=== PATIENT | female | born 1965 | race Caucasian/White ===

== ENCOUNTER 2024-08-01 08:33 | Emergency (ER) | payer BC, SELFPAY ==
--- NOTE | ~2024-08-01 | CT_ITS ---
EXAMINATION: CT diagnostic chest wo con DATE: 08/01/2024 09:38 INDICATION: fall, R rib pain TECHNIQUE: Computed tomography (CT) of the chest was performed without intravenous contrast. Addition al 3D reconstructions utilizing coronal maximum intensity projection (MIP) were performed. Automated exposure control and iterative reconstruction technique were employed. The dose-length product was 24 0.15 mGy-cm. COMPARISON: None FINDINGS: Mild discoid and dependent atelectasis in the lower lobes, right greater than left. No pneumonia, pul monary edema, pleural effusion or pneumothorax. Calcified left lower lobe nodule and calcified left h ilar lymph nodes consistent with old granulomatous disease. Heart size is normal. Atherosclerotic cor onary artery calcific location. No pericardial effusion. Thoracic aorta is normal in caliber. No path ologically enlarged lymphadenopathy. Small sliding-type hiatal hernia. Visualized upper abdomen is un remarkable. There are nondisplaced fractures at the lateral tips of the right transverse process of i s T7 and T8 and of the immediately adjacent posterior right seventh and eighth ribs. Additional nondi splaced fracture of the posterior right fifth and sixth ribs. Mild thoracic spondylosis. IMPRESSION: 1. Nondisplaced fractures of the posterior right fifth-eighth ribs and of the lateral tips of the rig ht transverse processes at T7 and T8. 2. Mild atelectasis in bilateral lower lobes. No acute cardiopulmonary disease. 3. Small sliding-type hiatal hernia. Reviewed, dictated and finalized at location B. [employer] CAPTAIN IMPRESSION: 1. Nondisplaced fractures of the posterior right fifth-eighth ribs and of the l ateral tips of the right transverse processes at T7 and T8. 2. Mild atelectasis in bilateral lower lobes. No acute cardiopulmonary disease. 3. Small sliding-type hiatal hernia.
--- NOTE | ~2024-08-01 | XR_ITS ---
EXAMINATION: XR shoulder RT min 2V DATE: 08/01/2024 09:51 INDICATION: Right shoulder pain. Fall. TECHNIQUE: 6 views of right shoulder were obtained. COMPARISON: None. FINDINGS: Alignment is normal. No fracture. There is mild osteoarthritis of glenohumeral joint and ac romioclavicular joint. IMPRESSION: 1. Mild polyarticular osteoarthritis. Reviewed, dictated and finalized at location A. [employer]
[2024-08-01 08:48] VITALS: BP 139/91; PULSE 73; RESP 13; TEMP 36.6; O2SAT 100
--- NOTE | 2024-08-01 09:21 | ED_ITS ---
HPI - Fall General Chief Complaint: Fall Stated Complaint: fall Time Seen by Provider: 08/01/24 09:01 Source: patient Mode of arrival: ambulatory Limitations: no limitations History of Present Illness HPI Narrative: Patient is a 59 y/o female who presents to the ED with c/o R chest wall/rib pain. Patient reports she missed a step and fell down 3-4 steps around 730 this morning. Landed on her right side on marble floor. Complains of pain to her right chest wall/lateral ribs, right shoulder. Reports pain is worse with deep breathing, taking deep breath. She did take 3 ibuprofen prior to arrival. Denies any head injury or LOC. Denies dizziness or lightheadedness. Denies abdominal pain, nausea, vomiting, hip pain. Has been able to ambulate after the fall. Related Data Allergies Allergy/AdvReac Type Severity Reaction Status Date / Time No Known Allergies Allergy Verified 08/01/24 08:47 Review of Systems Review of Systems: All systems reviewed & are unremarkable except as noted in HPI. All systems reviewed & are unremarkable except as noted in HPI and below Exam Narrative: GENERAL: Mildly uncomfortable appearing, well-nourished, non-toxic, in no acute distress. HEAD: Normocephalic, atraumatic. RESPIRATORY: Airway patent, respirations nonlabored. Clear to auscultation bilaterally, no rales, rhonchi, wheezing. Lung sounds are equal bilaterally but pain reported with deep inspiration CARDIOVASCULAR: Regular rate and rhythm without murmurs, rubs, or gallops. ABDOMINAL: Soft, no tenderness throughout abdomen, nondistended. Normoactive BS. MUSCULOSKELETAL: Moves all extremities. No gross deformities. No significant tenderness throughout cervical, thoracic, lumbar midline spine. No palpable bony deformities. Tenderness to palpation along right anterior lateral inferior chest wall/rib cage. SKIN: Warm, dry, normal color. NEURO: A&O X3. Speech clear. Cranial nerves II-XII grossly intact. Steady gait. No ataxic movements. PSYCHIATRIC: Appropriate mood and affect. Normal interaction. Course Vital Signs Vital signs: Vital Signs Temperature 98 F 08/01/24 08:48 Pulse Rate 73 08/01/24 08:48 Respiratory Rate 13 08/01/24 08:48 Blood Pressure 139/91 H 08/01/24 08:48 Pulse Oximetry 100 08/01/24 08:48 Oxygen Delivery Room Air 12/30/24 08:48 Temperature 97.6 F 08/01/24 11:40 Pulse Rate 87 08/01/24 11:40 Respiratory Rate 20 08/01/24 11:40 Blood Pressure 125/81 08/01/24 11:40 Pulse Oximetry 100 08/01/24 11:40 Oxygen Delivery Room Air 08/01/24 08:48 MDM - Fall MDM Narrative Medical decision making narrative: Patient presented to ED status post mechanical fall downstairs, pain to right ribcage. Denies HI or LOC. Patient mildly uncomfortable appearing. She is neurovascularly intact. Lung sounds appear equal with auscultation. Vital signs are otherwise stable. CT scan of chest showing nondisplaced fractures of 5-8 right-sided ribs as well as fractures of transverse processes of T7/T8. Patient was updated on imaging results. She is feeling improved with pain management in the ED. She remains neurovascularly intact. Discussed case with Dr. Martinez, neurosurgery regarding spinal fxs, advised no follow-up or splinting required with transverse process fractures. Advised does not affect stability of spine. Given amount of fractures in setting of trauma, feel patient best observed overnight for pain control and serial imaging. Will attempt trauma transfer. Discussed case with Dr. Jaime, EDP @ [facility], accepted patient for transfer. Patient in agreement with plan and need for transfer. Will be going via POV. Advised to go straight to [facility], do not eat or drink, do not make any stops. Medical Records Attestation: I reviewed the patient's medical records. Imaging Data Attestation: I personally reviewed and interpreted this imaging study as follows: Radiologist's impression: ITS Impressions Chest CT 08/01/24 09:45 IMPRESSION: 1. Nondisplaced fractures of the posterior right fifth-eighth ribs and of the lateral tips of the right transverse processes at T7 and T8. 2. Mild atelectasis in bilateral lower lobes. No acute cardiopulmonary disease. 3. Small sliding-type hiatal hernia. Shoulder X-Ray 08/01/24 09:52 IMPRESSION: 1. Mild polyarticular osteoarthritis. Discharge Plan Discharge Clinical Impression: Multiple transverse process fractures Multiple fractures of ribs of right side Qualifiers: Encounter type: initial encounter Fracture type: closed Qualified Code(s): S22.41XA - Multiple fractures of ribs, right side, initial encounter for closed fracture Fall down stairs Qualifiers: Encounter type: initial encounter Qualified Code(s): W10.8XXA - Fall (on) (from) other stairs and steps, initial encounter Patient Disposition: Acute Care Hospital Condition: Stable Additional Instructions: GO STRAIGHT TO [facility]. THEY ARE AWARE YOU ARE COMING. DO NOT MAKE ANY STOPS. DO NOT EAT OR DRINK. Patient Language: Telugu Follow-up/Referrals: Fracisco,Sarah Park DO [Primary Care Provider] - Time of Disposition: 11:04
[2024-08-01] MEDS: HYDROcodone/acetaminophen (*CRX) 5-325 MG TABLET 1 TAB PO (09:26)
[2024-08-01] MEDS: LIDOCAINE 5% PATCH 1 PATCH TRANSDERM (09:28)
[2024-08-01 10:05] VITALS: BP 122/79; PULSE 77; RESP 12; O2SAT 99
[2024-08-01 10:34] VITALS: BP 120/79; PULSE 80; RESP 13; O2SAT 97
[2024-08-01 11:40] VITALS: BP 125/81; PULSE 87; RESP 20; TEMP 36.4; O2SAT 100
--- OUTSIDE RECORDS SUMMARY | 2024-08-08 14:12 | XMS_ITS | Clinical Summary ---
Author Organization [facility] Address [address] [place] [address]. [place] [address] [place] [address] Care Team Providers Care Yard Jockey Name Role Phone Sana Sethi OD Unavailable [phone] Elza Benitez MD Primary Care Provider [phone] Allergies No known active allergies Medications Insulin Pen Needle (PEN NEEDLES 31GX5/16 ) 31G X 8 MM [facility] 8 Active hydroCHLOROthiazide (HYDRODIURIL) 50 MG tabletIndications:E ssential hypertension Take 1 tablet (50 mg total) by mouth daily. 90 tablet 3 4 Active metFORMIN (GLUCOPHAGE) 1000 MG tabletIndications:C ontrolled type 2 diabetes mellitus with microalbuminuria, with long-term current use of insulin ([facility]) Take 1 tablet (1,000 mg total) by mouth 2 (two) times daily. 180 tablet 3 4 Active venlafaxine XR (EFFEXOR-XR) 150 MG 24 hr capsuleIndications: Depression, unspecified depression type Take 1 capsule (150 mg total) by mouth daily. 90 capsule 3 4 Active Continuous Glucose Banquet Prep Cook (DEXCOM G7 BRANCH ACCOUNT MANAGER) DeviceIndications:T ype 2 diabetes mellitus with hyperglycemia, with long-term current use of insulin ([facility] H[facility]/HCC) 1 each by Does not apply route daily. 1 each 4 Active lisinopril (PRINIVIL) 10 MG tabletIndications:E ssential hypertension take 1 tablet by mouth every day 90 tablet 2 4 Active buPROPion XL (WELLBUTRIN XL) 150 MG 24 hr tabletIndications:D epression, unspecified depression type take 1 tablet by mouth every day 90 tablet 3 4 Active cetirizine (ZYRTEC) 10 MG tabletIndications:A llergic rhinitis, unspecified seasonality, unspecified trigger take 1 tablet by mouth every day 90 tablet 3 4 Active Semaglutide (RYBELSUS) 14 MG TabIndications:Diab etes Mellitus Take 14 mg by mouth daily. Indications: Diabetes 30 tablet 3 4 Active atorvastatin (LIPITOR) 10 MG tabletIndications:O ther hyperlipidemia TAKE 1 TABLET BY MOUTH EVERY DAY IN THE EVENING 90 tablet 2 4 Active insulin glargine (LANTUS SOLOSTAR) 100 UNIT/ML injection (PEN)Indications:Co ntrolled type 2 diabetes mellitus with microalbuminuria, with long-term current use of insulin ([facility]) Inject 35 Units into the skin 2 (two) times daily. 60 mL 3 4 06/03/20 25 Active dapagliflozin (FARXIGA) 10 MG tabletIndications:C ontrolled type 2 diabetes mellitus with microalbuminuria, with long-term current use of insulin ([facility]) TAKE 1 TABLET BY MOUTH EVERY DAY 90 tablet 2 4 Active Continuous Glucose Sensor (DEXCOM G7 SENSOR) MiscIndications:Typ e 2 diabetes mellitus with hyperglycemia, with long-term current use of insulin ([facility]) 1 EACH BY DOES NOT APPLY ROUTE EVERY 10 (TEN) DAYS. 6 each 11 4 Active Active Problems Problem Noted Date Diagnosed Date Essential hypertension 10/03/2021 Allergic rhinitis, unspecifi ed seasonality, unspecified trigger 10/03/2021 Depression, unspecified depression type 10/04/19 22 Insomnia 01/18/2021 History of colon polyps 12/08/2019 Albuminuria 10/06/2018 Controlled type 2 diabetes m ellitus with microalbuminuria, with long-term current use of insulin ([facility]/HCC) 10/06/2018 Eczema 10/19/2014 Morbid obesity ([facility]CC) 02/01/2014 Hyperlipidemia 11/11/2012 Resolved Problems Problem Noted Date Diagnosed Date Resolved Date Acute left ankle pain 07/03/20232023 Left foot pain 07/03/2023 12/16/2023 Yeast vaginitis 07/03/2023 12/16/2023 Preventative health care 03/04/202203/2022 Screening for colon cancer 03/04/2022 0 03/10/2022 Preventative health care 10/03/202101/2022 Muscle spasm of left shoulder area 01/18/2021 12/16/2023 Plantar warts 01/18/2021 12/16/2023 Preventative health care 01/18/202111/2022 Need for shingles vaccine 04/17/2020 Need for prophylactic vaccin ation and inoculation against influenza 04/17/2020 04/23/2020 Breast cancer screening 10/01/201804/03 Osteoarthritis of left knee 07/10/2016 12/16/2023 Polyp of colon 04/13/2015 12/08/2019 Adenomatosis 11/12/2012 12/16/2023 Encounter for preventive health examination 11/11/2012 04/13/2020 Encounters Date Type Department Care Team Description 08/04/2024 MyChart Message Enc [facility] [place] [address], [address] [place] [phone] Elza Benitez MD Need to reschedule with Betty Hines for dex fix. 06/28/2024 MyChart Message Enc [place] [id number] [place] [address] [facility] Provider Instructions for Sharing Dexcom Data with Dr. Benitez 06/24/2024 3:40 PM MANAGER LIGHTING Office Visit [facility] [place] [address] [facility], [address] [place] [phone] Elza Benitez MD Follow Up 06/24/2024 Travel 06/23/2024 Scan [facility] Scanned, Doc [facility] Dilated Eye Exam (SCAN) from Last 3 Months Immunizations Name Administration Dates Next Due Flublok (Quadrivalent) 04/17/2020 Flucelvax 6 Months+ (Prefill ed Syringe) 05/13/2021 Hepatitis A (Generic) 08/03/2000,08/03/1999 Influenza (Generic) 05/03/2018,05/03/2017 Influenza Adult (Generic) 05/03/2023,,05/13/2021,2018 PFIZER COVID-19 (12+) MRNA, LNP-S, PF, JEFFRY-SUCROSE, 30 MCG/0.3 ML (COMIRNATY) 06/24/2024 Pneumococcal (Prevnar 13) 03/19/2017 Shingrix 08/17/2020,04/17/2020 Tdap (Adacel) 03/22/2024 Tdap (Generic) 01/07/2012 Zoster (Zostavax) [address] Unt/0.65Ml 03/19/2017 Family History Medical History Relation Comments skin cancer Father Breast Cancer Maternal Aunt ? age Breast Cancer Maternal Grandmother Diabetes Other Hypertension Other Relation Status Comments Father Maternal Aunt Maternal Grandmother Other Alive Social History Tobacco Use Types Packs/Day Years Used Date Smoking Tobacco: Never Passive Smoke Exposure: Past Smokeless Tobacco: Never Tobacco Cessation:Counseling Given: No Alcohol Use Standard Drinks/Week Comments Not Currently 0 (1 standard drink = 0.6 oz pur e alcohol) PHQ-2 Answer Date Recorded Patient Health Questionnaire-2 Score 0 12/15/2023 Comments No Sex and Gender Information Value Date Recorded Sex Assigned at Not on file Legal Sex Female 7:26 PM CDT Gender Identity Not on file Sexual Orientation Not on file 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 Not on file Not on file Last Filed Vital Signs Vital Sign Reading Time Taken Comments Blood Pressure 130/80 06/24/2024 3:29 PM MANAGER LIGHTING Pulse 100 06/24/2024 3:29 PM MANAGER LIGHTING Temperature 36.4 ??C (97.6 ??F) 06/24/2024 3:29 PM CS T Respiratory Rate 16 06/24/2024 3:29 PM MANAGER LIGHTING Oxygen Saturation 98% 06/24/2024 3:29 PM MANAGER LIGHTING Inhaled Oxygen Concentration - - Weight 93 kg (205 lb) 06/24/2024 3:29 PM MANAGER LIGHTING Height 167.6 cm (5' 6 ) 06/24/2024 3:29 PM MANAGER LIGHTING Body Mass Index 33.09 06/24/2024 3:29 PM MANAGER LIGHTING Plan of Treatment Upcoming Encounters Date Type Department Care Team (Late st Contact Info) Description 09/29/2024 8:00 AM MANAGER LIGHTING Office Visit [facility] Family Medicine - [address], [address] [place] [address] Elza Benitez MD [facility] [facility] [address] [place] [address] Health Maintenance Due Date Last Done Comments Kidney Health Evaluation 1966 Hepatitis C 1984 Hepatitis B Vaccines (1 of 3 - 19+ 3-dose series) 1985 Cervical Cancer Screening Pap with HPV Testing (Age 30 to 64) Every 5 Years 1996 Pneumococcal Vaccine: Pediatrics (0 to 5 Years) and At-Risk Patients (6 to 64 Years) (2 of 2 - PPSV23 or PCV20) 05/14/2017 03/19/2017 Cervical Cancer Screening Pap Smear (Age 30 to 64) Every 3 Years 01/19/2024 01/18/2021, 01/18/2021, 08/21/2017, Additional history exists Cervical Cancer Screening with HPV 01/19/2024 Influenza Adult (#1) 2024 05/03/2023, 05/16/2022, 05/13/2021, Additional history exists Annual Physical 07/03/2024 07/03/2023, 0809/2021, 01/18/2021, Additional history exists Lipid Panel 07/17/2024 07/17/2023, 07/03, 03/14/2022, Additional history exists Hemoglobin A1C 12/22/2024 06/24/2024, 03/04, 12/15/2023, Additional history exists Mammogram Screening 04/15/2026 04/15/2024, 03/31/2023, 02/21/2022, Additional history exists Diabetes: Retinopathy Eye Exam 06/23/2026 06/23/2024 Colorectal Cancer Screening Colonoscopy (10 Years) 07/07/2032 07/07/2022, 07/07/2022, 05/03/2015 DTaP, Tdap and Td Vaccines (3 - Td or Tdap) 03/22/2034 03/22/2024, 01/07/2012 Zoster Vaccines Completed 08/17/2020, 04/03, 03/19/2017 COVID-19 Vaccine Completed 06/24/2024, , 02/18/2022, Additional history exists Meningococcal Vaccine Aged Out No constance shad eligible based on patient's age to complete this topic RSV Immunizations Under 20 Months Aged Out No longer eligible based on patient's age to complete this topic Procedures Procedure Name Priority Date/Time Associated Diagnosis Comments HEMOGLOBIN, GLYCOSYLATED Routine 06/24/2024 4:05 PM MANAGER LIGHTING Type 2 diabetes mellitus with diabetic microalbuminuria, with long-term current use of insulin ([facility]) COLLECT.CAPILLARY (FNGR,HEEL,EAR) Routine 06/24/2024 3:29 PM MANAGER LIGHTING Type 2 diabetes mellitus with diabetic microalbuminuria, with long-term current use of insulin ([facility]) DIABETIC RETINOPATHY EXAM (NEGATIVE)(SCAN ORDER) Routine 06/23/2024 MG SCREENING W JANICE ABIDA DIGI Routine 04/15/2024 3:02 PM CDT Screening mammogram, encounter for LIPID PANEL Routine 07/17/2023 8:13 AM MANAGER LIGHTING Hyperlipidemia, unspecified hyperlipidemia type Morbid obesity ([facility]) Controlled type 2 diabetes mellitus with microalbuminuria, with long-term current use of insulin ([facility]) Essential hypertension COLONOSCOPY Routine 07/07/2022 9:27 AM MANAGER LIGHTING THINPREP IMAGING SYSTEM PAP Routine 01/18/2021 4:28 PM CDT Encounter for screening for malignant neoplasm of cervix from Last 3 Months or Most Recently Relevant to Health Maintenance Results * (ABNORMAL) HEMOGLOBIN, GLYCOSYLATED (06/24/2024 4:05 PM MANAGER LIGHTING) HGB A1C 8.2 % [facility] 06/24/2024 4:05 PM MANAGER LIGHTING Elza Benitez MD LABORATORY Final Result Performing Organization Address City/[facility]/ZIP Co de Phone Number MG-N [facility] [facility] [address] [place] [address], * DIABETIC RETINOPATHY EXAM (NEGATIVE) (06/23/2024) us Doc Med [facility] Scanned SCANNING Final Resu lt [facility] ONBASE * MG SCREENING W JANICE ABIDA DIGI (04/15/2024 3:02 PM CDT) Anatomical Region Laterality Modality Breast Bilateral Mammography 04/18/2024 7:22 AM CDT Impressions 04/18/2024 7:23 AM CDT ===== IMPRESSION: ===== 1. ??Stable mammographic appearance with no new findings to suggest malignancy in either breast. Assessment: ACR BI-RADS 2 - BENIGN FINDING(S) Recommendation: 1:Routine Screening Bilateral Comments: Ordered By: ELZA BENITEZ Interpreted By: Fabricio Torres MD, 04/18/2024 7:22 AM Narrative 04/18/2024 7:23 AM CDT [facility] [address] [place] [address] Examination: Digital bilateral screening mammogram with 3D Tomosynthesis Exam Date/Time: 04/15/2024 2:51 PM Reason For Exam: ??routine ? No prior breast procedures. No personal or first-degree relative history of breast cancer. No current complaints. Comparison: Mammograms from 03/31/2023 02/21/2022 01/18/2021 Technique: Digital screening mammography of both breasts was performed in addition to 3-D Tomosynthesis technique. This study was read with the assistance of a computer-aided detection system. Tissue density: There are scattered areas of fibroglandular density. Findings: Benign axillary lymph nodes. Tiny benign rounded calcifications. No suspicious interval change in parenchymal pattern from prior studies. There is no new focal asymmetry, dominant mass lesion, area of skin thickening, or cluster of suspicious appearing calcifications in either breast to suggest malignancy. us Elza Benitez MD MAMMO Final Result * LIPID PANEL (07/17/2023 8:13 AM MANAGER LIGHTING) Pathologist [facility] CHOLESTEROL 145 0 - 199 MG/DL [facility] TRIGLYCERIDES 115 0.00 - 150.00 MG/DL [facility] Comment: NCEP REFERENCE VALUES FOR TRIGLYCERIDES: NORMAL: ? <150 MG/DL BORDERLINE HIGH: ?150 - 199 MG/DL HIGH: ? 200 - 499 MG/DL VERY HIGH: ?>/= 500 MG/DL HDL 64 >40 MG/DL [facility] LDL (CALCULATED) 61 0 - 99 MG/DL [facility] Comment: CUTOFF VALUES RECOMMENDED BY THE NATIONAL CHOLESTEROL EDUCATION PROGRAM: DESIRABLE: ?CHOLESTEROL <200 MG/DL ? LDL <100 MG/DL BORDERLINE: ?? CHOLESTEROL 200-239 MG/DL ?LDL 101-159 MG/DL HIGHER RISK: ??CHOLESTEROL >240 MG/DL ? LDL >160 MG/DL, HDL <40 MG/DL NON HDL CHOLESTEROL 81 NO REFERENCE RANGE MG/DL [facility] Comment: A REASONABLE GOAL FOR NON-HDL CHOLESTEROL IS ONE THAT IS 30 MG/DL HIGHER THAN THE LDL CHOLESTEROL GOAL. CHOL/HDL RATIO 2.3 0.0 - 5.0 . [facility] Comment: IS PATIENT FASTING?->YES ON NOVEMBER 25, 2022, [facility] CHANGED THE EQUATION FOR CALCULATING ESTIMATED LOW-DENSITY LIPOPROTEIN-CHOLESTEROL (LDL-C) FROM THE FRIEDEWALD EQUATION TO THE THEODORE/BUSH EQUATION. THIS NEW EQUATION IS ONLY VALID FOR LIPID PANELS WITH TRIGLYCERIDES < 400 MG/DL. STUDIES HAVE DEMONSTRATED THAT THIS NEW EQUATION WILL IMPROVE THE ACCURACY OF LDL-C, ESPECIALLY IN SCENARIOS WHEN LDL-C CONCENTRATIONS ARE RELATIVELY LOW (< 100 MG/DL), TRIGLYCERIDES ARE ELEVATED, OR PATIENT IS NON-FASTING. REFERENCES: - BETH JAIMES, MELECIO RAMOS, GLORY SHETH, COLE CASTELLANO, COLE HOOPER, DEONDRE PRINCE, AND ARNOL ORTEGA. 2013. COMPARISON OF A NOVEL METHOD VS THE FRIEDEWALD EQUATION FOR ESTIMATING LOW-DENSITY LIPOPROTEIN CHOLESTEROL LEVELS FROM THE STANDARD LIPID PROFILE. LEWIS: THE JOURNAL OF THE [employer] 310 (19): 2061-68. - COLT V, SAKSHI J, LARISSA A, TERRY M, ILIA R, WALLY E, NIKI RS, SHANNON SR, THEODORE SS. FASTING VERSUS NONFASTING AND LOW-DENSITY LIPOPROTEIN CHOLESTEROL ACCURACY. CIRCULATION. 2018 AUG 04;137(1):10-19. 07/17/2023 8:13 AM MANAGER LIGHTING 07/18/2023 5:32 AM MANAGER LIGHTING Jaci Yap DO LABORATORY Final Result [facility] [address] [place] [address], * Colonoscopy (07/07/2022 9:27 AM MANAGER LIGHTING) Narrative Procedure Note Altagracia Bell MD - 07/07/2022 9:27 AM CST ALTAGRACIA BELL MD, FACG, FACP COLONOSCOPY 07/07/2022 This is a 57-year-old female with history of T2DM, HTN and kidney stoneswho now presents for colonoscopy for personal history of colon polyps. GI review of systems is negative. No endocarditis risk factors. No KnownAllergies Medications: see list. Family history: negative for colon cancer. VITALS: Stable. LUNGS: Clear. HEART: RRR. S1/S2 normal. ABDOMEN:NABS/NT. The procedure of colonoscopy, its indications, alternatives of bariumstudies and risks including perforation, bleeding, infection, reaction tomedication as well as the possible need for blood or surgery werediscussed with the patient prior to the procedure. The patient voicesunderstanding, agrees to proceed and provides informed consent. INDICATION: Personal history of colon polyps. POST-OP: Normal. SEDATION: Per Anesthesia PREP: Good. With the patient in the left lateral decubitus position, the [id number] colonoscope was introduced into the rectum and advanced easilyto the Terminal Ileum. Careful inspection of the mucosa was made uponinsertion and withdrawal of the endoscope. FINDINGS: Terminal ileum: distal 5 cm normal. Cecum, Ascending colon, Transversecolon, Descending colon, Sigmoid colon and Rectum including retroflexionnormal. No masses, polyps, AVMs, colitis or diverticulosis seen. No complications, blood loss or implants. ASSESSMENT AND PLAN: Personal history of colon polyps: - Colonoscopy 03/2010 with polyp; colonoscopy 03/2015 normal - Surveillance colonoscopy 07/07/2022 normal - Screening colonoscopy in 10 years Thank you for allowing me to care for your patient. She will follow-upwith Dr. Yap as needed. Altagracia Bell M.D. Cc: Dr. Regina Yap us Altagracia Bell MD GI PROCEDURE ORDERABLES Fin al Result * THINPREP IMAGING SYSTEM PAP (01/18/2021 4:28 PM CDT) THIN PREP PAP SEE RESULTS BELOW [facility] Comment: CASE REPORT: CYTOLOGY GYNECOLOGICAL REPORT ? CASE: [id number] ? AUTHORIZING PROVIDER: ??JACI YAP ?COLLECTED: ? 01/18/2021 1628 ?? ORDERING LOCATION: ? [facility] PATHOLOGY ? RECEIVED: ? 01/21/2021 1127 ?? FIRST SCREEN: ?MA, STRONG, CT ? SPECIMEN: ?SCREENING PAP - IMAGED, CERVIX ? STATEMENT OF ADEQUACY: SATISFACTORY FOR EVALUATION ? TRANSFORMATION ZONE COMPONENT CANNOT BE DEFINITIVELY IDENTIFIED DUE TO THE PRESENCE OF ATROPHY OR OTHER HORMONAL CHANGES FINAL DIAGNOSIS: NEGATIVE FOR INTRAEPITHELIAL LESION OR MALIGNANCY (NIL) ? ATROPHIC CELL PATTERN ? ELECTRONICALLY SIGNED BY LIGIA CLAY CT ON 01/22/2021 AT ??1:06 PM ? CHARTABLE COMMENT: NOTE: THIS SPECIMEN WAS REVIEWED BY A DEVULCANIZER OPERATOR AND/OR PATHOLOGIST ( INDICATED IN THIS REPORT) AFTER EVALUATION USING THE WheelzP IMAGING SYSTEM. CLINICAL INFORMATION: MENSTRUAL STATUS: ? LMP (IF APPLICABLE): ? CLINICAL HISTORY/PREVIOUS PAP: ? TYPE OF NEOPLASIA (IF APPLICABLE): ? OTHER HISTORY: ? HORMONES (IF APPLICABLE): ? PAP EDUCATIONAL NOTE: THE PAP TEST IS A SCREENING TEST WITH AN INHERENT FALSE NEGATIVE RATE. LIQUID-BASE SAMPLING MAY DECREASE, BUT WILL NOT ELIMINATE, FALSE NEGATIVE RESULTS. A NEGATIVE RESULT DOES NOT PRECLUDE THE PRESENCE AND/OR DEVELOPMENT OF DISEASE, SINCE THE PRESENCE OF ABNORMAL CELLS IN THE SAMPLE DEPENDS ON THE LOCATION OF THE LESION AND SAMPLING TECHNIQUE. CONTINUED REGULAR SCREENING IS THE BEST METHOD OF CANCER PREVENTION. IF REPORTED CYTOLOGIC FINDING DO NOT CORRELATE WITH PHYSICAL AND/OR HISTORICAL FINDINGS, FURTHER INVESTIGATION IS RECOMMENDED, CLINICALLY WARRANTED. 01/18/2021 4:28 PM CDT 01/21/2021 11:27 AM CDT us Jaci Yap DO PATHOLOGY/CYTOLOGY ORDERABLE S Final Result [facility] [address] [place] [address], from Last 3 Months or Most Recently Relevant to Health Maintenance Insurance [facility] Care Teams Yard Jockey Relationship Specialty Start Date End Date Elza Benitez MD [address] [place] [address] PCP - General FAMILY PRACTICE 12/15/23 Sana Sethi OD [address] [place] [address] Cripple Chaser 04/30/22
--- OUTSIDE RECORDS SUMMARY | 2024-08-08 14:12 | XMS_ITS | Clinical Summary ---
Author Organization [facility] Address [address] [place] [address] Care Team Providers Care Caustic Purification Operator Name Role Phone Unavailable Primary Care Provider Unavailabl e Source Comments [facility],non-owned Affiliates and Associated Physician Practices is amultiple site organization consisting of ambulatory clinics and hospital sitesin [place], [place], [place] and [place]. This disclosure is being madepursuant to the Care Everywhere program and may not contain all information available regarding this patient. Last updated 18.[facility] Encounters Date Type Department Care Team Description 08/01/2024 - 08/01/2024 2:33 PM HAND TOUCH UP PAINTER Emergency [facility] EMERGENCY DEPARTMENT [address] [place] [id number] from Last 3 Months Social History Tobacco Use Types Packs/Day Years Used Date Smoking Tobacco: Never Assessed Sex and Gender Information Value Date Recorded Sex Assigned at Not on file Gender Identity Not on file Sexual Orientation Not on file Plan of Treatment Health Maintenance Due Date Last Done Comments COLOGUARD (AGES 45-75) - COL ON CA SCREENING 1966 COLON MONITORING 1966 COLONOSCOPY - COLON CA SCREENING 1966 CT COLONOGRAPHY - COLON CA SCREENING 1966 Colorectal Cancer Screening 1966 FIT - COLON CA SCREENING 1966 FLEX SIG - COLON CA SCREENING 1966 LIPID TESTING 1966 MAMMOGRAM 1966 PAP SMEAR 1966 HIV SCREENING 1981 HEPATITIS C SCREENING 04/05/1984 DTAP/TDAP/TD VACCINES (1 - Tdap) 1985 HEPATITIS B VACCINE (1 of 3 - 19+ 3-dose series) 1985 ZOSTER VACCINE (1 of 2) 2016 COVID-19 VACCINE (2023-2 5 season) 2024 INFLUENZA VACCINE (#1) 2024 DEPRESSION SCREENING 08/03/2024 HIB VACCINE Aged Out No longer eligi ble based on patient's age to complete this topic HPV VACCINE Aged Out No longer eligi ble based on patient's age to complete this topic MENINGOCOCCAL VACCINE Aged Out No constance shad eligible based on patient's age to complete this topic PNEUMOCOCCAL VACCINE Aged Out No long er eligible based on patient's age to complete this topic
--- OUTSIDE RECORDS SUMMARY | 2024-08-08 14:12 | XMS_ITS | Encounter Summary ---
Author Organization [facility] Address [address] [place] [address]. 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 Not on file Not on file documented as of this encounter Plan of Treatment Upcoming Encounters Date Type Department Care Team (Late st Contact Info) Description 09/29/2024 8:00 AM HOMEMAKER COMPANION Office Visit [facility] Family Medicine - [address], [address] [place] [address] Elza Benitez MD [address] [facility] [address] [place] [address] documented as of this encounter Visit Diagnoses Not on filedocumented in this encounter Additional Health Concerns Assessment Noted Time PHQ-9 Depression Total Score: 0 12/15/19 4:05 PM CDT documented as of this encounter Care Teams Mud Logger Relationship Specialty Start Date End Date Elza Benitez MD [address] [address] PCP - General FAMILY PRACTICE 12/15/23 Sana Sethi OD [address] [place] [address] Legislative Advocate 04/30/22 documented as of this encounter
--- OUTSIDE RECORDS SUMMARY | 2024-08-08 14:12 | XMS_ITS | Encounter Summary ---
Author Organization [facility] Address [address] [place] [address]. 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 Family Medicine - [place], [address] [place] [address] Elza Benitez MD [address] [facility] [address] [place] [address] documented as of this encounter Visit Diagnoses Not on filedocumented in this encounter Additional Health Concerns Assessment Noted Time PHQ-9 Depression Total Score: 0 12/15/19 4:05 PM CDT documented as of this encounter Care Teams Coin Dealer Relationship Specialty Start Date End Date Elza Benitez MD [address] [address] PCP - General FAMILY PRACTICE 12/15/23 Sana Sethi OD [address] [place] [address] Financial Compliance Officer 04/30/22 documented as of this encounter
--- OUTSIDE RECORDS SUMMARY | 2024-08-08 14:12 | XMS_ITS | Encounter Summary ---
Author Organization [facility] Address [address] [place] [address]. [place], [place] [address] [place] [address] Care Team Providers Care Restoration Technician Name Role Phone Sana Sethi OD Unavailable [phone] Elza Benitez MD Primary Care Provider [phone] Reason for Referral * Imaging (Routine) - New Request Specialty Diagnoses / Procedures Referred By Unruly pham Referred To Contact RADIOLOGY Diagnoses Screening mammogram, encounter for Procedures MG SCREENING W Elza Becker MD [facility] [address] [place] [address] Phone: tel: fax: Referral ID Status Reason Start Date Expiration Date V isits Requested Visits Authorized [id number] New Request 03/10/2024 05/10/2025 1 1 Reason for Visit * Imaging (Routine) - New Request Specialty Diagnoses / Procedures Referred By Unruly pham Referred To Contact RADIOLOGY Diagnoses Screening mammogram, encounter for Procedures MG SCREENING W Elza Becker MD [facility] [address] [place] [address] Phone: tel: fax: Referral ID Status Reason Start Date Expiration Date V isits Requested Visits Authorized [id number] New Request 03/10/2024 05/10/2025 1 1 Encounter Details Date Type Department Care Team (Latest Contact Info) Description 04/15/2024 2:45 PM CDT - 04/15/2024 11:59 PM CDT Hospital Encounter 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 Not on file Not on file Not on file documented as of this encounter Medications at Time of Discharge buPROPion XL (WELLBUTRIN XL) 150 MG 24 hr tabletIndications:De pression, unspecified depression type take 1 tablet by mouth every day 90 tablet 3 03/18/2024 cetirizine (ZYRTEC) 10 MG tabletIndications:Al lergic rhinitis, unspecified seasonality, unspecified trigger take 1 tablet by mouth every day 90 tablet 3 03/18/2024 Continuous Glucose Reimbursement Manager (DEXCOM G7 HEEL BURNISHER) DeviceIndications:Ty pe 2 diabetes mellitus with hyperglycemia, with long-term current use of insulin (CMS/HCC HHS/HCC) 1 each by Does not apply route daily. 1 each 12/16/2023 hydroCHLOROthiazide (HYDRODIURIL) 50 MG tabletIndications:Es sential hypertension Take 1 tablet (50 mg total) by mouth daily. 90 tablet 3 12/15/2023 Insulin Pen Needle (PEN NEEDLES 31GX5/16 ) 31G X 8 MM [facility] 08/25/2017 lisinopril (PRINIVIL) 10 MG tabletIndications:Es sential hypertension take 1 tablet by mouth every day 90 tablet 2 03/14/2024 metFORMIN (GLUCOPHAGE) 1000 MG tabletIndications:Co ntrolled type 2 diabetes mellitus with microalbuminuria, with long-term current use of insulin (CMS/HCC HHS/HCC) Take 1 tablet (1,000 mg total) by mouth 2 (two) times daily. 180 tablet 3 12/15/2023 Semaglutide (RYBELSUS) 14 MG TabIndications:Diabe erin Mellitus Take 14 mg by mouth daily. Indications: Diabetes 30 tablet 3 03/27/2024 venlafaxine XR (EFFEXOR-XR) 150 MG 24 hr capsuleIndications:D epression, unspecified depression type Take 1 capsule (150 mg total) by mouth daily. 90 capsule 3 12/15/2023 atorvastatin (LIPITOR) 10 MG tabletIndications:Ot her hyperlipidemia Take 1 tablet (10 mg total) by mouth every evening. 90 tablet 1 12/15/2023 4 Continuous Glucose Sensor (DEXCOM G7 SENSOR) MiscIndications:Type 2 diabetes mellitus with hyperglycemia, with long-term current use of insulin (CMS/HCC HHS/HCC) 1 each by Does not apply route every 10 (ten) days. 3 each 4 12/16/2023 4 dapagliflozin (FARXIGA) 10 MG tabletIndications:Co ntrolled type 2 diabetes mellitus with microalbuminuria, with long-term current use of insulin (CMS/HCC HHS/HCC) Take 1 tablet (10 mg total) by mouth daily. 90 tablet 1 12/15/2023 4 insulin glargine (LANTUS SOLOSTAR) 100 UNIT/ML injection (PEN)Indications:Con trolled type 2 diabetes mellitus with microalbuminuria, with long-term current use of insulin (CMS/HCC HHS/HCC) Inject 35 Units into the skin 2 (two) times daily. 63 mL 1 12/15/2023 4 documented as of this encounter Plan of Treatment Upcoming Encounters Date Type Department Care Team (Late st Contact Info) Description 09/29/2024 8:00 AM EMERGENCY ROOM SPECIALIST Office Visit [facility] Family Medicine - [place] [address] [facility], [address] [place] [address] Elza Benitez MD [address] [address] documented as of this encounter Procedures Procedure Name Priority Date/Time Associated Diagnosis Comments MG SCREENING W JANICE ABIDA DIGI Routine 04/15/2024 3:02 PM CDT Screening mammogram, encounter for documented in this encounter Results * MG SCREENING W JANICE ABIDA DIGI (04/15/2024 3:02 PM CDT) Anatomical Region Laterality Modality Breast Bilateral Mammography 04/18/2024 7:22 AM CDT Impressions 04/18/2024 7:23 AM CDT ===== IMPRESSION: ===== 1. ??Stable mammographic appearance with no new findings to suggest malignancy in either breast. Assessment: ACR BI-RADS 2 - BENIGN FINDING(S) Recommendation: 1:Routine Screening Bilateral Comments: Ordered By: ELZA BENITEZ Interpreted By: aFbricio Torres MD, 04/18/2024 7:22 AM Narrative 04/18/2024 7:23 AM CDT [facility] [address] [place] [address] Examination: Digital bilateral screening mammogram with 3D [...] us Elza Benitez MD MAMMO Final Result documented in this encounter Visit Diagnoses Diagnosis Screening mammogram, encounter for documented in this encounter Additional Health Concerns Assessment Noted Time PHQ-9 Depression Total Score: 0 12/15/19 24 4:05 PM CDT documented as of this encounter Care Teams Restoration Technician Relationship Specialty Start Date End Date Elza Benitez MD [address] [place] [address] PCP - General FAMILY PRACTICE 12/15/23 Sana Sethi OD [address] [place] [address] Emergency Preparedness Manager 04/30/22 documented as of this encounter
--- OUTSIDE RECORDS SUMMARY | 2024-08-08 14:12 | XMS_ITS | Encounter Summary ---
Author Organization [facility] Address [address] [place] [address]. [place], [place] [address] [place] [address] Care Team Providers Care Direct Support Worker Name Role Phone Sarah Yap DO Primary Care Provider [phone] Sana Sethi OD Unavailable [phone] Encounter Details Date Type Department Care Team (Late Contact Info) Description 07/17/2023 7:50 AM PRESS PULLER Laboratory Only [facility] [address] [facility] [address] [place] [id number] Sarah Yap DO [address] [place] [address] Social History Tobacco Use Types Packs/Day Years Used Date Smoking Tobacco: Never Smokeless Tobacco: Never Alcohol Use Standard Drinks/Week Comments Not Currently 0 (1 standard drink = 0.6 oz pur e alcohol) PHQ-2 Answer Date Recorded Patient Health Questionnaire-2 Score 2 07/03/2023 Comments No Sex and Gender Information Value Date Recorded Sex Assigned at Not on file Legal Sex Female 7:26 PM CDT Gender Identity Not on file Sexual Orientation Not on file 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 file Not on file Not on file documented as of this encounter Plan of Treatment Upcoming Encounters Date Type Department Care Team (Late st Contact Info) Description 09/29/2024 8:00 AM PRESS PULLER [facility] Family [facility] - [place] [address] [facility], [address] [place] [address] Elza Benitez MD 1512 [place] [address] documented as of this encounter Procedures Procedure Name Priority Date/Time Associated Diagnosis Comments COMPREHENSIVE METABOLIC PANEL Routine 07/17/2023 8:13 AM PRESS PULLER Hyperlipidemia, unspecified hyperlipidemia type Morbid obesity ([facility] HHS/HCC) Controlled type 2 diabetes mellitus with microalbuminuria, with long-term current use of insulin ([facility] HHS/[facility]) Essential hypertension LIPID PANEL Routine 07/17/2023 8:13 AM PRESS PULLER Hyperlipidemia, unspecified hyperlipidemia type Morbid obesity ([facility] HHS/HCC) Controlled type 2 diabetes mellitus with microalbuminuria, with long-term current use of insulin ([facility] HHS/[facility]) Essential hypertension HEMOGLOBIN, GLYCOSYLATED Routine 07/17/2023 8:11 AM PRESS PULLER Albuminuria COLLECTION VENOUS BLOOD VENIPUNCTURE Routine 07/17/2023 8:11 AM PRESS PULLER Albuminuria ALBUMIN URINE RANDOM W/CREATININE Routine 07/17/2023 8:11 AM PRESS PULLER Albuminuria documented in this encounter Results * LIPID PANEL (07/17/2023 8:13 AM PRESS PULLER) [facility] CHOLESTEROL 145 0 - 199 MG/DL [facility] TRIGLYCERIDES 115 0.00 - 150.00 MG/DL [facility] Comment: NCEP REFERENCE VALUES FOR TRIGLYCERIDES: NORMAL: ? <150 MG/DL BORDERLINE HIGH: ?150 - 199 MG/DL HIGH: ? 200 - 499 MG/DL VERY HIGH: ?>/= 500 MG/DL HDL 64 >40 MG/DL [facility] LDL (CALCULATED) 61 0 - 99 MG/DL [facility] Comment: CUTOFF VALUES RECOMMENDED BY THE NATIONAL CHOLESTEROL EDUCATION PROGRAM: DESIRABLE: ?CHOLESTEROL <200 MG/DL ? LDL <100 MG/DL BORDERLINE: ?? CHOLESTEROL 200-239 MG/DL ?LDL 101-159 MG/DL HIGHER RISK: ??CHOLESTEROL >240 MG/DL ? LDL >160 MG/DL, HDL <40 MG/DL NON HDL CHOLESTEROL 81 NO REFERENCE RANGE MG/DL [facility] Comment: A REASONABLE GOAL FOR NON-HDL CHOLESTEROL IS ONE THAT IS 30 MG/DL HIGHER THAN THE LDL CHOLESTEROL GOAL. CHOL/HDL RATIO 2.3 0.0 - 5.0 . [facility] Comment: IS PATIENT FASTING?->YES ON NOVEMBER 25, 2022, [facility] CHANGED THE EQUATION FOR CALCULATING ESTIMATED LOW-DENSITY LIPOPROTEIN-CHOLESTEROL (LDL-C) FROM THE FRIEDEWALD EQUATION TO THE THEODORE/RACHELLE EQUATION. THIS NEW EQUATION IS ONLY VALID [...] LIPID PROFILE. LEWIS: THE JOURNAL [employer] 310 (19): 2061-68. - COLT V, SAKSHI J, LARISSA A, TERRY M, ILIA R, WALLY E, NIKI RS, SHANNON SR, THEODORE SS. FASTING VERSUS NONFASTING AND LOW-DENSITY LIPOPROTEIN CHOLESTEROL ACCURACY. CIRCULATION. 2018 AUG 04;137(1):10-19. 07/17/2023 8:13 AM PRESS PULLER 07/18/2023 5:32 AM PRESS PULLER us Sarah Yap DO LABORATORY Final Result [facility] [address] [place] [address], * (ABNORMAL) COMPREHENSIVE METABOLIC PANEL (07/17/2023 8:13 AM PRESS PULLER) [facility] Signature SODIUM S/P/B 140 133 - 146 MMOL/L [facility] POTASSIUM S/P/B 4.2 3.5 - 5.1 MMOL/L [facility] CHLORIDE S/P/B 99 98 - 107 MMOL/L [facility] CO2 31 21 - 31 MMOL/L [facility] ANION GAP 10 4 - 13 MMOL/L [facility] BUN 12 7 - 25 MG/DL [facility] CREATININE S/P/B 0.56(L) 0.60 - 1.30 MG/DL [facility] GFR ESTIMATE >90 >=60 ML/MIN/1.7 3 M2 [facility] CALCIUM S/P/B 10.7(H) 8.3 - 10.5 MG/DL [facility] GLUCOSE 110(H) 70 - 100 MG/DL [facility] TOTAL PROTEIN S/P/B 7.0 6.4 - 8.3 G/DL [facility] ALBUMIN S/P/B 4.5 3.5 - 5.0 G/DL [facility] ALT 22 9 - 43 UNITS/L [facility] ALKALINE PHOSPHATASE S/P/B 105(H) 34 - 104 UNITS/L [facility] AST 24 13 - 39 UNITS/L [facility] BILIRUBIN TOTAL S/P/B 0.4 0.2 - 1.2 MG/DL [facility] Comment:IS PATIENT FASTING?- >YES 07/17/2023 8:13 AM PRESS PULLER 07/18/2023 5:32 AM PRESS PULLER us Sarah Yap DO LABORATORY Final Result Performing Organization Address City/[facility]/ZIP Co de Phone Number [facility] [address] [place] [address], * ALBUMIN URINE RANDOM (07/17/2023 8:11 AM PRESS PULLER) MICROALBUMIN (U) 80 [facility] CREATININE RANDOM (U) 200 [facility] MICROALB/CREAT 30-300 [facility] URINE SPECIMEN / Unknown 07/17/2023 8:11 AM PRESS PULLER us Sarah Yap DO URINE ORDERABLES Final Resul t [facility] [address] [facility] [address] [place] [address], * (ABNORMAL) HEMOGLOBIN, GLYCOSYLATED (07/17/2023 8:11 AM PRESS PULLER) HGB A1C 9.3(A) 4.2 - 6.5 % [facility] 07/17/2023 8:11 AM PRESS PULLER us Sarah Yap DO LABORATORY Final Result [facility] [address] [facility] [address] [place] [address], documented in this encounter Visit Diagnoses Diagnosis Albuminuria Proteinuria Hyperlipidemia, unspecified hyperlipidemia type Morbid obesity ([facility] HHS/HCC) Morbid obesity Controlled type 2 diabetes mellitus with microalbuminuria, with long-term current use of insulin ([facility]) Essential hypertension Unspecified essential hypertension documented in this encounter Additional Health Concerns Assessment Noted Time PHQ-9 Depression Total Score: 0 10/04/19 22 3:48 PM PRESS PULLER documented as of this encounter Care Teams Direct Support Worker Relationship Specialty Start Date End Date Sarah Yap DO [address] [place] [address] PCP - General 08/18/16 12/14/23 Sana Sethi OD [address] [place] [address] Immersion Metalcleaner 04/30/22 documented as of this encounter
--- OUTSIDE RECORDS SUMMARY | 2024-08-08 14:12 | XMS_ITS | Referral Summary ---
Author Organization [facility] Address [address] [facility] [place] [address] Care Team Providers Care Access Assoc Name Role Phone Unavailable Primary Care Provider Unavailabl e Source Comments [facility],non-owned Affiliates and Associated Physician Practices is amultiple site organization consisting of ambulatory clinics and hospital sitesin [place], [place], [place] and [place]. This disclosure is being madepursuant to the Care Everywhere program and may not contain all information available regarding this patient. Last updated 18.[facility] Encounters Date Type Department Care Team Description 08/01/2024 - 08/01/2024 2:33 PM CHIEF GUARD Emergency [facility] EMERGENCY DEPARTMENT [address] [place] [phone] from Last 3 Months Social History Tobacco Use Types Packs/Day Years Used Date Smoking Tobacco: Never Assessed Sex and Gender Information Value Date Recorded Sex Assigned at Not on file Gender Identity Not on file Sexual Orientation Not on file Plan of Treatment Not on file Comfort Townsend Personal/Family Self 1965 [facility] [place] [address]
--- OUTSIDE RECORDS SUMMARY | 2024-08-08 14:12 | XMS_ITS | Encounter Summary ---
Author Organization [facility] Address [address] [place] [address]. 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 Not on file Not on file documented as of this encounter Plan of Treatment Upcoming Encounters Date Type Department Care Team (Late st Contact Info) Description 09/29/2024 8:00 AM SEQUINS SLINGER Office Visit [facility] Family Medicine - [place], [address] [place] [address] Elza Benitez MD [address] [facility] [address] [place] [address] documented as of this encounter Visit Diagnoses Not on filedocumented in this encounter Additional Health Concerns Assessment Noted Time PHQ-9 Depression Total Score: 0 12/15/19 4:05 PM CDT documented as of this encounter Care Teams Vice Chair Relationship Specialty Start Date End Date Elza Benitez MD [address] [address] PCP - General FAMILY PRACTICE 12/15/23 Sana Sethi OD [address] [place] [address] Entrepreneurial Finance Professor 04/30/22 documented as of this encounter
--- OUTSIDE RECORDS SUMMARY | 2024-08-08 14:12 | XMS_ITS | Encounter Summary ---
Author Organization [facility] Address [address] [place] [address]. 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 Not on file Not on file documented as of this encounter Plan of Treatment Upcoming Encounters Date Type Department Care Team (Late st Contact Info) Description 09/29/2024 8:00 AM ELECTRICAL EQUIPMENT ASSEMBLER Office Visit [facility] [place] [address] [facility], [address] [place] [address] Elza Benitez MD [address] [facility] [address] [place] [address] documented as of this encounter Visit Diagnoses Not on filedocumented in this encounter Additional Health Concerns Assessment Noted Time PHQ-9 Depression Total Score: 0 12/15/19 24 4:05 PM CDT documented as of this encounter Care Teams Clinical Admissions Manager Relationship Specialty Start Date End Date Elza Benitez MD [facility] [address] [address] PCP - General FAMILY PRACTICE 12/15/23 Sana Sethi OD [address] [place] [address] [place] 04/30/22 documented as of this encounter
--- OUTSIDE RECORDS SUMMARY | 2024-08-08 14:12 | XMS_ITS | Encounter Summary ---
Author Organization [facility] Address [address] [place] [address]. [place] [address] [place] [address] Care Team Providers Care Double Needle Operator Lockstitch Name Role Phone Sana Sethi OD Unavailable [phone] Elza Benitez MD Primary Care Provider [phone] Reason for Visit * Reason Comments Follow Up Patient came into [facility] office for follow up on diabetes Encounter Details Date Type Department Care Team (Late Contact Info) Description 03/22/2024 4:00 PM CDT Office Visit [facility] Family Medicine - [address], [address] [place] [phone] Elza Benitez MD [facility] [address] [place] [address] Follow Up (Patient came into the office for follow up on diabetes) Social History Tobacco Use Types Packs/Day Years [...] 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 Not on file Not on file documented as of this encounter Last Filed Vital Signs Vital Sign Reading Time Taken Comments Blood Pressure 136/76 03/22/2024 4:02 PM CDT Pulse 67 03/22/2024 4:02 PM CDT Temperature 36.9 ??C (98.4 ??F) 03/22/2024 4:02 PM CD T Respiratory Rate 16 03/22/2024 4:02 PM CDT Oxygen Saturation 98% 03/22/2024 4:02 PM CDT Inhaled Oxygen Concentration - - Weight 99.1 kg (218 lb 8 oz) 03/22/2024 4:02 PM CDT Height 167.6 cm (5' 6 ) 03/22/2024 4:02 PM CDT Body Mass Index 35.27 03/22/2024 4:02 PM CDT documented in this encounter Progress Notes * Elza Benitez MD - 03/22/2024 4:00 PM CDT Images from the original note were not included. OFFICE VISIT Encounter Date: 03/22/2024 Chief Complaint: 58-year-old female presents for Follow Up (Patient came into the office for follow up on diabetes) . HPI Mom broke her hip, needed surgery, may need second surgery Last four weeks has had worse control, using less insulin Polyuria/polydipsia are same Using between 0-50u of insulin daily, rebelsus is going well Feels depression medsa re where they need to be Office Visit on 12/15/2023 Component Date Value Ref Range Status HGB A1C 12/15/2023 8.3 % Final Patient Active Problem List Diagnosis Albuminuria Eczema Hyperlipidemia Morbid obesity ([facility]) Controlled type 2 diabetes mellitus with microalbuminuria, with long-term current use of insulin ([facility]) History of colon polyps Insomnia Essential hypertension Allergic rhinitis, unspecified seasonality, unspecified trigger Depression, unspecified depression type Current Outpatient Medications on File Prior to Visit Medication Sig Dispense Refill atorvastatin (LIPITOR) 10 MG tablet Take 1 tablet (10 mg total) by mouth every evening. 90 tablet 1 buPROPion XL (WELLBUTRIN XL) 150 MG 24 hr tablet take 1 tablet by mouth every day 90 tablet 3 cetirizine (ZYRTEC) 10 MG tablet take 1 tablet by mouth every day 90 tablet [address] [employer] (DEXCOM G7 DRUG ROOM OPERATOR) Device 1 each by Does not apply route daily. 1 each 0 Continuous Glucose Sensor (DEXCOM G7 SENSOR) Misc 1 each by Does not apply route every 10 (ten) days. 3 each 4 dapagliflozin (FARXIGA) 10 MG tablet Take 1 tablet (10 mg total) by mouth daily. 90 tablet 1 hydroCHLOROthiazide (HYDRODIURIL) 50 MG tablet Take 1 tablet (50 mg total) by mouth daily. 90 tablet 3 insulin glargine (LANTUS SOLOSTAR) 100 UNIT/ML injection (PEN) Inject 35 Units into the skin 2 (two) times daily. 63 mL 1 Insulin Pen Needle (PEN NEEDLES 31GX5/16 ) 31G X 8 MM Misc lisinopril (PRINIVIL) 10 MG tablet take 1 tablet by mouth every day 90 tablet 2 metFORMIN (GLUCOPHAGE) 1000 MG tablet Take 1 tablet (1,000 mg total) by mouth 2 (two) times daily. 180 tablet 3 Semaglutide 7 MG Tab Take 7 mg by mouth daily. Indications: Diabetes 30 tablet 3 venlafaxine XR (EFFEXOR-XR) 150 MG 24 hr capsule Take 1 capsule (150 mg total) by mouth daily. 90 capsule 3 No current facility-administered medications on file prior to visit. Objective: Filed Vitals: 03/22/24 1602 BP: 136/76 Pulse: 67 Resp: 16 Temp: 98.4 ??F (36.9 ??C) SpO2: 98% Weight: 99.1 kg (218 lb 8 oz) Height: 1.676 m (5' 6 ) Body mass index is 35.27 kg/m??. Physical Exam Constitutional: General: She is not in acute distress. Appearance: Normal appearance. HENT: Head: Normocephalic and atraumatic. Cardiovascular: Rate and Rhythm: Normal rate and regular rhythm. Pulses: Normal pulses. Heart sounds: No murmur heard. Pulmonary: Effort: Pulmonary effort is normal. Breath sounds: Normal breath sounds. Abdominal: General: Bowel sounds are normal. Palpations: Abdomen is soft. Tenderness: There is no abdominal tenderness. Neurological: Mental Status: She is alert. Psychiatric: Behavior: Behavior normal. Assessment: Patient Active Problem List Diagnosis Albuminuria Eczema Hyperlipidemia Morbid obesity ([facility]) Controlled type 2 diabetes mellitus with microalbuminuria, with long-term current use of insulin ([facility]) History of colon polyps Insomnia Essential hypertension Allergic rhinitis, unspecified seasonality, unspecified trigger Depression, unspecified depression type Plan: Comfort was seen today for follow up. Diagnoses and all orders for this visit: Type 2 diabetes mellitus with hyperglycemia, with long-term current use of insulin ([facility]) - A1C (BACK OFFICE) - COLLECT.CAPILLARY (FNGR,HEEL,EAR) - Semaglutide (RYBELSUS) 14 MG Tab; Take 14 mg by mouth daily. Indications: Diabetes Need for unftueesvh-ghzmgdo-jmttdtnyd (Tdap) vaccine - [67133] Adacel (Tdap) Orders Placed This Encounter Medications Semaglutide (RYBELSUS) 14 MG Tab Discussion/Summary: Patient with uncontrolled DM with A1C 8.4 with hyperglycemia. Continued to discuss diet and exercise as a form of control. Continued to discuss ophthalmology appointments and foot checks for peripheral neuropathy. Patient is doing these things. Will change treatment by increasing rebelsus. Due to tetanus shot, admin today. RTC 3mo ELZA BENITEZ MD documented in this encounter Plan of Treatment Upcoming Encounters Date Type Department Care Team (Late st Contact Info) Description 09/29/2024 8:00 AM EDUCATION ADMINISTRATIVE ASSISTANT Office Visit [facility] Family Medicine - [address], [address] [place] [phone] Elza Benitez MD [address] [place] [address] [place] [phone] documented as of this encounter Procedures Procedure Name Priority Date/Time Associated Diagnosis Comments COLLECT.CAPILLARY (FNGR,HEEL,EAR) Routine 03/22/2024 4:13 PM CDT Type 2 diabetes mellitus with hyperglycemia, with long-term current use of insulin ([facility]) HEMOGLOBIN, GLYCOSYLATED Routine 03/22/2024 Type 2 diabetes mellitus with hyperglycemia, with long-term current use of insulin ([facility]) documented in this encounter Results * A1C (BACK OFFICE) (03/22/2024) HGB A1C 8.4 % MG-N [facility] 03/22/2024 Elza Benitez MD LABORATORY Final Result MG-N [facility] [address] [facility] [address] [place] [address], documented in this encounter Visit Diagnoses Diagnosis Type 2 diabetes mellitus with hyperglycemia, with long-term current use of insulin ([facility])- Primary Need for jgbuflnmrd-yfcdjgp-lpvyxkoxx (Tdap) vaccine Need for prophylactic vaccination with combined hlyehpjkmp-xoglopw-tmxdwbwmh (DTP) vaccine documented in this encounter Additional Health Concerns Assessment Noted Time PHQ-9 Depression Total Score: 0 12/15/19 4:05 PM CDT documented as of this encounter Care Teams Double Needle Operator Lockstitch Relationship Specialty Start Date End Date Elza Benitez MD [address] [place] [address] PCP - General FAMILY PRACTICE 12/15/23 Sana Sethi OD [address] [place] [address] Ornamental Plaster Sticker 04/30/22 documented as of this encounter
--- OUTSIDE RECORDS SUMMARY | 2024-08-08 14:12 | XMS_ITS | Encounter Summary ---
Author Organization [facility] Address [address] [place] [address]. 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 Not on file Not on file documented as of this encounter Plan of Treatment Upcoming Encounters Date Type Department Care Team (Late st Contact Info) Description 09/29/2024 8:00 AM COMMISSION SPECIALIST Office Visit [facility] Family Medicine - [address], [address] [place] [address] Elza Benitez MD [address] [facility] [address] [place] [address] documented as of this encounter Visit Diagnoses Not on filedocumented in this encounter Additional Health Concerns Assessment Noted Time PHQ-9 Depression Total Score: 0 12/15/19 4:05 PM CDT documented as of this encounter Care Teams Correctional Classification Counselor Relationship Specialty Start Date End Date Elza Benitez MD [address] [address] PCP - General FAMILY PRACTICE 12/15/23 Sana Sethi OD [address] [place] [address] Sheet Metal Superintendent 04/30/22 documented as of this encounter
--- OUTSIDE RECORDS SUMMARY | 2024-08-08 14:12 | XMS_ITS | Patient Health Summary ---
Author Organization [facility] Address [address] [facility] [place] [address] Care Team Providers Care Explosive Technician Name Role Phone Unavailable Primary Care Provider Unavailabl e Note from [facility],non-owned Affiliates and Associated Physician Practices is amultiple site organization consisting of ambulatory clinics and hospital sitesin [place], [place], [place] and [place]. This disclosure is being madepursuant to the Care Everywhere program and may not contain all information available regarding this patient. Last updated 18.[facility] Social History Tobacco Use Types Packs/Day Years Used Date Smoking Tobacco: Never Assessed Sex and Gender Information Value Date Recorded Sex Assigned at Not on file Gender Identity Not on file Sexual Orientation Not on file Procedures * DERMATOPATHOLOGY(Performed 06/06/2019) Results * DERMATOPATHOLOGY (06/06/2019 12:00 AM FILM SOUND COORDINATOR) Case Report Dermatopathology Report ? Case: [id number] ? Authorizing Provider: ??Cora Rosario DO ?? Collected: ? 06/06/2019 12:00 AM ? Ordering Location: ? [facility] ?Received: ?06/07/2019 12:25 PM ? Pathologist: ? Mary Mccord MD ? Specimen: ?Skin, right FA ? 10:22 AM [facility] DERMATOPATHOLOGY LABORATORY Final Diagnosis Specimen A. 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 CTD vs ACD vs LP variant. 10:22 AM [facility] DERMATOPATHOLOGY LABORATORY Gross Description Specimen A: Received is one formalin filled container labeled with the patient's name and designated right FA. The specimen consists of a punch measuring 5v7x6ot, bisected. Jar 0. 10:22 AM [facility] DERMATOPATHOLOGY LABORATORY Microscopic Description Specimen A. SKIN, right FA: The epidermis is focally necrotic and covered with a scale-crust. There is fibrin at the base. The adjacent epidermis shows focal parakeratosis and spongiosis. In the dermis there is a mainly superficial perivascular lymphohistiocytic inflammatory infiltrate with rare eosinophils. Grocott's methenamine silver (GMS) stain fails to highlight fungal elements in the available sections. Additional deeper sections were obtained and reviewed. COMMENT: The histological differential diagnosis includes a contact dermatitis and an eczematous drug eruption. 10:22 AM [facility] DERMATOPATHOLOGY LABORATORY Disclaimer An external and internal positive and negative controls are appropriate for the histochemical, immunohistochemical and immunofluorescence stain(s) in this case (if any), except where stated explicitly. The performance characteristics of the stain(s) cited in this report were developed and its performance characteristic determined by the Dermatopathology Laboratory at [facility], directed by Dr. Regina Paez. These tests need not be, and therefore are not, approved by the [place] Food and Drug Administration. The tests are used for clinical purposes. Billing Codes Specimen Charges Stain Charges 43426 1 11817 1 9 10:22 AM FILM SOUND COORDINATOR DERMATOPATHOLOGY LABORATORY Embedded Images 9 10:22 AM FILM SOUND COORDINATOR DERMATOPATHOLOGY LABORATORY Pathology/Cytolog y TISSUE SPECIMEN FROM SKIN / Unknown 06/06/2019 06/07/2019 12:25 PM FILM SOUND COORDINATOR Cora Rosario DO LAB - PATHOLOGY/C YTOLOGY ORDERABLES DERMATOPATHOLOGY LABORATORY [facility] - Department of Dermatology [address] [place] [address], 5th Floor Lab [address] [phone]
--- OUTSIDE RECORDS SUMMARY | 2024-08-08 14:12 | XMS_ITS | Encounter Summary ---
Author Organization [facility] Address [address] [place] [address]. 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 Not on file Not on file documented as of this encounter Plan of Treatment Upcoming Encounters Date Type Department Care Team (Late st Contact Info) Description 09/29/2024 8:00 AM ENTREPRENEURSHIP PROGRAM DIRECTOR Office Visit [facility] Family Medicine - [place], [address] [place] [phone] Elza Benitez MD [address] [facility] [address] [place] [address] Scheduled Orders Name Type Priority Associated Diagnoses Orde r Schedule DIABETIC RETINOPATHY EXAM (NEGATIVE) Procedures Routine Controlled type 2 diabetes mellitus with microalbuminuria, with long-term current use of insulin ([facility]) Ordered: 08/13/2023 documented as of this encounter Visit Diagnoses Diagnosis Controlled type 2 diabetes mellitus with microalbuminuria, with long-term current use of insulin ([facility])- Primary documented in this encounter Additional Health Concerns Assessment Noted Time PHQ-9 Depression Total Score: 0 10/04/19 22 3:48 PM ENTREPRENEURSHIP PROGRAM DIRECTOR documented as of this encounter Care Teams Aerophysicist Relationship Specialty Start Date End Date Sarah Yap DO [address] [place] [address] PCP - General 08/18/16 12/14/23 Sana Sethi OD [address] [place] [address] Spot Checker 04/30/22 documented as of this encounter
--- OUTSIDE RECORDS SUMMARY | 2024-08-08 14:12 | XMS_ITS | Encounter Summary ---
Author Organization [facility] Address [address] [place] [address]. [place], [place] [address] [place] [address] Care Team Providers Care Advertiser Name Role Phone Sana Sethi OD Unavailable [phone] Elza Benitez MD Primary Care Provider [phone] Encounter Details Date Type Department Care Team (Late Contact Info) Description 06/28/2024 surespot Message Enc [facility] Family Medicine [address] [phone] [employer], [facility] Provider Instructions for Sharing Dexcom Data with Dr. 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 Not on file Not on file documented as of this encounter Plan of Treatment Upcoming Encounters Date Type Department Care Team (Late Contact Info) Description 09/29/2024 8:00 AM MAIL SORTER Office Visit [facility] Family Medicine [address], [address] [place] [address] Elza Benitez MD [facility] [address] [place] [address] documented as of this encounter Visit Diagnoses Not on filedocumented in this encounter Additional Health Concerns Assessment Noted Time PHQ-9 Depression Total Score: 0 12/15/19 24 4:05 PM CDT documented as of this encounter Care Teams Advertiser Relationship Specialty Start Date End Date Elza Benitez MD [address] [place] [address] [address] [place] [address] PCP - General FAMILY PRACTICE 12/15/23 Sana Sethi OD [address] [place] [address] Journey Lineman 04/30/22 documented as of this encounter
--- OUTSIDE RECORDS SUMMARY | 2024-08-08 14:12 | XMS_ITS | Encounter Summary ---
Author Organization [facility] Address [address] [place] [address]. [place] [address] [place] [address] Care Team Providers Care Lmft Name Role Phone Sana Sethi OD Unavailable [phone] Elza Benitez MD Primary Care Provider [phone] Reason for Visit * Reason Comments Diabetes Follow Up - Diabetes Patient is here in the office for 1 month follow up , patient has been using dexcom has been doing well. Encounter Details Date Type Department Care Team (Late st Contact Info) Description 01/21/2024 1:20 PM CDT Office Visit [facility] Family Medicine - [address], [address] [place] [phone] Elza Benitez MD [facility] [address] [place] [address] Diabetes; Follow Up - Diabetes (Patient is here in the office for 1 month follow up , patient has been using dexcom has been doing well. 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 Not on file Not on file documented as of this encounter Last Filed Vital Signs Vital Sign Reading Time Taken Comments Blood Pressure 103/62 01/21/2024 1:23 PM CDT Pulse 100 01/21/2024 1:23 PM CDT Temperature 36.6 ??C (97.9 ??F) 01/21/2024 1:23 PM CD T Respiratory Rate 18 01/21/2024 1:23 PM CDT Oxygen Saturation 97% 01/21/2024 1:23 PM CDT Inhaled Oxygen Concentration - - Weight 105.1 kg (231 lb 9.6 oz) 01/21/2024 1:23 PM CDT Height 167.6 cm (5' 6 ) 01/21/2024 1:23 PM CDT Body Mass Index 37.38 01/21/2024 1:23 PM CDT documented in this encounter Progress Notes * Elza Benitez MD - 01/21/2024 1:20 PM CDT Images from the original note were not included. OFFICE VISIT Encounter Date: 01/21/2024 Chief Complaint: 58-year-old female presents for Diabetes and Follow Up - Diabetes (Patient is here in the office for 1 month follow up , patient has been using dexcom has been doing well. ) . HPI Doing dexcom, feels like she's learning a lot, Does about 70u insulin daily, Having a bit of overnight lows, alarm is helpful for knowing when a low is coming, not every day Doing rebelsys, first week very loose stools and early satiety, now tolerating better Office Visit on 12/15/2023 Component Date Value Ref Range Status HGB A1C 12/15/2023 8.3 % Final Patient Active Problem List Diagnosis Albuminuria Eczema Hyperlipidemia Morbid obesity ([facility]) Controlled type 2 diabetes mellitus with microalbuminuria, with long-term current use of insulin ([facility]) History of colon polyps Insomnia Essential hypertension Allergic rhinitis, unspecified seasonality, unspecified trigger Depression, unspecified depression type Current Outpatient Medications on File Prior to Visit Medication Sig Dispense Refill atorvastatin (LIPITOR) 10 MG tablet Take 1 tablet (10 mg total) by mouth every evening. 90 tablet 1 buPROPion XL (WELLBUTRIN XL) 150 MG 24 hr tablet Take 1 tablet (150 mg total) by mouth daily. 30 tablet 5 cetirizine (ZYRTEC) 10 MG tablet Take 1 tablet (10 mg total) by mouth daily. 90 tablet 1 Continuous Glucose Assistant Maintenance Manager (DEXCOM G7 SLITTER OPERATOR) Device 1 each by Does not [...] MM Misc lisinopril (PRINIVIL) 10 MG tablet Take 1 tablet (10 mg total) by mouth daily. 90 tablet 0 metFORMIN (GLUCOPHAGE) 1000 MG tablet Take 1 tablet (1,000 mg total) by mouth 2 (two) times daily. 180 tablet 3 Semaglutide 3 MG Tab Take 3 mg by mouth daily. 30 tablet 1 venlafaxine XR (EFFEXOR-XR) 150 MG 24 hr capsule Take 1 capsule (150 mg total) by mouth daily. 90 capsule 3 No current facility-administered medications on file prior to visit. Objective: Filed Vitals: 01/21/24 1323 BP: 103/62 Pulse: 100 Resp: 18 Temp: 97.9 ??F (36.6 ??C) SpO2: 97% Weight: 105.1 kg (231 lb 9.6 oz) Height: 1.676 m (5' 6 ) Body mass index is 37.38 kg/m??. Physical Exam Vitals reviewed. Constitutional: General: She is not in acute [...] List Diagnosis Albuminuria Eczema Hyperlipidemia Morbid obesity ([facility]) Controlled type 2 diabetes mellitus with microalbuminuria, with long-term current use of insulin ([facility]) History of colon polyps Insomnia Essential hypertension Allergic rhinitis, unspecified seasonality, unspecified trigger Depression, unspecified depression type Plan: Comfort was seen today for diabetes and follow up - diabetes. Diagnoses and all orders for this visit: Controlled type 2 diabetes mellitus with microalbuminuria, with long-term current use of insulin ([facility]) - Semaglutide 7 MG Tab; Take 7 mg by mouth daily. Indications: Diabetes Orders Placed This Encounter Medications Semaglutide 7 MG Tab Discussion/Summary: Tolerating meds, will increase rebelsys. Continue Dexcom, unable to review data today. Will schedule with Dr Hines at next visit for CGM teaching Will see hand surgeon tomorrow for trigger fingers of several fingers, Dr Sharpe at [facility] Follow-up and Dispositions Return in about 2 months (around 03/22/2024). ELZA BENITEZ MD documented in this encounter Plan of Treatment Upcoming Encounters Date Type Department Care Team (Late st Contact Info) Description 09/29/2024 8:00 AM SPIRITUAL CARE COORDINATOR Office Visit [facility] Family Medicine - [address], [address] [place] [phone] Elza Benitez MD [facility] [address] [place] [address] documented as of this encounter Visit Diagnoses Diagnosis Controlled type 2 diabetes mellitus with microalbuminuria, with long-term current use of insulin ([facility])- Primary documented in this encounter Additional Health Concerns Assessment Noted Time PHQ-9 Depression Total Score: 0 12/15/19 24 4:05 PM CDT documented as of this encounter Care Teams Lmft Relationship Specialty Start Date End Date Elza Benitez MD [address] [place] [address] [address] PCP - General FAMILY PRACTICE 12/15/23 Sana Sethi OD [address] [place] [address] Building Code Administrator 04/30/22 documented as of this encounter
--- OUTSIDE RECORDS SUMMARY | 2024-08-08 14:12 | XMS_ITS | Encounter Summary ---
Author Organization [facility] Address [address] [place] [address]. 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 Not on file Not on file documented as of this encounter Plan of Treatment Upcoming Encounters Date Type Department Care Team (Late Contact Info) Description 09/29/2024 8:00 AM PREMIX OPERATOR CONCENTRATE Office Visit [facility] Family Medicine - [address], [address] [place] [phone] Elza Benitez MD [address] [facility] [address] [place] [address] documented as of this encounter Visit Diagnoses Not on filedocumented in this encounter Additional Health Concerns Assessment Noted Time PHQ-9 Depression Total Score: 0 10/04/19 22 3:48 PM PREMIX OPERATOR CONCENTRATE documented as of this encounter Care Teams Regional Planner Relationship Specialty Start Date End Date Sarah Yap DO [address] [place] [address] PCP - General 08/18/16 12/14/23 Sana Sethi OD [address] [place] [address] Physics Faculty Member 04/30/22 documented as of this encounter
--- OUTSIDE RECORDS SUMMARY | 2024-08-08 14:12 | XMS_ITS | Encounter Summary ---
Author Organization [facility] Address [address] [place] [address]. 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 Benitez 12/15/2023 - W[facility] MOLDER appt. Last office visit at this office: Last visit with JACI HERRERA in FAMILY PRACTICE was on: 07/03/2023 in [facility] Future appointment scheduled: Future Appointments Date Time Provider Department Center 12/15/2023 3:00 PM Elza Benitez MD [id number] documented in this encounter Plan of Treatment Upcoming Encounters Date Type Department Care Team (Late st Contact Info) Description 09/29/2024 8:00 AM PROTOTYPE FABRICATOR Office Visit [facility] Family Medicine - [address], [address] [place] [phone] Elza Benitez MD [facility] [address] [place] [address] documented as of this encounter Visit Diagnoses Diagnosis Other hyperlipidemia documented in this encounter Additional Health Concerns Assessment Noted Time PHQ-9 Depression Total Score: 0 10/04/19 3:48 PM PROTOTYPE FABRICATOR documented as of this encounter Care Teams Punch Press Operator Relationship Specialty Start Date End Date Jaci Herrera DO [address] [place] [address] PCP - General 08/18/16 12/14/23 Sana Sethi OD [address] [place] [address] Adjunct Physics Instructor 04/30/22 documented as of this encounter
--- OUTSIDE RECORDS SUMMARY | 2024-08-08 14:12 | XMS_ITS | Encounter Summary ---
Author Organization [facility] Address [address] [place] [address]. 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 Not on file Not on file documented as of this encounter Plan of Treatment Upcoming Encounters Date Type Department Care Team (Late st Contact Info) Description 09/29/2024 8:00 AM PRESS SUPERVISOR Office Visit [facility] Family Medicine - [place], [address] [place] [address] Elza Benitez MD [address] [facility] [address] [place] [address] documented as of this encounter Visit Diagnoses Not on filedocumented in this encounter Additional Health Concerns Assessment Noted Time PHQ-9 Depression Total Score: 0 12/15/19 4:05 PM CDT documented as of this encounter Care Teams Environmental Project Manager Relationship Specialty Start Date End Date Elza Benitez MD [address] [address] PCP - General FAMILY PRACTICE 12/15/23 Sana Sethi OD [address] [place] [address] Learning Center Instructor 04/30/22 documented as of this encounter
--- OUTSIDE RECORDS SUMMARY | 2024-08-08 14:12 | XMS_ITS | Encounter Summary ---
Author Organization [facility] Address [address] [place] [address]. [place] [address] [place] [address] Care Team Providers Care Gold Frame Assembler Name Role Phone Sana Sethi OD Unavailable [phone] Elza Benitez MD Primary Care Provider [phone] Reason for Visit * Reason Comments Meet and Greet Provider Transfer of care . Diabetes Discuss diabetes Encounter Details Date Type Department Care Team (Late st Contact Info) Description 12/15/2023 3:00 PM CDT Office Visit [facility] Family Medicine - [address], [address] [place] [phone] Elza Benitez MD [address] [place] [address] [place] [id number] Meet and Greet Provider (Transfer of care . 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 Not on file Not on file Not on file documented as of this encounter Last Filed Vital Signs Vital Sign Reading Time Taken Comments Blood Pressure 110/74 12/15/2023 3:09 PM CDT Pulse 114 12/15/2023 3:09 PM CDT Temperature 36.6 ??C (97.9 ??F) 12/15/2023 3:09 PM CD T Respiratory Rate 18 12/15/2023 3:09 PM CDT Oxygen Saturation 100% 12/15/2023 3:09 PM CDT Inhaled Oxygen Concentration - - Weight 107 kg (235 lb 14.4 oz) 12/15/2023 3:09 P M CDT Height 168.9 cm (5' 6.5 ) 12/15/2023 3:09 PM CDT Body Mass Index 37.5 12/15/2023 3:09 PM CDT documented in this encounter Progress Notes * Elza Benitez MD - 12/15/2023 3:00 PM CDT Images from the original note were not included. OFFICE VISIT Encounter Date: 12/15/2023 Chief Complaint: 58-year-old female presents for Meet and Greet Provider (Transfer of care . ) and Diabetes (Discussdiabetes ) . HPI , no children, Mother has dementia and just moved to assisted living DMII, on 70u insulin daily, doing 35u am and pm, A1c has been higher mostly, dx'd 2003, rarely if ever checking sugars, has some symptomatic hypoglycemia On metformin, lantus, farxiga, was previously on actos, never done a once weekly, started insulin maybe 2008 Interested in CGM On venlafaxine and wellbutrin, helpful Sleep is good recently, appetite is ok Max weight was 270, was at 220 now back up a little Broke metatarsal at Thanksgiving, still recovering a bit Difficulty with carpal tunnel and trigger finger, can't do release currently because she can't taketime off Review of Systems Constitutional: Negative for chills, fever and malaise/fatigue. HENT: Negative for hearing loss and sore throat. Gastrointestinal: Negative for constipation and diarrhea. Genitourinary: Negative for dysuria. Patient Active Problem List Diagnosis Albuminuria Eczema Hyperlipidemia Morbid obesity ([facility]) Controlled type 2 diabetes mellitus with microalbuminuria, with long-term current use of insulin ([facility]) History of colon polyps Insomnia Essential hypertension Allergic rhinitis, unspecified seasonality, unspecified trigger Depression, unspecified depression type Past Medical History: Diagnosis Date Acne Cholelithiasis Depression Diabetes mellitus ([facility]) Hypertension Personal history of colonic polyps Postmenopausal Late 40's ([facility]) Premenstrual syndrome Trigger finger Trigger thumb Viral warts Past Surgical History: Procedure Laterality Date COLONOSCOPY N/A 07/07/2022 COLONOSCOPY performed by Dayron Bell MD at [facility] GI COLONOSCOPY STOMA DX INCLUDING COLLJ SPEC SPX 11/11/2012: next colonoscopy due 03/2015; 03/2010 polyp 05/2015 normal repeat 5 yrs KIDNEY STONE REMOVAL 1997 LITHOTRIPSY OTHER PROCEDURE Ear surgeyr- Lasik TONSILLECTOMY Lithotripsy 1997, no stones since Family History Problem Relation Name Age of Onset Breast Cancer Maternal Grandmother 75 Breast Cancer Maternal Aunt ? age Other (skin cancer) Father Diabetes Other Family hx. Hypertension Other Family hx. 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 Tobacco Use Smoking status: Never Passive exposure: Past Smokeless tobacco: Never Vaping Use Vaping status: Never Used Substance and Sexual Activity Alcohol use: Not Currently Drug use: Never Sexual activity: Not on file Other Topics Concern Not on file Social History Narrative Not on file Social Determinants of Health Financial Resource Strain: Not on file Food Insecurity: Not on file Transportation Needs: Not on file Physical Activity: Not on file Stress: Not on file Social Connections: Not on file Intimate Partner Violence: Not on file Housing Stability: Not on file Immunization History Administered Date(s) Administered Flublok (Quadrivalent) 04/17/2020 Flucelvax 6 Months+ (Prefilled Syringe) 05/13/2021 Hepatitis A (Generic) 08/03/1999, 08/03/2000 Influenza 05/03/2017, 05/03/2018 Influenza Adult (Generic) 05/03/2019, 05/13/2021, 05/16/2022, 05/03/2023 PFIZER COVID-19 (MEDINA CAP), MRNA, LNP-S, PF, 30 MCG/0.3 ML JEFFRY-SUCROSE, IM 02/18/2022 PFIZER COVID-19 (ORIGINAL FORMULATION, PURPLE CAP) mRNA, LNP-S, PF, 30 MCG/0.3 ML DOSE 10/02/2020, 10/25/2020, 05/26/2021 PFIZER COVID-19 BIVALENT (12+) mRNA, LNP-S, PF, 30 MCG/0.3 ML DOSE 05/15/2022 Pneumococcal (Prevnar 13) 03/19/2017 Shingrix 04/17/2020, 08/17/2020 Tdap (Generic) 01/07/2012 Zoster (Zostavax) 88595 Unt/0.65Ml 03/19/2017 Current Outpatient Medications Medication Sig Dispense Refill atorvastatin (LIPITOR) 10 MG tablet Take 1 tablet (10 mg total) by mouth every evening. 90 tablet 1 buPROPion XL (WELLBUTRIN XL) 150 MG 24 hr tablet Take 1 tablet (150 mg total) by mouth daily. 30 tablet 5 cetirizine (ZYRTEC) 10 MG tablet Take 1 tablet (10 mg total) by mouth daily. 90 tablet 1 Continuous Glucose Supervisor Area (DEXCOM G7 PRODUCTION STAGE MANAGER) Device 1 each by Does not apply [...] 90 capsule 3 No current facility-administered medications for this visit. Review of patient's allergies indicates: No Known Allergies Objective: Filed Vitals: 12/15/23 1509 BP: 110/74 Pulse: (!) 114 Resp: 18 Temp: 97.9 ??F (36.6 ??C) SpO2: 100% Weight: 107 kg (235 lb 14.4 oz) Height: 1.689 m (5' 6.5 ) Body mass index is 37.5 kg/m??. Physical Exam Vitals reviewed. Constitutional: General: She is not in acute distress. Appearance: Normal appearance. HENT: Head: Normocephalic and atraumatic. Right Ear: Tympanic membrane normal. Left Ear: Tympanic membrane normal. Nose: No congestion or rhinorrhea. Mouth/Throat: Mouth: Mucous membranes are moist. Pharynx: Oropharynx is clear. Eyes: Conjunctiva/sclera: Conjunctivae normal. Cardiovascular: Rate and Rhythm: Normal rate and regular rhythm. Pulses: Normal pulses. Heart sounds: Normal heart sounds. No murmur heard. Pulmonary: Effort: Pulmonary effort is normal. Breath sounds: Normal breath sounds. Abdominal: General: Bowel sounds are normal. Palpations: Abdomen is soft. There is no mass. Tenderness: There is no abdominal tenderness. Musculoskeletal: General: No deformity. Right lower leg: No edema. Left lower leg: No edema. Lymphadenopathy: Cervical: No cervical adenopathy. Skin: General: Skin is warm and dry. Findings: No rash. Neurological: Mental Status: She is alert. Psychiatric: Behavior: Behavior normal. Assessment: Patient Active Problem List Diagnosis Albuminuria Eczema Hyperlipidemia Morbid obesity ([facility]) Controlled type 2 diabetes mellitus with microalbuminuria, with long-term current use of insulin ([facility]) History of colon polyps Insomnia Essential hypertension Allergic rhinitis, unspecified seasonality, unspecified trigger Depression, unspecified depression type Plan: Comfort was seen today for meet and greet provider and diabetes. Diagnoses and all orders for this visit: Type 2 diabetes mellitus with hyperglycemia, with long-term current use of insulin ([facility]) - HEMOGLOBIN, GLYCOSYLATED - COLLECT.CAPILLARY (FNGR,HEEL,EAR) - Discontinue: Semaglutide 3 MG Tab; Take 3 mg by mouth daily. - Discontinue: Semaglutide 3 MG Tab; Take 3 mg by mouth daily. - Semaglutide 3 MG Tab; Take 3 mg by mouth daily. - Continuous Glucose Supervisor Area (DEXCOM G7 PRODUCTION STAGE MANAGER) Device; 1 each by Does not apply route daily. - Continuous Glucose Sensor (DEXCOM G7 SENSOR) Misc; 1 each by Does not apply route every 10 (ten) days. Depression, unspecified depression type - venlafaxine XR (EFFEXOR-XR) 150 MG 24 hr capsule; Take 1 capsule (150 mg total) by mouth daily. - buPROPion XL (WELLBUTRIN XL) 150 MG 24 hr tablet; Take 1 tablet (150 mg total) by mouth daily. Essential hypertension - lisinopril (PRINIVIL) 10 MG tablet; Take 1 tablet (10 mg total) by mouth daily. - hydroCHLOROthiazide (HYDRODIURIL) 50 MG tablet; Take 1 tablet (50 mg total) by mouth daily. Other hyperlipidemia - atorvastatin (LIPITOR) 10 MG tablet; Take 1 tablet (10 mg total) by mouth every evening. Allergic rhinitis, unspecified seasonality, unspecified trigger - cetirizine (ZYRTEC) 10 MG tablet; Take 1 tablet (10 mg total) by mouth daily. Controlled type 2 diabetes mellitus with microalbuminuria, with long-term current use of insulin ([facility]) - metFORMIN (GLUCOPHAGE) 1000 MG tablet; Take 1 tablet (1,000 mg total) by mouth 2 (two) times daily. - insulin glargine (LANTUS SOLOSTAR) 100 UNIT/ML injection (PEN); Inject 35 Units into the skin 2 (two) times daily. - dapagliflozin (FARXIGA) 10 MG tablet; Take 1 tablet (10 mg total) by mouth daily. Discussion/Summary: 1. Type 2 diabetes mellitus with hyperglycemia, with long-term current use of insulin ([facility]) Patient with uncontrolled DM with A1C 8.3 with hyperglycemia. Continued to discuss diet and exercise as a form of control. Continued to discuss ophthalmology appointments and foot checks for peripheral neuropathy. Patient is doing these things. Will change medications by starting oral semaglutide, s tarting on CGM. Orders placed. 2. Depression, unspecified depression type Reports adequate response to current therapy. Continue as above 3. Essential hypertension Patient currently controlled on current treatment for hypertension. Will continue. Continued to discuss weight loss, adequate cardiovascular fitness. DASH diet was discussed as well as decrease in sodium intake. BP goal of < 140/90 expressed. 4. Other hyperlipidemia Continue statin. Follow-up and Dispositions Return in about 4 weeks (around 01/12/2024). ELZA BENITEZ MD documented in this encounter Plan of Treatment Upcoming Encounters Date Type Department Care Team (Late st Contact Info) Description 09/29/2024 8:00 AM DISK SANDER Office Visit [facility] [place] [id number], [address] [place] [address] Elza Benitez MD [address] [place] [address] documented as of this encounter Procedures Procedure Name Priority Date/Time Associated Diagnosis Comments COLLECT.CAPILLARY (FNGR,HEEL,EAR) Routine 12/15/2023 3:04 PM CDT Type 2 diabetes mellitus with hyperglycemia, with long-term current use of insulin ([facility]) HEMOGLOBIN, GLYCOSYLATED Routine 12/15/2023 Type 2 diabetes mellitus with hyperglycemia, with long-term current use of insulin ([facility]) documented in this encounter Results * HEMOGLOBIN, GLYCOSYLATED (12/15/2023) HGB A1C 8.3 % [facility] 12/15/2023 us Elza Benitez MD LABORATORY Final Result [facility] [place] [id number] [place] [id number], documented in this encounter Visit Diagnoses Diagnosis Type 2 diabetes mellitus with hyperglycemia, with long-term current use of insulin ([facility])- Primary Depression, unspecified depression type Essential hypertension Unspecified essential hypertension Other hyperlipidemia Allergic rhinitis, unspecified seasonality, unspecified trigger Controlled type 2 diabetes mellitus with microalbuminuria, with long-term current use of insulin ([facility]) documented in this encounter Additional Health Concerns Assessment Noted Time PHQ-9 Depression Total Score: 0 12/15/19 24 4:05 PM CDT documented as of this encounter Care Teams Gold Frame Assembler Relationship Specialty Start Date End Date Elza Benitez MD [facility] [address] [address] PCP - General FAMILY PRACTICE 12/15/23 Sana Sethi OD [address] [place], [place] [phone] Inclusion Intern 04/30/22 documented as of this encounter
--- OUTSIDE RECORDS SUMMARY | 2024-08-08 14:12 | XMS_ITS | Encounter Summary ---
Author Organization [facility] Address [address] [place] [address] Care Team Providers Care Electric Blanket Packer Name Role Phone Unavailable Primary Care Provider Unavailabl e Encounter Details Date Type Department Care Team (Late st Contact Info) Description 06/07/2019 Lab Requisition [facility] [address] [facility] [address] [facility] [place] [address] Cora Rosario DO [address] [facility] [address] [place] [address] Social History Tobacco Use Types Packs/Day Years Used Date Smoking Tobacco: Never Assessed Sex and Gender Information Value Date Recorded Sex Assigned at Not on file Gender Identity Not on file Sexual Orientation Not on file documented as of this encounter Plan of Treatment Not on file documented as of this encounter Procedures Procedure Name Priority Date/Time Associated Diagnosis Comments DERMATOPATHOLOGY Routine 06/06/2019 12:0 0 AM DOCUMENT CONTROLLER documented in this encounter Results * DERMATOPATHOLOGY (06/06/2019 12:00 AM DOCUMENT CONTROLLER) Case Report Dermatopathology Report ? Case: [id number] ? Authorizing Provider: ??Cora Rosario, DO ?? Collected: ? 06/06/2019 12:00 AM ? Ordering Location: ? [facility] ?Received: ?06/07/2019 12:25 PM ? Pathologist: ? Mary Mccord MD ? Specimen: ?Skin, right FA ? 10:22 AM [facility] Final Diagnosis Specimen A. SKIN, right FA: EPIDERMAL NECROSIS SUGGESTIVE OF EXCORIATION (L98.499) SPONGIOTIC DERMATITIS WITH RARE EOSINOPHILS (L30.8) (see microscopic description and comment) 10:22 AM [facility] Clinical History [place] to violaceous coalesced into plaques, ABIDA FA, chest. CTD vs ACD vs LP variant. 10:22 AM [facility] Gross Description Specimen A: Received is one formalin filled container labeled with the patient's name and designated right FA. The specimen consists of a punch measuring [id number], bisected. Jar 0. 10:22 AM [facility] Microscopic Description Specimen A. SKIN, [...] and an eczematous drug eruption. 10:22 AM [facility] Disclaimer An external and internal positive and negative controls are appropriate for the histochemical, immunohistochemical and immunofluorescence stain(s) in this case (if any), except where stated explicitly. The performance characteristics of the stain(s) cited in this report were developed and its performance characteristic determined by the Dermatopathology Laboratory at [facility], directed by Dr. Regina Paez. These tests need not be, and therefore are not, approved by the [place] Food and Drug Administration. The tests are used for clinical purposes. Billing Codes Specimen Charges Stain Charges 68342 1 71529 1 9 10:22 AM DOCUMENT CONTROLLER DERMATOPATHOLOGY LABORATORY Embedded Images 9 10:22 AM DOCUMENT CONTROLLER DERMATOPATHOLOGY LABORATORY Pathology/Cytolog y TISSUE SPECIMEN FROM SKIN / Unknown 06/06/2019 06/07/2019 12:25 PM DOCUMENT CONTROLLER Cora Rosario DO LAB - PATHOLOGY/C YTOLOGY ORDERABLES DERMATOPATHOLOGY LABORATORY [facility] - Department of Dermatology [address] [place] [address], 5[address] Floor Lab [address] [phone] documented in this encounter Visit Diagnoses Not on filedocumented in this encounter
--- OUTSIDE RECORDS SUMMARY | 2024-08-08 14:12 | XMS_ITS | Encounter Summary ---
Author Organization [facility] Address [address] [place] [address]. [place], [place] [address] [place] [address] Care Team Providers Care Auto Research Engineer Name Role Phone Sana Sethi OD Unavailable [phone] Elza Benitez MD Primary Care Provider [phone] Reason for Referral * Consultation (Routine) - Closed Specialty Diagnoses / Procedures Referred By Contmatt t Referred To Contact Pharmacist Diagnoses Type 2 diabetes mellitus with diabetic microalbuminuria, with long-term current use of insulin ([facility]) Elza Benitez MD [address] [facility] [address] [place] [address] Phone: tel: fax: [facility], [address] [place] [address] Phone: tel: fax: Referral ID Status Reason Start Date Expiration Date V isits Requested Visits Authorized [id number] Closed Specialty Services 06/26/2024 07/26/2025 1 1 ICULUM DESIGNER Reason for Visit * Reason Comments Follow Up Encounter Details Date Type Department Care Team (Late st Contact Info) Description 06/24/2024 3:40 PM CURRICULUM DESIGNER Office Visit [facility] 1512 [facility], [address] [place] [phone] Elza Benitez MD [address] [address] Follow Up Social History Tobacco Use Types Packs/Day Years [...] 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 Not on file Not on file documented as of this encounter Last Filed Vital Signs Vital Sign Reading Time Taken Comments Blood Pressure 130/80 06/24/2024 3:29 PM CURRICULUM DESIGNER Pulse 100 06/24/2024 3:29 PM CURRICULUM DESIGNER Temperature 36.4 ??C (97.6 ??F) 06/24/2024 3:29 PM CS T Respiratory Rate 16 06/24/2024 3:29 PM CURRICULUM DESIGNER Oxygen Saturation 98% 06/24/2024 3:29 PM CURRICULUM DESIGNER Inhaled Oxygen Concentration - - Weight 93 kg (205 lb) 06/24/2024 3:29 PM CURRICULUM DESIGNER Height 167.6 cm (5' 6 ) 06/24/2024 3:29 PM CURRICULUM DESIGNER Body Mass Index 33.09 06/24/2024 3:29 PM CURRICULUM DESIGNER documented in this encounter Progress Notes * Elza Benitez MD - 06/24/2024 3:40 PM CST Images from the original note were not included. OFFICE VISIT Encounter Date: 06/24/2024 Chief Complaint: 59-year-old female presents for Follow Up . HPI Has lost quite a bit of weight, rebelsys has been helpful Feeling somewhat sleepy but attributes to all meds Insulin now has been doing more like 50u, some days less, some days not at all Dexcom, spends about 54% of time in range Office Visit on 03/22/2024 Component Date Value Ref Range Status HGB A1C 03/22/2024 8.4 % Final Patient Active Problem List Diagnosis Albuminuria Eczema Hyperlipidemia Morbid obesity ([facility]) Controlled type 2 diabetes mellitus with microalbuminuria, with long-term current use of insulin ([facility]) History of colon polyps Insomnia Essential hypertension Allergic rhinitis, unspecified seasonality, unspecified trigger Depression, unspecified depression type Current Outpatient Medications on File Prior to Visit Medication Sig Dispense Refill atorvastatin (LIPITOR) 10 MG tablet TAKE 1 TABLET BY MOUTH EVERY DAY IN THE EVENING 90 tablet 2 buPROPion XL (WELLBUTRIN XL) 150 MG 24 hr tablet take 1 tablet by mouth every day 90 tablet 3 cetirizine (ZYRTEC) 10 MG tablet take 1 tablet by mouth every day 90 tablet 3 Continuous Glucose Melter Supervisor Electric Arc Furnace (DEXCOM G7 SPECIAL EDUCATION SCIENCE TEACHER) Device 1 each by Does not apply route daily. 1 each 0 Continuous Glucose Sensor (DEXCOM G7 SENSOR) Misc 1 EACH BY DOES NOT APPLY ROUTE EVERY 10 (TEN) DAYS. 6 each 11 dapagliflozin (FARXIGA) 10 MG tablet TAKE 1 TABLET BY MOUTH EVERY DAY 90 tablet 2 hydroCHLOROthiazide (HYDRODIURIL) 50 MG tablet Take 1 tablet (50 mg total) by mouth daily. 90 tablet 3 insulin glargine (LANTUS SOLOSTAR) 100 UNIT/ML injection (PEN) Inject 35 Units into the skin 2 (two) times daily. 60 mL 3 Insulin Pen Needle (PEN NEEDLES 31GX5/16 ) 31G X 8 MM Misc lisinopril (PRINIVIL) 10 MG tablet take 1 tablet by mouth every day 90 tablet 2 metFORMIN (GLUCOPHAGE) 1000 MG tablet Take 1 tablet (1,000 mg total) by mouth 2 (two) times daily. 180 tablet 3 Semaglutide (RYBELSUS) 14 MG Tab Take 14 mg by mouth daily. Indications: Diabetes 30 tablet 3 venlafaxine XR (EFFEXOR-XR) 150 MG 24 hr capsule Take 1 capsule (150 mg total) by mouth daily. 90 capsule 3 No current facility-administered medications on file prior to visit. Objective: Filed Vitals: 06/24/24 1529 BP: 130/80 Pulse: 100 Resp: 16 Temp: 97.6 ??F (36.4 ??C) TempSrc: Temporal SpO2: 98% Weight: 93 kg (205 lb) Height: 1.676 m (5' 6 ) Body mass index is 33.09 kg/m??. Physical Exam Constitutional: General: She is [...] List Diagnosis Albuminuria Eczema Hyperlipidemia Morbid obesity ([facility]) Controlled type 2 diabetes mellitus with microalbuminuria, with long-term current use of insulin ([facility]) History of colon polyps Insomnia Essential hypertension Allergic rhinitis, unspecified seasonality, unspecified trigger Depression, unspecified depression type Plan: Comfort was seen today for follow up. Diagnoses and all orders for this visit: Controlled type 2 diabetes mellitus with microalbuminuria, with long-term current use of insulin ([facility]) - HEMOGLOBIN, GLYCOSYLATED - COLLECT.CAPILLARY (FNGR,HEEL,EAR) Need for COVID-19 vaccine - [employer] COVID-19 (12+) MRNA, LNP-S, PF, JEFFRY-SUCROSE 30 MCG/0.3 ML No orders of the defined types were placed in this encounter. Discussion/Summary: Patient with uncontrolled DM with A1C 8.2 with hyperglycemia. Continued to discuss diet and exercise as a form of control. Continued to discuss ophthalmology appointments and foot checks for peripheral neuropathy. Patient is not doing these things. Will change treatment by obtaining Dexcom clarity a ccess, more closely titrating insulin. will send code for clarity ethan ELZA BENITEZ MD ICULUM DESIGNER documented in this encounter Plan of Treatment Upcoming Encounters Date Type Department Care Team (Late st Contact Info) Description 09/29/2024 8:00 AM CURRICULUM DESIGNER Office Visit [facility] Family Medicine - [address], [address] [place] [address] Elza Benitez MD [address] [address] Scheduled Referrals Name Type Priority Associated Diagnoses Orde r Schedule Ambulatory Referral to Pharmacist Referral Routine Type 2 diabetes mellitus with diabetic microalbuminuria, with long-term current use of insulin ([facility]) Ordered: 06/26/2024 documented as of this encounter Procedures Procedure Name Priority Date/Time Associated Diagnosis Comments HEMOGLOBIN, GLYCOSYLATED Routine 06/24/2024 4:05 PM CURRICULUM DESIGNER Type 2 diabetes mellitus with diabetic microalbuminuria, with long-term current use of insulin ([facility]) COLLECT.CAPILLARY (FNGR,HEEL,EAR) Routine 06/24/2024 3:29 PM CURRICULUM DESIGNER Type 2 diabetes mellitus with diabetic microalbuminuria, with long-term current use of insulin ([facility]) documented in this encounter Results * (ABNORMAL) HEMOGLOBIN, GLYCOSYLATED (06/24/2024 4:05 PM CURRICULUM DESIGNER) HGB A1C 8.2 % [facility] 06/24/2024 4:05 PM CURRICULUM DESIGNER us Elza Benitez MD LABORATORY Final Result [facility] [address] [address], documented in this encounter Visit Diagnoses Diagnosis Type 2 diabetes mellitus with diabetic microalbuminuria, with long-term current use of insulin ([facility])- Primary Need for COVID-19 vaccine documented in this encounter Additional Health Concerns Assessment Noted Time PHQ-9 Depression Total Score: 0 12/15/19 24 4:05 PM CDT documented as of this encounter Care Teams Auto Research Engineer Relationship Specialty Start Date End Date Elza Benitez MD [address] [place] [id number] PCP - General FAMILY PRACTICE 12/15/23 Sana Sethi OD [address] [place], [place] [address] System Support Administrator 04/30/22 documented as of this encounter
--- OUTSIDE RECORDS SUMMARY | 2024-08-08 14:12 | XMS_ITS | Encounter Summary ---
Author Organization [facility] Address [address] [place] [address]. 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 Not on file Not on file documented as of this encounter Plan of Treatment Upcoming Encounters Date Type Department Care Team (Late Contact Info) Description 09/29/2024 8:00 AM CONTRACT WRITER Office Visit [facility] Family Medicine - [address], [address] [place] [address] Elza Benitez MD 15[address] [facility] [address] [place] [address] documented as of this encounter Procedures Procedure Name Priority Date/Time Associated Diagnosis Comments DIABETIC RETINOPATHY EXAM (NEGATIVE)(SCAN ORDER) Routine 06/23/2024 documented in this encounter Results * DIABETIC RETINOPATHY EXAM (NEGATIVE) (06/23/2024) us Doc Med Group Scanned SCANNING Final Resu lt [facility] ONBASE documented in this encounter Visit Diagnoses Not on filedocumented in this encounter Additional Health Concerns Assessment Noted Time PHQ-9 Depression Total Score: 0 12/15/19 4:05 PM CDT documented as of this encounter Care Teams Painting Trades Worker Relationship Specialty Start Date End Date Elza Benitez MD [address] [place] [address] PCP - General FAMILY PRACTICE 12/15/23 Sana Sethi OD [address] [place] [address] Slab Grinder 04/30/22 documented as of this encounter
--- OUTSIDE RECORDS SUMMARY | 2024-08-08 14:12 | XMS_ITS | Encounter Summary ---
Author Organization [facility] Address [address] [place] [address]. [place] [address] [place] [address] Care Team Providers Care Bar Finish Operator Name Role Phone Sarah Yap DO Primary Care Provider [phone] Sana Sethi OD Unavailable [phone] Encounter Details Date Type Department Care Team (Latest Contact Info) Description 07/03/2023 Travel Social History Tobacco Use Types Packs/Day [...] st Contact Info) Description 09/29/2024 8:00 AM COMBINED RAIL OPERATOR Office Visit [facility] Family Medicine - [address], [address] [place] [phone] Elza Benitez MD 15[address] [facility] [address] [place] [address] documented as of this encounter Visit Diagnoses Not on filedocumented in this encounter Additional Health Concerns Assessment Noted Time PHQ-9 Depression Total Score: 0 03/03/20 22 3:48 PM COMBINED RAIL OPERATOR documented as of this encounter Care Teams Bar Finish Operator Relationship Specialty Start Date End Date Sarah Yap DO [address] [place] [address] PCP - General 08/18/16 12/14/23 Sana Sethi OD [address] [place] [address] Training Technician 04/30/22 documented as of this encounter
--- OUTSIDE RECORDS SUMMARY | 2024-08-08 14:12 | XMS_ITS | Encounter Summary ---
Author Organization [facility] Address [address] [place] [address]. [place], [place] [phone] [place] [address] Care Team Providers Care Technical Support Director Name Role Phone Sarah Yap DO Primary Care Provider [phone] Sana Sethi OD Unavailable [phone] Encounter Details Date Type Department Care Team (Latest Contact Info) Description 07/03/2023 2:45 PM LOCK TENDER - 07/03/2023 11:59 PM [facility] Hospital Encounter [facility] Bldg Diagnostic Imaging [address] [place] [id number] Sarah Yap DO [address] [place] [address] Discharge Disposition: Home or Self Care (Routine [...] 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 Not on file Not on file documented as of this encounter Medications at Time of Discharge Insulin Pen Needle (PEN NEEDLES 31GX5/16 ) 31G X 8 MM Misc 08/25/2017 atorvastatin (LIPITOR) 10 MG tabletIndications:Ot her hyperlipidemia TAKE 1 TABLET BY MOUTH EVERY DAY IN THE EVENING 90 tablet 05/25/2023 4 BASAGLAR KWIKPEN 100 UNIT/ML injection (PEN)Indications:Con trolled type 2 diabetes mellitus with microalbuminuria, with long-term current use of insulin ([facility]) INJECT 55 UNITS EVERY DAY DIRECTED 20 mL 1 01/06/2023 3 buPROPion XL (WELLBUTRIN XL) 150 MG 24 hr tabletIndications:De pression, unspecified depression type Take 1 tablet (150 mg total) by mouth daily. 30 tablet 5 07/03/2023 4 cetirizine (ZYRTEC) 10 MG tabletIndications:Al lergic rhinitis, unspecified seasonality, unspecified trigger TAKE 1 TABLET BY MOUTH EVERY DAY 90 tablet 3 04/01/2022 3 FARXIGA 10 MG tabletIndications:Co ntrolled type 2 diabetes mellitus with microalbuminuria, with long-term current use of insulin ([facility]) TAKE 1 TABLET BY MOUTH EVERY DAY 30 tablet 1 06/02/2023 4 fluconazole (DIFLUCAN) 150 MG tabletIndications:Ye ast vaginitis Take po at once and repeat in 1 week if needed 2 tablet 1 07/03/2023 4 hydroCHLOROthiazide (HYDRODIURIL) 50 MG tabletIndications:Es sential hypertension TAKE 1 TABLET BY MOUTH EVERY DAY 90 tablet 3 04/01/2022 4 lisinopril (PRINIVIL) 10 MG tabletIndications:Es sential hypertension TAKE 1 TABLET BY MOUTH EVERY DAY 90 tablet 05/27/2023 4 metFORMIN (GLUCOPHAGE) 1000 MG tabletIndications:Co ntrolled type 2 diabetes mellitus with microalbuminuria, with long-term current use of insulin ([facility]) TAKE 1 TABLET BY MOUTH TWICE A DAY 180 tablet 3 04/01/2022 4 venlafaxine XR (EFFEXOR-XR) 150 MG 24 hr capsuleIndications:D epression, unspecified depression type TAKE 1 CAPSULE BY MOUTH EVERY DAY 90 capsule 3 04/01/2022 4 documented as of this encounter Plan of Treatment Upcoming Encounters Date Type Department Care Team (Late st Contact Info) Description 09/29/2024 8:00 AM LOCK TENDER Office Visit [facility] Family Medicine - [address], [address] [place] [address] Elza Benitez MD [address] [facility] [address] [place], [place] [id number] documented as of this encounter Procedures Procedure Name Priority Date/Time Associated Diagnosis Comments XR FOOT LT 3V STAT 07/03/2023 3:13 PM LOCK TENDER Left foot pain XR ANKLE LT M3V STAT 07/03/2023 3:13 PM LOCK TENDER Acute left ankle pain documented in this encounter Results * XR ANKLE LT M3V (07/03/2023 3:13 PM LOCK TENDER) Anatomical Region Laterality Modality Ankle Radiographic [place]ola ging 07/03/2023 3:27 PM LOCK TENDER Impressions 07/03/2023 3:28 PM LOCK TENDER IMPRESSION: No acute ankle fracture. Referred By: ?? Interpreted By: Rickie Pelayo MD, 07/03/2023 3:27 PM Narrative 07/03/2023 3:28 PM LOCK TENDER EXAMINATION: XR ANKLE LT M3V HISTORY: Pain after injury DATE: 07/03/2023 3:01 PM COMPARISON: None TECHNIQUE: AP, oblique and lateral views of the left ankle. ??3 images. ?? FINDINGS: No acute ankle fracture or dislocation. ??Joint spaces are unremarkable. ??Please see separate dictated foot x-ray forefoot abnormalities. Procedure Note Rickie Pelayo MD - 07/03/2023 EXAMINATION: XR ANKLE LT M3V HISTORY: Pain after injury DATE: 07/03/2023 3:01 PM COMPARISON: None TECHNIQUE: AP, oblique and lateral views of the left ankle. 3 images. FINDINGS: No acute ankle fracture or dislocation. Joint spaces areunremarkable. Please see separate dictated foot x-ray forefootabnormalities. IMPRESSION: No acute ankle fracture. Referred By: Interpreted By: Rickie Pelayo MD, 07/03/2023 3:27 PM us Sarah Barraza Walker DO GENERAL IMAGING Final Result * XR FOOT LT 3V (07/03/2023 3:13 PM LOCK TENDER) Anatomical Region Laterality Modality Foot Radiographic Leola ging 07/03/2023 3:28 PM LOCK TENDER Impressions 07/03/2023 3:31 PM LOCK TENDER IMPRESSION: 1. ??Acute nondisplaced fracture of the fifth metatarsal base. 2. ??Significant midfoot degenerative change. Referred By: ?? Interpreted By: Rickie Pelayo MD, 07/03/2023 3:28 PM Narrative 07/03/2023 3:31 PM LOCK TENDER EXAMINATION: XR FOOT LT 3V HISTORY: Pain DATE: 07/03/2023 3:01 PM COMPARISON: None TECHNIQUE: AP, oblique and lateral views of the left foot. ??3 images. FINDINGS: There is an acute nondisplaced transverse fracture of the fifth metatarsal, proximal metaphysis and epiphysis. ??There is mild comminution. ??No angulation. ??No other acute fracture identified. ??No dislocation. ??There is moderate to advanced midfoot degenerative change at the tarsometatarsal articulations. ??Mild first MTP joint degenerative change. ??Hallux valgus. ??Achilles tendon enthesophyte. Procedure Note Rickie Pelayo MD - 07/03/2023 EXAMINATION: XR FOOT LT 3V HISTORY: Pain DATE: 07/03/2023 3:01 PM COMPARISON: None TECHNIQUE: AP, oblique and lateral views of the left foot. 3 images. FINDINGS: There is an acute nondisplaced transverse fracture of the fifthmetatarsal, proximal metaphysis and epiphysis. There is mild comminution.No angulation. No other acute fracture identified. No dislocation.There is moderate to advanced midfoot degenerative change at thetarsometatarsal articulations. Mild first MTP joint degenerative change.Hallux valgus. Achilles tendon enthesophyte. IMPRESSION: 1. Acute nondisplaced fracture of the fifth metatarsal base. 2. Significant midfoot degenerative change. Referred By: Interpreted By: Rickie Pelayo MD, 07/03/2023 3:28 PM Sarah Yap DO GENERAL IMAGING Final Result documented in this encounter Visit Diagnoses Diagnosis Left foot pain Pain in limb Acute left ankle pain documented in this encounter Additional Health Concerns Assessment Noted Time PHQ-9 Depression Total Score: 0 10/04/19 3:48 PM LOCK TENDER documented as of this encounter Care Teams Technical Support Director Relationship Specialty Start Date End Date Sarah Yap DO [address] [place] [address] PCP - General 08/18/16 12/14/23 Sana Sethi OD [address] [place] [address] Variety Lathe Operator 04/30/22 documented as of this encounter
--- OUTSIDE RECORDS SUMMARY | 2024-08-08 14:13 | XMS_ITS | Encounter Summary ---
Author Organization [facility] Address [address] [place] [address]. [place], [place] [address] [place] [address] Care Team Providers Care Post Framer Name Role Phone Jaci Herrera DO Primary Care Provider [phone] Reason for Referral * Consultation (Routine) - Closed Specialty Diagnoses / Procedures Referred By Unruly pham Referred To Contact DERMATOLOGY Diagnoses Dermatitis Jaci Herrera DO [address] [place] [address] Phone: tel: fax: Referral ID Status Reason Start Date Expiration Date V isits Requested Visits Authorized [id number] Closed Specialty Services 04/05/2019 05/05/2020 1 1 Reason for Visit * Reason Comments Follow Up 6 month Encounter Details Date Type Department Care Team (Late st Contact Info) Description 04/05/2019 8:00 AM CDT Office Visit [facility] [address] [place] [address] Jaci Herrera DO [address] [place] [address] Follow Up (6 month) Social History Tobacco Use Types Packs/Day Years Used Date Smoking Tobacco: Never Smokeless Tobacco: Never Alcohol Use Standard Drinks/Week Comments Yes 0 (1 standard drink = 0.6 oz pur e alcohol) Comments Unknown Sex and Gender Information Value Date Recorded Sex Assigned at Not on file Legal Sex Female 7:26 PM CDT Gender Identity Not on file Sexual Orientation Not on file 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 file Not on file Not on file documented as of this encounter Last Filed Vital Signs Vital Sign Reading Time Taken Comments Blood Pressure 118/84 04/05/2019 7:56 AM CDT Pulse - - Temperature - - Respiratory Rate - - Oxygen Saturation - - Inhaled Oxygen Concentration - - Weight 119.7 kg (264 lb) 04/05/2019 7:56 AM CDT Height - - Body Mass Index 40.74 01/04/2019 3:47 PM CDT documented in this encounter Progress Notes * Jaci Herrera, DO - 04/05/2019 8:00 AM CDT Reason for Visit: Follow Up (6 month) History of Present Illness: Here for 6mth f/u Still has the rash on arms, legs and chest, always better with steroids but nevergoes away Trying to be more active and watch diet better No other complaints ROS: Review of Systems Constitutional: Negative. Respiratory: Negative. Cardiovascular: Negative. Gastrointestinal: Negative. Genitourinary: Negative. Musculoskeletal: Negative. Skin: Positive for rash. Psychiatric/Behavioral: Negative. Medications: Current Outpatient Medications: ??? atorvastatin 10 MG tablet, Take 1 tablet by mouth daily., Disp: , Rfl: ??? hydrochlorothiazide 50 MG tablet, Take 1 tablet by mouth daily., Disp: , Rfl: ??? insulin glargine (BASAGLAR KWIKPEN) 100 UNIT/ML injection (PEN), INJECT 55 UNITS SUBCUTANEOUS DAILY DIRECTED, Disp: , Rfl: ??? Insulin Pen Needle (PEN NEEDLES 31GX5/16 ) 31G X 8 MM [facility] [place] Disp: , Rfl: ??? lisinopril 10 MG tablet, Take 1 tablet by mouth daily., Disp: , Rfl: ??? metFORMIN 1000 MG tablet, Take 1 tablet by mouth 2 (two) times daily., Disp: , Rfl: ??? pioglitazone 45 MG tablet, Take 1 tablet by mouth daily., Disp: , Rfl: ??? venlafaxine XR 150 MG 24 hr capsule, Take 1 capsule by mouth daily., Disp: , Rfl: Current Facility-Administered Medications: ??? triamcinolone acetonide (KENALOG-40) injection 40 mg, 40 mg, Intramuscular, Once, Jaci Herrera DO No Known Allergies Past Medical History: Diagnosis Date ??? Acne ??? Cholelithiasis ??? Hypertension ??? Postmenopausal Late 40's ? Premenstrual syndrome ??? Trigger thumb ??? Viral warts Past Surgical History: Procedure Laterality Date ??? COLONOSCOPY 11/11/2012: next colonoscopy due 03/2015; 03/2010 polyp 05/2015 normal repeat 5 yrs ??? LITHOTRIPSY ??? OTHER PROCEDURE Ear surgeyr- Lasik ??? TONSILLECTOMY Social History Tobacco Use ??? Smoking status: Never Smoker ??? Smokeless tobacco: Never Used Substance Use Topics ??? Alcohol use: Yes Social History Socioeconomic History ??? Marital status: Spouse name: Not on file ??? Number of children: Not on file ??? Years of education: Not on file ??? Highest education level: Not on file 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 Pulmonary/Chest: Effort normal and breath sounds normal. Musculoskeletal: She exhibits no edema. Skin: Rash noted. Arms. Legs chest-- papular lesions, some excoriated Skin is very dry Nursing note and vitals reviewed. Filed Vitals: 04/05/19 0756 BP: 118/84 Weight: 119.7 kg (264 lb) Diagnoses/Impression: 1. Controlled type 2 diabetes mellitus with chronic kidney disease, with long- term current use of insulin, unspecified CKD stage ([facility]) HEMOGLOBIN, GLYCOSYLATED 2. Dermatitis AMB REFERRAL TO DERMATOLOGY 3. Albuminuria 4. Morbid obesity (CMS/HCC) 5. Essential hypertension Recommendations and Plan: Remain active, exercise, healthy diet, eye exam when due, flu shot each Fall Will send to derm, a1c Cont to exercise and watch diet Orders Placed This Encounter ??? HEMOGLOBIN, GLYCOSYLATED ??? Ambulatory referral to Dermatology JACI HERRERA DO Referring Provider: No ref. provider found PCP: JACI HERRERA DO documented in this encounter Plan of Treatment Upcoming Encounters Date Type Department Care Team (Late st Contact Info) Description 09/29/2024 8:00 AM HIGH SCHOOL FOREIGN LANGUAGE TEACHER Office Visit [facility] Family Medicine - [address], [address] [place] [address] Elza Benitez MD [address] [facility] [address] [place] [address] Scheduled Referrals Name Type Priority Associated Diagnoses Orde r Schedule Ambulatory referral to Dermatology Referral Routine Dermatitis Ordered: 04/05/2019 documented as of this encounter Results * HEMOGLOBIN, GLYCOSYLATED (04/05/2019 8:16 AM CDT) HGB A1C 8.1 04/05/2019 8:16 AM CDT Jaci Herrera DO LABORATORY Final Result documented in this encounter Visit Diagnoses Diagnosis Controlled type 2 diabetes mellitus with chronic kidney disease, with long-term current use of insulin, unspecified CKD stage ([facility])- Primary Dermatitis Contact dermatitis and other eczema, due to unspecified cause Albuminuria Proteinuria Morbid obesity ([facility]) Morbid obesity Essential hypertension Unspecified essential hypertension documented in this encounter Care Teams Post Framer Relationship Specialty Start Date End Date Jaci Herrera DO [address] [place] [address] PCP - General 08/18/16 12/14/23 documented as of this encounter
--- OUTSIDE RECORDS SUMMARY | 2024-08-08 14:13 | XMS_ITS | Encounter Summary ---
Author Organization [facility] Address [address] [place] [address]. [place], [place] [address] [place] [address] Care Team Providers Care Clerical Associate Name Role Phone Sarah Yap DO Primary Care Provider [phone] Encounter Details Date Type Department Care Team (Late Contact Info) Description 01/21/2019 Orders Only 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 Not on file Not on file documented as of this encounter Plan of Treatment Upcoming Encounters Date Type Department Care Team (Late Contact Info) Description 09/29/2024 8:00 AM PATTERN LEASE INSPECTOR Office Visit [facility] Family Medicine - [address], [address] [place] [phone] Elza Benitez MD [address] [facility] [address] [place] [address] documented as of this encounter Visit Diagnoses Diagnosis Urinary tract infection- Primary Urinary tract infection, site not specified documented in this encounter Care Teams Clerical Associate Relationship Specialty Start Date End Date Sarah Yap DO [address] [place] [address] PCP - General 08/18/16 12/14/23 documented as of this encounter
--- OUTSIDE RECORDS SUMMARY | 2024-08-08 14:13 | XMS_ITS | Encounter Summary ---
Author Organization [facility] Address [address] [place] [address]. [place], [place] [address] [place] [address] Care Team Providers Care Director Of Mechanical Engineering Name Role Phone Sarah Yap DO Primary Care Provider [phone] Encounter Details Date Type Department Care Team (Late Contact Info) Description 12/13/2019 8:00 AM CDT Laboratory Only [facility] [address] [facility] [address] [place] [address] Social History Tobacco Use Types Packs/Day Years Used Date Smoking Tobacco: Never Smokeless Tobacco: Never Alcohol Use Standard Drinks/Week Comments Yes 0 (1 standard drink = 0.6 oz pur e alcohol) PHQ-2 Answer Date Recorded PHQ-2 Score 2 12/08/2019 Comments Unknown Sex and Gender Information Value Date Recorded Sex Assigned at Not on file Legal Sex Female 7:26 PM CDT Gender Identity Not on file Sexual Orientation Not on file 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 No / Unsure 12/13/2019 8:01 AM CDT documented as of this encounter Plan of Treatment Upcoming Encounters Date Type Department Care Team (Late Contact Info) Description 09/29/2024 8:00 AM EXTRACTIONS TECHNICIAN Office Visit [facility] Family Medicine - [address], [address] [place] [phone] Elza Benitez MD [address] [address] documented as of this encounter Procedures Procedure Name Priority Date/Time Associated Diagnosis Comments COMPREHENSIVE METABOLIC PANEL Routine 12/13/2019 8:08 AM CDT Controlled type 2 diabetes mellitus with microalbuminuria, with long-term current use of insulin ([facility]) Albuminuria Essential hypertension Morbid obesity ([facility]) Hyperlipidemia, unspecified hyperlipidemia type LIPID PANEL Routine 12/13/2019 8:08 AM CDT Controlled type 2 diabetes mellitus with microalbuminuria, with long-term current use of insulin ([facility]) Albuminuria Essential hypertension Morbid obesity ([facility]) Hyperlipidemia, unspecified hyperlipidemia type HEMOGLOBIN, GLYCOSYLATED Routine 12/13/2019 8:07 AM CDT Controlled type 2 diabetes mellitus with microalbuminuria, with long-term current use of insulin ([facility]) Albuminuria COLLECTION VENOUS BLOOD VENIPUNCTURE Routine 12/13/2019 8:06 AM CDT Controlled type 2 diabetes mellitus with microalbuminuria, with long-term current use of insulin ([facility]) Albuminuria Essential hypertension Morbid obesity ([facility]) Hyperlipidemia, unspecified hyperlipidemia type ALBUMIN URINE RANDOM W/CREATININE Routine 12/13/2019 8:06 AM CDT Controlled type 2 diabetes mellitus with microalbuminuria, with long-term current use of insulin ([facility]) Albuminuria documented in this encounter Results * LIPID PANEL (12/13/2019 8:08 AM CDT) Pathologist [facility] CHOLESTEROL 142 0 - 199 MG/DL [facility] TRIGLYCERIDES 98 0 - 149 MG/DL [facility] HDL 61 50 - 240 MG/DL [facility] LDL (CALCULATED) 61 0 - 99 MG/DL [facility] CHOL/HDL RATIO 2.3 [facility] NON HDL CHOLESTEROL 81 0 - 129 MG/DL [facility] Comment: FOR AGES >=20 YEARS (MG/DL) .................IDEAL....ELEVATED....BORDERLINE......HIGH.....VERY HIGH CHOL*........<200.......................................200-239....>=240 TRIG...........<150.....................150-199......200-499....>=500 LDL-C.......<100...100-129.....130-159......160-189....>=190 NONHDL-C.<130...130-159.....160-189......190-219....>=220 JESUS TA, ET AL. NATIONAL LIPID ASSOCIATION RECOMMENDATIONS FOR PATIENT-CENTERED MANAGEMENT OF DYSLIPIDEMIA: PART 1-FULL REPORT. ??J CLIN LIPIDOL 2015;129-169. *THIRD REPORT OF THE NATIONAL CHOLESTEROL EDUCATION PROGRAM (NCEP) EXPERT PANEL ON DETECTION, EDUCATION, AND TREATMENT OF HIGH BLOOD CHOLESTEROL IN ADULTS (ADULT TREATMENT PANEL III): FINAL REPORT. CIRCULATION 2002; 106:[id number]. 12/13/2019 8:08 AM CDT 12/14/2019 3:37 AM CDT Narrative [facility] - 12/14/2019 4:31 AM CDT REPORT: [id number] IS PATIENT FASTING?->YES Sarah Yap DO LABORATORY Final Result [facility] [address] [place] [address], * (ABNORMAL) COMPREHENSIVE METABOLIC PANEL (12/13/2019 8:08 AM CDT) GLUCOSE 186(H) 70 - 99 MG/DL [facility] BUN 7 6 - 20 MG/DL [facility] CREATININE S/P/B 0.7 0.5 - 1.2 MG/DL [facility] EGFR AFR. AMER. 113 60 - 300 ML/MIN/1.7 3 M2 [facility] EGFR NON-AFR. AMER. 93 60 - 300 ML/MIN/1.7 3 M2 [facility] SODIUM S/P/B 141 136 - 145 MEQ/L [facility] POTASSIUM S/P/B 3.9 3.5 - 5.3 MEQ/L [facility] CHLORIDE S/P/B 101 98 - 107 MEQ/L [facility] CO2 26 23 - 31 MEQ/L [facility] ANION GAP 14 8 - 16 MMOLES/L [facility] CALCIUM S/P/B 9.1 8.4 - 10.5 MG/DL [facility] TOTAL PROTEIN S/P/B 6.3 6.0 - 8.3 GM/DL [facility] ALBUMIN S/P/B 3.9 3.5 - 5.0 GM/DL [facility] AST 18 11 - 32 IU/L [facility] ALT 17 9 - 43 IU/L [facility] ALKALINE PHOSPHATASE S/P/B 95 35 - 129 IU/L [facility] BILIRUBIN TOTAL S/P/B 0.3 0.0 - 1.0 MG/DL [facility] 12/13/2019 8:08 AM CDT 12/14/2019 3:37 AM CDT Narrative [facility] - 12/14/2019 4:31 AM CDT REPORT: [id number] IS PATIENT FASTING?->YES Sarah Yap DO LABORATORY Final Result Performing Organization Address City/[facility]/ZIP Co de Phone Number [facility] [address] [place] [address], * HEMOGLOBIN, GLYCOSYLATED (12/13/2019 8:07 AM CDT) HGB A1C 9.0 [facility] 12/13/2019 8:07 AM CDT us Sarah Yap DO LABORATORY Final Result [facility] [address] [address], * ALBUMIN URINE RANDOM (12/13/2019 8:06 AM CDT) MICROALBUMIN (U) 80 mg/L [facility] CREATININE RANDOM (U) 200 mg/dL [facility] MICROALB/CREAT <30 mg/g [facility] URINE SPECIMEN / Unknown 12/13/2019 8:06 AM CDT us Sarah Yap DO URINE ORDERABLES Final Resul t Performing Organization Address City/State/[facility] Co de Phone Number [facility] [address] [facility] [address] [place] [address] documented in this encounter Visit Diagnoses Diagnosis Controlled type 2 diabetes mellitus with microalbuminuria, with long-term current use of insulin ([facility]) Albuminuria Proteinuria Essential hypertension Unspecified essential hypertension Morbid obesity ([facility]) Morbid obesity Hyperlipidemia, unspecified hyperlipidemia type documented in this encounter Care Teams Director Of Mechanical Engineering Relationship Specialty Start Date End Date Sarah Yap DO [address] [place] [address] PCP - General 08/18/16 12/14/23 documented as of this encounter
--- OUTSIDE RECORDS SUMMARY | 2024-08-08 14:13 | XMS_ITS | Encounter Summary ---
Author Organization [facility] Address [address] [place] [address]. [place] [address] [place] [address] Care Team Providers Care Recruiting Scheduler Name Role Phone FraciscoSarah Primary Care Provider [phone] Sana Sethi OD Unavailable [phone] Encounter Details Date Type Department Care Team (Late Contact Info) Description 06/06/2023 Scan [facility] [address] 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 Not on file Not on file documented as of this encounter Plan of Treatment Upcoming Encounters Date Type Department Care Team (Late Contact Info) Description 09/29/2024 8:00 AM CREW BOAT OPERATOR Office Visit [facility] Family Medicine - [address], [address] [place] [phone] Elza Benitez MD [address] [facility] [address] [place] [address] documented as of this encounter Visit Diagnoses Not on filedocumented in this encounter Additional Health Concerns Assessment Noted Time PHQ-9 Depression Total Score: 0 10/04/19 22 3:48 PM CREW BOAT OPERATOR documented as of this encounter Care Teams Recruiting Scheduler Relationship Specialty Start Date End Date Sarah Yap DO [address] [place] [address] PCP - General 08/18/16 12/14/23 Sana Sethi OD [address] [place] [address] Product Safety Test Engineer 04/30/22 documented as of this encounter
--- OUTSIDE RECORDS SUMMARY | 2024-08-08 14:13 | XMS_ITS | Encounter Summary ---
Author Organization [facility] Address [address] [place] [address]. 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 Order sent to pharmacy DRY CLERK * Sarah Yap DO - 08/11/2019 10:13 AM CST Ok diflucan 150mg #2 1 po now and may repeat in 1 week if needed DRY CLERK * Mis Lee RN - 08/11/2019 9:52 AM CST Patient came in on 08/01/19 and treated for UTI. No c/o yeast infection. Will you rx diflucan? ADVISE CHRISTIE [place] DRY CLERK documented in this encounter Plan of Treatment Upcoming Encounters Date Type Department Care Team (Late st Contact Info) Description 09/29/2024 8:00 AM LAUNDRY CLERK Office Visit [facility] Family Medicine - [address], [address] [place] [phone] Elza Benitez MD [address] [facility] [address] [place] [address] documented as of this encounter Visit Diagnoses Not on filedocumented in this encounter Care Teams Roller Staker Relationship Specialty Start Date End Date Sarah Yap DO [address] [place] [address] PCP - General 08/18/16 12/14/23 documented as of this encounter
--- OUTSIDE RECORDS SUMMARY | 2024-08-08 14:13 | XMS_ITS | Encounter Summary ---
Author Organization [facility] Address [address] [place] [address]. [place] [address] [place] [address] Care Team Providers Care Regional Construction Manager Name Role Phone Sarah Yap DO Primary Care Provider [phone] Encounter Details Date Type Department Care Team (Late Contact Info) Description 06/15/2021 9:00 AM WIRELESS INTERNET INSTALLER Laboratory Only [facility] [address] [facility] [address] [place] [address] Social History Tobacco Use Types Packs/Day Years Used Date Smoking Tobacco: Never Smokeless Tobacco: Never Alcohol Use Standard Drinks/Week Comments Yes 0 (1 standard drink = 0.6 oz pur e alcohol) PHQ-2 Answer Date Recorded PHQ-2 Score - If the patient scores above 3, please move on to questions 3-9 0 01/18/2021 Comments Unknown Sex and Gender Information Value Date Recorded Sex Assigned at Not on file Legal Sex Female 7:26 PM CDT Gender Identity Not on file Sexual Orientation Not on file 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 Not on file Not on file Not on file documented as of this encounter Plan of Treatment Upcoming Encounters Date Type Department Care Team (Late st Contact Info) Description 09/29/2024 8:00 AM WIRELESS INTERNET INSTALLER Office Visit [facility] Medical Group Family Medicine - [address], [address] [place] [phone] Elza Benitez MD [address] [facility] [address] [place] [address] documented as of this encounter Procedures Procedure Name Priority Date/Time Associated Diagnosis Comments HEMOGLOBIN, GLYCOSYLATED Routine 06/15/2021 9:04 AM WIRELESS INTERNET INSTALLER Type 2 diabetes mellitus with diabetic chronic kidney disease ([facility]) COLLECTION VENOUS BLOOD VENIPUNCTURE Routine 06/15/2021 9:04 AM WIRELESS INTERNET INSTALLER Type 2 diabetes mellitus with diabetic chronic kidney disease ([facility]) documented in this encounter Results * (ABNORMAL) HEMOGLOBIN A1C (GLYCOSYLATED) (06/15/2021 9:04 AM WIRELESS INTERNET INSTALLER) HGB A1C 7.9(A) 4.2 - 6.5 % [facility] 06/15/2021 9:04 AM WIRELESS INTERNET INSTALLER us Sarah Yap DO LABORATORY Final Result Performing Organization Address City/State/[facility] Co de Phone Number [facility] [address] [facility] [address] [place] [address] documented in this encounter Visit Diagnoses Diagnosis Type 2 diabetes mellitus with diabetic chronic kidney disease ([facility]) Type II or unspecified type diabetes mellitus with renal manifestations, not stated as uncontrolled documented in this encounter Additional Health Concerns Assessment Noted Time PHQ-9 Depression Total Score: 0 01/19/20 21 4:36 PM CDT documented as of this encounter Care Teams Regional Construction Manager Relationship Specialty Start Date End Date Sarah Yap DO [address] [place] [address] PCP - General 08/18/16 12/14/23 documented as of this encounter
--- OUTSIDE RECORDS SUMMARY | 2024-08-08 14:13 | XMS_ITS | Encounter Summary ---
Author Organization [facility] Address [address] [place] [address]. [place] [address] [place] [address] Care Team Providers Care Insurance Biller Name Role Phone FraciscoSarah Christi RODRIGUEZ Primary Care Provider + [phone] Sana Sethi OD Unavailable [phone] Reason for Visit * Auth/Cert (Routine) Specialty Diagnoses / Procedures Referred By Contmatt t Referred To Contact Diagnoses Hx of polyps Procedures COLONOSCOPY Dayron Bell MD 3 [facility] [address] [place] [address] Phone: tel: fax: Referral ID Status Reason Start Date Expiration Date Visits Re quested Visits Authorized [id number] 1 1 Encounter Details Date Type Department Care Team (Late st Contact Info) Description 07/07/2022 8:57 AM SHAVING MACHINE OPERATOR Anesthesia Event [facility] [place] [address] Kalpesh Bartholomew MD [facility] [id number] [place] [address] [phone] (Work) Anesthesia Record Procedure Summary Procedure Name Responsible Anesthesiologist Anesthesia Start Time Anesthesia Stop Time COLONOSCOPY Kalpesh Bartholomew MD 07/07/22 0857 12/22 0922 Events Date Time Event Comment 07/07/2022 0820 0823 AN FAIRING WORKER Prepped 0857 An Start Patient ID and consent checked and patient reassessed. 0857 An Start Data 0859 Nasal Cannula Applied 0902 An Induction The patient was reevaluated immediately before moderate or deep sedation use and before anesthesia induction. 0903 Anesthesia Ready 0921 An Emergence 0921 an stop data 0922 Post Anesthetic Care Handoff I completed my handoff to the receiving nurse during which we: 1. Identified the patient 2. Identified the responsible provider 3. Reviewed the pertinent medical history 4. Discussed the surgical course 5. Reviewed intra-op anesthesia management and issues during anesthesia 6. Set expectations for post-procedure period 7. Allowed opportunity for questions and acknowledgement of understanding. 09 An Stop Meds Name Total lidocaine (PF) (XYLOCAINE) 2% injection 50 mg propofol (DIPRIVAN) 200 mg/20 mL injecti on 300 mg lactated ringers infusion 800 mL * Agents Name O2 Air Ancillary O2 * Blood No blood administrations on file. Lines, Drains, and Airways Type Details Placement Removal Peripheral IV Placement Date: 12/22; Placement Time: 08; Placed Outside of This Facility?: No; Size: 20 G; Orientation: Right; Site Prep: Chlorhexidine; Local Anesthetic: None; Inserted By: Maggi Couch; Insertion attempts: 1; Ultrasound-guided Placement?: No; Patient Tolerance: Tolerated well; Removal Date: 07/07/22; Removal Time: 942; Removal Reason: Patient Discharged 07/07/22 08 by Maggi Rowe LPN 07/07/22942 by Sylvie Serna RN documented in this encounter Social History Tobacco Use Types Packs/Day Years Used Date Smoking Tobacco: Never Smokeless Tobacco: Never Alcohol Use Standard Drinks/Week Comments Not Currently 0 (1 standard drink = 0.6 oz pur e alcohol) PHQ-2 Answer Date Recorded PHQ-2 Score - If the patient scores above 3, please move on to questions 3-9 0 03/04/2022 Comments No Sex and Gender Information Value Date Recorded Sex Assigned at Not on file Legal Sex Female 7:26 PM CDT Gender Identity Not on file Sexual Orientation Not on file 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 No / Unsure 07/07/2022 7:13 AM SHAVING MACHINE OPERATOR documented as of this encounter OR Notes * Anesthesia Postprocedure Evaluation - Kalpesh Bartholomew MD - 07/07/2022 9:43 AM CST Anesthesia Post-op Note Comfort Melony Miskell Procedure(s): COLONOSCOPY Anesthesia type: general Vitals: 07/07/22 0940 BP: (!) 114/95 Vitals: 07/07/22 0940 Pulse: 81 Vitals: 07/07/22 0940 Resp: 12 Vitals: 07/07/22 0754 Temp: 36.6 ??C Vitals: 07/07/22 0940 SpO2: 100% Patient Location: Phase II/Outpatient Level of Consciousness: awake and oriented Pain Management: adequate analgesia Airway Patency: patent Respiratory Status: acceptable, spontaneous ventilation, nonlabored ventilation and room air Cardiovascular Status: acceptable Post-Op Nausea: none Postoperative Hydration: euvolemic Comments: No anesthetic related complaints are voiced There were no known notable events for this encounter. ING MACHINE OPERATOR * Anesthesia Postprocedure Evaluation - Kalpesh Bartholomew MD - 07/07/2022 9:24 AM CST Anesthesia Post-op Note Comfort Melony Miskell Procedure(s): COLONOSCOPY Anesthesia type: general Vitals: 07/07/22 0940 BP: (!) 114/95 Vitals: 07/07/22 0940 Pulse: 81 Vitals: 07/07/22 0940 Resp: 12 Vitals: 07/07/22 0754 Temp: 36.6 ??C Vitals: 07/07/22 0940 SpO2: 100% Patient Location: Endoscopy Level of Consciousness: awake Pain Management: adequate analgesia Airway Patency: patent Respiratory Status: spontaneous ventilation, nonlabored ventilation and room air Cardiovascular Status: hemodynamically stable Post-Op Nausea: none Postoperative Hydration: euvolemic There were no known notable events for this encounter. ING MACHINE OPERATOR * Anesthesia Preprocedure Evaluation - Kalpesh Bartholomew MD - 07/07/2022 8:03 AM CST Anesthesia ROS/MED History Reviewed: Patient summary , ECG, Family history anesthesia, Anesthesia history , Medications , Labs , Images/Studies , Unchecked boxes are not applicable Pre-Anesthetic State: alert, awake and responds appropriately no history of anesthetic complications (Negative MH, FH) Pulmonary (-) pneumonia, recent URI, sleep apnea, asthma, smoker Cardiovascular (+) hypertension, hyperlipidemia(-) Valvular problems/Murmurs, past MT, CAD, arrhythmia Neuro/Psych (+) depression(-) no seizures, no TIA, no CVA, no substance use GI/Hepatic/Renal (+) renal disease (Albuminuria) Comments: Pre-op diagnosis: Hx of polyps Endo/Other (+) diabetes mellitus, (type 2), (Using Oral hypoglycemic), obese, (Morbid), arthritis, (OA) (-) hypothyroidism, hyperthyroidism GENERAL COMMENTS Past Surgical History: No date: COLONOSCOPY Comment: 11/11/2012: next colonoscopy due 03/2015; 03/2010 polyp 05/2015 normal repeat 5 yrs 1997: KIDNEY STONE REMOVAL No date: LITHOTRIPSY No date: OTHER PROCEDURE Comment: Ear surgeyr- Lasik No date: TONSILLECTOMY Past Medical History: No date: Acne No date: Cholelithiasis No date: Depression No date: Diabetes mellitus (CMS/HCC) No date: Hypertension No date: Personal history of colonic polyps No date: Postmenopausal Comment: Late 40's No date: No date: Premenstrual syndrome No date: Trigger finger No date: Trigger thumb No date: Viral warts Physical Evaluation Airway Mallampati: II TM Distance: >3 FB Neck ROM: normal Dental (crowns) Comment: Lower cracked molar, multiple fillings Teeth fair repair Pulmonary Breath sounds clear to auscultation Cardiovascular Rhythm: regular Rate: normal Other findings: Blood pressure 133/88, pulse 85, temperature 36.6 ??C, temperature source Temporal,resp. rate 17, height 5' 8 (1.727 m), weight 122.5 kg (270 lb), SpO2 99 %. No results for input(s): WBC, RBC, HGB, HCT, PLT, NA, K, CL, CO2, AGAP, BUN, CR, BUNCREATININ, GFRNON, GFR, GLU, CA in the last 72 hours. Anesthesia Plan ASA 3 Intravenous Induction Anesthesia type: general TIVA/ General Anesthesia Plan for Airway: Nasal cannula / Simple face mask Plan for Post Operative Pain: IV analgesics, Oral pain medications per surgeon Nature, alternatives, and risks of plan discussed with patient / guardian including but not limitedto potential corneal abrasion, visual impairment or visual loss, dental injury and damage, esophageal injury, sore throat, awareness, nerve injury secondary to positioning, aspiration, respirtory depr ession, apnea, and respiratory support, hypoxemia, cardiac injury,brain injury, adverse drug reaction, drug allergic reaction, and . Patient expresses understanding that Dr Bartholomew not liable or responsible for dental damage. All questions answered. Informed Consent Anesthetic plan and risks discussed with patient of whom consent was obtained. . ING MACHINE OPERATOR documented in this encounter Plan of Treatment Upcoming Encounters Date Type Department Care Team (Late st Contact Info) Description 09/29/2024 8:00 AM SHAVING MACHINE OPERATOR Office Visit [facility] Family Medicine - [address], [address] [place] [phone] Elza Benitez MD [facility] [address] [place] [address] documented as of this encounter Visit Diagnoses Not on filedocumented in this encounter Administered Medications Inactive Administered Medications - up to 3 most recent administrations Medication Order MAR Action Action Date Dose Rate Site lactated ringers infusion at 10 mL/hr, Intravenous, Continuous, Starting on Thu07/07/22 at 0830, Until Thu07/07/22 at 1155, Infuse at TKO rate, Pre-Op New Bag 07/07/2022 8:43 AM SHAVING MACHINE OPERATOR lidocaine (PF) (XYLOCAINE) 2 % injection Intravenous, PRN, Starting on Thu07/07/22 at 0902, Until Thu07/07/22 at 0922, Anesthesia Intra-Op Given 07/07/2022 9:02 AM SHAVING MACHINE OPERATOR 50 mg propofol (DIPRIVAN) IV bolus Intravenous, PRN, Starting on Thu07/07/22 at 0902, Until Thu07/07/22 at 0922, Anesthesia Intra-Op Given 07/07/2022 9:18 AM SHAVING MACHINE OPERATOR 30 mg Given 07/07/2022 9:14 AM SHAVING MACHINE OPERATOR 30 mg Given 07/07/2022 9:12 AM SHAVING MACHINE OPERATOR 40 mg documented in this encounter Additional Health Concerns Assessment Noted Time PHQ-9 Depression Total Score: 0 10/04/19 3:48 PM SHAVING MACHINE OPERATOR documented as of this encounter Care Teams Insurance Biller Relationship Specialty Start Date End Date Sarah Yap DO [address] [place] [address] PCP - General 08/18/16 12/14/23 Sana Sethi OD [address] [place] [address] Overnight Houseperson 04/30/22 documented as of this encounter
--- OUTSIDE RECORDS SUMMARY | 2024-08-08 14:13 | XMS_ITS | Encounter Summary ---
Author Organization [facility] Address [address] [place] [address]. [place] [address] [place] [address] Care Team Providers Care Director Business Development Name Role Phone Sarah Yap DO Primary Care Provider + [phone] Sana Sethi OD Unavailable [phone] Encounter Details Date Type Department Care Team (Late Contact Info) Description 05/19/2022 [facility] [address] [facility] [address] [place] [address] Sarah Yap DO [address] [place], [place] [address] Social History Tobacco Use Types Packs/Day Years Used Date Smoking Tobacco: Never Smokeless Tobacco: Never Alcohol Use Standard Drinks/Week Comments Yes 0 (1 standard drink = 0.6 oz pur e alcohol) PHQ-2 Answer Date Recorded PHQ-2 Score - If the patient scores above 3, please move on to questions 3-9 0 03/04/2022 Comments Unknown Sex and Gender Information Value Date Recorded Sex Assigned at Not on file Legal Sex Female 7:26 PM CDT Gender Identity Not on file Sexual Orientation Not on file 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 Not on file Not on file documented as of this encounter Plan of Treatment Upcoming Encounters Date Type Department Care Team (Late st Contact Info) Description 09/29/2024 8:00 AM ENVIRONMENTAL ENGINEER Office Visit [facility] Family Medicine - [place] [address] [facility], [address] [place] [address] Elza Benitez MD [address] [id number] Scheduled Orders Name Type Priority Associated Diagnoses Orde r Schedule DIABETIC RETINOPATHY EXAM (NEGATIVE)(SCAN) Procedures Routine Ordered: 1 documented as of this encounter Visit Diagnoses Not on filedocumented in this encounter Additional Health Concerns Assessment Noted Time PHQ-9 Depression Total Score: 0 10/04/19 3:48 PM ENVIRONMENTAL ENGINEER documented as of this encounter Care Teams Director Business Development Relationship Specialty Start Date End Date Sarah Yap DO [address] [place] [address] PCP - General 08/18/16 12/14/23 Sana Sethi OD [address] [place] [address] Direct Chill Caster 04/30/22 documented as of this encounter
--- OUTSIDE RECORDS SUMMARY | 2024-08-08 14:13 | XMS_ITS | Encounter Summary ---
Author Organization [facility] Address [address] [place] [address]. [place], [place] [address] [place] [address] Care Team Providers Care Hardening Machine Operator Helper Name Role Phone Sarah Yap DO Primary Care Provider + [phone] Sana Sethi OD Unavailable [phone] Encounter Details Date Type Department Care Team (Late Contact Info) Description 12/12/2022 9:25 AM CDT Laboratory Only [facility] [address] 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 Not on file Not on file documented as of this encounter Plan of Treatment Upcoming Encounters Date Type Department Care Team (Late st Contact Info) Description 09/29/2024 8:00 AM GAS STATION SUPERVISOR Office Visit [facility] Family Medicine - [place] [address] [facility], [address] [place] [address] Elza Benitez MD [address] [place] [address] Scheduled Orders Name Type Priority Associated Diagnoses Orde r Schedule SPECIMEN HANDLING,DR OFF->LAB Procedures Routine UTI (urinary tract infection) Yeast infection Ordered: 12/12/2022 documented as of this encounter Procedures Procedure Name Priority Date/Time Associated Diagnosis Comments URINE BACTERIA CULTURE Routine 12/12/2022 9:31 AM CDT UTI (urinary tract infection) Yeast infection documented in this encounter Results * CULTURE URINE (12/12/2022 9:31 AM CDT) COMMENT (U) SEE RESULTS BELOW [facility] Comment: ?? TEST: ? CULTURE: URINE ? SPECIMEN SOURCE: ?URINE - CLEAN CATCH ? SPECIMEN TYPE: ?URINE ? SPECIMEN DATE: ?12/12/2022 ??9:31 AM ? RESULT DATE: ?12/14/2022 ??7:40 AM ? RESULT STATUS: ?FINAL RESULT ? ABNORMAL: ? NO ? RESULTING LAB: ?[facility] ? [address] ? [facility] [address] ? TEL: [phone] ? CULTURE ? CULTURE RESULT (>=3 ORGANISMS PRESENT) INDICATES POSSIBLE ?CONTAMINATION. ??REPEAT ? CULTURE IF SYMPTOMS INDICATE. ?? URINE SPECIMEN OBTAINED BY CLEAN CATCH PROCEDURE / Unknown 12/12/2022 9:31 AM CDT 12/13/2022 5:08 AM CDT us Sarah Yap DO MICROBIOLOGY - GENERAL ORDER MEREDITH Final Result Performing Organization Address City/State/[facility] Co de Phone Number [employer] [address] [place] [address], documented in this encounter Visit Diagnoses Diagnosis UTI (urinary tract infection)- Primary Urinary tract infection, site not specified Yeast infection Other and unspecified mycoses documented in this encounter Additional Health Concerns Assessment Noted Time PHQ-9 Depression Total Score: 0 10/04/19 22 3:48 PM GAS STATION SUPERVISOR documented as of this encounter Care Teams Hardening Machine Operator Helper Relationship Specialty Start Date End Date Sarah Yap DO [address] [place] [address] PCP - General 08/18/16 12/14/23 Sana Sethi OD [address] [place] [address] Neon Sign Installer 04/30/22 documented as of this encounter
--- OUTSIDE RECORDS SUMMARY | 2024-08-08 14:13 | XMS_ITS | Encounter Summary ---
Author Organization [facility] Address [address] [place] [address]. 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 Not on file Not on file documented as of this encounter Progress Notes * Krissy Mark RN - 08/11/2019 10:33 AM CST dif R AND GENERATOR BRUSH CUTTER documented in this encounter Plan of Treatment Upcoming Encounters Date Type Department Care Team (Late st Contact Info) Description 09/29/2024 8:00 AM MOTOR AND GENERATOR BRUSH CUTTER Office Visit [facility] Family Medicine [address], [address] [place] [address] Elza Benitez MD [address] [facility] [address] [place], [place] [phone] documented as of this encounter Visit Diagnoses Diagnosis Yeast infection- Primary Other and unspecified mycoses documented in this encounter Care Teams Psychiatric Aides Teacher Relationship Specialty Start Date End Date Sarah Yap DO [address] [place] [address] PCP - General 08/18/16 12/14/23 documented as of this encounter
--- OUTSIDE RECORDS SUMMARY | 2024-08-08 14:13 | XMS_ITS | Encounter Summary ---
Author Organization [facility] Address [address] [place] [address]. 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
--- OUTSIDE RECORDS SUMMARY | 2024-08-08 14:13 | XMS_ITS | Encounter Summary ---
Author Organization [facility] Address [address] [place] [address]. [place], [place] [address] [place] [address] Care Team Providers Care Property Utilization Manager Name Role Phone FraciscoSarah Primary Care Provider [phone] Reason for Visit * Reason Comments Imm/Inj Shingrix Encounter Details Date Type Department Care Team (Latest Contact Info) Description 08/17/2020 10:15 AM POWER PLANT INSTALLER Allied Health/Nurse Visit [facility] [address] [facility] [address] [place] [phone] Imm/Inj (Shingrix) Social History Tobacco Use Types Packs/Day Years Used Date Smoking Tobacco: Never Smokeless Tobacco: Never Alcohol Use Standard Drinks/Week Comments Yes 0 (1 standard drink = 0.6 oz pur e alcohol) PHQ-2 Answer Date Recorded PHQ-2 Score - If the patient scores above 3, please move on to questions 3-9 0 04/17/2020 Comments Unknown Sex and Gender Information Value Date Recorded Sex Assigned at Not on file Legal Sex Female 7:26 PM CDT Gender Identity Not on file Sexual Orientation Not on file 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 No / Unsure 08/17/2020 10:11 AM POWER PLANT INSTALLER documented as of this encounter Progress Notes * Gabriela Vinson, TELEPHONE MAINTENANCE MECHANIC - 08/17/2020 10:15 AM CST Patient here for 2nd Shingrix vaccine. Shingrix given IM. Patient tolerated well. Cosigned by Sarah Yap DO at 08/17/2020 10:28 AM POWER PLANT INSTALLER R PLANT INSTALLER R PLANT INSTALLER documented in this encounter Plan of Treatment Upcoming Encounters Date Type Department Care Team (Late st Contact Info) Description 09/29/2024 8:00 AM POWER PLANT INSTALLER Office Visit [facility] Family Medicine - [address], [address] [place] [phone] Elza Benitez MD [address] [facility] [address] [place] [address] documented as of this encounter Visit Diagnoses Diagnosis Need for shingles vaccine- Primary Need for prophylactic vaccination and inoculation against other viral diseases documented in this encounter Care Teams Property Utilization Manager Relationship Specialty Start Date End Date Sarah Yap DO [address] [facility] [address] [place] [address] PCP - General 08/18/16 12/14/23 documented as of this encounter
--- OUTSIDE RECORDS SUMMARY | 2024-08-08 14:13 | XMS_ITS | Encounter Summary ---
Author Organization [facility] Address [address] [place] [address]. 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 No / Unsure 08/17/2020 10:11 AM SECURITY SYSTEMS MANAGER documented as of this encounter Plan of Treatment Upcoming Encounters Date Type Department Care Team (Late st Contact Info) Description 09/29/2024 8:00 AM SECURITY SYSTEMS MANAGER Office Visit [facility] Family Medicine - [address], [address] [place] [phone] Elza Benitez MD [address] [facility] [address] [place], [place] [phone] documented as of this encounter Visit Diagnoses Not on filedocumented in this encounter Care Teams Fruit Picker Relationship Specialty Start Date End Date Sarah Yap DO [address] [place] [address] PCP - General 08/18/16 12/14/23 documented as of this encounter
--- OUTSIDE RECORDS SUMMARY | 2024-08-08 14:13 | XMS_ITS | Encounter Summary ---
Author Organization [facility] Address [address] [place] [address]. 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 No / Unsure 12/08/2019 9:20 AM CDT documented as of this encounter Plan of Treatment Upcoming Encounters Date Type Department Care Team (Late st Contact Info) Description 09/29/2024 8:00 AM MANAGER PRICING Office Visit [facility] Family Medicine - [address], [address] [place] [address] Elza Benitez MD [address] [facility] [address] [place] [address] documented as of this encounter Visit Diagnoses Not on filedocumented in this encounter Care Teams Newspaper Delivery Counselor Relationship Specialty Start Date End Date Sarah Yap DO [address] [place] [address] PCP - General 08/18/16 12/14/23 documented as of this encounter
--- OUTSIDE RECORDS SUMMARY | 2024-08-08 14:13 | XMS_ITS | Encounter Summary ---
Author Organization [facility] Address [address] [place] [address]. 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 PATIENT SYMPTOMS ARE BURNING, FREQUENCY, URGENCY. SEE UA. PATIENT REQUESTS YEAST INFECTION MEDS IF ANTIBIOTICS GIVEN. Cosigned by Liam Vogt MD at 08/01/2019 1:09 PM SPRAY GUN SIZER Y GUN SIZER Y GUN SIZER * Liam Vogt MD - 08/01/2019 1:00 PM CST Send for Culture - Bactrim DS 1 PO BID #10. Repeat Clean Catch UA in 2-3 weeks. Y GUN SIZER documented in this encounter Plan of Treatment Upcoming Encounters Date Type Department Care Team (Late st Contact Info) Description 09/29/2024 8:00 AM SPRAY GUN SIZER Office Visit [facility] Family Medicine - [address], [address] [place] [phone] Elza Benitez MD [facility] [address] [place] [address] documented as of this encounter Procedures Procedure Name Priority Date/Time Associated Diagnosis Comments URINE BACTERIA CULTURE Routine 08/01/2019 1:24 PM SPRAY GUN SIZER Urinary tract infection without hematuria, site unspecified URINALYSIS AUTO DIP Routine 08/01/2019 Urinary tract infection without hematuria, site unspecified documented in this encounter Results * CULTURE URINE (08/01/2019 1:24 PM SPRAY GUN SIZER) COMMENT (U) [facility] BELOW [facility] Comment: SPECIMEN: URINE COLLECTED: 08/01/2019 13:24 STATUS: FINAL ?LAST UPDATED: 08/04/2019 17:35 ?CULTURE RESULT (FINAL) ?CULTURE COMPLETE ??ISOLATE #1 (FINAL) ?>=100,000 COLONIES/ML ?ESCHERICHIA COLI ?ISOLATE #1 ?ESCHERICHIA COLI ?AMIKACIN (AK) ? <=16 ?S ?AMPICILLIN (AM) ? <=8 ? S ?AMPICILLIN/SULBACTAM ??2/1 ? S ?(A/S) ?AZTREONAM (AZT) ? <=4 ? S ?CEFAZOLIN (CFZ) ? <=2 ? S ?CEFEPIME (CPM) ?<=2 ? S ?CEFOXITIN (CFX) ? <=8 ? S ?CEFTAZIDIME (CAZ) ? <=1 ? S ?CEFTRIAXONE (CAX) ? <=1 ? S ?CIPROFLOXACIN (CP) ?<=1 ? S ?GENTAMICIN (GM) ? <=1 ? S ?MEROPENEM (MRP) ? <=1 ? S ?NITROFURANTOIN (FD) ?? <=32 ?S ?PIP/TAZO (PI/T) ? <=4 ? S ?TOBRAMYCIN (TO) ? <=1 ? S ?TRIMETH-SULFA (T/S) ?? <=/ ?S URINE SPECIMEN OBTAINED BY CLEAN CATCH PROCEDURE / Unknown 08/01/2019 1:24 PM SPRAY GUN SIZER 08/02/2019 11:39 AM SPRAY GUN SIZER Narrative [facility] - 08/04/2019 5:35 PM SPRAY GUN SIZER REPORT: [id number] Liam Vogt MD MICROBIOLOGY - GENERAL [facility] Final Result Performing Organization Address City/[facility]/ZIP Co de Phone Number [employer] [address] [place] [address], * URINALYSIS AUTO DIP (08/01/2019) COLOR (U) YELLOW [facility] TRANSPARENCY CLEAR [facility] GLUCOSE (U) 1000 mg/dl NEGATIVE MG/DL [facility] BILIRUBIN (U) NEGATIVE NEGATIVE [facility] KETONES MG/DL (U) NEGATIVE NEGATIVE MG/DL [facility] SPECIFIC GRAVITY (U) 1.020 1.001 - 1.035 [facility] BLOOD (U) LARGE (3+ Hemolyzed, About 250 rbc/uL) NEGATIVE [facility] U PH 6.0 5.0 - 9.0 [facility] PROTEIN (U) NEGATIVE NEGATIVE mg/dL [facility] UROBILINOGEN 0.2 0.2 - 1.0 EU/dL = mg/dL [facility] NITRITES NEGATIVE NEGATIVE MG/DL [facility] LEUKOCYTES (U) TRACE NEGATIVE [facility] MICRO rbc 20-25 wbc 0-4 [facility] URINE SPECIMEN OBTAINED BY CLEAN CATCH PROCEDURE / Unknown 08/01/2019 Liam Vogt MD URINE ORDERABLES Final Resu lt Performing Organization Address City/[facility]/ZIP Co de Phone Number [facility] [address] [facility] [address] [place] [address], documented in this encounter Visit Diagnoses Diagnosis Urinary tract infection without hematuria, site unspecified- Primary documented in this encounter Care Teams Card Tender Relationship Specialty Start Date End Date Sarah Yap DO [address] [place] [address] PCP - General 08/18/16 12/14/23 documented as of this encounter
--- OUTSIDE RECORDS SUMMARY | 2024-08-08 14:13 | XMS_ITS | Encounter Summary ---
Author Organization [facility] Address [address] [place] [address]. [place], [place] [address] [place] [address] Care Team Providers Care Seam Steamer Name Role Phone Sarah Yap DO Primary Care Provider [phone] Reason for Visit * Reason Onset Date Comments Vaginal Problem 07/18/2019 Encounter Details Date Type Department Care Team (Late st Contact Info) Description 07/18/2019 Telephone [facility] [address] 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 Take 1 now and 1 in a week if needed. ET TECHNICIAN * Mignon Lugo RN - 07/18/2019 9:02 AM CST Seen on 07/12, believes now has a yeast infection. Vaginal irritation x 3 days. Asking if you will rx States in the past just 1 elaine has worked for her [facility] [phone] [facility] NKDA ET TECHNICIAN documented in this encounter Plan of Treatment Upcoming Encounters Date Type Department Care Team (Late st Contact Info) Description 09/29/2024 8:00 AM BUDGET TECHNICIAN Office Visit [facility] Family Medicine - [address], [address] [place] [phone] Elza Benitez MD [facility] [facility] [address] [place] [address] documented as of this encounter Visit Diagnoses Diagnosis Yeast infection- Primary Other and unspecified mycoses documented in this encounter Care Teams Seam Steamer Relationship Specialty Start Date End Date Sarah Yap DO [address] [place] [address] PCP - General 08/18/16 12/14/23 documented as of this encounter
--- OUTSIDE RECORDS SUMMARY | 2024-08-08 14:13 | XMS_ITS | Encounter Summary ---
Author Organization [facility] Address [address] [place] [address]. 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 No / Unsure 07/07/2022 7:13 AM CHURCH WORKER documented as of this encounter Plan of Treatment Upcoming Encounters Date Type Department Care Team (Late st Contact Info) Description 09/29/2024 8:00 AM CHURCH WORKER Office Visit [facility] Family Medicine - [address], [address] [place] [address] Elza Benitez MD [address] [facility] [address] [place] [address] documented as of this encounter Visit Diagnoses Not on filedocumented in this encounter Additional Health Concerns Assessment Noted Time PHQ-9 Depression Total Score: 0 10/04/19 3:48 PM CHURCH WORKER documented as of this encounter Care Teams Software Development Engineer Relationship Specialty Start Date End Date Sarah Yap DO [address] [place], [place] [address] PCP - General 08/18/16 12/14/23 Sana Sethi OD [address] [place] [address] Computer Animator 04/30/22 documented as of this encounter
--- OUTSIDE RECORDS SUMMARY | 2024-08-08 14:13 | XMS_ITS | Encounter Summary ---
Author Organization [facility] Address [address] [place] [address]. [place] [address] [place] [address] Care Team Providers Care Counter Hand Name Role Phone FraciscoJaci Primary Care Provider [phone] Sana Sethi OD Unavailable [phone] Reason for Visit * Auth/Cert (Routine) Specialty Diagnoses / Procedures Referred By Unruly t Referred To Contact Diagnoses Hx of polyps Procedures COLONOSCOPY Altagracia Porter MD [address] [address] Phone: tel: fax: Referral ID Status Reason Start Date Expiration Date Visits Re quested Visits Authorized [id number] 1 1 Encounter Details Date Type Department Care Team (Late st Contact Info) Description 07/07/2022 8:30 AM NARCOTICS AGENT - 07/07/2022 9:00 AM NARCOTICS AGENT Surgery [facility] [place], [place] [address] Altagracia Porter MD 3 [facility] [address] [place], [place] [id number] COLONOSCOPY Surgery Details Date/Time Status Location OR Service Patient Class Case Class Case Type Trauma Case? 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 No / Unsure 07/07/2022 7:13 AM NARCOTICS AGENT documented as of this encounter Last Filed Vital Signs Vital Sign Reading Time Taken Comments Blood Pressure 133/88 07/07/2022 7:54 AM NARCOTICS AGENT Pulse 85 07/07/2022 7:54 AM NARCOTICS AGENT Temperature 36.6 ??C (97.8 ??F) 07/07/2022 7:54 AM CS T Respiratory Rate 17 07/07/2022 7:54 AM NARCOTICS AGENT Oxygen Saturation 99% 07/07/2022 7:54 AM NARCOTICS AGENT Inhaled Oxygen Concentration - - Weight 122.5 kg (270 lb) 06/25/2022 8:31 AM NARCOTICS AGENT Height 172.7 cm (5' 8 ) 06/25/2022 8:31 AM NARCOTICS AGENT Body Mass Index 41.05 06/25/2022 8:31 AM NARCOTICS AGENT documented in this encounter Discharge Instructions * Discharge Instructions* Altagracia Porter MD - 07/07/2022 9:27 AM NARCOTICS AGENT Normal colonoscopy; NO polyps! OTICS AGENT * Attachments The following attachments cannot be sent through Care Everywhere. * Colonoscopy Discharge Instructions (Azerbaijani) * General Anesthesia Discharge Instructions (Azerbaijani) documented in this encounter Medications at Time of Discharge Insulin Pen Needle (PEN NEEDLES 31GX5/16 ) 31G X 8 MM [facility] 08/25/2017 atorvastatin (LIPITOR) 10 MG tabletIndications:Ot her hyperlipidemia TAKE 1 TABLET BY MOUTH EVERY DAY IN THE EVENING 90 tablet 07/01/2022 3 BASAGLAR KWIKPEN 100 UNIT/ML injection (PEN)Indications:Con trolled type 2 diabetes mellitus with microalbuminuria, with long-term current use of insulin ([facility]) INJECT 55 UNITS EVERY DAY DIRECTED 20 mL 1 04/01/2022 3 cetirizine (ZYRTEC) 10 MG tabletIndications:Al lergic rhinitis, unspecified seasonality, unspecified trigger TAKE 1 TABLET BY MOUTH EVERY DAY 90 tablet 3 04/01/2022 3 hydroCHLOROthiazide (HYDRODIURIL) 50 MG tabletIndications:Es sential hypertension TAKE 1 TABLET BY MOUTH EVERY DAY 90 tablet 3 04/01/2022 4 lisinopril (PRINIVIL) 10 MG tabletIndications:Es sential hypertension TAKE 1 TABLET BY MOUTH EVERY DAY 90 tablet 07/01/2022 3 metFORMIN (GLUCOPHAGE) 1000 MG tabletIndications:Co ntrolled type 2 diabetes mellitus with microalbuminuria, with long-term current use of insulin ([facility]) TAKE 1 TABLET BY MOUTH TWICE A DAY 180 tablet 3 04/01/2022 4 pioglitazone (ACTOS) 45 MG tabletIndications:Co ntrolled type 2 diabetes mellitus with microalbuminuria, with long-term current use of insulin ([facility]) TAKE 1 TABLET BY MOUTH EVERY DAY 100 tablet 1 05/13/2022 3 venlafaxine XR (EFFEXOR-XR) 150 MG 24 hr capsuleIndications:D epression, unspecified depression type TAKE 1 CAPSULE BY MOUTH EVERY DAY 90 capsule 3 04/01/2022 4 documented as of this encounter H&P Notes * Altagracia Porter MD - 07/07/2022 8:58 AM CST Altagracia Porter MD, FACG, FACP Attending Provider: Altagracia Porter MD PCP: JACI HERRERA DO PATIENT: Comfort Townsend : 1965 Date of Visit: 07/07/2022 HPI: Comfort Townsend is an 57-year-old female with personal history of colon polyps. CV-19: vaxed. Patient Active Problem List Diagnosis ??? Adenomatosis ??? Adjustment reaction ??? Albuminuria ??? Eczema ??? Hyperlipidemia ??? Morbid obesity (CMS/HCC) ??? Osteoarthritis of left knee ??? Type 2 diabetes, controlled, with renal manifestation (CMS/HCC) ??? History of colon polyps ??? Muscle spasm of left shoulder area ??? Plantar warts ??? Insomnia, unspecified type ??? Essential hypertension ??? Allergic rhinitis, unspecified seasonality, unspecified trigger ??? Depression, unspecified depression type Past Medical History: Diagnosis Date ??? Acne ??? Cholelithiasis ??? Depression ??? Diabetes mellitus (CMS/HCC) ??? Hypertension ??? Personal history of colonic polyps ??? Postmenopausal Late 40's ? Premenstrual syndrome ??? Trigger finger ??? Trigger thumb ??? Viral warts Past Surgical History: Procedure Laterality Date ??? COLONOSCOPY 11/11/2012: next colonoscopy due 03/2015; 03/2010 polyp 05/2015 normal repeat 5 yrs ??? KIDNEY STONE REMOVAL 1997 ??? LITHOTRIPSY ??? OTHER PROCEDURE Ear surgeyr- Lasik ??? TONSILLECTOMY Family History Problem Relation Name Age of Onset ??? Breast Cancer Maternal Grandmother 75 ??? Breast Cancer Maternal Aunt ? age ??? Other (skin cancer) Father ??? Diabetes Other Family hx. ??? Hypertension Other Family hx. Social History Socioeconomic History ??? Marital status: Spouse name: Not on file ??? Number of children: Not on file ??? Years of education: Not on file ??? Highest education level: Not on file 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 Smoking status: Never ??? Smokeless tobacco: Never Substance and Sexual Activity ??? Alcohol use: Not Currently ??? Drug use: Never ??? Sexual activity: Not on file Other Topics Concern ??? Not on file Social History Narrative ??? Not on file Social Determinants of Health Financial Resource Strain: Not on file Food Insecurity: Not on file Transportation Needs: Not on file Physical Activity: Not on file Stress: Not on file Social Connections: Not on file Intimate Partner Violence: Not on file Housing Stability: Not on file No Known Allergies Blood pressure 133/88, pulse 85, temperature 97.8 ??F (36.6 ??C), temperature source Temporal, resp. rate 17, height 5' 8 (1.727 m), weight 122.5 kg (270 lb), SpO2 99 %. Physical Exam Constitutional: she appears well-developed and well-nourished. Cardiovascular: Normal rate. Pulmonary/Chest: Breath sounds normal. Abdominal: Soft, non-tender. she exhibits no edema. Assessment & Plan: Colonoscopy Altagracia Porter 07/07/2022 OTICS AGENT documented in this encounter Procedure Notes * Altagracia Porter MD - 07/07/2022 9:27 AM CSTAssociated Order(s): COLONOSCOPY Procedure(s): COLONOSCOPY ALTAGRACIA PORTER MD, FACG, FACP COLONOSCOPY 07/07/2022 This is a 57-year-old female with history of T2DM, HTN and kidney stones who now presents for colonoscopy for personal history of colon polyps. GI review of systems is negative. No endocarditis risk factors. No Known Allergies Medications: see list. Family history: negative for colon cancer. VITALS: Stable. LUNGS: Clear. HEART: RRR. S1/S2 normal. ABDOMEN: NABS/NT. The procedure of colonoscopy, its indications, alternatives of barium studies and risks including perforation, bleeding, infection, reaction to medication as well as the possible need for blood or surgery were discussed with the patient prior to the procedure. The patient voices understanding, agrees to proceed and provides informed consent. INDICATION: Personal history of colon polyps. POST-OP: Normal. SEDATION: Per Anesthesia PREP: Good. With the patient in the left lateral decubitus position, the Olympus [id number] colonoscope was introduced into the rectum and advanced easily to the Terminal Ileum. Careful inspection of the mucosa was made upon insertion and withdrawal of the endoscope. FINDINGS: Terminal ileum: distal 5 cm normal. Cecum, Ascending colon, Transverse colon, Descending colon, Sigmoid colon and Rectum including retroflexion normal. No masses, polyps, AVMs, colitis or diverticulosis seen. No complications, blood loss or implants. ASSESSMENT AND PLAN: Personal history of colon polyps: - Colonoscopy 03/2010 with polyp; colonoscopy 03/2015 normal - Surveillance colonoscopy 07/07/2022 normal - Screening colonoscopy in 10 years Thank you for allowing me to care for your patient. She will follow-up with Dr. Herrera as needed. Altagracia Porter M.D. Cc: Dr. Regina Herrera OTICS AGENT documented in this encounter Plan of Treatment Upcoming Encounters Date Type Department Care Team (Late st Contact Info) Description 09/29/2024 8:00 AM NARCOTICS AGENT Office Visit [facility] Family Medicine - [address], [address] [place] [phone] Elza Benitez MD [address] [place] [address] [place] [address] documented as of this encounter Procedures Procedure Name Priority Date/Time Associated Diagnosis Comments COLONOSCOPY Routine 07/07/2022 9:27 AM NARCOTICS AGENT PROCEDURE GENERIC 07/07/2022 9:1 4 AM NARCOTICS AGENT COLONOSCOPY 07/07/2022 8:56 AM NARCOTICS AGENT Hx of polyps POCT GLUCOSE - LEVINE DOCKED DEVICE Routine 07/07/2022 8:09 AM NARCOTICS AGENT documented in this encounter Results * Colonoscopy (07/07/2022 9:27 AM NARCOTICS AGENT) Narrative Procedure Note Altagracia Porter MD - 07/07/2022 9:27 AM CST ALTAGRACIA PORTER MD, FACG, FACP COLONOSCOPY 07/07/2022 This is [...] in the left lateral decubitus position, the [id number] colonoscope was introduced into the rectum and [...] for your patient. She will follow-upwith Dr. Herrera as needed. Altagracia Porter M.D. Cc: Dr. Regina Herrera us Altagracia Porter MD GI PROCEDURE ORDERABLES Fin al Result * PROCEDURE GENERIC (07/07/2022 9:14 AM NARCOTICS AGENT) Narrative 07/07/2022 9:14 AM NARCOTICS AGENT Ordered by an unspecified provider. us Documents Scanned [facility] Final Result * (ABNORMAL) POCT glucose (07/07/2022 8:09 AM NARCOTICS AGENT) GLUCOSE POC 255(H) 70 - 99 mg/dL 07/07/2022 8:54 AM NARCOTICS AGENT [facility] 07/07/2022 8:09 AM NARCOTICS AGENT us Altagracia Porter MD POCT ORDERABLES - DEVICE Fi nal Result [facility] [address] [place] [address], documented in this encounter Visit Diagnoses Not on filedocumented in this encounter Administered Medications Inactive Administered Medications - up to 3 most recent administrations Medication Order MAR Action Action Date Dose Rate Site lactated ringers infusion at 10 mL/hr, Intravenous, Continuous, Starting on Thu07/07/22 at 0830, Until Thu07/07/22 at 1155, Infuse at TKO rate, Pre-Op New Bag 07/07/2022 8:43 AM NARCOTICS AGENT documented in this encounter Active and Recently Administered Medications Times are shown in NARCOTICS AGENT. Continuous Medication Order 07/05/2022 07/06/2022 07/07/2022 lactated ringers infusion at 10 mL/hr, Intravenous, Continuous, Starting on Thu07/07/22 at 0830, Until Thu07/07/22 at 1155, Infuse at TKO rate, Pre-Op [id number] (New Bag - Prov ider: Anette Delarosa CRNA)0921 (Anesthesia Volume Adjustment - Provider: Anette Delarosa CRNA) documented in this encounter Additional Health Concerns Assessment Noted Time PHQ-9 Depression Total Score: 0 10/04/19 22 3:48 PM NARCOTICS AGENT documented as of this encounter Care Teams Counter Hand Relationship Specialty Start Date End Date Jaci Herrera DO [address] [place] [address] PCP - General 08/18/16 12/14/23 Sana Sethi OD [address] [place] [address] [employer] Sales Consultant 04/30/22 documented as of this encounter
--- OUTSIDE RECORDS SUMMARY | 2024-08-08 14:13 | XMS_ITS | Encounter Summary ---
Author Organization [facility] Address [address] [place] [address]. [place], [place] [address] [place] [address] Care Team Providers Care Surety Bond Agent Name Role Phone Jaci Herrera DO Primary Care Provider Reason for Visit * Reason Comments Physical ANNUAL WWE, 90-DAY R F TO LOCAL Encounter Details Date Type Department Care Team (Late st Contact Info) Description 12/08/2019 1:30 PM CDT Office Visit [facility] [address] [place] [phone] Jaci Herrera DO [address] [place] [address] Physical (ANNUAL WWE, 90-DAY RF TO LOCAL) Social History Tobacco Use Types Packs/Day Years [...] 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 No / Unsure 12/08/2019 9:20 AM CDT documented as of this encounter Last Filed Vital Signs Vital Sign Reading Time Taken Comments Blood Pressure 110/78 12/08/2019 1:28 PM CDT Pulse 100 12/08/2019 1:28 PM CDT Temperature - - Respiratory Rate - - Oxygen Saturation - - Inhaled Oxygen Concentration - - Weight 121.1 kg (267 lb) 12/08/2019 1:28 PM CDT Height 170.2 cm (5' 7 ) 12/08/2019 1:28 PM CDT Body Mass Index 41.82 12/08/2019 1:28 PM CDT documented in this encounter Progress Notes * Jaci Herrera, DO - 12/08/2019 1:30 PM CDT Reason for Visit: Physical (ANNUAL WWE, 90-DAY RF TO LOCAL) History of Present Illness: Here for annual Doing well Stable on meds Said yeast infection resolved occas exercise Not always watching diet Mood stable on meds ROS: Review of Systems Constitutional: Negative. Respiratory: Negative. Cardiovascular: Negative. Gastrointestinal: Negative. Genitourinary: Negative. Musculoskeletal: Negative. Psychiatric/Behavioral: Stable on meds Medications: Current Outpatient Medications: ??? atorvastatin 10 MG tablet, Take 1 tablet (10 mg total) by mouth every evening., Disp: 90 tablet, Rfl: 1 ??? clobetasol 0.05 % ointment, Apply topically 2 (two) times daily as needed. apply to affected area, Disp: , Rfl: 2 ??? hydroCHLOROthiazide 50 MG tablet, Take 1 tablet (50 mg total) by mouth daily., Disp: 90 tablet,Rfl: 1 ??? insulin glargine 100 UNIT/ML injection (PEN), INJECT 55 UNITS SUBCUTANEOUSLY EVERY DAY DIRECTED, Disp: 15 pen, Rfl: 1 ??? Insulin Pen Needle (PEN NEEDLES 31GX5/16 ) 31G X 8 MM [facility], , Disp: , Rfl: ??? lisinopril 10 MG tablet, Take 1 tablet (10 mg total) by mouth daily., Disp: 90 tablet, Rfl: 1 ??? metFORMIN 1000 MG tablet, Take 1 tablet (1,000 mg total) by mouth 2 (two) times daily., Disp: 180 tablet, Rfl: 1 ??? pioglitazone 45 MG tablet, Take 1 tablet (45 mg total) by mouth daily., Disp: 90 tablet, Rfl: 1 ??? venlafaxine XR 150 MG 24 hr capsule, Take 1 capsule (150 mg total) by mouth daily., Disp: 90 capsule, Rfl: 1 Current Facility-Administered Medications: ??? triamcinolone acetonide (KENALOG-40) injection 40 mg, 40 mg, Intramuscular, Once, Jaci Herrera, DO No Known Allergies Past Medical History: [...] Not on file 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 She appears well- developed and well-nourished. Morbidly obese HENT: Right Ear: External ear normal. Left Ear: External ear normal. Nose: Nose normal. Mouth/Throat: Oropharynx is clear and moist. Eyes: Conjunctivae are normal. Pupils are equal, round, and reactive to light. Neck: Neck supple. No thyromegaly present. Cardiovascular: Normal rate and regular rhythm. Pulmonary/Chest: Effort normal and breath sounds normal. Right breast exhibits no mass, no nipple discharge and no tenderness. Left breast exhibits no mass, no nipple discharge and no tenderness. Abdominal: Soft. Bowel sounds are normal. She exhibits no mass. There is no tenderness. No hernia. Genitourinary: Vagina normal. Rectal exam shows guaiac negative stool. No vaginal discharge found. Genitourinary Comments: No pap Musculoskeletal: Normal range of motion. She exhibits no edema. Lymphadenopathy: She has no cervical adenopathy. Neurological: She is alert and oriented to person, place, and time. Skin: Skin is warm and dry. Psychiatric: She has a normal mood and affect. Nursing note and vitals reviewed. Filed Vitals: 12/08/19 1328 BP: 110/78 Pulse: 100 Weight: 121.1 kg (267 lb) Height: 5' 7 (1.702 m) Diagnoses/Impression: 1. Controlled type 2 diabetes mellitus with microalbuminuria, with long-term current use of insulin([facility]) ALBUMIN URINE RANDOM LIPID PANEL HEMOGLOBIN, GLYCOSYLATED COMPREHENSIVE METABOLIC PANEL 2. Albuminuria ALBUMIN URINE RANDOM LIPID PANEL HEMOGLOBIN, GLYCOSYLATED COMPREHENSIVE METABOLIC PANEL 3. Essential hypertension LIPID PANEL COMPREHENSIVE METABOLIC PANEL hydroCHLOROthiazide 50 MG tablet lisinopril 10 MG tablet 4. Morbid obesity ([facility]) LIPID PANEL COMPREHENSIVE METABOLIC PANEL 5. Hyperlipidemia, unspecified hyperlipidemia type LIPID PANEL COMPREHENSIVE METABOLIC PANEL 6. Other hyperlipidemia atorvastatin 10 MG tablet 7. Controlled type 2 diabetes mellitus with chronic kidney disease, with long- term current use of insulin, unspecified CKD stage ([facility]) insulin glargine 100 UNIT/ML injection (PEN) metFORMIN 1000 MG tablet pioglitazone 45 MG tablet 8. Depression, unspecified depression type venlafaxine XR 150 MG 24 hr capsule 9. Eczema, unspecified type 10. Osteoarthritis of left knee, unspecified osteoarthritis type 11. History of colon polyps 12. Encounter for preventive health examination 13. Adjustment disorder, unspecified type Above stable Recommendations and Plan: Remain active, exercise, healthy diet, eye exam when due, flu shot each Fall Needs to work on wt loss, f/u 6mths Orders Placed This Encounter ??? ALBUMIN URINE RANDOM ??? LIPID PANEL ??? HEMOGLOBIN, GLYCOSYLATED ??? COMPREHENSIVE METABOLIC PANEL ??? atorvastatin 10 MG tablet ??? hydroCHLOROthiazide 50 MG tablet ??? insulin glargine 100 UNIT/ML injection (PEN) ??? lisinopril 10 MG tablet ??? metFORMIN 1000 MG tablet ??? pioglitazone 45 MG tablet ??? venlafaxine XR 150 MG 24 hr capsule JACI HERRERA DO Referring Provider: No ref. provider found PCP: JACI HERRERA DO documented in this encounter Plan of Treatment Upcoming Encounters Date Type Department Care Team (Late st Contact Info) Description 09/29/2024 8:00 AM WOMEN NURSE Office Visit [facility] Family Medicine - [place] [address], [address] [place] [phone] Elza Benitez MD [address] [place] [address] documented as of this encounter Results * (ABNORMAL) COMPREHENSIVE METABOLIC PANEL (12/13/2019 8:08 AM CDT) GLUCOSE 186(H) 70 - 99 MG/DL [facility] BUN 7 6 - 20 MG/DL [facility] CREATININE S/P/B 0.7 0.5 - 1.2 MG/DL [facility] EGFR AFR. AMER. 113 60 - 300 ML/MIN/1.7 3 M2 [facility] EGFR NON-AFR. AMER. 93 60 - 300 ML/MIN/1.7 3 M2 [facility] SODIUM S/P/B 141 136 - 145 MEQ/L [facility] POTASSIUM S/P/B 3.9 3.5 - 5.3 MEQ/L [facility] CHLORIDE S/P/B 101 98 - 107 MEQ/L [facility] CO2 26 23 - 31 MEQ/L [facility] ANION GAP 14 8 - 16 MMOLES/L [facility] CALCIUM S/P/B 9.1 8.4 - 10.5 MG/DL [facility] TOTAL PROTEIN S/P/B 6.3 6.0 - 8.3 GM/DL [facility] ALBUMIN S/P/B 3.9 3.5 - 5.0 GM/DL [facility] AST 18 11 - 32 IU/L [facility] ALT 17 9 - 43 IU/L [facility] ALKALINE PHOSPHATASE S/P/B 95 35 - 129 IU/L [facility] BILIRUBIN TOTAL S/P/B 0.3 0.0 - 1.0 MG/DL [facility] 12/13/2019 8:08 AM CDT 12/14/2019 3:37 AM CDT Narrative [facility] - 12/14/2019 4:31 AM CDT REPORT: [id number] IS PATIENT FASTING?->YES us Jaci Herrera DO LABORATORY Final Result [facility] [address] [place] [address], * LIPID PANEL (12/13/2019 8:08 AM CDT) [facility] CHOLESTEROL 142 0 - 199 MG/DL [facility] TRIGLYCERIDES 98 0 - 149 MG/DL [facility] HDL 61 50 - 240 MG/DL [facility] LDL (CALCULATED) 61 0 - 99 MG/DL [facility] CHOL/HDL RATIO 2.3 [facility] NON HDL CHOLESTEROL 81 0 - 129 MG/DL [facility] Comment: FOR AGES >=20 YEARS (MG/DL) .................IDEAL....ELEVATED....BORDERLINE......HIGH.....VERY HIGH CHOL*........<200.......................................200-239....>=240 TRIG...........<150.....................150-199......200-499....>=500 LDL-C.......<100...100-129.....130-159......160-189....>=190 NONHDL-C.<130...130-159.....160-189......190-219....>=220 LEE TA, ET [place]. NATIONAL LIPID ASSOCIATION RECOMMENDATIONS FOR PATIENT-CENTERED MANAGEMENT OF DYSLIPIDEMIA: PART 1-FULL REPORT. ??J CLIN LIPIDOL 2015;129-169. *THIRD REPORT OF THE NATIONAL CHOLESTEROL EDUCATION PROGRAM (NCEP) EXPERT PANEL ON DETECTION, EDUCATION, AND TREATMENT OF HIGH BLOOD CHOLESTEROL IN ADULTS (ADULT TREATMENT PANEL III): FINAL REPORT. CIRCULATION 2002; 106:3143. 12/13/2019 8:08 AM CDT 12/14/2019 3:37 AM CDT Narrative [facility] - 12/14/2019 4:31 AM CDT REPORT: [id number] IS PATIENT FASTING?->YES Jaci Herrera DO LABORATORY Final Result Performing Organization Address City/[facility] Co de Phone Number [facility] [address] [place] [address], * HEMOGLOBIN, GLYCOSYLATED (12/13/2019 8:07 AM CDT) HGB A1C 9.0 [facility] 12/13/2019 8:07 AM CDT Jaci Herrera DO LABORATORY Final Result Performing Organization Address City/[facility] Co de Phone Number [facility] [address] [phone] * ALBUMIN URINE RANDOM (12/13/2019 8:06 AM CDT) MICROALBUMIN (U) 80 mg/L [facility] CREATININE RANDOM (U) 200 mg/dL [facility] MICROALB/CREAT <30 mg/g [facility] URINE SPECIMEN / Unknown 12/13/2019 8:06 AM CDT Jaci Herrera DO URINE ORDERABLES Final Resul t Performing Organization Address [facility] de Phone Number [facility] [address] [place] [address] [place] [address] documented in this encounter Visit Diagnoses Diagnosis Controlled type 2 diabetes mellitus with chronic kidney disease, with long-term current use of insulin, unspecified CKD stage ([facility] HHS/HCC) Albuminuria Proteinuria Essential hypertension Unspecified essential hypertension Morbid obesity ([facility] HHS/HCC) Morbid obesity Hyperlipidemia, unspecified hyperlipidemia type Depression, unspecified depression type Eczema, unspecified type Osteoarthritis of left knee, unspecified osteoarthritis type History of colon polyps Personal history of colonic polyps Encounter for preventive health examination Routine general medical examination at a health care facility Adjustment disorder, unspecified type Controlled type 2 diabetes mellitus with microalbuminuria, with long-term current use of insulin ([facility] HHS/HCC) Albuminuria Proteinuria Essential hypertension Unspecified essential hypertension Morbid obesity ([facility]) Morbid obesity Hyperlipidemia, unspecified hyperlipidemia type documented in this encounter Care Teams Surety Bond Agent Relationship Specialty Start Date End Date Jaci Herrera DO [address] [place] [address] PCP - General 08/18/16 12/14/23 documented as of this encounter
--- OUTSIDE RECORDS SUMMARY | 2024-08-08 14:13 | XMS_ITS | Encounter Summary ---
Author Organization [facility] Address [address] [place] [address]. [place] [address] [place] [address] Care Team Providers Care Digital Analytics Manager Name Role Phone Jaci Herrera DO Primary Care Provider [phone] Sana Sethi OD Unavailable [phone] Reason for Visit * Reason Comments Follow Up 6 mo f/u Encounter Details Date Type Department Care Team (Late st Contact Info) Description 10/24/2022 4:00 PM CDT Office Visit [facility] [address] [place] [phone] Jaci Herrera DO [address] [place], [place] [phone] Follow Up (6 mo f/u) Social History Tobacco Use Types Packs/Day Years [...] 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 on file Not on file Not on file documented as of this encounter Last Filed Vital Signs Vital Sign Reading Time Taken Comments Blood Pressure 118/68 10/24/2022 3:38 PM CDT Pulse - - Temperature - - Respiratory Rate - - Oxygen Saturation - - Inhaled Oxygen Concentration - - Weight 125.6 kg (277 lb) 10/24/2022 3:38 PM CDT Height - - Body Mass Index 42.12 06/25/2022 8:31 AM CUFF MATCHER documented in this encounter Progress Notes * Jaci Herrera, DO - 10/24/2022 4:00 PM CDT Reason for Visit: Follow Up (6 mo f/u) History of Present Illness: Here for 6mth f/u Has been eating more than should and not enough activity Says knows her a1c will be high Did get her cscope and was normal Had eye exam No complaints ROS: Review of Systems Constitutional: Negative. Respiratory: Negative. Cardiovascular: Negative. Gastrointestinal: Negative. Genitourinary: Negative. Musculoskeletal: Knee OA Psychiatric/Behavioral: Negative. Medications: Current Outpatient Medications: ??? atorvastatin (LIPITOR) 10 MG tablet, TAKE 1 TABLET BY MOUTH EVERY DAY IN THE EVENING, Disp: 30 tablet, Rfl: 0 ??? cetirizine (ZYRTEC) 10 MG tablet, TAKE 1 TABLET BY MOUTH EVERY DAY, Disp: 90 tablet, Rfl: 3 ??? hydroCHLOROthiazide (HYDRODIURIL) 50 MG tablet, TAKE 1 TABLET BY MOUTH EVERY DAY, Disp: 90 tablet, Rfl: 3 ??? insulin glargine (BASAGLAR KWIKPEN) 100 UNIT/ML injection (PEN), INJECT 55 UNITS EVERY DAY DIRECTED, Disp: 20 mL, Rfl: 1 ??? Insulin Pen Needle (PEN NEEDLES 31GX5/16 ) 31G X 8 MM [facility], , Disp: , Rfl: ??? lisinopril (PRINIVIL) 10 MG tablet, TAKE 1 TABLET BY MOUTH EVERY DAY, Disp: 30 tablet, Rfl: 0 ??? metFORMIN (GLUCOPHAGE) 1000 MG tablet, TAKE 1 TABLET BY MOUTH TWICE A DAY, Disp: 180 tablet, Rfl: 3 ??? pioglitazone (ACTOS) 45 MG tablet, TAKE 1 TABLET BY MOUTH EVERY DAY, Disp: 100 tablet, Rfl: 1 ??? venlafaxine XR (EFFEXOR-XR) 150 MG 24 hr capsule, TAKE 1 CAPSULE BY MOUTH EVERY DAY, Disp: 90 capsule, Rfl: 3 No Known Allergies Past Medical History: Diagnosis Date ??? Acne ??? Cholelithiasis ??? Depression ??? Diabetes mellitus ([facility]) ??? Hypertension ??? Personal history of colonic polyps ??? Postmenopausal Late 40's ? Premenstrual syndrome ??? Trigger finger ??? Trigger thumb ??? Viral warts Past Surgical History: Procedure Laterality Date ??? COLONOSCOPY 11/11/2012: next colonoscopy due 03/2015; 03/2010 polyp 05/2015 normal repeat 5 yrs ??? COLONOSCOPY N/A 07/07/2022 COLONOSCOPY performed by Day[facility] Bell MD at [facility] ??? KIDNEY STONE REMOVAL 1997 ??? LITHOTRIPSY ??? OTHER PROCEDURE Ear surgeyr- Lasik ??? TONSILLECTOMY Social History Tobacco Use ??? Smoking status: Never ??? Smokeless tobacco: Never Substance Use Topics ??? Alcohol use: Not Currently Social History Socioeconomic History ??? Marital status: 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 Left Ear: Tympanic membrane normal. Mouth/Throat: No posterior oropharyngeal erythema. Cardiovascular: Normal rate and regular rhythm. Pulmonary/Chest: Effort normal and breath sounds normal. Abdominal: Soft. There is no tenderness. Musculoskeletal: Right lower leg: She exhibits no edema. Left lower leg: She exhibits no edema. Lymphadenopathy: She has no cervical adenopathy. Psychiatric: Mood normal. Nursing note and vitals reviewed. Filed Vitals: 10/24/22 1538 BP: 118/68 Weight: 125.6 kg (277 lb) Diagnoses/Impression: 1. Controlled type 2 diabetes mellitus with microalbuminuria, with long-term current use of insulin(CMS/HCC) ALBUMIN URINE RANDOM HEMOGLOBIN, GLYCOSYLATED BASIC METABOLIC PANEL insulin glargine (BASAGLAR KWIKPEN) 100 UNIT/ML injection (PEN) 2. Albuminuria ALBUMIN URINE RANDOM HEMOGLOBIN, GLYCOSYLATED BASIC METABOLIC PANEL 3. Other hyperlipidemia 4. Essential hypertension 5. Morbid obesity (CMS/HCC) 6. Allergic rhinitis, unspecified seasonality, unspecified trigger 7. Adjustment disorder, unspecified type 8. Osteoarthritis of left knee, unspecified osteoarthritis type Recommendations and Plan: Remain active, exercise, healthy diet Needs to work on wt loss Labs F/u for annual in 6mths Reviewed and updated this visit by provider: Tobacco Allergies Meds Problems Med Hx Surg Hx Fam Hx Orders Placed This Encounter ??? ALBUMIN URINE RANDOM ??? HEMOGLOBIN, GLYCOSYLATED ??? BASIC METABOLIC PANEL ??? insulin glargine (BASAGLAR KWIKPEN) 100 UNIT/ML injection (PEN) JACI HERRERA DO Referring Provider: No ref. provider found PCP: JACI HERRERA DO documented in this encounter Plan of Treatment Upcoming Encounters Date Type Department Care Team (Late st Contact Info) Description 09/29/2024 8:00 AM CUFF MATCHER Office Visit [facility] Family Medicine - [address], [address] [place] [address] Elza Benitez MD [address] [place] [address] documented as of this encounter Results * ALBUMIN URINE RANDOM (11/03/2022 8:06 AM CDT) MICROALBUMIN (U) 80 [facility] CREATININE RANDOM (U) 200 [facility] MICROALB/CREAT 30-300 [facility] URINE SPECIMEN / Unknown 11/03/2022 8:06 AM CDT us Jaci Herrera DO URINE ORDERABLES Final Resul t [facility] [address] [facility] [address] [place] [phone], * (ABNORMAL) BASIC METABOLIC PANEL (11/03/2022 8:02 AM CDT) SODIUM S/P/B 138 133 - 146 MMOL/L [facility] POTASSIUM S/P/B 4.0 3.5 - 5.1 MMOL/L [facility] CHLORIDE S/P/B 99 98 - 107 MMOL/L [facility] CO2 29 21 - 31 MMOL/L [facility] ANION GAP 10 4 - 13 MMOL/L [facility] BUN 16 7 - 25 MG/DL [facility] CREATININE S/P/B 0.77 0.60 - 1.30 MG/DL [facility] EGFR NON-AFR. AMER. 90 >=60 ML/MIN/1.7 3 M2 [facility] CALCIUM S/P/B 9.5 8.3 - 10.5 MG/DL [facility] GLUCOSE 143(H) 70 - 100 MG/DL [facility] Comment:IS PATIENT FASTING?- >YES 11/03/2022 8:02 AM CDT 11/04/2022 6:17 AM CDT Jaci Herrera DO LABORATORY Final Result [facility] [address] [place], [place] [id number] [place] [address] * (ABNORMAL) HEMOGLOBIN, GLYCOSYLATED (11/03/2022 8:02 AM CDT) HGB A1C 9.8(A) 4.2 - 6.5 % [facility] 11/03/2022 8:02 AM CDT Jaci Herrera DO LABORATORY Final Result Performing Organization Address City/[facility] Co de Phone Number [facility] [address] [place] [address] documented in this encounter Visit Diagnoses Diagnosis Controlled type 2 diabetes mellitus with microalbuminuria, with long-term current use of insulin ([facility])- Primary Albuminuria Proteinuria Other hyperlipidemia Essential hypertension Unspecified essential hypertension Morbid obesity ([facility]) Morbid obesity Allergic rhinitis, unspecified seasonality, unspecified trigger Adjustment disorder, unspecified type Osteoarthritis of left knee, unspecified osteoarthritis type documented in this encounter Additional Health Concerns Assessment Noted Time PHQ-9 Depression Total Score: 0 10/04/19 22 3:48 PM CUFF MATCHER documented as of this encounter Care Teams Digital Analytics Manager Relationship Specialty Start Date End Date Jaci Herrera DO [address] [place] [address] PCP - General 08/18/16 12/14/23 Sana Sethi OD [address] [place], [place] [address] Relocation Specialist 04/30/22 documented as of this encounter
--- OUTSIDE RECORDS SUMMARY | 2024-08-08 14:13 | XMS_ITS | Encounter Summary ---
Author Organization [facility] Address [address] [place] [address]. 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 Not on file Not on file documented as of this encounter Plan of Treatment Upcoming Encounters Date Type Department Care Team (Late Contact Info) Description 09/29/2024 8:00 AM HOSPITALITY INTERNSHIP Office Visit [facility] Family Medicine - [address], [address] [place] [phone] Elza Benitez MD [address] [facility] [address] [place] [address] documented as of this encounter Visit Diagnoses Not on filedocumented in this encounter Additional Health Concerns Assessment Noted Time PHQ-9 Depression Total Score: 0 10/04/19 3:48 PM HOSPITALITY INTERNSHIP documented as of this encounter Care Teams Remote Encoding Center Manager Relationship Specialty Start Date End Date Sarah Yap DO [address] [place] [address] PCP - General 08/18/16 12/14/23 Sana Sethi OD [address] [place] [address] Iv Technician 04/30/22 documented as of this encounter
--- OUTSIDE RECORDS SUMMARY | 2024-08-08 14:13 | XMS_ITS | Encounter Summary ---
Author Organization [facility] Address [address] [place] [address]. [place], [place] [address] [place] [address] Care Team Providers Care Automotive Service Professional Name Role Phone Jaci Herrera DO Primary Care Provider [phone] Reason for Visit * Imaging (Routine) - Closed Specialty Diagnoses / Procedures Referred By Unruly pham Referred To Contact RADIOLOGY Diagnoses Encounter for screening mammogram for malignant neoplasm of breast Procedures MG SCREENING W JANICE ABIDA DIGI Jaci Herrera DO [address] [place] [address] Phone: tel: fax: Referral ID Status Reason Start Date Expiration Date Visits Re quested Visits Authorized [id number] Closed 01/31/2022 03/03/2023 1 1 Encounter Details Date Type Department Care Team (Latest Contact Info) Description 02/21/2022 10:55 AM CDT - 02/21/2022 11:59 PM CDT Hospital Encounter [facility] [address] [place] [address] Jaci Herrera DO [address] [place] [address] Discharge Disposition: Home or Self Care (Routine Discharge) Social History Tobacco Use Types Packs/Day Years Used Date Smoking Tobacco: Never Smokeless Tobacco: Never Alcohol Use Standard Drinks/Week Comments Yes 0 (1 standard drink = 0.6 oz pur e alcohol) PHQ-2 Answer Date Recorded PHQ-2 Score - If the patient scores above 3, please move on to questions 3-9 0 10/03/2021 Comments Unknown Sex and Gender Information Value Date Recorded Sex Assigned at Not on file Legal Sex Female 7:26 PM CDT Gender Identity Not on file Sexual Orientation Not on file 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 No / Unsure 02/21/2022 10:54 AM CDT documented as of this encounter Medications at Time of Discharge Insulin Pen Needle (PEN NEEDLES 31GX5/16 ) 31G X 8 MM Misc 08/25/2017 atorvastatin 10 MG tabletIndications:Ot her hyperlipidemia Take 1 tablet (10 mg total) by mouth every evening. 90 tablet 1 10/03/2021 2 cetirizine 10 MG tabletIndications:Al lergic rhinitis, unspecified seasonality, unspecified trigger Take 1 tablet (10 mg total) by mouth daily. 90 tablet 1 10/03/2021 2 hydroCHLOROthiazide 50 MG tabletIndications:Es sential hypertension Take 1 tablet (50 mg total) by mouth daily. 90 tablet 1 10/03/2021 2 insulin glargine (BASAGLAR KWIKPEN) 100 UNIT/ML injection (PEN)Indications:Con trolled type 2 diabetes mellitus with microalbuminuria, with long-term current use of insulin ([facility]) INJECT 55 UNITS EVERY DAY DIRECTED 20 mL 1 12/31/2021 2 lisinopril 10 MG tabletIndications:Es sential hypertension Take 1 tablet (10 mg total) by mouth daily. 90 tablet 1 10/03/2021 2 metFORMIN 1000 MG tabletIndications:Co ntrolled type 2 diabetes mellitus with microalbuminuria, with long-term current use of insulin ([facility]) Take 1 tablet (1,000 mg total) by mouth 2 (two) times daily. 180 tablet 1 10/03/2021 2 pioglitazone 45 MG tabletIndications:Co ntrolled type 2 diabetes mellitus with microalbuminuria, with long-term current use of insulin ([facility]/HCC HHS/HCC) Take 1 tablet (45 mg total) by mouth daily. 90 tablet 1 10/03/2021 2 venlafaxine XR 150 MG 24 hr capsuleIndications:D epression, unspecified depression type Take 1 capsule (150 mg total) by mouth daily. 90 capsule 1 10/03/2021 2 documented as of this encounter Plan of Treatment Upcoming Encounters Date Type Department Care Team (Late st Contact Info) Description 09/29/2024 8:00 AM MANAGER CREATIVE Office Visit [facility] Family [facility] - [place] [address] [facility], [address] [place] [address] Elza Benitez MD [facility] [address] [place] [address] documented as of this encounter Procedures Procedure Name Priority Date/Time Associated Diagnosis Comments MG SCREENING W JANICE ABIDA DIGI Routine 02/21/2022 11:19 AM CDT Encounter for screening mammogram for malignant neoplasm of breast documented in this encounter Results * MG SCREENING W JANICE ABIDA DIGI (02/21/2022 11:19 AM CDT) Anatomical Region Laterality Modality Breast Bilateral Mammography 02/21/2022 5:56 PM CDT Impressions 02/21/2022 5:58 PM CDT IMPRESSION: No suspicious mammographic findings. Recommendation: 1. Routine Screening, Bilateral Assessment: ACR BI-RADS 2 - BENIGN FINDING(S) Ordered By: JACI HERRERA Interpreted By: Ed Werner MD, 02/21/2022 5:56 PM Narrative 02/21/2022 5:58 PM CDT Examination: Screening bilateral mammogram Exam Date: 02/21/2022 11:07 AM Clinical history: Routine screening. Family history of breast cancer in her grandmother and aunt. Comparison: 01/18/2021, 12/08/2019 Technique: Digital screening mammography of both breasts was performed. ??Breast tomosynthesis acquisitions were obtained and reviewed. ??This study was read with the assistance of a computer-aided detection system. Tissue density: There are scattered areas of fibroglandular density. Findings: The breast parenchymal findings are stable. No suspicious masses, malignant appearing calcifications, skin thickening or other abnormalities are present. ??No significant change from the prior exam. Jaci Herrera DO MAMMO Final Result documented in this encounter Visit Diagnoses Not on filedocumented in this encounter Additional Health Concerns Assessment Noted Time PHQ-9 Depression Total Score: 0 10/04/19 22 3:48 PM MANAGER CREATIVE documented as of this encounter Care Teams Automotive Service Professional Relationship Specialty Start Date End Date Jaci Herrera DO [address] [place] [address] PCP - General 08/18/16 12/14/23 documented as of this encounter
--- OUTSIDE RECORDS SUMMARY | 2024-08-08 14:13 | XMS_ITS | Encounter Summary ---
Author Organization [facility] Address [address] [place] [address]. [place], [place] [address] [place] [address] Care Team Providers Care Casting Machine Adjuster Name Role Phone Sarah Yap DO Primary Care Provider [phone] Reason for Visit * Imaging (Routine) - Closed Specialty Diagnoses / Procedures Referred By Unruly pham Referred To Contact RADIOLOGY Diagnoses Encounter for screening mammogram for malignant neoplasm of breast Procedures MG SCREENING W JANICE ABIDA DIGI Sarah Yap DO [address] [place] [address] Phone: tel: fax: Referral ID Status Reason Start Date Expiration Date Visits Re quested Visits Authorized [id number] Closed 09/22/2019 10/20/2020 1 1 Encounter Details Date Type Department Care Team (Latest Contact Info) Description 12/08/2019 9:30 AM CDT - 12/08/2019 11:59 PM CDT Hospital Encounter [facility] [address] [address] Sarah Yap DO [address] [place] [address] Discharge Disposition: Home or Self [...] 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 90 tablet 1 0 07/19/20 20 clobetasol 0.05 % ointment Apply topically 2 (two) times daily as needed. apply to affected area 2 9 04/17/20 20 hydroCHLOROthiazide 50 MG tabletIndications:E ssential hypertension Take 1 tablet (50 mg total) by mouth daily. 90 tablet 1 0 07/19/20 20 insulin glargine 100 UNIT/ML injection (PEN)Indications:Co ntrolled type 2 diabetes mellitus with chronic kidney disease, with long-term current use of insulin, unspecified CKD stage ([facility]/HCC HHS/HCC) INJECT 55 UNITS SUBCUTANEOUSLY EVERY DAY DIRECTED 15 pen 1 0 12/09/19 20 lisinopril 10 MG tabletIndications:E ssential hypertension Take 1 tablet (10 mg total) by mouth daily. 90 tablet 1 0 07/19/20 20 metFORMIN 1000 MG tabletIndications:C ontrolled type 2 diabetes mellitus with chronic kidney disease, with long-term current use of insulin, unspecified CKD stage (CMS/HCC HHS/HCC) Take 1 tablet (1,000 mg total) by mouth 2 (two) times daily. 180 tablet 1 0 10/10/19 21 pioglitazone 45 MG tabletIndications:C ontrolled type 2 diabetes mellitus with chronic kidney disease, with long-term current use of insulin, unspecified CKD stage (CMS/HCC HHS/HCC) Take 1 tablet (45 mg total) by mouth daily. 90 tablet 1 0 09/04/19 21 venlafaxine XR 150 MG 24 hr capsuleIndications: Depression, unspecified depression type Take 1 capsule (150 mg total) by mouth daily. 90 capsule 1 0 07/19/20 20 documented as of this encounter Plan of Treatment Upcoming Encounters Date Type Department Care Team (Late st Contact Info) Description 09/29/2024 8:00 AM AUTO TRANSMISSION SPECIALIST Office Visit [facility] Family Medicine - [address], [address] [place] [phone] Elza Benitez MD [facility] [address] [place] [address] documented as of this encounter Procedures Procedure Name Priority Date/Time Associated Diagnosis Comments MG SCREENING W JANICE ABIDA DIGI Routine 12/08/2019 9:54 AM CDT Encounter for screening mammogram for malignant neoplasm of breast documented in this encounter Results * MG SCREENING W JANICE ABIDA DIGI (12/08/2019 9:54 AM CDT) Anatomical Region Laterality Modality Breast Bilateral Mammography 12/08/2019 9:56 AM CDT Impressions 12/08/2019 9:59 AM CDT =====IMPRESSION:===== No mammographic findings suggestive of malignancy. ASSESSMENT: ACR BI-RADS CATEGORY 1 - NEGATIVE. RECOMMENDATION: 1: Routine screening mammogram ??bilateral ??in 1 year Narrative 12/08/2019 9:59 AM CDT EXAMINATION: Digital bilateral screening mammogram with 3-D tomosynthesis EXAM DATE/TIME: 12/08/2019 9:37 AM REASON FOR EXAM: ??Encounter for screening mammogram for malignant neoplasm of breast ? COMPARISON: 10/11/2018, 09/26/2017 TECHNIQUE: Digital screening mammography of both breasts was performed in addition to 3-D Tomosynthesis technique. This study was read with the assistance of a computer-aided detection system. TISSUE DENSITY: The breast tissue contains scattered fibroglandular densities. FINDINGS: No suspicious masses, malignant appearing calcifications, skin thickening or other abnormalities are present. ??No significant change from the prior exam. Sarah Yap DO MAMMO Final Result documented in this encounter Visit Diagnoses Not on filedocumented in this encounter Care Teams Casting Machine Adjuster Relationship Specialty Start Date End Date Sarah Yap DO [address] [place] [address] PCP - General 08/18/16 12/14/23 documented as of this encounter
--- OUTSIDE RECORDS SUMMARY | 2024-08-08 14:13 | XMS_ITS | Encounter Summary ---
Author Organization [facility] Address [address] [place] [address]. [place], [place] [address] [place] [address] Care Team Providers Care Kaiako Kohanga Reo Name Role Phone Jaci Herrera DO Primary Care Provider [phone] Reason for Referral * Consultation (Routine) - Closed Specialty Diagnoses / Procedures Referred By Unruly pham Referred To Contact GASTROENTEROLOGY Diagnoses Screening for colon cancer Jaci Herrera DO [address] [place] [address] Phone: tel: fax: Dayron Bell MD [address] [facility] [address] [place] [address] Phone: tel: fax: Referral ID Status Reason Start Date Expiration Date Visits Re quested Visits Authorized [id number] Closed 03/04/2022 03/04/2023 1 1 Reason for Visit * Reason Comments Physical Annual Encounter Details Date Type Department Care Team (Late st Contact Info) Description 03/04/2022 9:00 AM CDT Office Visit [facility] [address] [facility] [address] [place] [phone] Jaci Herrera DO [address] [place] [address] Physical (Annual) Social History Tobacco Use Types Packs/Day Years [...] 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 No / Unsure 02/21/2022 10:54 AM CDT documented as of this encounter Last Filed Vital Signs Vital Sign Reading Time Taken Comments Blood Pressure 100/70 03/04/2022 8:52 AM CDT Pulse - - Temperature - - Respiratory Rate - - Oxygen Saturation - - Inhaled Oxygen Concentration - - Weight 124.3 kg (274 lb) 03/04/2022 8:52 AM CDT Height 170.2 cm (5' 7 ) 03/04/2022 8:52 AM CDT Body Mass Index 42.91 03/04/2022 8:52 AM CDT documented in this encounter Progress Notes * Jaci Herrera, DO - 03/04/2022 9:00 AM CDT Reason for Visit: Physical (Annual) History of Present Illness: Here for annual No complaints Doesn't always remember to take her insulin Gets eye exam this mth Not much exercise ROS: Review of Systems Constitutional: Negative. Respiratory: Negative. Cardiovascular: Negative. Gastrointestinal: Negative. Genitourinary: Negative. Musculoskeletal: Negative. Psychiatric/Behavioral: Stable on meds Medications: Current Outpatient Medications: ??? atorvastatin 10 MG tablet, Take 1 tablet (10 mg total) by mouth every evening., Disp: 90 tablet, Rfl: 1 ??? cetirizine 10 MG tablet, Take 1 tablet (10 mg total) by mouth daily., Disp: 90 tablet, Rfl: 1 ??? hydroCHLOROthiazide 50 MG tablet, Take 1 tablet (50 mg total) by mouth daily., Disp: 90 tablet,Rfl: 1 ??? insulin glargine (BASAGLAR KWIKPEN) 100 UNIT/ML injection (PEN), INJECT 55 UNITS EVERY DAY DIRECTED, Disp: 20 mL, Rfl: 1 ??? Insulin Pen Needle (PEN NEEDLES 31GX5/16 ) 31G X 8 MM Misc, , Disp: , Rfl: ??? lisinopril 10 [...] mouth daily., Disp: 90 capsule, Rfl: 1 No Known Allergies Past Medical History: Diagnosis [...] ??? Marital status: 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 She appears well- developed. No distress. HENT: Right Ear: Tympanic membrane and external ear normal. Left Ear: Tympanic membrane and external ear normal. Nose: Nose normal. Mouth/Throat: Oropharynx is clear and moist. Mucous membranes are moist. Oropharynx is clear. Eyes: Conjunctivae are normal. Neck: Neck supple. No thyromegaly present. Cardiovascular: Normal rate and regular rhythm. Pulmonary/Chest: Effort normal and breath sounds normal. Abdominal: Soft. Bowel sounds are normal. She exhibits no mass. There is no tenderness. No hernia. Genitourinary: Genitourinary Comments: Normal pap 2020 Musculoskeletal: Normal range of motion. She exhibits no tenderness. Right lower leg: She exhibits no edema. Left lower leg: She exhibits no edema. Lymphadenopathy: She has no cervical adenopathy. Neurological: She is alert and oriented to person, place, and time. Skin: Skin is warm and dry. Psychiatric: Mood normal. Nursing note and vitals reviewed. Filed Vitals: 03/04/22 0852 BP: 100/70 Weight: 124.3 kg (274 lb) Height: 5' 7 (1.702 m) Diagnoses/Impression: 1. Preventative health care 2. Screening for colon cancer Ambulatory referral to Gastroenterology 3. Other hyperlipidemia LIPID PANEL COMPREHENSIVE METABOLIC PANEL 4. Essential hypertension LIPID PANEL COMPREHENSIVE METABOLIC PANEL 5. Morbid obesity ([facility]) LIPID PANEL COMPREHENSIVE METABOLIC PANEL 6. Controlled type 2 diabetes mellitus with microalbuminuria, with long-term current use of insulin([facility]) ALBUMIN URINE RANDOM LIPID PANEL HEMOGLOBIN, GLYCOSYLATED COMPREHENSIVE METABOLIC PANEL 7. Adjustment disorder, unspecified type 8. Albuminuria 9. History of colon polyps 10. Allergic rhinitis, unspecified seasonality, unspecified trigger Recommendations and Plan: Remain active, exercise, healthy diet, eye exam when due, flu shot each Fall Labs Had mamm cscope Reviewed and updated this visit by provider: Tobacco Allergies Meds Problems Med Hx Surg Hx Fam Hx Orders Placed This Encounter ??? ALBUMIN URINE RANDOM ??? LIPID PANEL ??? HEMOGLOBIN, GLYCOSYLATED ??? COMPREHENSIVE METABOLIC PANEL ??? Ambulatory referral to Gastroenterology JACI HERRERA DO Referring Provider: No ref. provider found PCP: JACI HERRERA DO documented in this encounter Plan of Treatment Upcoming Encounters Date Type Department Care Team (Late st Contact Info) Description 09/29/2024 8:00 AM SCALE BALANCER Office Visit [facility] Family Medicine - [address], [address] [place] [phone] Elza Benitez MD [facility] [address] [place] [address] Scheduled Referrals Name Type Priority Associated Diagnoses Orde r Schedule Ambulatory referral to Gastroenterology Referral Routine Screening for colon cancer Ordered: 03/04/2022 documented as of this encounter Results * COMPREHENSIVE METABOLIC PANEL (03/14/2022 8:19 AM CDT) SODIUM S/P/B 141 133 - 146 MMOL/L [facility] POTASSIUM S/P/B 4.3 3.5 - 5.1 MMOL/L [facility] CHLORIDE S/P/B 102 98 - 107 MMOL/L [facility] CO2 28 21 - 31 MMOL/L [facility] ANION GAP 11 4 - 13 MMOL/L [facility] BUN 12 7 - 25 MG/DL [facility] CREATININE S/P/B 0.61 0.60 - 1.30 MG/DL [facility] EGFR NON-AFR. AMER. >90 >=60 ML/MIN/1.7 3 M2 [facility] CALCIUM S/P/B 9.2 8.3 - 10.5 MG/DL [facility] GLUCOSE 90 70 - 100 MG/DL [facility] TOTAL PROTEIN S/P/B 6.6 6.4 - 8.3 G/DL [facility] ALBUMIN S/P/B 4.0 3.5 - 5.0 G/DL [facility] ALT 18 9 - 43 UNITS/L [facility] ALKALINE PHOSPHATASE S/P/B 83 34 - 104 UNITS/L [facility] AST 24 13 - 39 UNITS/L [facility] BILIRUBIN TOTAL S/P/B 0.3 0.2 - 1.2 MG/DL [facility] Comment:IS PATIENT FASTING?- >YES 03/14/2022 8:19 AM CDT 03/15/2022 5:07 AM CDT us Jaci Herrera DO LABORATORY Final Result [facility] [address] [place] [address], * LIPID PANEL (03/14/2022 8:19 AM CDT) CHOLESTEROL 149 0 - 199 MG/DL [facility] TRIGLYCERIDES 84 0.00 - 150.00 MG/DL [facility] Comment: NCEP REFERENCE VALUES FOR TRIGLYCERIDES: NORMAL: ? <150 MG/DL BORDERLINE HIGH: ?150 - 199 MG/DL HIGH: ? 200 - 499 MG/DL VERY HIGH: ?>/= 500 MG/DL HDL 71 >40 MG/DL [facility] LDL (CALCULATED) 61 0 - 99 MG/DL [facility] Comment: CUTOFF VALUES RECOMMENDED BY THE NATIONAL CHOLESTEROL EDUCATION PROGRAM: DESIRABLE: ?CHOLESTEROL <200 MG/DL ? LDL <100 MG/DL BORDERLINE: ?? CHOLESTEROL 200-239 MG/DL ?LDL 101-159 MG/DL HIGHER RISK: ??CHOLESTEROL >240 MG/DL ? LDL >160 MG/DL, HDL <40 MG/DL NON HDL CHOLESTEROL 78 NO REFERENCE RANGE MG/DL [facility] Comment: A REASONABLE GOAL FOR NON-HDL CHOLESTEROL IS ONE THAT IS 30 MG/DL HIGHER THAN THE LDL CHOLESTEROL GOAL. CHOL/HDL RATIO 2.1 0.0 - 5.[address] [facility] Comment:IS PATIENT FASTING?- >YES 03/14/2022 8:19 AM CDT 03/15/2022 5:07 AM CDT Jaci Herrera DO LABORATORY Final Result [facility] [address] [place] [address], * ALBUMIN URINE RANDOM (03/14/2022 8:16 AM CDT) MICROALBUMIN (U) 30 [facility] CREATININE RANDOM (U) 100 [facility] MICROALB/CREAT <30 [facility] URINE SPECIMEN / Unknown 03/14/2022 8:16 AM CDT us Jaci Herrera DO URINE ORDERABLES Final Resul t Performing Organization Address City/[facility]/ZIP Co de Phone Number [facility] [address] [facility] [address] [place] [address], [place] * (ABNORMAL) HEMOGLOBIN, GLYCOSYLATED (03/14/2022 7:52 AM CDT) [facility]GB A1C 8.2(A) 4.2 - 6.5 % [facility] 03/14/2022 7:52 AM CDT us Jaci Herrera DO LABORATORY Final Result [facility] [address] [facility] [address] [place] [address], documented in this encounter Visit Diagnoses Diagnosis Preventative health care- Primary Routine general medical examination at a health care facility Screening for colon cancer Special screening for malignant neoplasms, colon Other hyperlipidemia Essential hypertension Unspecified essential hypertension Morbid obesity ([facility] HHS/HCC) Morbid obesity Controlled type 2 diabetes mellitus with microalbuminuria, with long-term current use of insulin ([facility]) Adjustment disorder, unspecified type Albuminuria Proteinuria History of colon polyps Personal history of colonic polyps Allergic rhinitis, unspecified seasonality, unspecified trigger documented in this encounter Additional Health Concerns Assessment Noted Time PHQ-9 Depression Total Score: 0 10/04/19 22 3:48 PM SCALE BALANCER documented as of this encounter Care Teams Kaiako Kohanga Reo Relationship Specialty Start Date End Date Jaci Herrera DO [address] [place] [address] PCP - General 08/18/16 12/14/23 documented as of this encounter
--- OUTSIDE RECORDS SUMMARY | 2024-08-08 14:13 | XMS_ITS | Encounter Summary ---
Author Organization [facility] Address [address] [place] [address]. [place] [address] [place] [address] Care Team Providers Care Transit Clerk Name Role Phone Jaci Herrera DO Primary Care Provider [phone] Sana Sethi OD Unavailable [phone] Reason for Visit * Reason Comments Physical annual Encounter Details Date Type Department Care Team (Late st Contact Info) Description 07/03/2023 2:15 PM PAYROLL BENEFITS CLERK Office Visit [facility] [address] [facility] [address] [place] [phone] Jaci Herrera DO [address] [place], [place] [address] Physical (annual) Social History Tobacco Use Types Packs/Day Years [...] 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 file Not on file Not on file documented as of this encounter Last Filed Vital Signs Vital Sign Reading Time Taken Comments Blood Pressure 122/64 07/03/2023 2:08 PM PAYROLL BENEFITS CLERK Pulse - - Temperature - - Respiratory Rate - - Oxygen Saturation - - Inhaled Oxygen Concentration - - Weight 109.3 kg (241 lb) 07/03/2023 2:08 PM PAYROLL BENEFITS CLERK Height 168.9 cm (5' 6.5 ) 07/03/2023 2:08 PM PAYROLL BENEFITS CLERK Body Mass Index 38.32 07/03/2023 2:08 PM PAYROLL BENEFITS CLERK documented in this encounter Progress Notes * Jaci Herrera, DO - 07/03/2023 2:15 PM CST Reason for Visit: Physical (annual) History of Present Illness: Here for annual Has worked on diet and lost 36lbs since October Did mis step when out for walk last week and fell and twisted left ankle Has pain in ankle and lateral foot Never iced it Has walked on it all week, can only get a pair of tennis shoes on Had eye exam Has had vaginal itching and says sugars have been up recently Also says since time change and with holidays and taking care of her mom, she has been a little more depressed Has been on effexor for yrs Not suicidal, just doesn't want to do anything ROS: Review of Systems Constitutional: Negative. Respiratory: Negative. Cardiovascular: Negative. Gastrointestinal: Negative. Genitourinary: Negative. Musculoskeletal: As per HPI Psychiatric/Behavioral: Positive for depression. Medications: Current Outpatient Medications: atorvastatin (LIPITOR) 10 MG tablet, TAKE 1 TABLET BY MOUTH EVERY DAY IN THE EVENING, Disp: 90 tablet, Rfl: 0 BASAGLAR KWIKPEN 100 UNIT/ML injection (PEN), INJECT 55 UNITS EVERY DAY DIRECTED, Disp: 20 mL, Rfl: 1 buPROPion XL (WELLBUTRIN XL) 150 MG 24 hr tablet, Take 1 tablet (150 mg total) by mouth daily., Disp: 30 tablet, Rfl: 5 cetirizine (ZYRTEC) 10 MG tablet, TAKE 1 TABLET BY MOUTH EVERY DAY, Disp: 90 tablet, Rfl: 3 FARXIGA 10 MG tablet, TAKE 1 TABLET BY MOUTH EVERY DAY, Disp: 30 tablet, Rfl: 1 fluconazole (DIFLUCAN) 150 MG tablet, Take po at once and repeat in 1 week if needed, Disp: 2 tablet, Rfl: 1 hydroCHLOROthiazide (HYDRODIURIL) 50 MG tablet, TAKE 1 TABLET BY MOUTH EVERY DAY, Disp: 90 tablet, Rfl: 3 Insulin Pen Needle (PEN NEEDLES 31GX5/16 ) 31G X 8 MM [facility], , Disp: , Rfl: lisinopril (PRINIVIL) 10 MG tablet, TAKE 1 TABLET BY MOUTH EVERY DAY, Disp: 90 tablet, Rfl: 0 metFORMIN (GLUCOPHAGE) 1000 MG tablet, TAKE 1 TABLET BY MOUTH TWICE A DAY, Disp: 180 tablet, Rfl: 3 venlafaxine XR (EFFEXOR-XR) 150 MG 24 hr capsule, TAKE 1 CAPSULE BY MOUTH EVERY DAY, Disp: 90 capsule, Rfl: 3 No Known Allergies Past Medical History: Diagnosis Date Acne Cholelithiasis Depression Diabetes mellitus ([facility]/HCC) ([facility]) Hypertension Personal history of colonic polyps Postmenopausal Late 40's (HHS/HCC) Premenstrual syndrome Trigger finger Trigger thumb Viral warts Past Surgical History: Procedure Laterality Date COLONOSCOPY 11/11/2012: next colonoscopy due 03/2015; 03/2010 polyp 05/2015 normal repeat 5 yrs COLONOSCOPY N/A 07/07/2022 COLONOSCOPY performed by Dayron Bell MD at [facility] KIDNEY STONE REMOVAL 1997 LITHOTRIPSY OTHER PROCEDURE Ear surgeyr- Lasik TONSILLECTOMY Social History Tobacco Use Smoking status: Never Smokeless tobacco: Never Substance Use Topics Alcohol use: Not Currently Social History Socioeconomic History Marital status: Occupational History 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 She appears well- developed. No distress. Morbidly obese HENT: Right Ear: Tympanic membrane and external [...] No hernia. Genitourinary: Genitourinary Comments: Normal pap 2yrs ago Musculoskeletal: She exhibits tenderness (left lateral ankle and foot). Right lower leg: She exhibits no edema. Left lower leg: She exhibits no edema. Bruising lateral foot and base toes Lymphadenopathy: She has no cervical adenopathy. Neurological: She is alert and oriented to person, place, and time. Skin: Skin is warm and dry. Psychiatric: Mood normal. Nursing note and vitals reviewed. Filed Vitals: 07/03/23 1408 BP: 122/64 Weight: 109.3 kg (241 lb) Height: 1.689 m (5' 6.5 ) Comfort was seen today for physical. Diagnoses and associated orders for this visit: 1. Preventative health care (Primary) 2. Albuminuria - ALBUMIN URINE RANDOM; Future - HEMOGLOBIN, GLYCOSYLATED; Future 3. Hyperlipidemia, unspecified hyperlipidemia type - LIPID PANEL; Future - COMPREHENSIVE METABOLIC PANEL; Future 4. Morbid obesity ([facility]) - LIPID PANEL; Future - COMPREHENSIVE METABOLIC PANEL; Future 5. Controlled type 2 diabetes mellitus with microalbuminuria, with long-term current use of insulin([facility]) ([facility]) - LIPID PANEL; Future - COMPREHENSIVE METABOLIC PANEL; Future 6. Essential hypertension - LIPID PANEL; Future - COMPREHENSIVE METABOLIC PANEL; Future 7. Acute left ankle pain - XR ANKLE LT M3V; Future 8. Left foot pain - XR FOOT LT 3V; Future 9. Yeast vaginitis - fluconazole (DIFLUCAN) 150 MG tablet; Take po at once and repeat in 1 week if needed 10. Allergic rhinitis, unspecified seasonality, unspecified trigger 11. History of colon polyps 12. Depression, unspecified depression type - buPROPion XL (WELLBUTRIN XL) 150 MG 24 hr tablet; Take 1 tablet (150 mg total) by mouth daily. 13. Osteoarthritis of left knee, unspecified osteoarthritis type Diagnoses/Impression: 1. Preventative health care 2. Albuminuria ALBUMIN URINE RANDOM HEMOGLOBIN, GLYCOSYLATED 3. Hyperlipidemia, unspecified hyperlipidemia type LIPID PANEL COMPREHENSIVE METABOLIC PANEL 4. Morbid obesity ([facility]) LIPID PANEL COMPREHENSIVE METABOLIC PANEL 5. Controlled type 2 diabetes mellitus with microalbuminuria, with long-term current use of insulin([facility]) ([facility]) LIPID PANEL COMPREHENSIVE METABOLIC PANEL 6. Essential hypertension LIPID PANEL COMPREHENSIVE METABOLIC PANEL 7. Acute left ankle pain XR ANKLE LT M3V 8. Left foot pain XR FOOT LT 3V 9. Yeast vaginitis fluconazole (DIFLUCAN) 150 MG tablet 10. Allergic rhinitis, unspecified seasonality, unspecified trigger 11. History of colon polyps 12. Depression, unspecified depression type buPROPion XL (WELLBUTRIN XL) 150 MG 24 hr tablet 13. Osteoarthritis of left knee, unspecified osteoarthritis type Recommendations and Plan: Remain active, exercise, healthy diet, eye exam when due, had flu shot at work Will add wellbutrin, she will let me know if not improved in next few weeks Xray left foot and ankle Labs Had mamm Cont to work on diet and wt loss F/u 6mths Reviewed and updated this visit by provider: Tobacco Allergies Meds Problems Med Hx Surg Hx Fam Hx Orders Placed This Encounter XR FOOT LT 3V XR ANKLE LT M3V ALBUMIN URINE RANDOM LIPID PANEL HEMOGLOBIN, GLYCOSYLATED COMPREHENSIVE METABOLIC PANEL buPROPion XL (WELLBUTRIN XL) 150 MG 24 hr tablet fluconazole (DIFLUCAN) 150 MG tablet JACI HERRERA DO Referring Provider: No ref. provider found PCP: JACI HERRERA DO OLL BENEFITS CLERK documented in this encounter Plan of Treatment Upcoming Encounters Date Type Department Care Team (Late st Contact Info) Description 09/29/2024 8:00 AM PAYROLL BENEFITS CLERK Office Visit [facility] Family Medicine - [address], [address] [place] [phone] Elza Benitez MD [address] [place] [address] [place] [id number] documented as of this encounter Results * (ABNORMAL) COMPREHENSIVE METABOLIC PANEL (07/17/2023 8:13 AM PAYROLL BENEFITS CLERK) SODIUM S/P/B 140 133 - 146 MMOL/L [facility] POTASSIUM S/P/B 4.2 3.5 - 5.1 MMOL/L [facility] CHLORIDE S/P/B 99 98 - 107 MMOL/L [facility] CO2 31 21 - 31 MMOL/L [facility] ANION GAP 10 4 - 13 MMOL/L [facility] BUN 12 7 - 25 MG/DL [facility] CREATININE S/P/B 0.56(L) 0.60 - 1.30 MG/DL [facility] GFR ESTIMATE >90 >=60 ML/MIN/1.7 3 M2 [facility] CALCIUM S/P/B 10.7(H) 8.3 - 10.5 MG/DL [facility] GLUCOSE 110(H) 70 - 100 MG/DL [facility] TOTAL PROTEIN S/P/B 7.0 6.4 - 8.3 G/DL [facility] ALBUMIN S/P/B 4.5 3.5 - 5.0 G/DL [facility] ALT 22 9 - 43 UNITS/L [facility] ALKALINE PHOSPHATASE S/P/B 105(H) 34 - 104 UNITS/L [facility] AST 24 13 - 39 UNITS/L [facility] BILIRUBIN TOTAL S/P/B 0.4 0.2 - 1.2 MG/DL [facility] Comment:IS PATIENT FASTING?- >YES 07/17/2023 8:13 AM PAYROLL BENEFITS CLERK 07/18/2023 5:32 AM PAYROLL BENEFITS CLERK us Jaci Herrera DO LABORATORY Final Result [facility] [address] [place] [address], * LIPID PANEL (07/17/2023 8:13 AM PAYROLL BENEFITS CLERK) Pathologist [facility] CHOLESTEROL 145 0 - 199 MG/DL [facility] TRIGLYCERIDES 115 0.00 - 150.00 MG/DL [facility] Comment: NCEP REFERENCE VALUES FOR TRIGLYCERIDES: NORMAL: ? <150 MG/DL BORDERLINE HIGH: ?150 - 199 MG/DL HIGH: ? 200 - 499 MG/DL VERY HIGH: ?>/= 500 MG/DL HDL 64 >40 MG/DL [facility] LDL (CALCULATED) 61 0 - 99 MG/DL [facility] Comment: CUTOFF VALUES RECOMMENDED BY THE NATIONAL CHOLESTEROL EDUCATION PROGRAM: DESIRABLE: ?CHOLESTEROL <200 MG/DL ? LDL <100 MG/DL BORDERLINE: ?? CHOLESTEROL 200-239 MG/DL ?LDL 101-159 MG/DL HIGHER RISK: ??CHOLESTEROL >240 MG/DL ? LDL >160 MG/DL, HDL <40 MG/DL NON HDL CHOLESTEROL 81 NO REFERENCE RANGE MG/DL [facility] Comment: A REASONABLE GOAL FOR NON-HDL CHOLESTEROL IS ONE THAT IS 30 MG/DL HIGHER THAN THE LDL CHOLESTEROL GOAL. CHOL/HDL RATIO 2.3 0.0 - 5.[address] [facility] Comment: IS PATIENT FASTING?->YES ON NOVEMBER 25, 2022, [facility] CHANGED THE EQUATION FOR CALCULATING ESTIMATED [...] LIPID PROFILE. LEWIS: THE JOURNAL OF THE [employer] 310 (19): [id number]. - COLT V, SAKSHI J, LARISSA A, TERRY M, ILIA R, WALLY E, NIKI RS, SHANNON SR, THEODORE SS. FASTING VERSUS NONFASTING AND LOW-DENSITY LIPOPROTEIN CHOLESTEROL ACCURACY. CIRCULATION. 2018 AUG 04;137(1):10-19. 07/17/2023 8:13 AM PAYROLL BENEFITS CLERK 07/18/2023 5:32 AM PAYROLL BENEFITS CLERK Jaci Herrera DO LABORATORY Final Result [facility] [address] [place] [address], * (ABNORMAL) HEMOGLOBIN, GLYCOSYLATED (07/17/2023 8:11 AM PAYROLL BENEFITS CLERK) HGB A1C 9.3(A) 4.2 - 6.5 % [facility] 07/17/2023 8:11 AM PAYROLL BENEFITS CLERK Jaci Herrera DO LABORATORY Final Result Performing Organization Address City/[facility]/ZIP Co de Phone Number [facility] [address] [phone], * ALBUMIN URINE RANDOM (07/17/2023 8:11 AM PAYROLL BENEFITS CLERK) MICROALBUMIN (U) 80 [facility] CREATININE RANDOM (U) 200 [facility] MICROALB/CREAT 30-300 [facility] URINE SPECIMEN / Unknown 07/17/2023 8:11 AM PAYROLL BENEFITS CLERK us Jaci Herrera DO URINE ORDERABLES Final Resul t [facility] [address] [facility] [address] [place] [address], [place] * XR ANKLE LT M3V (07/03/2023 3:13 PM PAYROLL BENEFITS CLERK) Anatomical Region Laterality Modality Ankle Radiographic Leola ging 07/03/2023 3:27 PM PAYROLL BENEFITS CLERK Impressions 07/03/2023 3:28 PM PAYROLL BENEFITS CLERK IMPRESSION: No acute ankle fracture. Referred By: ?? Interpreted By: Rickie Pelayo MD, 07/03/2023 3:27 PM Narrative 07/03/2023 3:28 PM PAYROLL BENEFITS CLERK EXAMINATION: XR ANKLE LT M3V HISTORY: Pain [...] Rickie Pelayo MD, 07/03/2023 3:27 PM us Jaci Herrera DO GENERAL IMAGING Final Result * XR FOOT LT 3V (07/03/2023 3:13 PM PAYROLL BENEFITS CLERK) Anatomical Region Laterality Modality Foot Radiographic Leola ging 07/03/2023 3:28 PM PAYROLL BENEFITS CLERK Impressions 07/03/2023 3:31 PM PAYROLL BENEFITS CLERK IMPRESSION: 1. ??Acute nondisplaced fracture of the fifth metatarsal base. 2. ??Significant midfoot degenerative change. Referred By: ?? Interpreted By: Rickie Pelayo MD, 07/03/2023 3:28 PM Narrative 07/03/2023 3:31 PM PAYROLL BENEFITS CLERK EXAMINATION: XR FOOT LT 3V HISTORY: Pain [...] By: Rickie Pelayo MD, 07/03/2023 3:28 PM Jaci Herrera DO GENERAL IMAGING Final Result documented in this encounter Visit Diagnoses Diagnosis Preventative health care- Primary Routine general medical examination at a health care facility Albuminuria Proteinuria Hyperlipidemia, unspecified hyperlipidemia type Morbid obesity ([facility]) Morbid obesity Controlled type 2 diabetes mellitus with microalbuminuria, with long-term current use of insulin ([facility]) Essential hypertension Unspecified essential hypertension Acute left ankle pain Left foot pain Pain in limb Yeast vaginitis Candidiasis of vulva and vagina Allergic rhinitis, unspecified seasonality, unspecified trigger History of colon polyps Personal history of colonic polyps Depression, unspecified depression type Osteoarthritis of left knee, unspecified osteoarthritis type Left foot pain Pain in limb Acute left ankle pain documented in this encounter Additional Health Concerns Assessment Noted Time PHQ-9 Depression Total Score: 0 10/04/19 22 3:48 PM PAYROLL BENEFITS CLERK documented as of this encounter Care Teams Transit Clerk Relationship Specialty Start Date End Date Jaci Herrera DO [address] [place] [address] PCP - General 08/18/16 12/14/23 Sana Sethi OD [address] [place] [address] Patient Observer 04/30/22 documented as of this encounter
--- OUTSIDE RECORDS SUMMARY | 2024-08-08 14:13 | XMS_ITS | Encounter Summary ---
Author Organization [facility] Address [address] [place] [address]. 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 Not on file Not on file documented as of this encounter Plan of Treatment Upcoming Encounters Date Type Department Care Team (Late Contact Info) Description 09/29/2024 8:00 AM PRINTING SUPPLIES SALES REPRESENTATIVE Office Visit [facility] Family Medicine - [address], [address] [place] [phone] Elza Benitez MD [address] [facility] [address] [place], [place] [phone] documented as of this encounter Procedures Procedure Name Priority Date/Time Associated Diagnosis Comments IMAGE GENERIC Routine 11/16/2020 documented in this encounter Results * IMAGE STUDY (11/16/2020) Anatomical Region Laterality Modality Other us Documents Scanned SCANNING Final Result documented in this encounter Visit Diagnoses Not on filedocumented in this encounter Care Teams Slack Line Yarder Relationship Specialty Start Date End Date Sarah Yap DO [address] [place] [address] PCP - General 08/18/16 12/14/23 documented as of this encounter
--- OUTSIDE RECORDS SUMMARY | 2024-08-08 14:13 | XMS_ITS | Encounter Summary ---
Author Organization [facility] Address [address] [place] [address]. 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 Not on file [...] st Contact Info) Description 09/29/2024 8:00 AM SHIPPING AND RECEIVING SPECIALIST Office Visit [facility] Family Medicine - [address], [address] [place] [phone] Elza Benitez MD [address] [place] [address] documented as of this encounter Visit Diagnoses Not on filedocumented in this encounter Additional Health Concerns Assessment Noted Time PHQ-9 Depression Total Score: 0 10/04/19 22 3:48 PM SHIPPING AND RECEIVING SPECIALIST documented as of this encounter Care Teams Automobiles Salesperson Relationship Specialty Start Date End Date Sarah Yap DO [address] [place] [address] PCP - General 08/18/16 12/14/23 documented as of this encounter
--- OUTSIDE RECORDS SUMMARY | 2024-08-08 14:13 | XMS_ITS | Encounter Summary ---
Author Organization [facility] Address [address] [place] [address]. 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 No / Unsure 04/17/2020 7:56 AM CDT documented as of this encounter Plan of Treatment Upcoming Encounters Date Type Department Care Team (Late Contact Info) Description 09/29/2024 8:00 AM HUMAN SERVICE WORKER Office Visit [facility] Family Medicine - [place] [address] [facility] [place] [address] Elza Benitez MD [facility] [place] [address] documented as of this encounter Procedures Procedure Name Priority Date/Time Associated Diagnosis Comments BASIC METABOLIC PANEL Routine 04/17/2020 8:30 AM CDT Controlled type 2 diabetes mellitus with microalbuminuria, with long-term current use of insulin ([facility]) Albuminuria HEMOGLOBIN, GLYCOSYLATED Routine 04/17/2020 8:29 AM CDT Controlled type 2 diabetes mellitus with microalbuminuria, with long-term current use of insulin ([facility]) Albuminuria COLLECTION VENOUS BLOOD VENIPUNCTURE Routine 04/17/2020 8:29 AM CDT Controlled type 2 diabetes mellitus with microalbuminuria, with long-term current use of insulin ([facility]) Albuminuria documented in this encounter Results * (ABNORMAL) BASIC METABOLIC PANEL (04/17/2020 8:30 AM CDT) [facility] GLUCOSE 124(H) 70 - 99 MG/DL [facility] BUN 15 6 - 20 MG/DL [facility] CREATININE S/P/B 0.7 0.5 - 1.2 MG/DL [facility] EGFR AFR. AMER. 112 60 - 300 ML/MIN/1.7 3 M2 [facility] EGFR NON-AFR. AMER. 93 60 - 300 ML/MIN/1.7 3 M2 [facility] SODIUM S/P/B 139 136 - 145 MEQ/L [facility] POTASSIUM S/P/B 4.2 3.5 - 5.3 MEQ/L [facility] CHLORIDE S/P/B 99 98 - 107 MEQ/L [facility] CO2 26 23 - 31 MEQ/L [facility] ANION GAP 14 8 - 16 MMOLES/L [facility] CALCIUM S/P/B 9.7 8.4 - 10.5 MG/DL [facility] 04/17/2020 8:30 AM CDT 04/18/2020 11:04 AM CDT Narrative [facility] - 04/18/2020 12:22 PM CDT REPORT: [id number] IS PATIENT FASTING?->NO Sarah Yap DO LABORATORY Final Result [facility] [address] [place] [address], * HEMOGLOBIN, GLYCOSYLATED (04/17/2020 8:29 AM CDT) HGB A1C 7.5 % [facility] 04/17/2020 8:29 AM CDT Sarah Yap DO LABORATORY Final Result Performing Organization Address City/[facility] Co de Phone Number [facility] [address] [facility] [facility] [address] [place] [address], documented in this encounter Visit Diagnoses Diagnosis Controlled type 2 diabetes mellitus with microalbuminuria, with long-term current use of insulin ([facility]) Albuminuria Proteinuria documented in this encounter Care Teams Scrap Carrier Relationship Specialty Start Date End Date Sarah Yap DO [address] [place] [address] PCP - General 08/18/16 12/14/23 documented as of this encounter
--- OUTSIDE RECORDS SUMMARY | 2024-08-08 14:13 | XMS_ITS | Encounter Summary ---
Author Organization [facility] Address [address] [place] [address]. 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 Not on file Not on file documented as of this encounter Plan of Treatment Upcoming Encounters Date Type Department Care Team (Late st Contact Info) Description 09/29/2024 8:00 AM MANAGER RAIL Office Visit [facility] Family Medicine - [address], [address] [place] [phone] Elza Benitez MD [address] [facility] [address] [place] [address] documented as of this encounter Visit Diagnoses Not on filedocumented in this encounter Additional Health Concerns Assessment Noted Time PHQ-9 Depression Total Score: 0 01/19/20 21 4:36 PM CDT documented as of this encounter Care Teams Animal Control Specialist Relationship Specialty Start Date End Date Sarah Yap DO [address] [place] [address] PCP - General 08/18/16 12/14/23 documented as of this encounter
--- OUTSIDE RECORDS SUMMARY | 2024-08-08 14:13 | XMS_ITS | Encounter Summary ---
Author Organization [facility] Address [address] [place] [address]. 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 Not on file Not on file documented as of this encounter Last Filed Vital Signs Vital Sign Reading Time Taken Comments Blood Pressure 112/84 10/03/2021 1:34 PM RESIDENT CARE COORDINATOR Pulse 88 10/03/2021 1:34 PM RESIDENT CARE COORDINATOR Temperature - - Respiratory Rate - - Oxygen Saturation - - Inhaled Oxygen Concentration - - Weight 122.5 kg (270 lb) 10/03/2021 1:34 PM RESIDENT CARE COORDINATOR Height 168.9 cm (5' 6.5 ) 10/03/2021 1:34 PM RESIDENT CARE COORDINATOR Body Mass Index 42.93 10/03/2021 1:34 PM RESIDENT CARE COORDINATOR documented in this encounter Progress Notes * Jaci Herrera, DO - 10/03/2021 1:15 PM CST Reason for Visit: Follow Up (6 MO CHECK) History of Present Illness: Here for 6mth f/u Has not been watching diet, not much activity Knows should do better Does not take insulin in prescribed amt--says does not tolerate 65u and only uses 55u Went to [facility] last week for UTI, just finished antibiotics this am, no symptoms Allergies bad last few days but weather warm and allergens are being reported ROS: Review of Systems Constitutional: Negative. Respiratory: Negative. Cardiovascular: Negative. Gastrointestinal: Negative. Genitourinary: As per HPI Musculoskeletal: Negative. Psychiatric/Behavioral: Depression stable on meds Medications: Current Outpatient Medications: ??? [...] glargine (BASAGLAR KWIKPEN) 100 UNIT/ML injection (PEN), [id number] UNITS EVERY DAY DIRECTED, Disp: 15 mL, Rfl: 1 ??? Insulin Pen Needle (PEN NEEDLES 31GX5/16 ) 31G X 8 MM [facility], , Disp: , Rfl: ??? lisinopril 10 [...] Not on file 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 Left Ear: Tympanic membrane normal. Nose: Rhinorrhea and congestion present. Cardiovascular: Normal rate and regular rhythm. Pulmonary/Chest: Effort normal and breath sounds normal. Musculoskeletal: Right lower leg: She exhibits no edema. Left lower leg: She exhibits no edema. Psychiatric: Mood normal. Nursing note and vitals reviewed. Filed Vitals: 10/03/21 1334 BP: 112/84 Pulse: 88 Weight: 122.5 kg (270 lb) Height: 5' 6.5 (1.689 m) Diagnoses/Impression: 1. Preventative health care 2. Controlled type 2 diabetes mellitus with microalbuminuria, with long-term current use of insulin([facility]) BASIC METABOLIC PANEL HEMOGLOBIN, GLYCOSYLATED insulin glargine (BASAGLAR KWIKPEN) 100 UNIT/ML injection (PEN) metFORMIN 1000 MG tablet pioglitazone 45 MG tablet 3. Other hyperlipidemia atorvastatin 10 MG tablet 4. Essential hypertension hydroCHLOROthiazide 50 MG tablet lisinopril 10 MG tablet 5. Depression, unspecified depression type venlafaxine XR 150 MG 24 hr capsule 6. Allergic rhinitis, unspecified seasonality, unspecified trigger cetirizine 10 MG tablet 7. Primary hypertension 8. History of colon polyps 9. Osteoarthritis of left knee, unspecified osteoarthritis type 10. Morbid obesity (CMS/HCC) 11. Adjustment disorder, unspecified type 12. Albuminuria Recommendations and Plan: Remain active, exercise, healthy diet, eye exam when due,must lose wt Labs today Annual in January Reviewed and updated this visit by provider: Tobacco Allergies Meds Problems Med Hx Surg Hx Fam Hx Orders Placed This Encounter ??? BASIC METABOLIC PANEL ??? HEMOGLOBIN, GLYCOSYLATED ??? atorvastatin 10 MG tablet ??? hydroCHLOROthiazide 50 MG tablet ??? insulin glargine (BASAGLAR KWIKPEN) 100 UNIT/ML injection (PEN) ??? lisinopril 10 MG tablet ??? metFORMIN 1000 MG tablet ??? pioglitazone 45 MG tablet ??? venlafaxine XR 150 MG 24 hr capsule ??? cetirizine 10 MG tablet JACI HERRERA DO Referring Provider: No ref. provider found PCP: JACI HERRERA DO DENT CARE COORDINATOR documented in this encounter Plan of Treatment Upcoming Encounters Date Type Department Care Team (Late st Contact Info) Description 09/29/2024 8:00 AM RESIDENT CARE COORDINATOR Office Visit [facility] Family Medicine - [address], [address] [place] [phone] Elza Benitez MD [facility] [address] [place] [address] documented as of this encounter Results * (ABNORMAL) BASIC METABOLIC PANEL (10/03/2021 2:20 PM RESIDENT CARE COORDINATOR) [facility] SODIUM S/P/B 136 133 - 146 MMOL/L [facility] POTASSIUM S/P/B 4.0 3.5 - 5.1 MM[facility] CHLORIDE S/P/B 98 98 - 107 [facility] CO2 27 21 - 31 [facility] ANION GAP 11 4 - 13 [facility] BUN 14 7 - 25 MG/DL [facility] CREATININE S/P/B 0.76 0.60 - 1.30 MG/DL [facility] EGFR NON-AFR. AMER. >90 >=60 ML/MIN/1.7 3 M2 [facility] CALCIUM S/P/B 9.6 8.3 - 10.5 MG/DL [facility] GLUCOSE 226(H) 70 - 100 MG/DL [facility] Comment:IS PATIENT FASTING?- >NO 10/03/2021 2:20 PM RESIDENT CARE COORDINATOR 10/04/2021 5:28 AM RESIDENT CARE COORDINATOR Jaci Herrera DO LABORATORY Final Result Performing Organization Address City/[facility]/ZIP Co de Phone Number [facility] [address] [place] [address], * (ABNORMAL) HEMOGLOBIN, GLYCOSYLATED (10/03/2021 2:19 PM RESIDENT CARE COORDINATOR) HGB A1C 9.1(A) 4.2 - 6.5 % [facility] 10/03/2021 2:19 PM RESIDENT CARE COORDINATOR Jaci Herrera DO LABORATORY Final Result Performing Organization Address [facility] Co de Phone Number [facility] [address] [place] [address], documented in this encounter Visit Diagnoses Diagnosis Preventative health care- Primary Routine general medical examination at a health care facility Controlled type 2 diabetes mellitus with microalbuminuria, with long-term current use of insulin ([facility]) Other hyperlipidemia Essential hypertension Unspecified essential hypertension Depression, unspecified depression type Allergic rhinitis, unspecified seasonality, unspecified trigger Primary hypertension Unspecified essential hypertension History of colon polyps Personal history of colonic polyps Osteoarthritis of left knee, unspecified osteoarthritis type Morbid obesity ([facility] HHS/HCC) Morbid obesity Adjustment disorder, unspecified type Albuminuria Proteinuria documented in this encounter Additional Health Concerns Assessment Noted Time PHQ-9 Depression Total Score: 0 10/04/19 22 3:48 PM RESIDENT CARE COORDINATOR documented as of this encounter Care Teams Cleaning Specialist Relationship Specialty Start Date End Date Jaci Herrera DO [address] [place] [address] PCP - General 08/18/16 12/14/23 documented as of this encounter
--- OUTSIDE RECORDS SUMMARY | 2024-08-08 14:13 | XMS_ITS | Encounter Summary ---
Author Organization [facility] Address [address] [place] [address]. 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 No / Unsure 12/08/2019 9:20 AM CDT documented as of this encounter Progress Notes * Mignon Lugo RN - 12/09/2019 10:08 AM CDT Patient not on lantus, on basaglar I spoke to [facility] they are changing RX from 5/7 to Basaglar #15 pens +1 documented in this encounter Plan of Treatment Upcoming Encounters Date Type Department Care Team (Late st Contact Info) Description 09/29/2024 8:00 AM COMPUTER PATTERNMAKER Office Visit [facility] Family Medicine - [address], [address] [place] [phone] Elza Benitez MD [address] [facility] [address] [place] [address] documented as of this encounter Visit Diagnoses Not on filedocumented in this encounter Care Teams Computer Science Teacher Relationship Specialty Start Date End Date Sarah Yap DO [address] [place] [address] PCP - General 08/18/16 12/14/23 documented as of this encounter
--- OUTSIDE RECORDS SUMMARY | 2024-08-08 14:13 | XMS_ITS | Encounter Summary ---
Author Organization [facility] Address [address] [place] [address]. 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
--- OUTSIDE RECORDS SUMMARY | 2024-08-08 14:13 | XMS_ITS | Encounter Summary ---
Author Organization [facility] Address [address] [place] [address]. 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 Cosigned by Jhon Cummings MD at 04/20/2021 9:47 AM CDT documented in this encounter Plan of Treatment Upcoming Encounters Date Type Department Care Team (Late st Contact Info) Description 09/29/2024 8:00 AM AUTO TOP MECHANIC Office Visit [facility] Medical [facility] Family Medicine [address], [address] [place] [phone] Elza Benitez MD [facility] [address] [place] [address] documented as of this encounter Procedures Procedure Name Priority Date/Time Associated Diagnosis Comments URINALYSIS AUTO DIP Routine 04/20/2021 UTI (urinary tract infection) documented in this encounter Results * URINALYSIS AUTO DIP (04/20/2021) COLOR (U) YELLOW YELLOW [facility] TRANSPARENCY CLEAR CLEAR [facility] GLUCOSE (U) NEGATIVE NEGATIVE MG/DL [facility] BILIRUBIN (U) NEGATIVE NEGATIVE [facility] KETONES MG/DL (U) NEGATIVE NEGATIVE MG/DL [facility] SPECIFIC GRAVITY (U) 1.020 1.001 - 1.035 [facility] BLOOD (U) TRACE (Non Hemolyzed, Intact) NEGATIVE [facility] U PH 7.5 5.0 - 9.0 [facility] PROTEIN (U) NEGATIVE NEGATIVE mg/dL [facility] UROBILINOGEN 0.2 0.2 - 1.0 EU/dL = mg/dL [facility] NITRITES NEGATIVE NEGATIVE MG/DL [facility] LEUKOCYTES (U) 1+ (SMALL) NEGATIVE [facility] MICROSCOPIC DESCRIPTION WBC 7-10 RBC 0.-2 [facility] URINE SPECIMEN OBTAINED BY CLEAN CATCH PROCEDURE / Unknown 04/20/2021 us Jhon Cummings MD URINE ORDERABLES Final Result [facility] [address] [facility] [address] [place] [address], documented in this encounter Visit Diagnoses Diagnosis UTI (urinary tract infection)- Primary Urinary tract infection, site not specified documented in this encounter Additional Health Concerns Assessment Noted Time PHQ-9 Depression Total Score: 0 01/19/20 21 4:36 PM CDT documented as of this encounter Care Teams Clinical Radiologist Relationship Specialty Start Date End Date Sarah Yap DO [address] [place] [address] PCP - General 08/18/16 12/14/23 documented as of this encounter
--- OUTSIDE RECORDS SUMMARY | 2024-08-08 14:13 | XMS_ITS | Encounter Summary ---
Author Organization [facility] Address [address] [place] [address]. 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 No / Unsure 04/17/2020 7:56 AM CDT documented as of this encounter Last Filed Vital Signs Vital Sign Reading Time Taken Comments Blood Pressure 112/64 04/17/2020 7:59 AM CDT Pulse - - Temperature - - Respiratory Rate - - Oxygen Saturation - - Inhaled Oxygen Concentration - - Weight 123.8 kg (273 lb) 04/17/2020 7:59 AM CDT Height - - Body Mass Index 42.76 12/08/2019 1:28 PM CDT documented in this encounter Progress Notes * Jaci Herrera, DO - 04/17/2020 8:00 AM CDT Reason for Visit: Follow Up (4 mo fu DM) History of Present Illness: Here for 4mth f/u Did not tolerate the 70 units of lantus, has too many hypoglycemic episodes even if she eats a snack before going to bed, is just using the 55u she was previously on Not really exercising Has gained wt ROS: Review of Systems Constitutional: Negative. Respiratory: Negative. Cardiovascular: Negative. Gastrointestinal: Negative. Genitourinary: Negative. Psychiatric/Behavioral: Stable on meds Medications: Current Outpatient Medications: ??? atorvastatin 10 MG tablet, Take 1 tablet (10 mg total) by mouth every evening., Disp: 90 tablet, Rfl: 1 ??? hydroCHLOROthiazide 50 MG tablet, Take 1 tablet (50 mg total) by mouth daily., Disp: 90 tablet,Rfl: 1 ??? Insulin Pen Needle (PEN NEEDLES 31GX5/16 ) 31G X [address] [facility], , Disp: , Rfl: ??? lisinopril 10 [...] mouth daily., Disp: 90 capsule, Rfl: 1 ??? insulin glargine 100 UNIT/ML injection (PEN), Inject 55 Units into the skin nightly at bedtime., Disp: 21 mL, Rfl: 3 No Known Allergies Past Medical [...] Not on file 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 Morbidly obese Neck: No thyromegaly present. Cardiovascular: Normal rate and regular rhythm. Pulmonary/Chest: Effort normal and breath sounds normal. Musculoskeletal: She exhibits no edema. Psychiatric: She has a normal mood and affect. Nursing note and vitals reviewed. Filed Vitals: 04/17/20 0759 BP: 112/64 Weight: 123.8 kg (273 lb) Diagnoses/Impression: 1. Controlled type 2 diabetes mellitus with microalbuminuria, with long-term current use of insulin([facility]) HEMOGLOBIN, GLYCOSYLATED BASIC METABOLIC PANEL 2. Need for prophylactic vaccination and inoculation against influenza RIV4 VACC RECOMBINANT DNA IM 3. Need for shingles vaccine HZV VACC RECOMBINANT IM NJX 4. Albuminuria HEMOGLOBIN, GLYCOSYLATED BASIC METABOLIC PANEL 5. Essential hypertension 6. Morbid obesity (CMS/HCC) 7. Other hyperlipidemia Above stable Recommendations and Plan: Remain active, exercise, healthy diet, eye exam when due, flu shot and shingrix Must work on wt loss Reviewed and updated this visit by provider: Tobacco Allergies Meds Problems Med Hx Surg Hx Fam Hx Orders Placed This Encounter ??? HEMOGLOBIN, GLYCOSYLATED ??? BASIC METABOLIC PANEL ??? [[id number]] Flu Vaccine, Quadrivalent, 3 Yrs+ (0.5mL Single-dose syringe - Flublok) ??? [[id number]] Shingrix, Zoster Vaccine, IM Use JACI HERRERA, DO Referring Provider: No ref. provider found PCP: JACI HERRERA DO documented in this encounter Plan of Treatment Upcoming Encounters Date Type Department Care Team (Late st Contact Info) Description 09/29/2024 8:00 AM CLOTH BLEACHING RANGE BACK TENDER Office Visit [facility] Family Medicine - [place] [address] [facility], [address] [place] [address] Elza Benitez MD [facility] [address] [place] [address] documented as of this encounter Results * (ABNORMAL) BASIC METABOLIC PANEL (04/17/2020 8:30 AM CDT) [facility] GLUCOSE 124(H) 70 - 99 MG/DL [facility] BUN 15 6 - 20 MG/DL [facility] CREATININE S/P/B 0.7 0.5 - 1.2 MG/DL [facility] EGFR AFR. AMER. 112 60 - 300 ML/MIN/1.7 3 M2 [facility] EGFR NON-AFR. AMER. 93 60 - 300 ML/MIN/1.7 3 M2 [facility] SODIUM S/P/B 139 136 - 145 MEQ/L [facility] POTASSIUM S/P/B 4.2 3.5 - 5.3 MEQ/L [facility] CHLORIDE S/P/B 99 98 - 107 MEQ/L [facility] CO2 26 23 - 31 MEQ/L [facility] ANION GAP 14 8 - 16 MMOLES/L [facility] CALCIUM S/P/B 9.7 8.4 - 10.5 MG/DL [facility] 04/17/2020 8:30 AM CDT 04/18/2020 11:04 AM CDT Narrative [facility] - 04/18/2020 12:22 PM CDT REPORT: [id number] IS PATIENT FASTING?->NO Jaci Herrera DO LABORATORY Final Result [facility] [address] [place] [address], * HEMOGLOBIN, GLYCOSYLATED (04/17/2020 8:29 AM CDT) HGB A1C 7.5 % [facility] 04/17/2020 8:29 AM CDT Jaci Herrera DO LABORATORY Final Result [facility] [address] [facility] [address] [place] [address], documented in this encounter Visit Diagnoses Diagnosis Controlled type 2 diabetes mellitus with microalbuminuria, with long-term current use of insulin ([facility])- Primary Need for prophylactic vaccination and inoculation against influenza Need for shingles vaccine Need for prophylactic vaccination and inoculation against other viral diseases Albuminuria Proteinuria Essential hypertension Unspecified essential hypertension Morbid obesity ([facility] HHS/HCC) Morbid obesity Other hyperlipidemia Controlled type 2 diabetes mellitus with microalbuminuria, with long-term current use of insulin ([facility]) Albuminuria Proteinuria documented in this encounter Care Teams Driver Education Road Instructor Relationship Specialty Start Date End Date Jaci Herrera DO [address] [place] [address] PCP - General 08/18/16 12/14/23 documented as of this encounter
--- OUTSIDE RECORDS SUMMARY | 2024-08-08 14:13 | XMS_ITS | Encounter Summary ---
Author Organization [facility] Address [address] [place] [address]. 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 Not on file Not on file documented as of this encounter Plan of Treatment Upcoming Encounters Date Type Department Care Team (Late Contact Info) Description 09/29/2024 8:00 AM GAMBRELER HELPER Office Visit [facility] Family Medicine - [address], [address] [place] [phone] Elza Benitez MD [address] [facility] [address] [place] [address] documented as of this encounter Procedures Procedure Name Priority Date/Time Associated Diagnosis Comments HEMOGLOBIN, GLYCOSYLATED Routine 04/05/2019 8:16 AM CDT Controlled type 2 diabetes mellitus with chronic kidney disease, with long-term current use of insulin, unspecified CKD stage ([facility] HHS/HCC) COLLECTION VENOUS BLOOD VENIPUNCTURE Routine 04/05/2019 8:16 AM CDT Controlled type 2 diabetes mellitus with chronic kidney disease, with long-term current use of insulin, unspecified CKD stage (CMS/HCC HHS/HCC) documented in this encounter Results * HEMOGLOBIN, GLYCOSYLATED (04/05/2019 8:16 AM CDT) HGB A1C 8.1 04/05/2019 8:16 AM CDT us Sarah Yap DO LABORATORY Final Result documented in this encounter Visit Diagnoses Diagnosis Controlled type 2 diabetes mellitus with chronic kidney disease, with long-term current use of insulin, unspecified CKD stage ([facility] HHS/HCC) documented in this encounter Care Teams In Class Special Education Teacher Relationship Specialty Start Date End Date Sarah Yap DO [address] [place] [address] PCP - General 08/18/16 12/14/23 documented as of this encounter
--- OUTSIDE RECORDS SUMMARY | 2024-08-08 14:13 | XMS_ITS | Encounter Summary ---
Author Organization [facility] Address [address] [place] [address]. 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 No / Unsure 01/18/2021 9:58 AM CDT documented as of this encounter Plan of Treatment Upcoming Encounters Date Type Department Care Team ([facility] Contact Info) Description 09/29/2024 8:00 AM CONCRETE CONVEYOR OPERATOR Office Visit [facility] Family Medicine - [place] [address], [address] [place] [address] Elza Benitez MD [address] [place] [address] Scheduled Orders Name Type Priority Associated Diagnoses Orde r Schedule SPECIMEN HANDLING,DR OFF->LAB Procedures Routine Encounter for screening for malignant neoplasm of cervix Ordered: 01/18/2021 documented as of this encounter Procedures Procedure Name Priority Date/Time Associated Diagnosis Comments THINPREP IMAGING SYSTEM PAP Routine 01/18/2021 4:28 PM CDT Encounter for screening for malignant neoplasm of cervix documented in this encounter Results * THINPREP IMAGING SYSTEM PAP (01/18/2021 4:28 PM CDT) THIN PREP PAP SEE RESULTS BELOW [facility] Comment: CASE REPORT: CYTOLOGY GYNECOLOGICAL REPORT ? CASE: [id number] ? AUTHORIZING PROVIDER: ??JACI HERRERA ?COLLECTED: ? 01/18/2021 1628 ?? ORDERING LOCATION: [...] NOTE: THIS SPECIMEN WAS REVIEWED BY A CNC OPERATOR PROGRAMMER AND/OR PATHOLOGIST ( INDICATED IN THIS REPORT) AFTER EVALUATION USING THE THINPREP IMAGING SYSTEM. CLINICAL INFORMATION: MENSTRUAL STATUS: ? [...] CDT 01/21/2021 11:27 AM CDT us Jaci Herrera DO PATHOLOGY/CYTOLOGY ORDERABLE S Final Result [facility] [address] [place] [address], documented in this encounter Visit Diagnoses Diagnosis Encounter for screening for malignant neoplasm of cervix- Primary Screening for malignant neoplasm of the cervix documented in this encounter Additional Health Concerns Assessment Noted Time PHQ-9 Depression Total Score: 0 01/19/20 21 4:36 PM CDT documented as of this encounter Care Teams Operations General Agent Relationship Specialty Start Date End Date Jaci Herrera DO [address] [place] [address] PCP - General 08/18/16 12/14/23 documented as of this encounter
--- OUTSIDE RECORDS SUMMARY | 2024-08-08 14:13 | XMS_ITS | Encounter Summary ---
Author Organization [facility] Address [address] [place] [address]. 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 file Not on file documented as of this encounter Progress Notes * Michele Soriano - 03/12/2021 8:10 AM CDTAddended by: MICHELE SORIANO on: 03/14/2021 10:52 AM Modules accepted: Orders * Michele Soriano - 03/12/2021 8:10 AM CDTAddended by: MICHELE SORIANO on: 03/14/2021 10:54 AM Modules accepted: Orders documented in this encounter Plan of Treatment Upcoming Encounters Date Type Department Care Team (Late st Contact Info) Description 09/29/2024 8:00 AM XEROX MACHINE ASSEMBLER Office Visit [facility] Family Medicine - [address], [address] [place] [phone] Elza Benitez MD [facility] [address] [place] [address] documented as of this encounter Procedures Procedure Name Priority Date/Time Associated Diagnosis Comments ALBUMIN URINE RANDOM W/CREATININE Routine 03/12/2021 8:17 AM CDT Controlled type 2 diabetes mellitus with microalbuminuria, with long-term current use of insulin ([facility] HHS/HCC) Albuminuria COMPREHENSIVE METABOLIC PANEL Routine 03/12/2021 8:13 AM CDT Controlled type 2 diabetes mellitus with microalbuminuria, with long-term current use of insulin ([facility] HHS/HCC) Albuminuria Essential hypertension Morbid obesity ([facility] HHS/HCC) Other hyperlipidemia LIPID PANEL Routine 03/12/2021 8:13 AM CDT Controlled type 2 diabetes mellitus with microalbuminuria, with long-term current use of insulin ([facility] HHS/HCC) Albuminuria Essential hypertension Morbid obesity ([facility] HHS/HCC) Other hyperlipidemia HEMOGLOBIN, GLYCOSYLATED Routine 03/12/2021 8:12 AM CDT Controlled type 2 diabetes mellitus with microalbuminuria, with long-term current use of insulin ([facility] HHS/HCC) Albuminuria COLLECTION VENOUS BLOOD VENIPUNCTURE Routine 03/12/2021 8:12 AM CDT Controlled type 2 diabetes mellitus with microalbuminuria, with long-term current use of insulin ([facility] HHS/HCC) Albuminuria documented in this encounter Results * (ABNORMAL) HEMOGLOBIN A1C (GLYCOSYLATED) (06/15/2021 9:04 AM XEROX MACHINE ASSEMBLER) HGB A1C 7.9(A) 4.2 - 6.5 % [facility] 06/15/2021 9:04 AM XEROX MACHINE ASSEMBLER Sarah Yap DO LABORATORY Final Result Performing Organization Address City/[facility] Co de Phone Number [facility] [address] * ALBUMIN URINE RANDOM (03/12/2021 8:17 AM CDT) MICROALBUMIN (U) 150 [facility] CREATININE RANDOM (U) 200 [facility] MICROALB/CREAT 30-300 [facility] URINE SPECIMEN / Unknown 03/12/2021 8:17 AM CDT Sarah Yap DO URINE ORDERABLES Final Resul t Performing Organization Address City/[facility] de Phone Number [facility] [address] * LIPID PANEL (03/12/2021 8:13 AM CDT) CHOLESTEROL 140 0 - 199 MG/DL [facility] TRIGLYCERIDES 84 0.00 - 150.00 MG/DL [facility] Comment: NCEP REFERENCE VALUES FOR TRIGLYCERIDES: NORMAL: ? <150 MG/DL BORDERLINE HIGH: ?150 - 199 MG/DL HIGH: ? 200 - 499 MG/DL VERY HIGH: ?>/= 500 MG/DL HDL 67 23 - 92 MG/DL [facility] LDL (CALCULATED) 56 0 - 99 MG/DL [facility] Comment: CUTOFF VALUES RECOMMENDED BY THE NATIONAL CHOLESTEROL EDUCATION PROGRAM: DESIRABLE: ?CHOLESTEROL <200 MG/DL ? LDL <100 MG/DL BORDERLINE: ?? CHOLESTEROL 200-239 MG/DL ?LDL 101-159 MG/DL HIGHER RISK: ??CHOLESTEROL >240 MG/DL ? LDL >160 MG/DL, HDL <40 MG/DL NON HDL CHOLESTEROL 73 NO REFERENCE RANGE MG/DL [facility] Comment: A REASONABLE GOAL FOR NON-HDL CHOLESTEROL IS ONE THAT IS 30 MG/DL HIGHER THAN THE LDL CHOLESTEROL GOAL. CHOL/HDL RATIO 2.1 0.0 - 5.0 . [facility] Comment: IS PATIENT FASTING?->YES RELEASE TO PATIENT->SYSTEM RELEASE 03/12/2021 8:13 AM CDT 03/13/2021 3:28 AM CDT us Sarah Yap DO LABORATORY Final Result [facility] [address] [place] [address], * (ABNORMAL) COMPREHENSIVE METABOLIC PANEL (03/12/2021 8:13 AM CDT) SODIUM S/P/B 140 136 - 145 MMOL/L [facility] POTASSIUM S/P/B 4.2 3.5 - 5.1 MMOL/L [facility] CHLORIDE S/P/B 103 98 - 107 MMOL/L [facility] CO2 30 21 - 31 MMOL/L [facility] ANION GAP 7 4 - 13 MMOL/L [facility] BUN 12 7 - 25 MG/DL [facility] CREATININE S/P/B 0.57(L) 0.60 - 1.30 MG/DL [facility] EGFR AFR. AMER. 134 60 - 300 ML/MIN/1.7 3 M2 [facility] EGFR NON-AFR. AMER. 111 60 - 300 ML/MIN/1.7 3 M2 [facility] CALCIUM S/P/B 9.6 8.6 - 10.2 MG/DL [facility] GLUCOSE 114(H) 70 - 100 MG/DL [facility] TOTAL PROTEIN S/P/B 6.2(L) 6.4 - 8.3 G/DL [facility] ALBUMIN S/P/B 4.0 3.5 - 5.0 G/DL [facility] ALT 19 9 - 43 UNITS/L [facility] ALKALINE PHOSPHATASE S/P/B 80 34 - 104 UNITS/L [facility] AST 19 13 - 39 UNITS/L [facility] BILIRUBIN TOTAL S/P/B 0.4 0.2 - 1.2 MG/DL [facility] Comment: IS PATIENT FASTING?->YES RELEASE TO PATIENT->SYSTEM RELEASE GFR() IS REPORTED 21% GREATER THAN GFR(OTHER). THE USE OF RACE IN KIDNEY FUNCTION ESTIMATING EQUATIONS IS NO LONGER RECOMMENDED AND MAY RESULT IN OVERESTIMATION. IN THE NEAR FUTURE AN APPROACH THAT DISREGARDS RACE WILL BE IMPLEMENTED. 03/12/2021 8:13 AM CDT 03/13/2021 3:28 AM CDT Sarah Yap DO LABORATORY Final Result [facility] [address] [place] [address], * (ABNORMAL) HEMOGLOBIN, GLYCOSYLATED (03/12/2021 8:12 AM CDT) HGB A1C 8.2(A) 4.2 - 6.5 % [facility] 03/12/2021 8:12 AM CDT Sarah Yap DO LABORATORY Final Result Performing Organization Address City/[facility] Co de Phone Number [facility] [address] [place] [address], documented in this encounter Visit Diagnoses Diagnosis Controlled type 2 diabetes mellitus with microalbuminuria, with long-term current use of insulin ([facility]) Albuminuria Proteinuria Essential hypertension Unspecified essential hypertension Morbid obesity ([facility]) Morbid obesity Other hyperlipidemia Type 2 diabetes mellitus with diabetic chronic kidney disease ([facility]) Type II or unspecified type diabetes mellitus with renal manifestations, not stated as uncontrolled documented in this encounter Additional Health Concerns Assessment Noted Time PHQ-9 Depression Total Score: 0 01/19/20 21 4:36 PM CDT documented as of this encounter Care Teams Rope Making Machine Operator Relationship Specialty Start Date End Date Sarah Yap DO [address] [place] [phone] PCP - General 08/18/16 12/14/23 documented as of this encounter
--- OUTSIDE RECORDS SUMMARY | 2024-08-08 14:13 | XMS_ITS | Encounter Summary ---
Author Organization [facility] Address [address] [place] [address]. [place], [place] [address] [place] [address] Care Team Providers Care Data Visualization Developer Name Role Phone Sarah Yap DO Primary Care Provider [phone] Sana Sethi OD Unavailable [phone] Reason for Visit * Reason Onset Date Comments Medication Problem 11/28/2022 Encounter Details Date Type Department Care Team (Late st Contact Info) Description 11/28/2022 Telephone [facility] [address] [facility] [address] [place] [address] Sarah Yap DO [address] [place] [address] Medication Problem Social History Tobacco Use Types Packs/Day [...] 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 Rx sent * Sarah Yap DO - 11/28/2022 9:43 AM CDT DC bactrim Rx cipro 250mg bid #10 Repeat ccua 2wks * Mary Weller - 11/28/2022 8:33 AM CDT Patient called stating that she went to her wellness center at work for UTI symptoms. They did a UAthat showed moderate leukocytes and trace blood. Tried to get records, but they stated that they could just send over a paper prescription pad with the results. Patient was prescribed bactrim. Patient states it is causing her bad abdominal pain. Patient is taking medication with food. Patient is not experiencing any nausea or diarrhea. They did not send it out for a culture. Asking if the med could be changed? [facility] documented in this encounter Plan of Treatment Upcoming Encounters Date Type Department Care Team (Late st Contact Info) Description 09/29/2024 8:00 AM MULTI SHARE PROGRAM COORDINATOR Office Visit [facility] Family Medicine - [address], [address] [place] [phone] Elza Benitez MD [address] [place] [address] [place] [address] documented as of this encounter Visit Diagnoses Diagnosis Cystitis- Primary Cystitis, unspecified documented in this encounter Additional Health Concerns Assessment Noted Time PHQ-9 Depression Total Score: 0 10/04/19 22 3:48 PM MULTI SHARE PROGRAM COORDINATOR documented as of this encounter Care Teams Data Visualization Developer Relationship Specialty Start Date End Date Sarah Yap DO [address] [place] [address] PCP - General 08/18/16 12/14/23 Sana Sethi OD [address] [place] [address] Relief Master 04/30/22 documented as of this encounter
--- OUTSIDE RECORDS SUMMARY | 2024-08-08 14:13 | XMS_ITS | Encounter Summary ---
Author Organization [facility] Address [address] [place] [address]. 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 No / Unsure 12/08/2019 9:20 AM CDT documented as of this encounter Progress Notes * Mignon Lugo RN - 12/09/2019 10:17 AM CDT Spoke w/ pharmacy Med list updated to basaglar They will change rx * Mignon Lugo RN - 12/09/2019 8:24 AM CDT Fax from [facility] requesting PA for Lantus pen Per patient she uses basaglar and has for years [facility] to open at 9am [phone] Fax between nurses documented in this encounter Plan of Treatment Upcoming Encounters Date Type Department Care Team (Late st Contact Info) Description 09/29/2024 8:00 AM HYBRID CORN BREEDER Office Visit [facility] Family Medicine - [address], [address] [place] [phone] Elza Benitez MD [address] [place] [address] [place] [phone] documented as of this encounter Visit Diagnoses Not on filedocumented in this encounter Care Teams Matrix Drier Tender Relationship Specialty Start Date End Date Sarah Yap DO [address] [place] [address] PCP - General 08/18/16 12/14/23 documented as of this encounter
--- OUTSIDE RECORDS SUMMARY | 2024-08-08 14:13 | XMS_ITS | Encounter Summary ---
Author Organization [facility] Address [address] [place] [address]. [place], [place] [address] [place] [address] Care Team Providers Care Grinder Set Up Operator Surface Name Role Phone Jaci Herrera DO Primary Care Provider [phone] Sana Sethi OD Unavailable [phone] Reason for Referral * Imaging (Routine) - Closed Specialty Diagnoses / Procedures Referred By Unruly pham Referred To Contact RADIOLOGY Diagnoses Screening mammogram, encounter for Procedures MG SCREENING W Jaci Harvey DO [address] [place] [address] Phone: tel: fax: Referral ID Status Reason Start Date Expiration Date Visits Re quested Visits Authorized [id number] Closed 02/11/2023 04/14/2024 1 1 Reason for Visit * Imaging (Routine) - Closed Specialty Diagnoses / Procedures Referred By Unruly pham Referred To Contact RADIOLOGY Diagnoses Screening mammogram, encounter for Procedures MG SCREENING W Jaci Harvey DO [address] [place] [address] Phone: tel: fax: Referral ID Status Reason Start Date Expiration Date Visits Re quested Visits Authorized [id number] Closed 02/11/2023 04/14/2024 1 1 Encounter Details Date Type Department Care Team (Latest Contact Info) Description 03/31/2023 1:00 PM CDT - 03/31/2023 11:59 PM CDT Hospital Encounter [facility] [address] [place] [address] Jaci Herrera DO [address] [place] [address] Discharge Disposition: Home or Self Care (Routine [...] 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 Not on file Not on file documented as of this encounter Medications at Time of Discharge Insulin Pen Needle (PEN NEEDLES 31GX5/16 ) 31G X 8 MM Misc 08/25/2017 atorvastatin (LIPITOR) 10 MG tabletIndications:Ot her hyperlipidemia TAKE 1 TABLET BY MOUTH EVERY DAY IN THE EVENING 90 tablet 1 10/30/2022 3 BASAGLAR KWIKPEN 100 UNIT/ML injection (PEN)Indications:Con trolled type 2 diabetes mellitus with microalbuminuria, with long-term current use of insulin ([facility] HHS/[facility]) INJECT 55 UNITS EVERY DAY DIRECTED 20 mL 1 01/06/2023 3 cetirizine (ZYRTEC) 10 MG tabletIndications:Al lergic rhinitis, unspecified seasonality, unspecified trigger TAKE 1 TABLET BY MOUTH EVERY DAY 90 tablet 3 04/01/2022 3 ciprofloxacin (CIPRO) 250 MG tabletIndications:Cy stitis Take 1 tablet (250 mg total) by mouth 2 (two) times daily. 10 tablet 11/28/2022 3 FARXIGA 10 MG tabletIndications:Co ntrolled type 2 diabetes mellitus with microalbuminuria, with long-term current use of insulin ([facility]CC HHS/HCC) TAKE 1 TABLET BY MOUTH EVERY DAY 30 tablet 2 02/02/2023 3 hydroCHLOROthiazide (HYDRODIURIL) 50 MG tabletIndications:Es sential hypertension TAKE 1 TABLET BY MOUTH EVERY DAY 90 tablet 3 04/01/2022 4 lisinopril (PRINIVIL) 10 MG tabletIndications:Es sential hypertension TAKE 1 TABLET BY MOUTH EVERY DAY 90 tablet 1 10/30/2022 3 metFORMIN (GLUCOPHAGE) 1000 MG tabletIndications:Co ntrolled type 2 diabetes mellitus with microalbuminuria, with long-term current use of insulin ([facility] HHS/[facility]) TAKE 1 TABLET BY MOUTH TWICE A DAY 180 tablet 3 04/01/2022 4 venlafaxine XR (EFFEXOR-XR) 150 MG 24 hr capsuleIndications:D epression, unspecified depression type TAKE 1 CAPSULE BY MOUTH EVERY DAY 90 capsule 3 04/01/2022 4 documented as of this encounter Progress Notes * Missy Calix MD - 03/31/2023 1:00 PM CDT Additional documentation from 03/29/23-04/14/23 may be found under the media tab. TECHNOLOGIST * Missy Calix MD - 03/31/2023 1:00 PM CDT Additional documentation from 03/29/23-04/14/23 may be found under the media tab. TECHNOLOGIST documented in this encounter Plan of Treatment Upcoming Encounters Date Type Department Care Team (Late st Contact Info) Description 09/29/2024 8:00 AM WOOD TECHNOLOGIST Office Visit [facility] Family Medicine - [address], [address] [place] [phone] Elza Benitez MD [address] [facility] [address] [place] [address] documented as of this encounter Procedures Procedure Name Priority Date/Time Associated Diagnosis Comments MG SCREENING W JANICE ABIDA DIGI Routine 03/31/2023 9:08 AM CDT Screening mammogram, encounter for documented in this encounter Results * MG SCREENING W JANICE ABIDA DIGI (03/31/2023 9:08 AM CDT) Anatomical Region Laterality Modality Breast Bilateral Mammography 04/15/2023 10:3 6 AM CDT Narrative 04/15/2023 10:40 AM CDT EXAMINATION: MG SCREENING W JANICE ABIDA DIGI ? INDICATIONS: Screening TECHNIQUE: Digital full field CC and MLO screening mammography bilaterally to include 3-D Tomosynthesis technique. This study was read with the assistance of a computer-aided detection system. HISTORY: Family history of breast cancer. No documented personal or first degree family history of breast cancer. No documented prior breast procedure or current breast complaint. COMPARISON: Multiple prior examinations available for comparison dating back to 06/18/2007, the most recent of 02/21/2022, 01/18/2021, and 12/08/2019 TISSUE DENSITY: There are scattered areas of fibroglandular density. FINDINGS: Few typically benign round and rim calcifications. Stable circumscribed ovoid probable intramammary lymph nodes bilaterally. No suspicious microcalcification or mass. No developing asymmetry or architectural distortion. No axillary adenopathy. IMPRESSION: ??No significant interval change. No mammographic evidence of malignancy. ? RECOMMENDATION: ??Routine ScreeningBilateral OVERALL IMAGING ASSESSMENT: ACR BI-RADS 2 - BENIGN FINDING(S). ?? Ordered By: JACI HERRERA Interpreted By: Justo Honeycutt, 04/15/2023 10:36 AM Jaci Herrera DO MAMMO Final Result documented in this encounter Visit Diagnoses Diagnosis Screening mammogram, encounter for documented in this encounter Additional Health Concerns Assessment Noted Time PHQ-9 Depression Total Score: 0 10/04/19 3:48 PM WOOD TECHNOLOGIST documented as of this encounter Care Teams Grinder Set Up Operator Surface Relationship Specialty Start Date End Date Jaci Herrera DO [address] [place] [address] PCP - General 08/18/16 12/14/23 Sana Sethi OD [address] [place] [address] Scrubber System Attendant 04/30/22 documented as of this encounter
--- OUTSIDE RECORDS SUMMARY | 2024-08-08 14:13 | XMS_ITS | Encounter Summary ---
Author Organization [facility] Address [address] [place] [address]. [place] [address] [place] [address] Care Team Providers Care System Engineer Name Role Phone FraciscoJaci Christi RODRIGUEZ Primary Care Provider [phone] Sana Sethi OD Unavailable [phone] Reason for Visit * Auth/Cert (Routine) Specialty Diagnoses / Procedures Referred By Contac t Referred To Contact Diagnoses Hx of polyps Procedures COLONOSCOPY Altagracia Porter MD [address] [address] Phone: tel: fax: Referral ID Status Reason Start Date Expiration Date Visits Re quested Visits Authorized [id number] 1 1 Encounter Details Date Type Department Care Team (Latest Contact Info) Description 07/07/2022 7:14 AM DIESEL ENGINE TESTER - 07/07/2022 9:55 AM [facility] Hospital Encounter [facility] [place], [place] [address] Altagracia Porter MD [address] [id number] Discharge Disposition: Home or Self Care (Routine [...] 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 No / Unsure 07/07/2022 7:13 AM DIESEL ENGINE TESTER documented as of this encounter Last Filed Vital Signs Vital Sign Reading Time Taken Comments Blood Pressure 114/95 07/07/2022 9:40 AM DIESEL ENGINE TESTER Pulse 81 07/07/2022 9:40 AM DIESEL ENGINE TESTER Temperature 36.6 ??C (97.8 ??F) 07/07/2022 7:54 AM CS T Respiratory Rate 12 07/07/2022 9:40 AM DIESEL ENGINE TESTER Oxygen Saturation 100% 07/07/2022 9:40 AM DIESEL ENGINE TESTER Inhaled Oxygen Concentration - - Weight 122.5 kg (270 lb) 06/25/2022 8:31 AM DIESEL ENGINE TESTER Height 172.7 cm (5' 8 ) 06/25/2022 8:31 AM DIESEL ENGINE TESTER Body Mass Index 41.05 06/25/2022 8:31 AM DIESEL ENGINE TESTER documented in this encounter Discharge Instructions * Discharge Instructions* Altagracia Porter MD - 07/07/2022 9:27 AM DIESEL ENGINE TESTER Normal colonoscopy; NO polyps! EL ENGINE TESTER * Attachments The following attachments cannot be sent through Care Everywhere. * Colonoscopy Discharge Instructions (Maldivian) * General Anesthesia Discharge Instructions (Maldivian) documented in this encounter Medications at Time of Discharge Insulin Pen Needle (PEN NEEDLES 31GX5/16 ) 31G X 8 MM Misc 08/25/2017 atorvastatin (LIPITOR) 10 MG tabletIndications:Ot her hyperlipidemia TAKE 1 TABLET BY MOUTH EVERY DAY IN THE EVENING 90 tablet 07/01/2022 3 BASAGLAR KWIKPEN 100 UNIT/ML injection (PEN)Indications:Con trolled type 2 diabetes mellitus with microalbuminuria, with long-term current use of insulin ([facility] HHS/HCC) INJECT 55 UNITS EVERY DAY DIRECTED 20 [...] microalbuminuria, with long-term current use of insulin ([facility] HHS/HCC) TAKE 1 TABLET BY MOUTH TWICE A DAY 180 tablet 3 04/01/2022 4 pioglitazone (ACTOS) 45 MG tabletIndications:Co ntrolled type 2 diabetes mellitus with microalbuminuria, with long-term current use of insulin ([facility] H[facility]) TAKE 1 TABLET BY MOUTH EVERY [...] Not on file 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 Smoking status: Never ??? [...] Assessment & Plan: Colonoscopy Altagracia Porter 07/07/2022 EL ENGINE TESTER documented in this encounter Procedure Notes * [...] the left lateral decubitus position, the Olympus [id number] colonoscope was introduced into the rectum and [...] will follow-up with Dr. Herrera as needed. Atlagracia Porter M.D. Cc: Dr. Regina Herrera EL ENGINE TESTER documented in this encounter Plan of Treatment Upcoming Encounters Date Type Department Care Team (Late st Contact Info) Description 09/29/2024 8:00 AM DIESEL ENGINE TESTER Office Visit [facility] Family Medicine - [address], [address] [place] [address] Elza Benitez MD [address] [facility] [address] [place] [address] documented as of this encounter Procedures Procedure Name Priority Date/Time Associated Diagnosis Comments COLONOSCOPY Routine 07/07/2022 9:27 AM DIESEL ENGINE TESTER PROCEDURE GENERIC 07/07/2022 9:1 4 AM DIESEL ENGINE TESTER COLONOSCOPY 07/07/2022 8:56 AM DIESEL ENGINE TESTER Hx of polyps POCT GLUCOSE - LEVINE DOCKED DEVICE Routine 07/07/2022 8:09 AM DIESEL ENGINE TESTER documented in this encounter Results * Colonoscopy (07/07/2022 9:27 AM DIESEL ENGINE TESTER) Narrative Procedure Note Altagracia Porter MD - [...] in the left lateral decubitus position, the [id number] colonoscope was introduced into the rectum and [...] Result * PROCEDURE GENERIC (07/07/2022 9:14 AM DIESEL ENGINE TESTER) Narrative 07/07/2022 9:14 AM DIESEL ENGINE TESTER Ordered by an unspecified provider. us Documents Scanned [facility] Final Result * (ABNORMAL) POCT glucose (07/07/2022 8:09 AM DIESEL ENGINE TESTER) GLUCOSE POC 255(H) 70 - 99 mg/dL 07/07/2022 8:54 AM DIESEL ENGINE TESTER [facility] 07/07/2022 8:09 AM DIESEL ENGINE TESTER us Altagracia Porter MD POCT ORDERABLES - DEVICE Fi nal Result [facility] [address] [place] [address], [place] [phone] documented in this encounter Visit Diagnoses Not on filedocumented in this encounter Administered Medications Inactive Administered Medications - up to 3 most recent administrations Medication Order MAR Action Action Date Dose Rate Site lactated ringers infusion at 10 mL/hr, Intravenous, Continuous, Starting on Thu07/07/22 at 0830, Until Thu07/07/22 at 1155, Infuse at TKO rate, Pre-Op New Bag 07/07/2022 8:43 AM DIESEL ENGINE TESTER documented in this encounter Active and Recently Administered Medications Times are shown in DIESEL ENGINE TESTER. Continuous Medication Order 07/05/2022 07/06/2022 07/07/2022 lactated ringers infusion at 10 mL/hr, Intravenous, Continuous, Starting on Thu07/07/22 at 0830, Until Thu07/07/22 at 1155, Infuse at TKO rate, Pre-Op 0843 (New Bag - Prov ider: Anette Delarosa COIL MAKER)0921 (Anesthesia Volume Adjustment - Provider: Anette Delarosa CRNA) documented in this encounter Additional Health Concerns Assessment Noted Time PHQ-9 Depression Total Score: 0 10/04/19 3:48 PM DIESEL ENGINE TESTER documented as of this encounter Care Teams System Engineer Relationship Specialty Start Date End Date Jaci Herrera DO [address] [place] [address] PCP - General 08/18/16 12/14/23 Sana Sethi OD [address] [place] [address] Work From Home 04/30/22 documented as of this encounter
--- OUTSIDE RECORDS SUMMARY | 2024-08-08 14:13 | XMS_ITS | Encounter Summary ---
Author Organization [facility] Address [address] [place] [address]. 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
--- OUTSIDE RECORDS SUMMARY | 2024-08-08 14:13 | XMS_ITS | Encounter Summary ---
Author Organization [facility] Address [address] [place] [address]. [place], [place] [address] [place] [address] Care Team Providers Care Java Software Architect Name Role Phone Jaci Herrera DO Primary Care Provider [phone] Reason for Visit * Reason Comments Physical annual Encounter Details Date Type Department Care Team ([facility] st Contact Info) Description 01/18/2021 4:15 PM CDT Office Visit 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 No / Unsure 01/18/2021 9:58 AM CDT documented as of this encounter Last Filed Vital Signs Vital Sign Reading Time Taken Comments Blood Pressure 120/78 01/18/2021 3:29 PM CDT Pulse 86 01/18/2021 3:29 PM CDT Temperature - - Respiratory Rate - - Oxygen Saturation - - Inhaled Oxygen Concentration - - Weight 124.3 kg (274 lb) 01/18/2021 3:29 PM CDT Height 168.9 cm (5' 6.5 ) 01/18/2021 3:29 PM CDT Body Mass Index 43.56 01/18/2021 3:29 PM CDT documented in this encounter Progress Notes * Jaci Herrera, DO - 01/18/2021 4:15 PM CDT Reason for Visit: Physical (annual) History of Present Illness: Here for annual Has a few complaint Has had muscle spasm in left shoulder blade for a week, started after had been on computer for a long time and was slouching, just can't get it to go away Says work has been busier and more stressed from that and trouble sleeping at night Doesn't exercise Doesn't watch diet Due for eye exam Has painful lesions on both heels Did have covid vac ROS: Review of Systems Constitutional: As per HPI Medications: Current Outpatient Medications: ??? ATORVASTATIN 10 MG tablet, TAKE 1 TABLET BY MOUTH EVERY DAY IN THE EVENING, Disp: 90 tablet, Rfl: 1 ??? cetirizine 10 MG tablet, Take 10 mg by mouth daily., Disp: , Rfl: ??? cyclobenzaprine 10 MG tablet, Take 1 tablet (10 mg total) by mouth 3 (three) times daily as needed for Muscle Spasms., Disp: 30 tablet, Rfl: 1 ??? HYDROCHLOROTHIAZIDE 50 MG tablet, TAKE 1 TABLET BY MOUTH EVERY DAY, Disp: 90 tablet, Rfl: 0 ??? insulin glargine (BASAGLAR KWIKPEN) 100 UNIT/ML injection (PEN), INJECT 55 UNITS EVERY DAY DIRECTED, Disp: 15 mL, Rfl: 0 ??? Insulin Pen Needle (PEN NEEDLES 31GX5/16 ) 31G X 8 MM [facility], , Disp: , Rfl: ??? LISINOPRIL 10 MG tablet, TAKE 1 TABLET BY MOUTH EVERY DAY, Disp: 90 tablet, Rfl: 1 ??? METFORMIN 1000 MG tablet, TAKE 1 TABLET BY MOUTH TWICE A DAY, Disp: 60 tablet, Rfl: 0 ??? PIOGLITAZONE 45 MG tablet, TAKE 1 TABLET BY MOUTH EVERY DAY, Disp: 90 tablet, Rfl: 1 ??? VENLAFAXINE XR 150 MG 24 hr capsule, TAKE 1 CAPSULE BY MOUTH EVERY DAY, Disp: 90 capsule, Rfl: 0 No Known Allergies Past Medical History: Diagnosis [...] Not on file 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 She appears well- developed. No distress. Morbidly obese HENT: Right Ear: Tympanic membrane and external ear normal. Left Ear: Tympanic membrane and external ear normal. Nose: Nose normal. Mouth/Throat: Mucous membranes are moist. Oropharynx is clear. [...] There is no tenderness. No hernia. Genitourinary: Rectum normal. Rectal exam shows guaiac negative stool. No vaginal discharge found. Genitourinary Comments: Pap obtained Bimanual useless due to obesity Musculoskeletal: Normal range of motion. She exhibits no tenderness. Right lower leg: She exhibits no edema. Left lower leg: She exhibits no edema. Knot left scapular area consistent with muscle spasm, tender to touch, when pushed on pt said it felt better Lymphadenopathy: She has no cervical adenopathy. Neurological: She is alert and oriented to person, place, and time. Skin: Skin is warm and dry. Plantar warts on both heels, cryac applied to both times 2 Psychiatric: Mood normal. Nursing note and vitals reviewed. Filed Vitals: 01/18/21 1529 BP: 120/78 Pulse: 86 Weight: 124.3 kg (274 lb) Height: 5' 6.5 (1.689 m) Diagnoses/Impression: 1. Preventative health care 2. Essential hypertension LIPID PANEL COMPREHENSIVE METABOLIC PANEL 3. Morbid obesity ([facility]) LIPID PANEL COMPREHENSIVE METABOLIC PANEL 4. Controlled type 2 diabetes mellitus with microalbuminuria, with long-term current use of insulin([facility]) ALBUMIN URINE RANDOM LIPID PANEL HEMOGLOBIN, GLYCOSYLATED COMPREHENSIVE METABOLIC PANEL 5. Other hyperlipidemia LIPID PANEL COMPREHENSIVE METABOLIC PANEL 6. Albuminuria ALBUMIN URINE RANDOM LIPID PANEL HEMOGLOBIN, GLYCOSYLATED COMPREHENSIVE METABOLIC PANEL 7. Muscle spasm of left shoulder area cyclobenzaprine 10 MG tablet 8. History of colon polyps 9. Osteoarthritis of left knee, unspecified osteoarthritis type 10. Adjustment disorder, unspecified type 11. Plantar warts 12. Insomnia, unspecified type Recommendations and Plan: Remain active, exercise, healthy diet, eye exam when due, flu shot each Fall labs when fasting Had mamm this am Flexeril prn Try melatonin at hs Must work on wt loss F/u 6mths Reviewed and updated this visit by provider: Tobacco Allergies Meds Problems Med Hx Surg Hx Fam Hx Orders Placed This Encounter ??? ALBUMIN URINE RANDOM ??? LIPID PANEL ??? HEMOGLOBIN, GLYCOSYLATED ??? COMPREHENSIVE METABOLIC PANEL ??? cetirizine 10 MG tablet ??? cyclobenzaprine 10 MG tablet JACI HERRERA DO Referring Provider: No ref. provider found PCP: JACI HERRERA DO documented in this encounter Plan of Treatment Upcoming Encounters Date Type Department Care Team (Late st Contact Info) Description 09/29/2024 8:00 AM STEAMFITTER Office Visit [facility] Family Medicine - [address], [address] [place] [address] Elza Benitez MD [address] [facility] [address] [place], [place] [id number] documented as of this encounter Results * ALBUMIN URINE RANDOM (03/12/2021 8:17 AM CDT) MICROALBUMIN (U) 150 [address] [facility] CREATININE RANDOM (U) 200 [facility] MICROALB/CREAT 30-300 [facility] URINE SPECIMEN / Unknown 03/12/2021 8:17 AM CDT us Jaci Herrera DO URINE ORDERABLES Final Resul t [facility] [address] [facility] [address] [place] [address], * (ABNORMAL) COMPREHENSIVE METABOLIC PANEL (03/12/2021 8:13 AM CDT) SODIUM S/P/B 140 136 - 145 MMOL/[facility] POTASSIUM S/P/B 4.2 3.5 - 5.1 MMOL/L [facility] CHLORIDE S/P/B 103 98 - 107 MMOL/[facility] CO2 30 21 - 31 MMOL/[facility] ANION GAP 7 4 - 13 MM[facility] BUN 12 [...] [facility] AST 19 13 - 39 UNITS/L [facility] BILIRUBIN TOTAL S/P/B 0.4 0.2 - 1.2 MG/DL [facility] Comment: IS PATIENT FASTING?->YES RELEASE TO PATIENT->SYSTEM RELEASE GFR() IS REPORTED 21% GREATER THAN GFR(OTHER). THE USE OF RACE IN KIDNEY FUNCTION ESTIMATING EQUATIONS IS NO LONGER RECOMMENDED AND MAY RESULT IN OVERESTIMATION. IN THE NEAR FUTURE AN APPROACH THAT DISREGARDS RACE WILL BE IMPLEMENTED. 03/12/2021 8:13 AM CDT 03/13/2021 3:28 AM CDT us Jaci Herrera DO LABORATORY Final Result [facility] [address] [place] [address], * LIPID PANEL (03/12/2021 8:13 AM CDT) CHOLESTEROL 140 0 - 199 MG/DL [facility] TRIGLYCERIDES 84 0.00 - 150.00 MG/DL [facility] Comment: NCEP REFERENCE VALUES FOR TRIGLYCERIDES: NORMAL: ? <150 MG/DL BORDERLINE HIGH: ?150 - 199 MG/DL HIGH: ? 200 - 499 MG/DL VERY HIGH: ?>/= 500 MG/DL HDL 67 23 - 92 MG/DL [facility] LDL (CALCULATED) 56 0 - 99 MG/DL [facility] Comment: CUTOFF VALUES RECOMMENDED BY THE NATIONAL CHOLESTEROL EDUCATION PROGRAM: DESIRABLE: ?CHOLESTEROL <200 MG/DL ? LDL <100 MG/DL BORDERLINE: ?? CHOLESTEROL 200-239 MG/DL ?LDL 101-159 MG/DL HIGHER RISK: ??CHOLESTEROL >240 MG/DL ? LDL >160 MG/DL, HDL <40 MG/DL NON HDL CHOLESTEROL 73 NO REFERENCE RANGE MG/DL [facility] Comment: A REASONABLE GOAL FOR NON-HDL CHOLESTEROL IS ONE THAT IS 30 MG/DL HIGHER THAN THE LDL CHOLESTEROL GOAL. CHOL/HDL RATIO 2.1 0.0 - 5.0 . [facility] Comment: IS PATIENT FASTING?->YES RELEASE TO PATIENT->SYSTEM RELEASE 03/12/2021 8:13 AM CDT 03/13/2021 3:28 AM CDT Jaci Herrera DO LABORATORY Final Result Performing Organization Address City/[facility]/ZIP Co de Phone Number [facility] [address] [place] [address], * (ABNORMAL) HEMOGLOBIN, GLYCOSYLATED (03/12/2021 8:12 AM CDT) HGB A1C 8.2(A) 4.2 - 6.5 % [facility] 03/12/2021 8:12 AM CDT Jaci Herrera DO LABORATORY Final Result Performing Organization Address City/[facility] Co de Phone Number [facility] [address] [facility] [address] [place] [address], documented in this encounter Visit Diagnoses Diagnosis Preventative health care- Primary Routine general medical examination at a health care facility Essential hypertension Unspecified essential hypertension Morbid obesity ([facility]) Morbid obesity Controlled type 2 diabetes mellitus with microalbuminuria, with long-term current use of insulin ([facility] HHS/[facility]) Other hyperlipidemia Albuminuria Proteinuria Muscle spasm of left shoulder area History of colon polyps Personal history of colonic polyps Osteoarthritis of left knee, unspecified osteoarthritis type Adjustment disorder, unspecified type Plantar warts Plantar wart Insomnia, unspecified type documented in this encounter Additional Health Concerns Assessment Noted Time PHQ-9 Depression Total Score: 0 01/19/20 21 4:36 PM CDT documented as of this encounter Care Teams Java Software Architect Relationship Specialty Start Date End Date Jaci Herrera DO [address] [facility] [address] [place] [address] PCP - General 08/18/16 12/14/23 documented as of this encounter
--- OUTSIDE RECORDS SUMMARY | 2024-08-08 14:13 | XMS_ITS | Encounter Summary ---
Author Organization [facility] Address [address] [place] [address]. 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 Rx sent to pharmacy. * Sarah Yap DO - 11/23/2019 11:12 AM CDT Diflucan 150mg po at once * Sarai Green RN - 11/23/2019 10:54 AM CDT Pt called has a vaginal yeast infection Requesting [phone] documented in this encounter Plan of Treatment Upcoming Encounters Date Type Department Care Team (Late st Contact Info) Description 09/29/2024 8:00 AM STRAIGHTENER AND ALIGNER Office Visit [facility] Family Medicine - [address], [address] [place] [address] Elza Benitez MD [address] [facility] [address] [place] [address] documented as of this encounter Visit Diagnoses Diagnosis Yeast infection- Primary Other and unspecified mycoses documented in this encounter Care Teams Software Sales Representative Relationship Specialty Start Date End Date Sarah Yap DO [address] [place] [address] PCP - General 08/18/16 12/14/23 documented as of this encounter
--- OUTSIDE RECORDS SUMMARY | 2024-08-08 14:13 | XMS_ITS | Encounter Summary ---
Author Organization [facility] Address [address] [place] [address]. [place], [place] [address] [place] [address] Care Team Providers Care Emergency Medicine Nurse Practitioner Name Role Phone Jaic Herrera DO Primary Care Provider [phone] Reason for Visit * Imaging (Routine) - Closed Specialty Diagnoses / Procedures Referred By Unruly pham Referred To Contact RADIOLOGY Diagnoses Encounter for screening mammogram for malignant neoplasm of breast Procedures MG SCREENING W JANICE ABIDA DIGI Jaci Herrera DO [address] [place] [address] Phone: tel: fax: Referral ID Status Reason Start Date Expiration Date Visits Re quested Visits Authorized [id number] Closed 01/08/2021 02/07/2022 1 1 Encounter Details Date Type Department Care Team (Latest Contact Info) Description 01/18/2021 10:00 AM CDT - 01/18/2021 11:59 PM CDT Hospital Encounter [facility]ammography [address] [place] [address] Jaci Herrera DO [address] [place] [address] Discharge Disposition: Home or Self [...] 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 2 cyclobenzaprine 10 MG tabletIndications:Mu scle spasm of left shoulder area Take 1 tablet (10 mg total) by mouth 3 (three) times daily as needed for Muscle Spasms. 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 ([facility]) INJECT 55 UNITS EVERY DAY DIRECTED 15 mL 07/17/2020 1 LISINOPRIL 10 MG tabletIndications:Es sential hypertension TAKE 1 TABLET BY MOUTH EVERY DAY 90 tablet 1 07/19/2020 1 METFORMIN 1000 MG tabletIndications:Co ntrolled type 2 diabetes mellitus with chronic kidney disease, with long-term current use of insulin, unspecified CKD stage ([facility]) TAKE 1 TABLET BY MOUTH TWICE A DAY 60 tablet 01/08/2021 1 PIOGLITAZONE 45 MG tabletIndications:Co ntrolled type 2 diabetes mellitus with chronic kidney disease, with long-term current use of insulin, unspecified CKD stage (CMS/HCC HHS/HCC) TAKE 1 TABLET BY MOUTH EVERY DAY 90 tablet 1 09/04/2020 1 VENLAFAXINE XR 150 MG 24 hr capsuleIndications:D epression, unspecified depression type TAKE 1 CAPSULE BY MOUTH EVERY DAY 90 capsule 01/15/2021 1 documented as of this encounter Plan of Treatment Upcoming Encounters Date Type Department Care Team (Late st Contact Info) Description 09/29/2024 8:00 AM EDUCATION ADMINISTRATIVE ASSISTANT Office Visit [facility] Family Medicine - [address], [address] [place] [phone] Elza Benitez MD [facility] [address] [place] [address] documented as of this encounter Procedures Procedure Name Priority Date/Time Associated Diagnosis Comments MG SCREENING W JANICE ABIDA DIGI Routine 01/18/2021 10:19 AM CDT Encounter for screening mammogram for malignant neoplasm of breast documented in this encounter Results * MG SCREENING W JANICE ABIDA DIGI (01/18/2021 10:19 AM CDT) Anatomical Region Laterality Modality Breast Bilateral Mammography 01/18/2021 1:04 PM CDT Impressions 01/18/2021 1:06 PM CDT IMPRESSION: No suspicious mammographic findings. Recommendation: 1. Follow-up Mamm in 1 year, Bilateral Assessment: ACR BI-RADS 2 - BENIGN FINDING(S) Comments: A negative or benign mammography report should not delay follow-up or biopsy of a clinically significant finding or palpable abnormality. Regions of dense breast tissue may obscure findings on mammogram. Referred By: JACI HERRERA Interpreted By: Minh Jacome MD, 01/18/2021 1:04 PM Narrative 01/18/2021 1:06 PM CDT Examination: Screening bilateral mammogram with 3-D tomosynthesis Clinical history: Positive family history of breast cancer. ??No present breast related complaints. Comparison: 12/08/2019, 10/11/2018, 09/26/2017, 08/18/2016 Technique: Digital screening mammography of both breasts was performed. 3-D tomosynthesis technique was also performed. This study was read with the assistance of computer-aided detection system. Tissue density: There are scattered areas of fibroglandular density. Findings: No suspicious masses, malignant appearing calcifications, skin thickening or other abnormalities are present. ??No significant change from the prior exam. Jaci Herrera DO MAMMO Final Result documented in this encounter Visit Diagnoses Not on filedocumented in this encounter Additional Health Concerns Assessment Noted Time PHQ-9 Depression Total Score: 0 01/19/20 21 4:36 PM CDT documented as of this encounter Care Teams Emergency Medicine Nurse Practitioner Relationship Specialty Start Date End Date Jaci Herrera DO [address] [place] [address] PCP - General 08/18/16 12/14/23 documented as of this encounter
--- OUTSIDE RECORDS SUMMARY | 2024-08-08 14:13 | XMS_ITS | Encounter Summary ---
Author Organization [facility] Address [address] [place] [address]. 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 Not on [...] (Late Contact Info) Description 09/29/2024 8:00 AM SENIOR MASTER SCHEDULER Office Visit [facility] Family Medicine - [place] [address] [facility], [address] [place] [address] Elza Benitez MD [facility] [address] [phone] documented as of this encounter Procedures Procedure Name Priority Date/Time Associated Diagnosis Comments COMPREHENSIVE METABOLIC PANEL Routine 03/14/2022 8:19 AM CDT Controlled type 2 diabetes mellitus with microalbuminuria, with long-term current use of insulin ([facility]) Other hyperlipidemia Essential hypertension Morbid obesity ([facility]/HCC) LIPID PANEL Routine 03/14/2022 8:19 AM CDT Controlled type 2 diabetes mellitus with microalbuminuria, with long-term current use of insulin ([facility]/HCC) Other hyperlipidemia Essential hypertension Morbid obesity ([facility]/HCC) ALBUMIN URINE RANDOM W/CREATININE Routine 03/14/2022 8:16 AM CDT Controlled type 2 diabetes mellitus with microalbuminuria, with long-term current use of insulin ([facility]) HEMOGLOBIN, GLYCOSYLATED Routine 03/14/2022 7:52 AM CDT Controlled type 2 diabetes mellitus with microalbuminuria, with long-term current use of insulin ([facility]) COLLECTION VENOUS BLOOD VENIPUNCTURE Routine 03/14/2022 7:46 AM CDT Controlled type 2 diabetes mellitus with microalbuminuria, with long-term current use of insulin ([facility]) documented in this encounter Results * LIPID PANEL (03/14/2022 8:19 AM CDT) [facility] CHOLESTEROL 149 0 - 199 MG/DL [facility] TRIGLYCERIDES 84 0.00 - 150.00 MG/DL [facility] Comment: NCEP REFERENCE VALUES FOR TRIGLYCERIDES: NORMAL: ? <150 MG/DL BORDERLINE HIGH: ?150 - 199 MG/DL HIGH: ? 200 - 499 MG/DL VERY HIGH: ?>/= 500 MG/DL HDL 71 >40 MG/DL [facility] LDL (CALCULATED) 61 0 - [...] RATIO 2.1 0.0 - 5.0 . [facility] Comment:IS PATIENT FASTING?- >YES 03/14/2022 8:19 AM CDT 03/15/2022 5:07 AM CDT Sarah Yap DO LABORATORY Final Result [address] [address], * COMPREHENSIVE METABOLIC PANEL (03/14/2022 8:19 AM CDT) [facility] SODIUM S/P/B 141 133 - 146 MMOL/L [facility] POTASSIUM S/P/B 4.3 3.5 - 5.1 MMOL/L [facility] CHLORIDE S/P/B 102 98 - 107 MMOL/L [facility] CO2 28 21 - 31 MMOL/L [facility] ANION GAP 11 4 - 13 MMOL/L [facility] BUN 12 7 - 25 MG/DL [facility] CREATININE S/P/B 0.61 0.60 - 1.30 MG/DL [facility] EGFR NON-AFR. AMER. >90 >=60 ML/MIN/1.7 3 M2 [facility] CALCIUM S/P/B 9.2 8.3 - 10.5 MG/DL [facility] GLUCOSE 90 70 - 100 MG/DL [facility] TOTAL PROTEIN S/P/B 6.6 6.4 - 8.3 G/DL [facility] ALBUMIN S/P/B 4.0 3.5 - 5.0 G/DL [facility] ALT 18 9 - 43 UNITS/L [facility] ALKALINE PHOSPHATASE S/P/B 83 34 - 104 UNITS/L [facility] AST 24 13 - 39 UNITS/L [facility] BILIRUBIN TOTAL S/P/B 0.3 0.2 - 1.2 MG/DL [facility] Comment:IS PATIENT FASTING?- >YES 03/14/2022 8:19 AM CDT 03/15/2022 5:07 AM CDT Sarah Yap DO LABORATORY Final Result Performing Organization Address City/[facility]/ZIP Co de Phone Number [facility] [address] [place] [address], * ALBUMIN URINE RANDOM (03/14/2022 8:16 AM CDT) MICROALBUMIN (U) 30 [facility] CREATININE RANDOM (U) 100 [facility] MICROALB/CREAT <30 [facility] URINE SPECIMEN / Unknown 03/14/2022 8:16 AM CDT Sarah Yap DO URINE ORDERABLES Final Resul t Performing Organization Address [facility] Co de Phone Number [facility] [address] * (ABNORMAL) HEMOGLOBIN, GLYCOSYLATED (03/14/2022 7:52 AM CDT) HGB A1C 8.2(A) 4.2 - 6.5 % [facility] 03/14/2022 7:52 AM CDT us Sarah Yap DO LABORATORY Final Result Performing Organization Address [facility] Co de Phone Number [facility] [address] documented in this encounter Visit Diagnoses Diagnosis Controlled type 2 diabetes mellitus with microalbuminuria, with long-term current use of insulin ([facility]) Other hyperlipidemia Essential hypertension Unspecified essential hypertension Morbid obesity ([facility]/HCC [facility]/HCC) Morbid obesity documented in this encounter Additional Health Concerns Assessment Noted Time PHQ-9 Depression Total Score: 0 10/04/19 22 3:48 PM SENIOR MASTER SCHEDULER documented as of this encounter Care Teams Fuel System Maintenance Supervisor Relationship Specialty Start Date End Date Sarah Yap DO [address] [place] [address] PCP - General 08/18/16 12/14/23 documented as of this encounter
--- OUTSIDE RECORDS SUMMARY | 2024-08-08 14:13 | XMS_ITS | Encounter Summary ---
Author Organization [facility] Address [address] [place] [address]. 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 [address] [place] [address] documented as of this encounter Procedures Procedure Name Priority Date/Time Associated Diagnosis Comments ALBUMIN URINE RANDOM W/CREATININE Routine 11/03/2022 8:06 AM CDT Controlled type 2 diabetes mellitus with microalbuminuria, with long-term current use of insulin ([facility]) Albuminuria HEMOGLOBIN, GLYCOSYLATED Routine 11/03/2022 8:02 AM CDT Controlled type 2 diabetes mellitus with microalbuminuria, with long-term current use of insulin ([facility] H[facility]) Albuminuria BASIC METABOLIC PANEL Routine 11/03/2022 8:02 AM CDT Controlled type 2 diabetes mellitus with microalbuminuria, with long-term current use of insulin ([facility]) Albuminuria documented in this encounter Results * ALBUMIN URINE RANDOM (11/03/2022 8:06 AM CDT) MICROALBUMIN (U) 80 [facility] CREATININE RANDOM (U) 200 [facility] MICROALB/CREAT 30-300 [facility] URINE SPECIMEN / Unknown 11/03/2022 8:06 AM CDT us Sarah Yap DO URINE ORDERABLES Final Resul t [facility] [address] [facility] [address] [place] [address], * (ABNORMAL) HEMOGLOBIN, GLYCOSYLATED (11/03/2022 8:02 AM CDT) HGB A1C 9.8(A) 4.2 - 6.5 % [facility] 11/03/2022 8:02 AM CDT Sarah Yap DO LABORATORY Final Result Performing Organization Address City/[facility]/ZIP Co de Phone Number [facility] [address] [place] [address], * (ABNORMAL) BASIC METABOLIC PANEL (11/03/2022 8:02 [...] 8:02 AM CDT 11/04/2022 6:17 AM CDT Sarah Yap DO LABORATORY Final Result [facility] [address] [place] [address], documented in this encounter Visit Diagnoses Diagnosis Controlled type 2 diabetes mellitus with microalbuminuria, with long-term current use of insulin ([facility]) Albuminuria Proteinuria documented in this encounter Additional Health Concerns Assessment Noted Time PHQ-9 Depression Total Score: 0 10/04/19 22 3:48 PM CORE WINDING OPERATOR documented as of this encounter Care Teams Vaccines Solutions Specialist Relationship Specialty Start Date End Date Sarah Yap DO [address] [place] [address] PCP - General 08/18/16 12/14/23 Sana Sethi OD [address] [place] [address] Stained Glass Artist 04/30/22 documented as of this encounter
--- OUTSIDE RECORDS SUMMARY | 2024-08-08 14:13 | XMS_ITS | Encounter Summary ---
Author Organization [facility] Address [address] [place] [address]. 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 Not on [...] (Late Contact Info) Description 09/29/2024 8:00 AM LENO SEWER Office Visit [facility] Family Medicine - [address], [address] [place] [phone] Elza Benitez MD [address] [facility] [address] [place] [address] documented as of this encounter Visit Diagnoses Diagnosis Type 2 diabetes mellitus with diabetic chronic kidney disease ([facility]) Type II or unspecified type diabetes mellitus with renal manifestations, not stated as uncontrolled documented in this encounter Care Teams Base Draw Operator Relationship Specialty Start Date End Date Sarah Yap DO [address] [place] [address] PCP - General 08/18/16 12/14/23 documented as of this encounter
--- OUTSIDE RECORDS SUMMARY | 2024-08-08 14:13 | XMS_ITS | Encounter Summary ---
Author Organization [facility] Address [address] [place] [address]. [place], [place] [address] [place] [address] Care Team Providers Care Switchboard Operator Receptionist Name Role Phone Sarah Yap DO Primary Care Provider [phone] Sana Sethi OD Unavailable [phone] Reason for Visit * Reason Onset Date Comments Medication Request 03/18/2023 Encounter Details Date Type Department Care Team (Late st Contact Info) Description 03/18/2023 Telephone [facility] [address] 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 Rx sent * Sarah Yap DO - 03/18/2023 1:59 PM CDT Rx diflucan 150mg #1 take at once * Sylvia Ricketts RN - 03/18/2023 1:55 PM CDT Pt calling c/o itching and discomfort in her vaginal area. Thinks its a yeast infection and has hadthem before. Asking for diflucan? ncb pt [facility] documented in this encounter Plan of Treatment Upcoming Encounters Date Type Department Care Team (Late st Contact Info) Description 09/29/2024 8:00 AM OCCUPATIONAL HEALTH NURSE SUPERVISOR Office Visit [facility] Family Medicine - [address], [address] [place] [phone] Elza Benitez MD [address] [facility] [address] [place] [address] documented as of this encounter Visit Diagnoses Diagnosis Yeast infection- Primary Other and unspecified mycoses documented in this encounter Additional Health Concerns Assessment Noted Time PHQ-9 Depression Total Score: 0 10/04/19 22 3:48 PM OCCUPATIONAL HEALTH NURSE SUPERVISOR documented as of this encounter Care Teams Switchboard Operator Receptionist Relationship Specialty Start Date End Date Sarah Yap DO [address] [place] [address] PCP - General 08/18/16 12/14/23 Sana Sethi OD [address] [place] [address] Director Of Corporate Sponsorships 04/30/22 documented as of this encounter
--- OUTSIDE RECORDS SUMMARY | 2024-08-08 14:13 | XMS_ITS | Encounter Summary ---
Author Organization [facility] Address [address] [place] [address]. 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 on file [...] st Contact Info) Description 09/29/2024 8:00 AM MACHINERY ENGINEER Office Visit [facility] Family Medicine - [address], [address] [place] [phone] Elza Benitez MD [address] [facility] [address] [place] [address] documented as of this encounter Visit Diagnoses Not on filedocumented in this encounter Additional Health Concerns Assessment Noted Time PHQ-9 Depression Total Score: 0 01/19/20 21 4:36 PM CDT documented as of this encounter Care Teams Train Clerk Relationship Specialty Start Date End Date Sarah Yap DO [address] [place] [address] PCP - General 08/18/16 12/14/23 documented as of this encounter
--- OUTSIDE RECORDS SUMMARY | 2024-08-08 14:13 | XMS_ITS | Encounter Summary ---
Author Organization [facility] Address [address] [place] [address]. [place], [place] [address] [place] [address] Care Team Providers Care Supervisor Mold Shop Name Role Phone FraciscoSarah Primary Care Provider [phone] Reason for Visit * Reason Comments Acute Note cold symptoms Encounter Details Date Type Department Care Team (Late st Contact Info) Description 07/12/2019 10:15 AM PROFESSOR OF PRACTICE Office [facility] [address] [facility] [address] [place] [address] Elsa Hayes PA-C [address] [facility] 200 [place] [address] Acute Note (cold symptoms) Social History Tobacco Use Types Packs/Day Years [...] 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 Not on file Not on file documented as of this encounter Last Filed Vital Signs Vital Sign Reading Time Taken Comments Blood Pressure 124/86 07/12/2019 10:07 AM PROFESSOR OF PRACTICE Pulse - - Temperature 37.2 ??C (98.9 ??F) 07/12/2019 10:[address] Respiratory Rate - - Oxygen Saturation - - Inhaled Oxygen Concentration - - Weight 116.1 kg (256 lb) 07/12/2019 10:07 AM PROFESSOR OF PRACTICE Height - - Body Mass Index 39.5 01/04/2019 3:47 PM CDT documented in this encounter Progress Notes * Elsa Hayes PA-C - 07/12/2019 10:15 AM CST Reason for Visit: Comfort Townsend is a 54-year-old female presents today for Acute Note (cold symptoms) History of Present Illness: Patient has been dealing with thick discolored mucus from her nose. She denies shortness of breath,chest pain nausea, vomiting, diarrhea, fever, and chills She is very congested and she is very hoarse. ROS: Review of Systems Constitutional: Negative for fever. HENT: Positive for congestion and sinus pain. Negative for ear pain. Laryngitis. Eyes: Negative for pain. Respiratory: Negative for shortness of breath. Cardiovascular: Negative for chest pain. Gastrointestinal: Negative for abdominal pain. Genitourinary: Negative for dysuria. Musculoskeletal: Negative for myalgias. Neurological: Negative for dizziness. Psychiatric/Behavioral: Negative for depression. Medications: Current Outpatient Medications: ??? amoxicillin-clavulanate 875-125 MG tablet, Take 1 tablet (875 mg total) by mouth 2 (two) times daily for 10 days., Disp: 20 tablet, Rfl: 0 ??? atorvastatin 10 MG tablet, Take 1 tablet by mouth daily., Disp: , Rfl: ??? clobetasol 0.05 % ointment, Apply topically 2 (two) times daily as needed. apply to affected area, Disp: , Rfl: 2 ??? fluticasone propionate 50 MCG/ACT nasal spray, 2 sprays by Each Nostril route daily for 30 days., Disp: 16 g, Rfl: 3 ??? hydrochlorothiazide 50 MG tablet, Take 1 tablet by mouth daily., Disp: , Rfl: ??? insulin glargine (BASAGLAR KWIKPEN) 100 UNIT/ML injection (PEN), INJECT 55 UNITS SUBCUTANEOUS DAILY DIRECTED, Disp: , Rfl: ??? Insulin Pen Needle (PEN NEEDLES 31GX5/16 ) 31G X 8 MM [facility], , Disp: , Rfl: ??? lisinopril 10 MG tablet, Take 1 tablet by mouth daily., Disp: , Rfl: ??? metFORMIN 1000 MG tablet, Take 1 tablet by mouth 2 (two) times daily., Disp: , Rfl: ??? pioglitazone 45 MG tablet, Take 1 tablet by mouth daily., Disp: , Rfl: ??? predniSONE 20 MG tablet, Take 2 tablets (40 mg total) by mouth daily for 7 days., Disp: 14 tablet, Rfl: 0 ??? venlafaxine XR 150 MG 24 hr capsule, Take 1 capsule by mouth daily., Disp: , Rfl: Current Facility-Administered Medications: ??? triamcinolone acetonide (KENALOG-40) injection 40 mg, 40 mg, Intramuscular, Once, Sarah Barraza Fracisco, DO No Known Allergies Past Medical History: Diagnosis Date ??? Acne ??? Cholelithiasis ??? Hypertension ??? Postmenopausal Late 40's ? Premenstrual syndrome ??? Trigger thumb ??? Viral warts Past Surgical History: Procedure Laterality Date ??? COLONOSCOPY 11/11/2012: next colonoscopy due 03/2015; 03/2010 polyp 05/2015 normal repeat 5 yrs ??? LITHOTRIPSY ??? OTHER PROCEDURE Ear surgeyr- Lasik ??? TONSILLECTOMY Social History Socioeconomic History ??? Marital status: Spouse name: Not on file ??? Number of children: Not on file ??? Years of education: Not on file ??? Highest education level: Not on file 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 Financial resource strain: Not on file ??? Food insecurity: Worry: Not on file Inability: Not on file ??? Transportation needs: Medical: Not on file Non-medical: Not on file Tobacco Use ??? Smoking status: Never Smoker ??? Smokeless tobacco: Never Used Substance and Sexual Activity ??? Alcohol use: Yes ??? Drug use: Not on file ??? Sexual activity: Not on file Lifestyle ??? Physical activity: Days per week: Not on file Minutes per session: Not on file ??? Stress: Not on file Relationships ??? Social connections: Talks on phone: Not on file Gets together: Not on file Attends mandaen service: Not on file Active member of club or organization: Not on file Attends meetings of clubs or organizations: Not on file Relationship status: Not on file ??? Intimate partner violence: Fear of current or ex partner: Not on file Emotionally abused: Not on file Physically abused: Not on file Forced sexual activity: Not on file Other Topics Concern ??? Not on file Social History Narrative ??? Not on file Family History Problem Relation Name Age of Onset ??? Breast Cancer Maternal Grandmother 75 ??? Breast Cancer Maternal Aunt ? age ??? Other (skin cancer) Father ??? Diabetes Other Family hx. ??? Hypertension Other Family hx. Family Status Relation Name Status ??? MGM (Not Specified) ??? MAunt (Not Specified) ??? Father (Not Specified) ??? Other Family hx. Alive Physical Exam: Filed Vitals: 07/12/19 1007 BP: 124/86 Temp: 98.9 ??F (37.2 ??C) Weight: 116.1 kg (256 lb) Body mass index is 39.5 kg/m??. Physical Exam Constitutional: No distress. HENT: Nose: Mucosal edema and rhinorrhea present. Right sinus exhibits maxillary sinus tenderness. Left sinus exhibits maxillary sinus tenderness. Mouth/Throat: No oropharyngeal exudate. Cardiovascular: Normal rate and regular rhythm. No murmur heard. Pulmonary/Chest: Effort normal and breath sounds normal. No respiratory distress. Musculoskeletal: She exhibits no edema or tenderness. Neurological: No cranial nerve deficit. Skin: No erythema. Psychiatric: She has a normal mood and affect. Assessment: 1. Upper respiratory tract infection, unspecified type amoxicillin-clavulanate 875-125 MG tablet fluticasone propionate 50 MCG/ACT nasal spray predniSONE 20 MG tablet Recommendations/Plan: Return if symptoms worsen or fail to improve. ELSA HAYES PA-C Cosigned by Liam Vogt MD at 07/12/2019 10:23 AM PROFESSOR OF PRACTICE ESSOR OF PRACTICE ESSOR OF PRACTICE documented in this encounter Plan of Treatment Upcoming Encounters Date Type Department Care Team (Late st Contact Info) Description 09/29/2024 8:00 AM PROFESSOR OF PRACTICE Office Visit [facility] Family Medicine - [address], [address] [place] [address] Elza Benitez MD [address] [facility] [address] [place] [address] documented as of this encounter Visit Diagnoses Diagnosis Upper respiratory tract infection, unspecified type- Primary documented in this encounter Care Teams Supervisor Mold Shop Relationship Specialty Start Date End Date Sarah Yap DO [address] [place] [address] PCP - General 08/18/16 12/14/23 documented as of this encounter
--- OUTSIDE RECORDS SUMMARY | 2024-08-08 14:13 | XMS_ITS | Encounter Summary ---
Author Organization [facility] Address [address] [place] [address]. [place], [place] [address] [place] [address] Care Team Providers Care Veterans' Coordinator Name Role Phone Sarah Yap DO Primary Care Provider [phone] Sana Sethi OD Unavailable [phone] Reason for Visit * Reason Comments Allied Health Visit Repeat UA Encounter Details Date Type Department Care Team (Latest Contact Info) Description 12/12/2022 8:00 AM CDT Allied Health/Nurse Visit [facility] [address] [facility] [address] [place] [phone] Sarah Yap DO [address] [place], [place] [address] Allied Health Visit (Repeat UA) Social History Tobacco Use Types Packs/Day Years [...] 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 No reported urinary symptoms but does think she has a yeast infection from the antibiotics and is wondering is she can get a medication. Call pt with results Cosigned by Sarah Yap DO at 12/12/2022 9:00 AM CDT documented in this encounter Plan of Treatment Upcoming Encounters Date Type Department Care Team (Late st Contact Info) Description 09/29/2024 8:00 AM TREASURER Office Visit [facility] Medical [address], [address] [place] [address] Elza Benitez MD [address] [place] [address] [place] [phone] documented as of this encounter Procedures Procedure Name Priority Date/Time Associated Diagnosis Comments URINALYSIS AUTO DIP Routine 12/12/2022 8 :22 AM CDT UTI (urinary tract infection) documented in this encounter Results * (ABNORMAL) URINALYSIS AUTO DIP (12/12/2022 8:22 AM CDT) COLOR (U) PALE YELLOW YELLOW [facility] TRANSPARENCY CLOUDY(A) CLEAR [facility] GLUCOSE (U) >=1000 mg/dl(A) NEGATIVE MG/DL [facility] BILIRUBIN (U) NEGATIVE NEGATIVE [facility] KETONES MG/DL (U) NEGATIVE NEGATIVE MG/DL [facility] SPECIFIC GRAVITY (U) >=1.030 1.001 - 1.035 [facility] BLOOD (U) SMALL (1+, Hemolyzed)( A) NEGATIVE [facility] U PH 6.5 5.0 - 9.0 [facility] PROTEIN (U) 1+ (30)(A) NEGATIVE mg/dL [facility] UROBILINOGEN 0.2 0.2 - 1.0 EU/dL = mg/dL [facility] NITRITES NEGATIVE NEGATIVE MG/DL [facility] LEUKOCYTES (U) TRACE(A) NEGATIVE [facility] URINE SPECIMEN OBTAINED BY CLEAN CATCH PROCEDURE / Unknown 12/12/2022 8:22 AM CDT us Sarah Yap DO URINE ORDERABLES Final Resul t [facility] [address] [facility] [address] [place] [address], documented in this encounter Visit Diagnoses Diagnosis UTI (urinary tract infection)- Primary Urinary tract infection, site not specified Yeast infection Other and unspecified mycoses documented in this encounter Additional Health Concerns Assessment Noted Time PHQ-9 Depression Total Score: 0 10/04/19 22 3:48 PM TREASURER documented as of this encounter Care Teams Veterans' Coordinator Relationship Specialty Start Date End Date Sarah Yap DO [address] [place] [address] PCP - General 08/18/16 12/14/23 Sana Sethi OD [address] [place] [address] Levee Superintendent 04/30/22 documented as of this encounter
--- OUTSIDE RECORDS SUMMARY | 2024-08-08 14:13 | XMS_ITS | Encounter Summary ---
Author Organization [facility] Address [address] [place] [address]. [place], [place] [address] [place] [address] Care Team Providers Care Nurses' Association Counselor Name Role Phone Jaci Herrera DO Primary Care Provider [phone] Reason for Visit * Reason Comments Acute Note worsening rash Encounter Details Date Type Department Care Team (Late st Contact Info) Description 02/23/2019 3:45 PM CDT Office Visit [facility] [address] [place] [phone] Jaci Herrera DO [address] [place] [address] Acute Note (worsening rash) Social History Tobacco Use Types Packs/Day Years [...] 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 on file Not on file documented as of this encounter Last Filed Vital Signs Vital Sign Reading Time Taken Comments Blood Pressure 118/70 02/23/2019 3:33 PM CDT Pulse - - Temperature 36.7 ??C (98.1 ??F) 02/23/2019 3:33 PM CD T Respiratory Rate - - Oxygen Saturation - - Inhaled Oxygen Concentration - - Weight 123.4 kg (272 lb) 02/23/2019 3:33 PM CDT Height - - Body Mass Index 41.97 01/04/2019 3:47 PM CDT documented in this encounter Progress Notes * Jaci Herrera, DO - 02/23/2019 3:45 PM CDT Reason for Visit: Acute Note (worsening rash) History of Present Illness: Here with rash on arms and left leg being worse since the weather got so hot Works out in sun a lot Hard prednisone in early January and it cleared until around February 03 Itches a lot and has not taken daily antihistamine Steroid creams don't help Has had some stressors No new products ROS: Review of Systems Constitutional: As per HPI Medications: Current Outpatient Medications: ??? atorvastatin 10 MG tablet, Take 1 tablet by mouth daily., Disp: , Rfl: ??? hydrochlorothiazide 50 MG tablet, Take 1 tablet by mouth daily., Disp: , Rfl: ??? insulin glargine (BASAGLAR KWIKPEN) 100 UNIT/ML injection (PEN), INJECT 55 UNITS SUBCUTANEOUS DAILY DIRECTED, Disp: , Rfl: ??? Insulin Pen Needle (PEN NEEDLES 31GX5/16 ) 31G X 8 MM [facility], , Disp: , Rfl: ??? lisinopril 10 [...] due 03/2015; 03/2010 polyp 05/2015 normal repeat yrs ??? LITHOTRIPSY ??? OTHER PROCEDURE Ear surgeyr- Lasik ??? TONSILLECTOMY Social History Socioeconomic History ??? Marital status: Spouse name: Not on file ??? Number of children: Not on file ??? Years of education: Not on file ??? Highest education level: Not on file 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 Financial resource strain: [...] file Gets together: Not on file Attends gnosticism service: Not on file Active member of [...] Specified) ??? Other Family hx. Alive Physical Exam Skin: Papular lesions forearms and left lynch, no weeping, no secondary infection, no hives, rest of skin is dry and some peeling Nursing note and vitals reviewed. Filed Vitals: 02/23/19 1533 BP: 118/70 Temp: 98.1 ??F (36.7 ??C) Weight: 123.4 kg (272 lb) Diagnoses/Impression: 1. Eczema, unspecified type triamcinolone acetonide (KENALOG-40) injection 40 mg Recommendations and Plan: Kenalog 40mg IM Zyrtec daily, avoid excessive heat and sun exposure Moisturize daily, if not improved with this will send to derm Orders Placed This Encounter ??? triamcinolone acetonide (KENALOG-40) injection 40 mg JACI HERRERA DO Referring Provider: No ref. provider found PCP: JACI HERRERA DO documented in this encounter Plan of Treatment Upcoming Encounters Date Type Department Care Team (Late st Contact Info) Description 09/29/2024 8:00 AM EVENT EXECUTIVE Office Visit [facility] Family Medicine - [address], [address] [place] [address] Elza Benitez MD [address] [facility] [address] [place], [place] [phone] documented as of this encounter Visit Diagnoses Diagnosis Eczema, unspecified type- Primary documented in this encounter Care Teams Nurses' Association Counselor Relationship Specialty Start Date End Date Jaci Herrera DO [address] [place] [address] PCP - General 08/18/16 12/14/23 documented as of this encounter
--- OUTSIDE RECORDS SUMMARY | 2024-08-08 14:13 | XMS_ITS | Encounter Summary ---
Author Organization [facility] Address [address] [place] [address]. 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 Not on file Not on file documented as of this encounter Progress Notes * Michele Soriano - 10/03/2021 2:15 PM CSTAddended by: MICHELE SORIANO on: 10/04/2021 10:39 AM Modules accepted: Orders CLE FUEL SYSTEMS CONVERTER documented in this encounter Plan of Treatment Upcoming Encounters Date Type Department Care Team (Late Contact Info) Description 09/29/2024 8:00 AM VEHICLE FUEL SYSTEMS CONVERTER Office Visit [facility] Medical Group Family Medicine - [place] [address] [facility], [address] [place] [phone] Elza Benitez MD [facility] [facility] [address] [place] [address] documented as of this encounter Procedures Procedure Name Priority Date/Time Associated Diagnosis Comments BASIC METABOLIC PANEL Routine 10/03/2021 2:20 PM VEHICLE FUEL SYSTEMS CONVERTER Controlled type 2 diabetes mellitus with microalbuminuria, with long-term current use of insulin ([facility]) HEMOGLOBIN, GLYCOSYLATED Routine 10/03/2021 2:19 PM VEHICLE FUEL SYSTEMS CONVERTER Controlled type 2 diabetes mellitus with microalbuminuria, with long-term current use of insulin ([facility]) COLLECTION VENOUS BLOOD VENIPUNCTURE Routine 10/03/2021 2:19 PM VEHICLE FUEL SYSTEMS CONVERTER Controlled type 2 diabetes mellitus with microalbuminuria, with long-term current use of insulin ([facility]) documented in this encounter Results * (ABNORMAL) BASIC METABOLIC PANEL (10/03/2021 2:20 PM VEHICLE FUEL SYSTEMS CONVERTER) SODIUM S/P/B 136 133 - 146 MMOL/L [...] Comment:IS PATIENT FASTING?- >NO 10/03/2021 2:20 PM VEHICLE FUEL SYSTEMS CONVERTER 10/04/2021 5:28 AM VEHICLE FUEL SYSTEMS CONVERTER us Sarah Yap DO LABORATORY Final Result [facility] [address] [place] [address], * (ABNORMAL) HEMOGLOBIN, GLYCOSYLATED (10/03/2021 2:19 PM VEHICLE FUEL SYSTEMS CONVERTER) HGB A1C 9.1(A) 4.2 - 6.5 % [facility] 10/03/2021 2:19 PM VEHICLE FUEL SYSTEMS CONVERTER us Sarah aYp DO LABORATORY Final Result Performing Organization Address City/[facility]/ZIP Co de Phone Number [facility] [address] [facility] [address] [place] [address], documented in this encounter Visit Diagnoses Diagnosis Controlled type 2 diabetes mellitus with microalbuminuria, with long-term current use of insulin ([facility]) documented in this encounter Additional Health Concerns Assessment Noted Time PHQ-9 Depression Total Score: 0 10/04/19 22 3:48 PM VEHICLE FUEL SYSTEMS CONVERTER documented as of this encounter Care Teams Branch Billing Payroll Clerk Relationship Specialty Start Date End Date Sarah Yap DO [address] [place] [address] PCP - General 08/18/16 12/14/23 documented as of this encounter
--- OUTSIDE RECORDS SUMMARY | 2024-08-08 14:14 | XMS_ITS | Encounter Summary ---
Author Organization [facility] Address [facility] [facility] [place] [address] [place] [address] Care Team Providers Care Perinatal Specialist Name Role Phone Sarah Yap DO Primary Care Provider [phone] Sarah Yap DO Primary Care Provider + [phone] Sarah Yap DO Primary Care Provider [phone] Encounter Details Date Type Department Care Team (Latest Contact Info) Description 05/12/2015 Abstract [facility] Liam Burton MD [address] [address] Social History Tobacco Use Types Packs/Day Years Used Date Smoking Tobacco: Never Assessed Comments Unknown Sex and Gender Information Value Date Recorded Sex Assigned at Not on file Legal Sex Female 7:26 PM CDT Gender Identity Not on file Sexual Orientation Not on file documented as of this encounter Progress Notes * Generic Conversion MD Bernard - 05/12/2015 8:00 AM CDT Reason For Visit Nurse Visit Chief Complaint EKG performed for pre-op testing. Patient has upcoming c-scope with [facility]. Pt tolerated well. Active Problems 1. Adenomatosis (211.3) (D12.6) 2. Adjustment disorder (309.9) (F43.20) 3. Colon polyp (211.3) (K63.5) 4. Eczema (692.9) (L30.9) 5. Hyperlipidemia (272.4) (E78.5) 6. Hypertension (401.9) (I10) 7. Morbid obesity (278.01) (E66.01) 8. Type 2 diabetes mellitus (250.00) (E11.9) Immunizations Hepatitis A --- Series1: 1999; Series2: 2000 Tdap --- Series1: 07Jan2012 Current Meds 1. Atorvastatin Calcium 10 MG Oral Tablet (Lipitor); Take 1 tablet daily; Therapy: 30Djd3345 to (Evaluate:21Oct2015) Requested for: 25Suz7414; Last Rx:45Ajz7212 Ordered 2. Hydrochlorothiazide 50 MG Oral Tablet; TAKE 1 TABLET EVERY DAY; Therapy: 11Fwi2587 to (Evaluate:89Eut6600) Requested for: 78Fox8292; Last Rx:97Bnv3986 Ordered 3. Lantus 100 UNIT/ML Subcutaneous Solution; INJECT 55 UNIT Daily; Therapy: 80Nbo5873 to (Evaluate:73Ouh2462) Requested for: 32Arz1795 Recorded 4. Lisinopril 10 MG Oral Tablet; TAKE 1 TABLET EVERY DAY; Therapy: 61Gdt4518 to (Evaluate:73Esr6116) Requested for: 88Bmf7905; Last Rx:48Vqc3887 Ordered 5. MetFORMIN HCl - 1000 MG Oral Tablet; Take 1 tablet twice a day; Therapy: 23Aug2013 to (Evaluate:18Zrn6060) Requested for: 98Ihf6403; Last Rx:95Gsh3272 Ordered 6. Mometasone Furoate 0.1 % External Cream; APPLY SPARINGLY TO AFFECTED AREAS TWICE DAILY.(AM AND PM); Therapy: 19Oct2014 to (Last Rx:19Oct2014) Requested for: 19Oct2014 Ordered 7. Pioglitazone HCl - 45 MG Oral Tablet (Actos); TAKE 1 TABLET EVERY DAY; Therapy: 16Jan2014 to (Evaluate:34Yhj0435) Requested for: 57Ddx2068; Last Rx:85Nyu2741 Ordered 8. Venlafaxine HCl ER 150 MG Oral Capsule Extended Release 24 Hour (Effexor XR); EVERY DAY; Therapy: 36Eyw3850 to (Evaluate:30Bcg9073) Requested for: 49Swf0146; Last Rx:13Zjv2406 Ordered Allergies 1. No Known Drug Allergies Plan Hypertension 1. EKG In Office; Status:Active; Requested for:12May2015; Signatures Electronically signed by : Cora Devine, ; May 12 2015 8:51AM HIGH SCHOOL ACADEMIC COACH (Author) Electronically signed by : Liam Burton M.D.; May 12 2015 10:35AM HIGH SCHOOL ACADEMIC COACH documented in this encounter Plan of Treatment Upcoming Encounters Date Type Department Care Team (Late st Contact Info) Description 09/29/2024 8:00 AM HIGH SCHOOL ACADEMIC COACH Office Visit [facility] Group Family Medicine - [address], [address] [place] [address] Elza Benitez MD [facility] [facility] [address] [place] [address] documented as of this encounter Visit Diagnoses Not on filedocumented in this encounter Care Teams Perinatal Specialist Relationship Specialty Start Date End Date Sarah Yap DO [address] [place] [address] PCP - General 08/18/16 12/14/23 Sarah Yap DO [facility] [address] [place] [address] PCP - General 07/10/16 08/17/16 Sarah Yap DO [address] [facility] [address] [place] [address] PCP - General 05/07/15 07/09/16 documented as of this encounter
--- OUTSIDE RECORDS SUMMARY | 2024-08-08 14:14 | XMS_ITS | Encounter Summary ---
Author Organization [facility] System Address [address] [place] [address]. [place], [place] [address] [place] [address] Care Team Providers Care Mails Supervisor Name Role Phone Sarah Yap DO Primary Care Provider + [phone] Sarah Yap DO Primary Care Provider + [phone] Sarah Yap DO Primary Care Provider + [phone] Encounter Details Date Type Department Care Team (Latest Contact Info) Description 05/28/2015 Abstract [facility] [place] Dean DO [facility] [place], [place] [id number] Social History Tobacco Use Types Packs/Day Years [...] st Contact Info) Description 09/29/2024 8:00 AM FLOORING INSTALLER Office Visit [facility] Family Medicine - [address], [address] [place] [address] Elza Benitez MD [address] [facility] [address] [place] [address] documented as of this encounter Visit Diagnoses Not on filedocumented in this encounter Care Teams Mails Supervisor Relationship Specialty Start Date End Date Sarah Yap DO [address] [place] [address] PCP - General 08/18/16 12/14/23 Sarah Yap DO [address] [place] [address] PCP - General 07/10/16 08/17/16 Sarah Yap DO [address] [place] [address] PCP - General 05/07/15 07/09/16 documented as of this encounter
--- OUTSIDE RECORDS SUMMARY | 2024-08-08 14:14 | XMS_ITS | Encounter Summary ---
Author Organization [facility] System Address [address] [place] [address]. [place] [address] [place] [address] Care Team Providers Care Mental Health Program Specialist Name Role Phone Sarah Yap DO Primary Care Provider [phone] Encounter Details Date Type Department Care Team (Latest Contact Info) Description 10/01/2018 Abstract [facility] Sarah Yap DO [address] [place], [place] [address] Social History Tobacco Use Types Packs/Day Years [...] Info) Description 09/29/2024 8:00 AM EMERGENCY ROOM CLERK Office Visit [facility] Family Medicine - [address], [address] [place] [phone] Elza Benitez MD [facility] [address] [place] [phone] documented as of this encounter Procedures Procedure Name Priority Date/Time Associated Diagnosis Comments HEMOGLOBIN, GLYCOSYLATED Routine 10/01/2018 9:21 AM EMERGENCY ROOM CLERK ALBUMIN URINE RANDOM W/CREATININE Routine 10/01/2018 9:21 AM EMERGENCY ROOM CLERK documented in this encounter Results * HEMOGLOBIN, GLYCOSYLATED (10/01/2018 9:21 AM EMERGENCY ROOM CLERK) HGB A1C 8.2 4.8 - 5.9 TOUCHWORKS TO EPIC CONVERSION 10/01/2018 9:21 AM EMERGENCY ROOM CLERK 10/01/2018 9:21 AM EMERGENCY ROOM CLERK Narrative TOUCHWORKS TO EPIC CONVERSION - 10/01/2018 9:21 AM EMERGENCY ROOM CLERK 06Oct2018 9:22AM by Sarah Yap: ??a1c higher ??increase insulin to 65u a d ??must work on diet and wt loss ??f/u 6mths Result Communication: Call patient with results us Sarah Yap DO LABORATORY Final Result TOUCHWORKS TO EPIC CONVERSION * ALBUMIN URINE RANDOM (10/01/2018 9:21 AM EMERGENCY ROOM CLERK) ALBUMIN S/P/B 150 TOUCHW ORKS TO EPIC CONVERSION CREATININE S/P/B 200 TOUCHWORKS TO EPIC CONVERSION ALBUMIN/CREAT RATIO 30-300 TOUCHWORKS TO EPIC CONVERSION 10/01/2018 9:21 AM EMERGENCY ROOM CLERK 10/01/2018 9:21 AM EMERGENCY ROOM CLERK Narrative TOUCHWORKS TO EPIC CONVERSION - 10/01/2018 9:21 AM EMERGENCY ROOM CLERK 06Oct2018 9:22AM by Sarah Yap: ??a1c higher ??increase insulin to 65u a d ??must work on diet and wt loss ??f/u 6mths Result Communication: Call patient with results Sarah Yap DO URINE ORDERABLES Final Resul t TOUCHWORKS TO EPIC CONVERSION documented in this encounter Visit Diagnoses Not on filedocumented in this encounter Care Teams Mental Health Program Specialist Relationship Specialty Start Date End Date Sarah Yap DO [address] [place] [address] PCP - General 08/18/16 12/14/23 documented as of this encounter
--- OUTSIDE RECORDS SUMMARY | 2024-08-08 14:14 | XMS_ITS | Encounter Summary ---
Author Organization [facility] Address [address] [place] [address]. [place], [place] [address] [place] [address] Care Team Providers Care Aluminum Siding Installer Name Role Phone Sarah Yap DO Primary Care Provider [phone] Encounter Details Date Type Department Care Team (Latest Contact Info) Description 10/06/2018 Abstract [facility] , Fior Bauer MD Social History Tobacco Use Types Packs/Day Years Used Date Smoking Tobacco: Never Assessed Comments Unknown Sex and Gender Information Value Date Recorded Sex Assigned at Not on file Legal Sex Female 7:26 PM CDT Gender Identity Not on file Sexual Orientation Not on file documented as of this encounter Progress Notes * Sarah Yap MD - 10/06/2018 9:22 AM CST Message a1c higher increase insulin to 65u a d must work on diet and wt loss f/u 6mths Verified Results BFMA-Hemoglobin A1C 01Oct2018 09:21AM Sarah Yap Test Name Result Flag Reference Hemoglobin A1C 8.2 4.8 - 5.9 BFMA-Microalbumin 01Oct2018 09:21AM Sarah Yap Test Name Result Flag Reference Albumin 150 Creatinine 200 Albumin/Creatinine Ratio 30-300 COMP METABOLIC PANEL [id number] 01Oct2018 09:01AM Sarah Yap Report: [id number] Is the Patient Fasting?: Yes Is the Patient Fasting?: Yes Test Name Result Flag Reference Glucose 112 mg/dL H 70-99 Urea Nitrogen 13 mg/dL 6-20 Creatinine 0.7 mg/dL 0.5-1.2 GFR() 113 mL/min/1.73 m2 60-300 GFR(Others) 93 mL/min/1.73 m2 60-300 Sodium 143 mEq/L 136-145 Albumin 4.6 gm/dL 3.5-5.0 AST (SGOT) 18 IU/L 11-32 ALT (SGPT) 17 IU/L 9-43 Alkaline Phos 109 IU/L 35-129 Total Bilirubin 0.4 mg/dL 0.0-1.0 Potassium 4.5 mEq/L 3.5-5.3 Chloride 99 mEq/L 98-107 CO2 27 mEq/L 23-31 Anion Gap 17 mmoles/L H 8-16 Calcium 10.1 mg/dL 8.4-10.5 Total Protein 7.1 gm/dL 6.0-8.3 HL LIPID PANEL WITH LDL-CALC (AMA) [id number] 01Oct2018 09:01AM Sarah Yap Report: [id number] Is the Patient Fasting?: Yes Is the Patient Fasting?: Yes Test Name Result Flag Reference CHOL/HDL Ratio 1.9 Non-HDL Cholesterol 71 mg/dL 0-129 For Ages >=20 years (mg/dL) .................[place]....Elevated....Borderline......High.....Very High Chol*........<200.......................................200-239....>=240 Trig...........<150.....................150-199......200-499....>=500 LDL-C.......<100...100-129.....130-159......160-189....>=190 NonHDL-C.<130...130-159.....160-189......190-219....>=220 Leonard TA, et al. National Lipid Association recommendations for patient-centered management of dyslipidemia: part 1-full report. J Clin Lipidol 2015;129-169. *Third report of the National Cholesterol Education Program (NCEP) Expert Panel on Detection, Education, and Treatment of High Blood Cholesterol in Adults (Adult Treatment panel III): final report. Circulation 2002; 106:3143. Total Cholesterol 153 mg/dL 0-199 Triglycerides 79 mg/dL 0-149 HDL Cholesterol 82 mg/dL 50-240 LDL Cholesterol 55 mg/dL 0-99 documented in this encounter Plan of Treatment Upcoming Encounters Date Type Department Care Team (Late st Contact Info) Description 09/29/2024 8:00 AM ALMOND BLANCHER Office Visit [facility] Family Medicine - [address], [address] [place] [address] Elza Benitez MD [address] [facility] [address] [place] [address] documented as of this encounter Visit Diagnoses Not on filedocumented in this encounter Care Teams Aluminum Siding Installer Relationship Specialty Start Date End Date Sarah Yap DO [address] [place] [address] PCP - General 08/18/16 12/14/23 documented as of this encounter
--- OUTSIDE RECORDS SUMMARY | 2024-08-08 14:14 | XMS_ITS | Encounter Summary ---
Author Organization [facility] System Address [address] [place] [address]. [place] [address] [place] [address] Care Team Providers Care Roll Hand Name Role Phone Sarah Yap DO Primary Care Provider + [phone] Sarah Yap DO Primary Care Provider + [phone] Sarah Yap DO Primary Care Provider + [phone] Sarah Yap DO Primary Care Provider + [phone] Encounter Details Date Type Department Care Team (Latest Contact Info) Description 04/20/2015 Abstract [facility] Sarah Yap DO [address] [place] [address] Social History Tobacco Use Types [...] st Contact Info) Description 09/29/2024 8:00 AM ROOM SERVICE FOOD SERVER Office Visit [facility] Family Medicine - [place], [address] [place] [address] Elza Benitez MD [address] [facility] [address] [place], [place] [phone] documented as of this encounter Procedures Procedure Name Priority Date/Time Associated Diagnosis Comments HEMOGLOBIN, GLYCOSYLATED Routine 04/20/2015 2:37 PM CDT ALBUMIN URINE RANDOM W/CREATININE Routine 04/20/2015 2:37 PM CDT COMPREHENSIVE METABOLIC PANEL Routine 04/20/2015 8:29 AM CDT LIPID PANEL Routine 04/20/2015 8:29 AM CDT documented in this encounter Results * ALBUMIN URINE RANDOM (04/20/2015 2:37 PM CDT) ALBUMIN S/P/B 30 TOUCHW ORKS TO EPIC CONVERSION CREATININE S/P/B 100 TOUCHWORKS TO EPIC CONVERSION ALBUMIN/CREAT RATIO <30 TOUCHWORKS TO EPIC CONVERSION 04/20/2015 2:37 PM CDT 04/20/2015 2:37 PM CDT Narrative TOUCHWORKS TO EPIC CONVERSION - 04/20/2015 2:37 PM CDT [id number] 2:04PM by Sarah Yap: ??increase Lantus to 55units q d ?? I feel she should be on a statin since a diabetic a lipids a little high--if will Rx lipitor 10mg q d #30 w 5 ?A1c/lipids/alt in 4mths Result Communication: Call patient with results Sarah Yap DO URINE ORDERABLES Final Resul t TOUCHWORKS TO EPIC CONVERSION * HEMOGLOBIN, GLYCOSYLATED (04/20/2015 2:37 PM CDT) HGB A1C 7.7 TOUCHWORKS TO EPIC CONVERSION 04/20/2015 2:37 PM CDT 04/20/2015 2:37 PM CDT Narrative TOUCHWORKS TO EPIC CONVERSION - 04/20/2015 2:37 PM CDT [id number] 2:04PM by Sarah Yap: ??increase Lantus to 55units q d ?? I feel she should be on a statin since a diabetic a lipids a little high--if will Rx lipitor 10mg q d #30 w 5 ?A1c/lipids/alt in 4mths Result Communication: Call patient with results Sarah Yap DO LABORATORY Final Result TOUCHWORKS TO EPIC CONVERSION * (ABNORMAL) COMPREHENSIVE METABOLIC PANEL (04/20/2015 8:29 AM CDT) GLUCOSE 139(H) 74 - 106 mg/dL TOUCHWORKS TO EPIC CONVERSION Comment:Result Comment: CONS ISTENT WITH PREVIOUS RESULTS BUN 10 6 - 20 mg/dL TOUCHWORKS TO EPIC CONVERSION CREATININE S/P/B 0.6 0.6 - 1.0 mg/dL TOUCHWORKS TO EPIC CONVERSION BUN CREATININE RATIO 17 4 - 25 TOUCHWORKS TO EPIC CONVERSION GFR ESTIMATE 112.9 >60.0 mL/min/1.7 3 m TOUCHWORKS TO EPIC CONVERSION EGFR AFR. AMER. 136.6 >60.0 mL/min/1.7 3 m TOUCHWORKS TO EPIC CONVERSION CALCIUM S/P/B 9.4 8.6 - 10.3 mg/dl TOUCHWORKS TO EPIC CONVERSION SODIUM S/P/B 137 135 - 145 mmol/L TOUCHWORKS TO EPIC CONVERSION POTASSIUM S/P/B 4.0 3.5 - 5.2 mmol/L TOUCHWORKS TO EPIC CONVERSION CHLORIDE S/P/B 98 97 - 107 mmol/L TOUCHWORKS TO EPIC CONVERSION CO2 30 21 - 31 mmol/L TOUCHWORKS TO EPIC CONVERSION ANION GAP 9.0 7.0 - 18.0 TOUCHWORK S TO EPIC CONVERSION TOTAL PROTEIN S/P/B 6.8 6.1 - 8.1 g/dL TOUCHWORKS TO EPIC CONVERSION ALBUMIN S/P/B 4.3 3.5 - 5.2 g/dL TOUCHWORKS TO EPIC CONVERSION GLOBULIN 2.5 1.9 - 3.7 g/dL TOUCHWORKS TO EPIC CONVERSION A/G RATIO 1.7 1.1 - 2.5 TOUCHWORKS TO EPIC CONVERSION BILIRUBIN TOTAL (FLUID) 0.28 0.20 - 1.20 mg/dL TOUCHWORKS TO EPIC CONVERSION ALK PHOS 85 42 - 98 U/L TOUCHWORKS TO EPIC CONVERSION AST 16 5 - 34 U/L TOUCHWORK S TO EPIC CONVERSION ALT 16 0 - 34 U/L TOUCHWORK S TO EPIC CONVERSION Comment:Result Comment: RESU LTS <10 ARE ACCEPTABLE 04/20/2015 8:29 AM CDT 04/20/2015 8:29 AM CDT Narrative TOUCHWORKS TO EPIC CONVERSION - 04/20/2015 8:29 AM CDT Order Comment: [id number] 2:04PM by Sarah Yap: ??increase Lantus to 55units q d ?? I feel she should be on a statin since a diabetic a lipids a little high--if will Rx lipitor 10mg q d #30 w 5 ?A1c/lipids/alt in 4mths Result Communication: Call patient with results us Sarah Yap DO LABORATORY Final Result Performing Organization Address [facility] Co de Phone Number TOUCHWORKS TO EPIC CONVERSION * (ABNORMAL) LIPID PANEL (04/20/2015 8:29 AM CDT) CHOLESTEROL 215(H) 0 - 199 mg/dL TOUCHWORKS TO EPIC CONVERSION Comment:Result Comment: CONS ISTENT WITH PREVIOUS RESULTS TRIGLYCERIDES 194(H) 0 - 149 mg/dL TOUCHWORKS TO EPIC CONVERSION Comment:Result Comment: CONS ISTENT WITH PREVIOUS RESULTS HDL 66(H) 40 - 60 mg/dL TOUCHWORKS TO EPIC CONVERSION Comment:Result Comment: CONS ISTENT WITH PREVIOUS RESULTS LDL (CALCULATED) 111 0 - 130 NATALIE CHWORKS TO EPIC CONVERSION RISK 3.3 TOUCHWORKS TO EPIC CONVERSION 04/20/2015 8:29 AM CDT 04/20/2015 8:29 AM CDT Narrative TOUCHWORKS TO EPIC CONVERSION - 04/20/2015 8:29 AM CDT Order Comment: SLIGHT LIPEMIA [id number] 2:04PM by Sarah Yap: ??increase Lantus to 55units q d ?? I feel she should be on a statin since a diabetic a lipids a little high--if will Rx lipitor 10mg q d #30 w 5 ?A1c/lipids/alt in 4mths Result Communication: Call patient with results us Sarah Yap DO LABORATORY Final Result Performing Organization Address [facility] Co de Phone Number TOUCHWORKS TO EPIC CONVERSION documented in this encounter Visit Diagnoses Not on filedocumented in this encounter Care Teams Roll Hand Relationship Specialty Start Date End Date Sarah Yap DO [address] [place] [address] PCP - General 08/18/16 12/14/23 Sarah Yap DO [address] [place] [address] PCP - General 07/10/16 08/17/16 Sarah Yap DO [address] [place] [address] PCP - General 05/07/15 07/09/16 Sarah Yap DO [address] [place] [address] PCP - General 01/23/15 05/06/15 documented as of this encounter
--- OUTSIDE RECORDS SUMMARY | 2024-08-08 14:14 | XMS_ITS | Encounter Summary ---
Author Organization [facility] Address [address] [place] [address]. [place] [address] [place] [address] Care Team Providers Care Coring Machine Operator Name Role Phone Sarah Yap DO Primary Care Provider [phone] Encounter Details Date Type Department Care Team (Latest Contact Info) Description 10/11/2018 Abstract [facility] Sarah Yap DO [address] [place], [place] [phone] Social History Tobacco Use Types Packs/Day Years [...] st Contact Info) Description 09/29/2024 8:00 AM SUGAR GRINDER Office Visit [facility] Family Medicine - [address], [address] [place] [phone] Elza Benitez MD [facility] [address] [place] [address] documented as of this encounter Procedures Procedure Name Priority Date/Time Associated Diagnosis Comments MG SCREENING W JANICE ABIDA DIGI Routine 10/11/2018 8:30 AM CDT documented in this encounter Results * MG SCREENING W JANICE ABIDA DIGI (10/11/2018 8:30 AM CDT) Anatomical Region Laterality Modality Breast Bilateral Mammography 10/11/2018 8:30 AM CDT 10/11/2018 8:30 AM CDT Narrative 10/11/2018 10:27 AM CDT This is a summary report. The complete report is available in the patient's medical record. If you cannot access the medical record, please contact the sending organization for a detailed fax or copy. EXAMINATION: Digital bilateral screening mammogram with 3-D tomosynthesis EXAM DATE/TIME: 10/11/2018 8:39 AM REASON FOR EXAM: ??scrn ? Family history of breast cancer. COMPARISON: Mammograms dating back to 2011. TECHNIQUE: Digital screening mammography of both breasts was performed in addition to 3-D Tomosynthesis technique. This study was read with the assistance of a computer-aided detection system. TISSUE DENSITY: The breast tissue contains scattered fibroglandular densities. FINDINGS: No suspicious masses, malignant appearing calcifications, skin thickening or other abnormalities are present. ??No significant change from the prior exam. =====IMPRESSION:===== No mammographic findings suggestive of malignancy. ASSESSMENT: ACR BI-RADS Category 2 - Benign. RECOMMENDATION: 1: Routine screening mammogram ??bilateral ??in 1 year ? COMMENTS: ? Procedure Note Fior Wagner, - 10/21/2018 This is a summary report. The complete report is available in thepatient's medical record. If you cannot access the medical record, pleasecontact the sending organization for a detailed fax or copy. EXAMINATION: Digital bilateral screening mammogram with 3-Dtomosynthesis EXAM DATE/TIME: 10/11/2018 8:39 AM REASON FOR EXAM: scrn Family history of breast cancer. COMPARISON: Mammograms dating back to 2011. TECHNIQUE: Digital screening mammography of both breasts was performedin addition to 3-D Tomosynthesis technique. This study was read with the assistance of a computer-aided detection system. TISSUE DENSITY: The breast tissue contains scattered fibroglandular densities. FINDINGS: No suspicious masses, malignant appearing calcifications, skin thickening or other abnormalities are present. No significant changefrom the prior exam. =====IMPRESSION:===== No mammographic findings suggestive of malignancy. ASSESSMENT: ACR BI-RADS Category 2 - Benign. RECOMMENDATION: 1: Routine screening mammogram bilateral in 1 year COMMENTS: Sarah Yap DO MAMMO Final Result documented in this encounter Visit Diagnoses Not on filedocumented in this encounter Care Teams Coring Machine Operator Relationship Specialty Start Date End Date Sarah Yap DO [address] [place] [address] PCP - General 08/18/16 12/14/23 documented as of this encounter
--- OUTSIDE RECORDS SUMMARY | 2024-08-08 14:14 | XMS_ITS | Encounter Summary ---
Author Organization [facility] Address [address] [place] [address]. [place], [place] [address] [place] [address] Care Team Providers Care Sales Operations Specialist Name Role Phone Sarah Yap DO Primary Care Provider + [phone] Sarah Yap DO Primary Care Provider + [phone] Encounter Details Date Type Department Care Team (Latest Contact Info) Description 07/29/2016 Abstract [facility] Fior Wagner MD Social History Tobacco Use Types Packs/Day [...] st Contact Info) Description 09/29/2024 8:00 AM LINDERMAN OPERATOR Office Visit [facility] Family Medicine - [address], [address] [place] [phone] Elza Benitez MD [address] [place] [address] [place] [address] documented as of this encounter Procedures Procedure Name Priority Date/Time Associated Diagnosis Comments COMPREHENSIVE METABOLIC PANEL Routine 07/30/2016 7:44 AM LINDERMAN OPERATOR LIPID PANEL Routine 07/30/2016 7:44 AM LINDERMAN OPERATOR HEMOGLOBIN, GLYCOSYLATED Routine 07/29/2016 9:12 AM LINDERMAN OPERATOR ALBUMIN URINE RANDOM W/CREATININE Routine 07/29/2016 9:12 AM LINDERMAN OPERATOR documented in this encounter Results * COMPREHENSIVE METABOLIC PANEL (07/30/2016 7:44 AM LINDERMAN OPERATOR) GLUCOSE 93 65 - 99 mg/dL TOUCHWORKS TO EPIC CONVERSION BUN 16 6 - 24 mg/dL TOUCHWORKS TO EPIC CONVERSION CREATININE S/P/B 0.74 0.57 - 1.00 mg/dL TOUCHWORKS TO EPIC CONVERSION EGFR NON-AFR. AMER. 95 >59 mL/min/1.7 3 TOUCHWORKS TO EPIC CONVERSION EGFR AFR. AMER. 109 >59 mL/min/1.7 3 TOUCHWORKS TO EPIC CONVERSION BUN CREATININE RATIO 22 9 - 23 TOUCHWORKS TO EPIC CONVERSION SODIUM S/P/B 143 134 - 144 mmol/L TOUCHWORKS TO EPIC CONVERSION POTASSIUM S/P/B 4.1 3.5 - 5.2 mmol/L TOUCHWORKS TO EPIC CONVERSION CHLORIDE S/P/B 96 96 - 106 mmol/L TOUCHWORKS TO EPIC CONVERSION TCO2 27 18 - 29 mmol/L TOUCHWORKS TO EPIC CONVERSION CALCIUM S/P/B 9.8 8.7 - 10.2 mg/dL TOUCHWORKS TO EPIC CONVERSION PROTEIN 7.0 6.0 - 8.5 g/dL TOUCHWORKS TO EPIC CONVERSION ALBUMIN S/P/B 4.5 3.5 - 5.5 g/dL TOUCHWORKS TO EPIC CONVERSION GLOBULIN 2.5 1.5 - 4.5 g/dL TOUCHWORKS TO EPIC CONVERSION A/G RATIO 1.8 1.1 - 2.5 TOUCHWORKS TO EPIC CONVERSION BILIRUBIN TOTAL (FLUID) 0.2 0.0 - 1.2 mg/dL TOUCHWORKS TO EPIC CONVERSION ALKALINE PHOSPHATASE S/P/B 90 39 - 117 IU/L TOUCHWORKS TO EPIC CONVERSION AST 18 0 - 40 IU/L TOUCHWORKS TO EPIC CONVERSION ALT 17 0 - 32 IU/L TOUCHWORKS TO EPIC CONVERSION 07/30/2016 7:44 AM LINDERMAN OPERATOR 07/30/2016 7:44 AM LINDERMAN OPERATOR Narrative TOUCHWORKS TO EPIC CONVERSION - 07/31/2016 3:07 AM LINDERMAN OPERATOR [id number] 1:29PM by Sarah Yap: ??labs stable cont meds same, work on diet and wt loss Result Communication: Call patient with results us Sarah Yap DO LABORATORY Final Result TOUCHWORKS TO EPIC CONVERSION * LIPID PANEL (07/30/2016 7:44 AM LINDERMAN OPERATOR) CHOLESTEROL 147 100 - 199 mg/dL TOUCHWORKS TO EPIC CONVERSION TRIGLYCERIDES 94 0 - 149 mg/dL TOUCHWORKS TO EPIC CONVERSION HDL 74 >39 mg/dL TOUCHWORKS TO EPIC CONVERSION VLDL CALCULATION 19 5 - 40 mg/dL TOUCHWORKS TO EPIC CONVERSION LDL (CALCULATED) 54 0 - 99 mg/dL TOUCHWORKS TO EPIC CONVERSION COMMENT TOUCHWORKS TO EPIC CONVERSION 07/30/2016 7:44 AM LINDERMAN OPERATOR 07/30/2016 7:44 AM LINDERMAN OPERATOR Narrative TOUCHWORKS TO EPIC CONVERSION - 07/31/2016 3:07 AM LINDERMAN OPERATOR [id number] 1:29PM by Sarah Yap: ??labs stable cont meds same, work on diet and wt loss Result Communication: Call patient with results us Sarah Yap DO LABORATORY Final Result Performing Organization Address [facility] Co de Phone Number TOUCHWORKS TO EPIC CONVERSION * ALBUMIN URINE RANDOM (07/29/2016 9:12 AM LINDERMAN OPERATOR) ALBUMIN S/P/B 30 mg/L TOUCHW ORKS TO EPIC CONVERSION CREATININE S/P/B 100 mg/dL TOUCHWORKS TO EPIC CONVERSION ALBUMIN/CREAT RATIO <30 mg/g TOUCHWORKS TO EPIC CONVERSION 07/29/2016 9:12 AM LINDERMAN OPERATOR 07/29/2016 9:12 AM LINDERMAN OPERATOR Narrative TOUCHWORKS TO EPIC CONVERSION - 07/29/2016 9:12 AM LINDERMAN OPERATOR Result Communication: No patient communication needed at this time us Sarah Yap DO URINE ORDERABLES Final Resul t Performing Organization Address City/[facility]/ZIP Co de Phone Number TOUCHWORKS TO EPIC CONVERSION * HEMOGLOBIN, GLYCOSYLATED (07/29/2016 9:12 AM LINDERMAN OPERATOR) HGB A1C 7.9 TOUCHWORKS TO EPIC CONVERSION 07/29/2016 9:12 AM LINDERMAN OPERATOR 07/29/2016 9:12 AM LINDERMAN OPERATOR Narrative TOUCHWORKS TO EPIC CONVERSION - 07/29/2016 9:12 AM LINDERMAN OPERATOR Result Communication: No patient communication needed at this time Sarah Yap DO LABORATORY Final Result TOUCHWORKS TO EPIC CONVERSION documented in this encounter Visit Diagnoses Not on filedocumented in this encounter Care Teams Sales Operations Specialist Relationship Specialty Start Date End Date Sarah Yap DO [address] [place] [address] PCP - General 08/18/16 12/14/23 Sarah Yap DO [address] [place] [address] PCP - General 07/10/16 08/17/16 documented as of this encounter
--- OUTSIDE RECORDS SUMMARY | 2024-08-08 14:14 | XMS_ITS | Encounter Summary ---
Author Organization [facility] Address [address] [place] [address]. [place] [address] [place] [address] Care Team Providers Care Administrative Assistant Office Manager Name Role Phone Sarah Yap DO Primary Care Provider Encounter Details Date Type Department Care Team (Latest Contact Info) Description 10/11/2018 8:26 AM CDT - 10/11/2018 11:59 PM CDT Hospital Encounter [facility] [address] [place] [address] Sarah Yap DO [address] [place] [address] Discharge Disposition: Home or Self [...] 8 MM Misc 08/25/2017 atorvastatin 10 MG tablet Take 1 tablet by mouth daily. 04/24/2015 0 hydrochlorothiaz monica 50 MG tablet Take 1 tablet by mouth daily. 05/17/2013 0 insulin glargine (BASAGLAR KWIKPEN) 100 UNIT/ML injection (PEN) INJECT 55 UNITS SUBCUTANEOUS DAILY DIRECTED 09/29/2016 0 lisinopril 10 MG tablet Take 1 tablet by mouth daily. 04/19/2013 0 metFORMIN 1000 MG tablet Take 1 tablet by mouth 2 (two) times daily. 08/23/2013 0 pioglitazone 45 MG tablet Take 1 tablet by mouth daily. 01/16/2014 0 venlafaxine XR 150 MG 24 hr capsule Take 1 capsule by mouth daily. 12/20/2013 0 documented as of this encounter Plan of Treatment Upcoming Encounters Date Type Department Care Team (Late st Contact Info) Description 09/29/2024 8:00 AM RADIO ELECTRICIAN Office Visit [facility] Family Medicine - [address], [address] [place] [phone] Elza Benitez MD [address] [facility] [address] [place] [id number] documented as of this encounter Procedures Procedure Name Priority Date/Time Associated Diagnosis Comments MG SCREENING W JANICE ABIDA DIGI Routine 10/11/2018 8:53 AM CDT Screening breast examination documented in this encounter Results * MG SCREENING W JANICE ABIDA DIGI (10/11/2018 8:53 AM CDT) Anatomical Region Laterality Modality Breast Bilateral Mammography 10/11/2018 10:2 2 AM CDT Impressions 10/11/2018 10:26 AM CDT =====IMPRESSION:===== No mammographic findings suggestive of malignancy. ASSESSMENT: ACR BI-RADS Category 2 - Benign. RECOMMENDATION: 1: Routine screening mammogram ??bilateral ??in 1 year ? COMMENTS: ? Narrative 10/11/2018 10:26 AM CDT EXAMINATION: Digital bilateral screening mammogram [...] on filedocumented in this encounter Care Teams Administrative Assistant Office Manager Relationship Specialty Start Date End Date Sarah Yap DO [address] [place] [address] PCP - General 08/18/16 12/14/23 documented as of this encounter
--- OUTSIDE RECORDS SUMMARY | 2024-08-08 14:14 | XMS_ITS | Encounter Summary ---
Author Organization [facility] Address [address] [place] [address]. [place], [place] [id number] [place] [address] Care Team Providers Care Traffic Checker Name Role Phone Sarah Yap DO Primary Care Provider + [phone] Sarah Yap DO Primary Care Provider + [phone] Sarah Yap DO Primary Care Provider + [phone] Sarah Yap DO Primary Care Provider + [phone] Encounter Details Date Type Department Care Team (Latest Contact Info) Description 04/24/2015 Abstract [facility] , Fior Bauer MD Social History Tobacco Use Types Packs/Day Years Used Date Smoking Tobacco: Never Assessed Comments Unknown Sex and Gender Information Value Date Recorded Sex Assigned at Not on file Legal Sex Female 7:26 PM CDT Gender Identity Not on file Sexual Orientation Not on file documented as of this encounter Progress Notes * Sarah Yap MD - 04/24/2015 2:04 PM CDT Message increase Lantus to 55units q d I feel she should be on a statin since a diabetic a lipids a little high--if will Rx lipitor 10mg q d #30 w 5 A1c/lipids/alt in [facility] Verified Results BFMA-Hemoglobin A1C [id number] 02:37PM Sarah Yap Test Name Result Flag Reference Hemoglobin A1C 7.7 BFMA-Microalbumin [id number] 02:37PM Sarah Ypa Test Name Result Flag Reference Albumin 30 Creatinine 100 Albumin/Creatinine Ratio <30 LC-CBC, Platelet; No Differential [id number] 08:29Sarah Davenport Test Name Result Flag Reference WBC 7.4 x10E3/uL 3.4-10.8 RBC 4.70 x10E6/uL 3.77-5.28 Hemoglobin 13.4 g/dL 11.1-15.9 Hematocrit 40.8 % 34.0-46.6 MCV 87 fL 79-97 MCH 28.5 pg 26.6-33.0 MCHC 32.8 g/dL 31.5-35.7 RDW 13.8 % 12.3-15.4 Platelets 348 x10E3/uL 150-379 [facility] Labda[employer]- CMP [id number] 08:29Sarah Davenport Test Name Result Flag Reference GLUCOSE 139 mg/dL H 74-106 CONSISTENT WITH PREVIOUS RESULTS BUN 10 mg/dL 6-20 CREATININE 0.6 mg/dL 0.6-1.0 BUN/CREATININE 17 4-25 eGFR 112.9 mL/min/1.73 m >60.0 eGFR- 136.6 mL/min/1.73 m >60.0 CALCIUM 9.4 mg/dl 8.6-10.3 SODIUM 137 mmol/L 135-145 POTASSIUM 4.0 mmol/L 3.5-5.2 CHLORIDE 98 mmol/L 97-107 CO2 30 mmol/L 21-31 ANION GAP 9.0 7.0-18.0 TOTAL PROTEIN 6.8 g/dL 6.1-8.1 ALBUMIN 4.3 g/dL 3.5-5.2 GLOBULIN CALCULATED 2.5 g/dL 1.9-3.7 A/G RATIO 1.7 1.1-2.5 BILIRUBIN TOTAL 0.28 mg/dL 0.20-1.20 ALKALINE PHOSPHATASE 85 U/L 42-98 AST (SGOT) 16 U/L 5-34 ALT (SGPT) 16 U/L 0-34 RESULTS <10 ARE ACCEPTABLE [employer]- LIPID PANEL [id number] 08:29Sarah Davenport SLIGHT LIPEMIA Test Name Result Flag Reference CHOLESTEROL 215 mg/dL H 0-199 CONSISTENT WITH PREVIOUS RESULTS TRIGLYCERIDES 194 mg/dL H 0-149 CONSISTENT WITH PREVIOUS RESULTS HDL 66 mg/dL H 40-60 CONSISTENT WITH PREVIOUS RESULTS CLDL 111 0-130 RISK FACTOR 3.3 documented in this encounter Plan of Treatment Upcoming Encounters Date Type Department Care Team (Late st Contact Info) Description 09/29/2024 8:00 AM SPINDLE SANDER Office Visit [facility] Family Medicine - [address], [address] [place] [phone] Elza Benitez MD [address] [facility] [address] [place], [place] [phone] documented as of this encounter Visit Diagnoses Not on filedocumented in this encounter Care Teams Traffic Checker Relationship Specialty Start Date End Date Sarah Yap DO [address] [place] [address] PCP - General 08/18/16 12/14/23 Sarah Yap DO [address] [place] [address] PCP - General 07/10/16 08/17/16 Sarah Yap DO [address] [place] [address] PCP - General 05/07/15 07/09/16 Sarah Yap DO [address] [place] [address] PCP - General 01/23/15 05/06/15 documented as of this encounter
--- OUTSIDE RECORDS SUMMARY | 2024-08-08 14:14 | XMS_ITS | Encounter Summary ---
Author Organization [facility] Address [address] [place] [address]. [place], [place] [address] [place] [address] Care Team Providers Care Test Driver Name Role Phone Sarah Yap DO Primary Care Provider [phone] Encounter Details Date Type Department Care Team (Latest Contact Info) Description 12/25/2017 Abstract [facility] , Fior Bauer MD Social History Tobacco Use Types Packs/Day Years Used Date Smoking Tobacco: Never Assessed Comments Unknown Sex and Gender Information Value Date Recorded Sex Assigned at Not on file Legal Sex Female 7:26 PM CDT Gender Identity Not on file Sexual Orientation Not on file documented as of this encounter Progress Notes * Sarah Yap MD - 12/25/2017 12:02 PM CDT Message a1c improved keep meds same, cont to work on diet and wt loss Verified Results BFMA-Microalbumin [id number] 09:10AM Sarah Yap Test Name Result Flag Reference Albumin 10 Creatinine 100 Albumin/Creatinine Ratio <30 BFMA-Hemoglobin A1C [id number] 09:09AM Sarah Yap Test Name Result Flag Reference Hemoglobin A1C 7.7 documented in this encounter Plan of Treatment Upcoming Encounters Date Type Department Care Team (Late st Contact Info) Description 09/29/2024 8:00 AM CAD APPLICATION SUPPORT SPECIALIST Office Visit [facility] Family Medicine - [address], [address] [place] [phone] Elza Benitez MD [address] [address] documented as of this encounter Procedures Procedure Name Priority Date/Time Associated Diagnosis Comments ALBUMIN URINE RANDOM W/CREATININE Routine 12/25/2017 9:10 AM CDT HEMOGLOBIN, GLYCOSYLATED Routine 12/25/2017 9:09 AM CDT documented in this encounter Results * ALBUMIN URINE RANDOM (12/25/2017 9:10 AM CDT) ALBUMIN S/P/B 10 TOUCHW ORKS TO EPIC CONVERSION CREATININE S/P/B 100 TOUCHWORKS TO EPIC CONVERSION ALBUMIN/CREAT RATIO <30 TOUCHWORKS TO EPIC CONVERSION 12/25/2017 9:10 AM CDT 12/25/2017 9:10 AM CDT Narrative TOUCHWORKS TO EPIC CONVERSION - 12/25/2017 9:10 AM CDT [id number] 12:02PM by Sarah Yap: ??a1c improved ??keep meds same, cont to work on diet and wt loss Result Communication: Call patient with results us Sarah Yap DO URINE ORDERABLES Final Resul t TOUCHWORKS TO EPIC CONVERSION * HEMOGLOBIN, GLYCOSYLATED (12/25/2017 9:09 AM CDT) HGB A1C 7.7 TOUCHWORKS TO EPIC CONVERSION 12/25/2017 9:09 AM CDT 12/25/2017 9:09 AM CDT Narrative TOUCHWORKS TO EPIC CONVERSION - 12/25/2017 9:09 AM CDT [id number] 12:02PM by Sarah Yap: ??a1c improved ??keep meds same, cont to work on diet and wt loss Result Communication: Call patient with results us Sarah Yap DO LABORATORY Final Result TOUCHWORKS TO EPIC CONVERSION documented in this encounter Visit Diagnoses Not on filedocumented in this encounter Care Teams Test Driver Relationship Specialty Start Date End Date Sarah Yap DO [address] [place] [address] PCP - General 08/18/16 12/14/23 documented as of this encounter
--- OUTSIDE RECORDS SUMMARY | 2024-08-08 14:14 | XMS_ITS | Encounter Summary ---
Author Organization [facility] Address [address] [place] [address]. [place] [address] [place] [address] Care Team Providers Care Supervisor Wet Pour Name Role Phone Sarah Yap DO Primary Care Provider [phone] Encounter Details Date Type Department Care Team (Latest Contact Info) Description 08/21/2017 Abstract [facility] Sarah Yap DO [address] [place] [address] Social History Tobacco Use Types Packs/Day Years Used Date Smoking Tobacco: Never Assessed Comments Unknown Sex and Gender Information Value Date Recorded Sex Assigned at Not on file Legal Sex Female 7:26 PM CDT Gender Identity Not on file Sexual Orientation Not on file documented as of this encounter Last Filed Vital Signs Vital Sign Reading Time Taken Comments Blood Pressure 124/70 08/21/2017 11:35 AM CUSTOMER ORDER CLERK Pulse - - Temperature - - Respiratory Rate - - Oxygen Saturation - - Inhaled Oxygen Concentration - - Weight 119.7 kg (264 lb) 08/21/2017 11:35 AM CUSTOMER ORDER CLERK Height 171.5 cm (5' 7.5 ) 08/21/2017 11:35 AM CS T Body Mass Index 40.74 08/21/2017 11:35 AM CUSTOMER ORDER CLERK documented in this encounter Progress Notes * Sarah Yap MD - 08/21/2017 11:30 AM CST Reason For Visit Reason For Visit: Health Locker Attendant Complaint annual well woman has had flu shot #90 med refills History of Present Illness HPI Free Text: Here for annual c/o pain left side if turns certain way or coughs or sneezes, been about 2wks--lifting dog with als also right thumb is sticking and trouble bending and unbending had eye exam last week Review of Systems See HPI for pertinent positives. Constitutional: negative. Eyes: as noted in HPI. Cardiovascular: negative. Respiratory: negative. Gastrointestinal: negative. Genitourinary: negative. Musculoskeletal: negative. Psychiatric: depression. stable on meds Active Problems 1. Adenomatosis (211.3) (D12.6) 2. Adjustment disorder (309.9) (F43.20) ?? stable on meds 3. Eczema (692.9) (L30.9) 4. Hyperlipidemia (272.4) (E78.5) 5. Hypertension (401.9) (I10) 6. Morbid obesity (278.01) (E66.01) 7. Osteoarthritis of left knee (715.96) (M17.12) 8. Polyp of colon (211.3) (K63.5) 9. Type 2 diabetes mellitus (250.00) (E11.9) Past Medical History ?? History of acne (V13.3) (Z87.2) ?? History of cholelithiasis (V12.79) (Z87.19) ?? History of hypertension (V12.59) (Z86.79) ?? History of premenstrual syndrome (V13.29) (Z87.42) ?? History of viral warts (V12.09) (Z86.19) ?? History of Postmenopausal status (V49.81) (Z78.0) ?? late 40s ?? History of Summary Of Previous Pregnancies 0 (Total No.) Surgical History ?? History of Colonoscopy (Fiberoptic) ?? 03/2010 polyp 05/2015 normal repeat 5yrs ?? History of Ear Surgery ?? History of Renal Lithotripsy ?? History of Tonsillectomy Family History Father ?? Family history of Skin Cancer (V16.8) Maternal Grandmother ?? Family history of Breast Cancer (V16.3) Family History ?? Family history of Diabetes Mellitus (V18.0) ?? Family history of Hypertension (V17.49) Social History ?? Alcohol Use (History) ?? Marital History - Currently ?? 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 Tobacco Non-user Current Meds 1. Atorvastatin Calcium 10 MG Oral Tablet; TAKE 1 TABLET BY MOUTH EVERY DAY; Therapy: 25Apj0157 to (Evaluate:92Bgk7737) Requested for: 48Mfk5410; Last Rx:[id number] Ordered Rx By: Sarah Yap; Dispense: 90 Days ; #:1 X 90 Tablet Bottle; Refill: 3; For: Hyperlipidemia,Hypertension, Type 2 diabetes mellitus; RUKHSANA = N; Verified Transmission to [facility] #2510; Last Updated By: [employer]; 08/21/2017 11:57:46 AM 2. Basaglar KwikPen 100 UNIT/ML Subcutaneous Solution Pen-injector; INJECT 55 UNITS SUBCUTANEOUSLY PER DAY DIRECTED; Therapy: 55Uye6610 to (Last Rx:08Aug2017) Requested for: 08Aug2017 Ordered Rx By: Sarah Yap; Dispense: 0 Days ; #:1 X 3 ML Pen; Refill: 0; For: Type 2 diabetes mellitus; RUKHSANA = N; Verified Transmission to [facility] #2510; Last Updated By: [employer]; 08/21/2017 11:57:46 AM 3. HydroCHLOROthiazide 50 MG Oral Tablet; TAKE 1 TABLET EVERY DAY; Therapy: 70Byx9958 to (Evaluate:45Hdf9025) Requested for: 42Dxu7651; Last Rx:[id number] Ordered Rx By: Sarah Yap; Dispense: 90 Days ; #:1 X 90 Tablet Bottle; Refill: 3; For: Hypertension; RUKHSANA = N; Verified Transmission to [facility] #2510; Last Updated By: [employer]; 08/21/201711:57:46 AM 4. Lisinopril 10 MG Oral Tablet; TAKE 1 TABLET EVERY DAY; Therapy: 81Kch8072 to (Evaluate:54Avc2097) Requested for: 57Rjd8473; Last Rx:[id number] Ordered Rx By: Sarah Yap; Dispense: 90 Days ; #:1 X 90 Tablet Bottle; Refill: 3; For: Hypertension; RUKHSANA = N; Verified Transmission to [facility] #2510; Last Updated By: [employer]; 08/21/201711:57:46 AM 5. MetFORMIN HCl - 1000 MG Oral Tablet; Take 1 tablet twice a day; Therapy: 23Aug2013 to (Evaluate:04Cus0068) Requested for: 48Upg2292; Last Rx:[id number] Ordered Rx By: Sarah Yap; Dispense: 90 Days ; #:1 X 180 Tablet Bottle; Refill: 3; For: Type 2 diabetes mellitus; RUKHSANA = N; Verified Transmission to [facility] #2510; Last Updated By: [employer]; 08/21/2017 11:57:46 AM 6. Pioglitazone HCl - 45 MG Oral Tablet; TAKE 1 TABLET EVERY DAY; Therapy: 16Jan2014 to (Evaluate:75Ibn0234) Requested for: 69Jma7640; Last Rx:[id number] Ordered Rx By: Sarah Yap; Dispense: 90 Days ; #:90 Tablet; Refill: 0; For: Type 2 diabetes mellitus; RUKHSANA = N; Verified Transmission to [facility] #2510; Last Updated By: [employer]; 08/21/2017 11:57:46 AM 7. Venlafaxine HCl ER 150 MG Oral Capsule Extended Release 24 Hour; Take one capsule daily; Therapy: 07Abn4151 to (Evaluate:75Fpr1912) Requested for: 69Flq7683; Last Rx:[id number] Ordered Rx By: Sarah Yap; Dispense: 90 Days ; #:1 X 90 Capsule Extended Release 24 Hour Bottle; Refill: 3; For: Adjustment disorder; RUKHSANA = N; Verified Transmission to [facility] #2510; Last Updated By: [employer]; 08/21/2017 11:57:46 AM Allergies 1. No Known Drug Allergies Recorded By: Mis Lee; 11/11/2012 11:07:55 AM Immunizations 1 2 Hepatitis A 1999 2000 Influenza 2015work May 2017 PCV 03/19/17 Tdap 07-Jan-2012 Zoster 03/19/17 Vitals Recorded: 21Aug2017 11:35AM Systolic 124 Diastolic 70 Height 5 ft 7.5 in Weight 264 lb BMI Calculated 40.74 BSA Calculated 2.29 Physical Exam Constitutional General appearance: No acute distress, well appearing and well nourished. morbidly obese.. Eyes Conjunctiva and lids: No swelling, erythema or discharge. Pupils and irises: Equal, round, reactive to light. Ears, Nose, Mouth, and Throat External inspection of ears and nose: Normal. Otoscopic examination: Tympanic membranes translucent with normal light reflex. Canals patent without erythema. Nasal mucosa, septum, and turbinates: Normal without edema or erythema. Lips, teeth, and gums: Normal, good dentition. Oropharynx: Normal with no erythema, edema, exudate or lesions. Neck Neck: Supple, symmetric, trachea midline, no masses. Thyroid: Normal, no thyromegaly. Pulmonary Respiratory effort: No increased work of breathing or signs of respiratory distress. Auscultation of lungs: Clear to auscultation. Cardiovascular Auscultation of heart: Normal rate and rhythm, normal S1 and S2, no murmurs. Examination of extremities for edema and/or varicosities: Normal. Chest Breasts: Normal, no dimpling or skin changes appreciated. Palpation of breasts and axillae: Normal, no masses palpated. Abdomen Abdomen: Non-tender, no masses. Liver and spleen: No hepatomegaly or splenomegaly. Examination for hernias: No hernia appreciated. Anus, perineum, and rectum: Normal sphincter tone, no masses, no prolapse. Stool sample for occult blood: Negative. Genitourinary External genitalia and vagina: Normal, no lesions appreciated. Urethra: Normal, no discharge. Cervix: Normal, no lesions. pap obtained, bimanual useless due to obesity.. Lymphatic Palpation of lymph nodes in neck: No lymphadenopathy. Palpation of lymph nodes in axillae: No lymphadenopathy. Musculoskeletal Gait and station: Normal. Digits and nails: Abnormal. right thumb triggers. Joints, bones, and muscles: Normal. Skin Skin and subcutaneous tissue: Normal without rashes or lesions. Psychiatric Mood and affect: Normal. Assessment 1. Encounter for preventive health examination (V70.0) (Z00.00) 2. Trigger thumb (727.03) (M65.319) 3. Adenomatosis (211.3) (D12.6) 4. Adjustment disorder (309.9) (F43.20) ?? stable on meds 5. Eczema (692.9) (L30.9) 6. Hyperlipidemia (272.4) (E78.5) 7. Hypertension (401.9) (I10) 8. Morbid obesity (278.01) (E66.01) 9. Osteoarthritis of left knee (715.96) (M17.12) 10. Polyp of colon (211.3) (K63.5) 11. Type 2 diabetes mellitus (250.00) (E11.9) 12. Strain of chest wall (848.8) (S29.011A) Plan Adjustment disorder ?? Venlafaxine HCl ER 150 MG Oral Capsule Extended Release 24 Hour (Effexor XR); Take one capsule daily Rx By: Sarah Yap; Dispense: 0 Days ; #:90 Capsule; Refill: 3; For: Adjustment disorder; RUKHSANA =N; Faxed To: [facility] #2820 Health Maintenance ?? MG SCREEN MAMMO DIGITAL BI; Status:Active; Requested for:21Aug2017; Perform:Other Radiology; Due:20Sep2017;Ordered; For:Health Maintenance; Ordered By:Sarah Yap; Hyperlipidemia, Hypertension, Morbid obesity, Type 2 diabetes mellitus ?? [facility]- CMP; Status:Need Information - Required information; Requested for:21Aug2017; Perform:LabDAQ; Due:20Sep2017;Ordered; For:Hyperlipidemia, Hypertension, Morbid obesity, Type 2 diabetes mellitus; Ordered By:Sarah Yap; : Fast 12 hours prior to test (May drink water) ?? [facility]- LIPID PANEL; Status:Need Information - Required information; Requested for:21Aug2017; Perform:LabDAQ; Due:20Sep2017;Ordered; For:Hyperlipidemia, Hypertension, Morbid obesity, Type 2 diabetes mellitus; Ordered By:Sarah Yap; : Fast 12 hours prior to test (May drink water) Hyperlipidemia, Hypertension, Type 2 diabetes mellitus ?? Atorvastatin Calcium 10 MG Oral Tablet (Lipitor); TAKE 1 TABLET BY MOUTH EVERY DAY Rx By: Sarah Yap; Dispense: 90 Days ; #:1 X 90 Tablet Bottle; Refill: 3; For: Hyperlipidemia,Hypertension, Type 2 diabetes mellitus; RUKHSANA = N; Faxed To: [facility] #2510 Hypertension ?? HydroCHLOROthiazide 50 MG Oral Tablet; TAKE 1 TABLET EVERY DAY Rx By: Sarah Yap; Dispense: 0 Days ; #:90 Tablet; Refill: 3; For: Hypertension; RUKHSANA = N; Faxed To: [facility] #2510 ?? Lisinopril 10 MG Oral Tablet; TAKE 1 TABLET EVERY DAY Rx By: Sarah Yap; Dispense: 90 Days ; #:1 X 90 Tablet Bottle; Refill: 3; For: Hypertension; RUKHSANA = N; [facility]axed To: [facility] Trigger thumb ?? Hand Referral Outpatient For: Trigger thumb Status: Need Information - Financial Authorization Requested for: 21Aug2017 Ordered; For: Trigger thumb; Ordered By: Sarah Yap Performed: Due: 19Suc0153 Type 2 diabetes mellitus ?? Basaglar KwikPen 100 UNIT/ML Subcutaneous Solution Pen-injector; INJECT 55 UNITS SUBCUTANEOUSLY PER DAY DIRECTED Rx By: Sarah Yap; Dispense: 0 Days ; #:1 X 3 ML Pen; Refill: 3; For: Type 2 diabetes mellitus; RUKHSANA = N; Faxed To: [facility] ?? *Urine Microalbumin In Office [id number]; Status:Active; Requested for:21Aug2017; Perform:In Office; Due:20Sep2017;Ordered; For:Type 2 diabetes mellitus; Ordered By:Sarah Yap; ?? MetFORMIN HCl - 1000 MG Oral Tablet; Take 1 tablet twice a day Rx By: Sarah Yap; Dispense: 90 Days ; #:1 X 180 Tablet Bottle; Refill: 3; For: Type 2 diabetes mellitus; RUKHSANA = N; Faxed To: [facility] ?? BFMA-Hemoglobin A1C; Status:Active; Requested for:21Aug2017; Perform:[facility]; Due:20Sep2017;Ordered; For:Type 2 diabetes mellitus; Ordered By:Sarah Yap; : No fasting required ?? Pioglitazone HCl - 45 MG Oral Tablet (Actos); TAKE 1 TABLET EVERY DAY Rx By: Sarah Yap; Dispense: 90 Days ; #:90 Tablet; Refill: 3; For: Type 2 diabetes mellitus; RUKHSANA = N; Faxed To: [facility] #2510 aleve 2 bid, refer to hand surgeon, mamm, cmp lipids a1c micral watch diet work on wt loss exercisehad eye exam no barefoot Signatures Electronically signed by : Sarah Yap D.O.; Aug 21 2017 12:05PM CUSTOMER ORDER CLERK (Author) documented in this encounter Plan of Treatment Upcoming Encounters Date Type Department Care Team (Late st Contact Info) Description 09/29/2024 8:00 AM CUSTOMER ORDER CLERK Office Visit [facility] Family Medicine - [address], [address] [place] [phone] Elza Benitez MD [address] [place] [address] [place] [id number] documented as of this encounter Procedures Procedure Name Priority Date/Time Associated Diagnosis Comments COMPREHENSIVE METABOLIC PANEL Routine 08/22/2017 9:14 AM CUSTOMER ORDER CLERK LIPID PANEL Routine 08/22/2017 9:14 AM CUSTOMER ORDER CLERK CYTOPATH CERV/VAG THIN LAYER Routine 08/21/2017 12:45 PM CUSTOMER ORDER CLERK documented in this encounter Results * (ABNORMAL) COMPREHENSIVE METABOLIC PANEL (08/22/2017 9:14 AM CUSTOMER ORDER CLERK) GLUCOSE 218(H) 74 - 106 mg/dL TOUCHWORKS TO EPIC CONVERSION BUN 13 6 - 20 mg/dL TOUCHWORKS TO EPIC CONVERSION CREATININE S/P/B 0.61 0.60 - 1.00 mg/dL TOUCHWORKS TO EPIC CONVERSION BUN CREATININE RATIO 21 4 - 25 TOUCHWORKS TO EPIC CONVERSION GFR ESTIMATE 109.9 >60.0 mL/min/1.7 3 m TOUCHWORKS TO EPIC CONVERSION EGFR AFR. AMER. 133.0 >60.0 mL/min/1.7 3 m TOUCHWORKS TO EPIC CONVERSION CALCIUM S/P/B 8.7 8.6 - 10.3 mg/dl TOUCHWORKS TO EPIC CONVERSION SODIUM S/P/B 136 135 - 145 mmol/L TOUCHWORKS TO EPIC CONVERSION POTASSIUM S/P/B 4.0 3.5 - 5.2 mmol/L TOUCHWORKS TO EPIC CONVERSION CHLORIDE S/P/B 99 97 - 107 mmol/L TOUCHWORKS TO EPIC CONVERSION CO2 30 21 - 31 mmol/L TOUCHWORKS TO EPIC CONVERSION ANION GAP 7.0 7.0 - 18.0 TOUCHWORK S TO EPIC CONVERSION TOTAL PROTEIN S/P/B 6.1 6.1 - 8.1 g/dL TOUCHWORKS TO EPIC CONVERSION ALBUMIN S/P/B 4.0 3.5 - 5.2 g/dL TOUCHWORKS TO EPIC CONVERSION GLOBULIN 2.1 1.9 - 3.7 g/dL TOUCHWORKS TO EPIC CONVERSION A/G RATIO 1.9 1.1 - 2.5 TOUCHWORKS TO EPIC CONVERSION BILIRUBIN TOTAL (FLUID) 0.32 0.25 - 1.20 mg/dL TOUCHWORKS TO EPIC CONVERSION ALK PHOS 96 42 - 98 U/L TOUCHWORKS TO EPIC CONVERSION AST 15 5 - 34 U/L TOUCHWORK S TO EPIC CONVERSION ALT 13 0 - 34 U/L TOUCHWORK S TO EPIC CONVERSION Comment:Result Comment: RESU LTS <10 ARE ACCEPTABLE 08/22/2017 9:14 AM CUSTOMER ORDER CLERK 08/22/2017 9:14 AM CUSTOMER ORDER CLERK Narrative TOUCHWORKS TO EPIC CONVERSION - 08/22/2017 9:14 AM CUSTOMER ORDER CLERK Order Comment: 25Aug2017 4:17PM by Sarah Yap: ??a1c much higher ??increase insulin to 75u q d ?? f/u with me in 4mths Result Communication: Call patient with results Sarah Yap DO LABORATORY Final Result TOUCHWORKS TO EPIC CONVERSION * (ABNORMAL) LIPID PANEL (08/22/2017 9:14 AM CUSTOMER ORDER CLERK) CHOLESTEROL 125 0 - 199 mg/dL TOUCHWORKS TO EPIC CONVERSION TRIGLYCERIDES 121 0 - 149 mg/dL TOUCHWORKS TO EPIC CONVERSION HDL 63(H) 40 - 60 mg/dL TOUCHWORKS TO EPIC CONVERSION Comment:Result Comment: CONS ISTENT WITH PREVIOUS RESULTS LDL (CALCULATED) 38 0 - 130 ANTALIE CHWORKS TO EPIC CONVERSION RISK 2.0 TOUCHWORKS TO EPIC CONVERSION 08/22/2017 9:14 AM CUSTOMER ORDER CLERK 08/22/2017 9:14 AM CUSTOMER ORDER CLERK Narrative TOUCHWORKS TO EPIC CONVERSION - 08/22/2017 9:14 AM CUSTOMER ORDER CLERK Order Comment: SLIGHT LIPEMIA 25Aug2017 4:17PM by Sarah Yap: ??a1c much higher ??increase insulin to 75u q d ?? f/u with me in 4mths Result Communication: Call patient with results us Sarah Yap DO LABORATORY Final Result TOUCHWORKS TO EPIC CONVERSION * Cytopath Cerv/Vag Thin Layer (08/21/2017 12:45 PM CUSTOMER ORDER CLERK) COMMENT TOUCHWORKS TO EPIC CONVERSION Comment: Result Comment: NEGATIVE FOR INTRAEPITHELIAL LESION AND MALIGNANCY. CELLULAR CHANGES ASSOCIATED WITH ATROPHY ARE PRESENT. THIS SPECIMEN WAS RESCREENED PART OF OUR [employer] PROGRAM. STATEMENT OF ADEQUACY: TOUCHWORKS TO EPIC CONVERSION Comment: Result Comment: Satisfactory for evaluation. ??Endocervical component may not be distinguished in cases of atrophy. COMMENT TOUCHWORKS TO EPIC CONVERSION Comment:Result Comment: Haven Chan, Associate Financial Representative REVIEWED BY TOUCHWOR [place] TO EPIC CONVERSION Comment:Result Comment: Haley Stacy, Associate Financial Representative ([facility]) COMMENT . TOUCHWORKS TO EPIC CONVERSION NOTE TOUCHWORKS TO EPIC CONVERSION Comment: Result Comment: The Pap smear is a screening test designed to aid in the detection of premalignant and malignant conditions of the uterine cervix. ??It is not a diagnostic procedure and should not be used as the sole means of detecting cervical cancer. ??Both false-positive and false-negative reports do occur. ? . METHOD TOUCHWORKS TO EPIC CONVERSION Comment: Result Comment: This liquid based ThinPrep(R) pap test was screened with the use of an image guided system. PRIMARY DIAGNOSIS: T OUCHWORKS TO EPIC CONVERSION Comment:Result Comment: Z00. 00 08/21/2017 12:4 5 PM CUSTOMER ORDER CLERK 08/21/2017 12:45 PM CUSTOMER ORDER CLERK Narrative TOUCHWORKS TO EPIC CONVERSION - 08/26/2017 10:35 AM CUSTOMER ORDER CLERK Result Communication: No patient communication needed at this time us Sarah Yap DO PATHOLOGY/CYTOLOGY ORDERABLE S Final Result TOUCHWORKS TO EPIC CONVERSION documented in this encounter Visit Diagnoses Not on filedocumented in this encounter Care Teams Supervisor Wet Pour Relationship Specialty Start Date End Date Sarah Yap DO [address] [place] [address] PCP - General 08/18/16 12/14/23 documented as of this encounter
--- OUTSIDE RECORDS SUMMARY | 2024-08-08 14:14 | XMS_ITS | Encounter Summary ---
Author Organization [facility] Address [address] [place] [address]. [place] [address] [place] [address] Care Team Providers Care Bit Tripoler Name Role Phone Sarah Yap DO Primary Care Provider + [phone] Sarah Ypa DO Primary Care Provider + [phone] Sarah Yap DO Primary Care Provider + [phone] Sarah Yap DO Primary Care Provider + [phone] Encounter Details Date Type Department Care Team (Latest Contact Info) Description 04/13/2015 Abstract [facility] Sarah Yap DO [address] [place] [address] Social History Tobacco Use Types [...] Reading Time Taken Comments Blood Pressure 110/78 04/13/2015 3:51 PM CDT Pulse 72 04/13/2015 3:51 PM CDT Temperature - - Respiratory Rate - - Oxygen Saturation - - Inhaled Oxygen Concentration - - Weight 123.8 kg (273 lb) 04/13/2015 3:51 PM CDT Height 171.5 cm (5' 7.5 ) 04/13/2015 3:51 PM CDT Body Mass Index 42.13 04/13/2015 3:51 PM CDT documented in this encounter Progress Notes * Sarah Yap MD - 04/13/2015 4:00 PM CDT Reason For Visit Med Check, Health Chemical Engineering Intern Complaint Annual,WWE 90ds rx refill pt not fasting History of Present Illness HPI: Here for annual has had flare of her eczema past mth--starting to get better no other complaints Review of Systems See HPI for pertinent positives. Constitutional: negative. Cardiovascular: negative. Respiratory: negative. Gastrointestinal: negative. Genitourinary: negative. Active Problems 1. Adenomatosis (211.3) (D12.6) 2. Adjustment disorder (309.9) (F43.20) 3. Eczema (692.9) (L30.9) 4. Hyperlipidemia (272.4) (E78.5) 5. Hypertension (401.9) (I10) 6. Morbid obesity (278.01) (E66.01) 7. Type 2 diabetes mellitus (250.00) (E11.9) Past Medical History ?? History of acne (V13.3) (Z87.2) ?? History of cholelithiasis (V12.79) (Z87.19) ?? History of hypertension (V12.59) (Z86.79) ?? History of premenstrual syndrome (V13.29) (Z87.42) ?? History of viral warts (V12.09) (Z86.19) ?? History of Postmenopausal status (V49.81) (Z78.0) ?? History of Summary Of Previous Pregnancies 0 (Total No.) Surgical History ?? History of Colonoscopy (Fiberoptic) ?? 03/2010 polyp repeat 2014 ?? History of Ear Surgery ?? History of Renal Lithotripsy ?? History of Tonsillectomy Family History Father ?? Family history of Skin Cancer (V16.8) Maternal Grandmother ?? Family history of Breast Cancer (V16.3) Family History ?? Family history of Diabetes Mellitus (V18.0) ?? Family history of Hypertension (V17.49) Social History ?? Alcohol Use (History) ?? Marital History - Currently ?? 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 Tobacco Non-user Current Meds 1. Hydrochlorothiazide 50 MG Oral Tablet; TAKE 1 TABLET EVERY DAY; Therapy: 17May2013 to (Evaluate:21Jun2015) Requested for: 17Mit6592; Last Rx:[id number] Ordered Rx By: Sarah Yap; Dispense: 90 Days ; #:90 TAB; Refill: 0; For: Hypertension; RUKHSANA = N; Verified Transmission to [facility] #25[facility]; Last Updated By: [employer]; 04/13/2015 4:22:19 PM 2. Lantus 100 UNIT/ML Subcutaneous Solution; INJECT 46 UNITS ONCE DAILY; Therapy: 99Jlh8775 to (Evaluate:86Tfj9096) Requested for: 99Yzh3352; Last Rx:[id number] Ordered Rx By: Sarah Yap; Dispense: 90 Days ; #:50 ML; Refill: 1; For: PMH: History of acne; RUKHSANA = N;Verified Transmission to [facility] #2510; Last Updated By: [employer]; 04/13/2015 4:22:22 PM 3. Lisinopril 10 MG Oral Tablet; TAKE 1 TABLET EVERY DAY; Therapy: 04Lyy1093 to (Evaluate:54Pmp7253) Requested for: 21Nhy1772; Last Rx:[id number] Ordered Rx By: Sarah Yap; Dispense: 90 Days ; #:90 TAB; Refill: 2; For: Hypertension; URKHSANA = N; Verified Transmission to [facility] #2510; Last Updated By: [employer]; 04/13/2015 4:22:18 PM 4. MetFORMIN HCl - 1000 MG Oral Tablet; Take 1 tablet twice a day; Therapy: 23Aug2013 to (Evaluate:11Nni7336) Requested for: 08Dll5012; Last Rx:[id number] Ordered Rx By: Sarah Yap; Dispense: 90 Days ; #:180 TAB; Refill: 0; For: Type 2 diabetes mellitus; RUKHSANA = N; Verified Transmission to [facility] #2510; Last Updated By: [employer]; 04/13/2015 4:22:21 PM 5. Mometasone Furoate 0.1 % External Cream; APPLY SPARINGLY TO AFFECTED AREAS TWICE DAILY.(AM AND PM); Therapy: 19Oct2014 to (Last Rx:19Oct2014) Requested for: 19Oct2014 Ordered Rx By: Sarah Yap; Dispense: 0 Days ; #:1 X 45 GM Tube; Refill: 1; For: Eczema; RUKHSANA = N; Verified Transmission to [facility] #2510; Last Updated By: [employer]; 10/19/2014 3:30:03 PM 6. Pioglitazone HCl - 45 MG Oral Tablet; TAKE 1 TABLET EVERY DAY; Therapy: 23Lls0865 to (Evaluate:58Znz1265) Requested for: 30Ryp2157; Last Rx:[id number] Ordered Rx By: Sarah Yap; Dispense: 90 Days ; #:90 TAB; Refill: 2; For: Type 2 diabetes mellitus; RUKHSANA= N; Verified Transmission to [facility] #25[facility]; Last Updated By: [employer]; 04/13/2015 4:22:21 PM 7. Venlafaxine HCl ER 150 MG Oral Capsule Extended Release 24 Hour; EVERY DAY; Therapy: 47Tso6177 to (Evaluate:01Tvh5817) Requested for: 72Smc2149; Last Rx:[id number] Ordered Rx By: Sarah Yap; Dispense: 90 Days ; #:90 Capsule Extended Release 24 Hour; Refill: 3; For: Adjustment disorder; RUKHSANA = N; Verified Transmission to [facility] #2510; Last Updated By: [employer]; 04/13/2015 4:22:19 PM Allergies 1. No Known Drug Allergies Recorded By: Mis Lee; 11/11/2012 11:07:55 AM Immunizations 1 2 Hepatitis A 1999 2000 Tdap 07Jan2012 Vitals Recorded: 13Apr2015 03:51PM Heart Rate 72 Systolic 110 Diastolic 78 Height 5 ft 7.5 in Weight 273 lb BMI Calculated 42.13 BSA Calculated 2.32 Physical Exam Constitutional General appearance: No acute distress, well appearing and well nourished. Morbidly obese. Head and Face Head and face: Normal. Eyes Conjunctiva and lids: No swelling, erythema [...] no lesions appreciated. Urethra: Normal, no discharge. Bimanual useless due to obesity no pap normal last yr. Lymphatic Palpation of lymph nodes in neck: No lymphadenopathy. Palpation of lymph nodes in axillae: No lymphadenopathy. Musculoskeletal Gait and station: Normal. Digits and nails: Normal without clubbing or cyanosis. Joints, bones, and muscles: Normal. Skin Skin and subcutaneous tissue: Abnormal. Eczema changes arms legs and patch onhip. Psychiatric Mood and affect: Normal. Assessment 1. Adjustment disorder (309.9) (F43.20) 2. Eczema (692.9) (L30.9) 3. Encounter for preventive health examination (V70.0) (Z00.00) 4. Hyperlipidemia (272.4) (E78.5) 5. Hypertension (401.9) (I10) 6. Morbid obesity (278.01) (E66.01) 7. Type 2 diabetes mellitus (250.00) (E11.9) 8. Colon polyp (211.3) (K63.5) Plan Adjustment disorder ?? HCl ER 150 MG Oral Capsule Extended Release 24 Hour (Effexor XR); EVERY DAY Rx By: Sarah Yap; Dispense: 90 Days ; #:90 Capsule Extended Release 24 Hour; Refill: 3; For: Adjustment disorder; RUKHSANA = N; Verified Transmission to [facility] #2510; Last Updated By: [employer]; 04/13/2015 4:22:19 PM Health Maintenance ?? LC-CBC, Platelet; No Differential [id number]; Status:Hold For - Manual Activation; Requested for:13Apr2015; Perform:[facility]; Due:13May2015;Ordered; For:Health Maintenance; Ordered By:Sarah Yap; ?? MG SCREEN MAMMO DIGITAL BI; Status:Active; Requested for:13Apr2015; Perform:Other Radiology; Due:13May2015;Ordered; For:Health Maintenance; Ordered By:Sarah Yap; ?? Schedule COLONOSCOPY Outpatient Follow-up Status: Need Information - Financial Authorization Requested for: 13Apr2015 Ordered; For: Health Maintenance; Ordered By: Sarah Yap Performed: Due: 27Apr2015 Hyperlipidemia, Hypertension, Morbid obesity, Type 2 diabetes mellitus ?? LC-Comp. Metabolic Panel ( CMP ) [id number]; Status:Hold For - Manual Activation; Requested for:13Apr2015; Perform:[facility]; Due:13May2015;Ordered; For:Hyperlipidemia, Hypertension, Morbid obesity, Type 2 diabetes mellitus; Ordered By:Sarah Yap; ?? LC-Lipid Panel With LDL/HDL Ratio [id number]; Status:Hold For - Manual Activation; Requested for:13Apr2015; Perform:[facility]; Due:13May2015;Ordered; For:Hyperlipidemia, Hypertension, Morbid obesity, Type 2 diabetes mellitus; Ordered By:Sarah Yap; Hypertension ?? 50 MG Oral Tablet; TAKE 1 TABLET EVERY DAY Rx By: Sarah Yap; Dispense: 90 Days ; #:1 X 90 Tablet Bottle; Refill: 3; For: Hypertension; RUKHSANA = N; Verified Transmission to [facility] #2510; Last Updated By: [employer]; 04/13/20154:22:19 PM ?? 10 MG Oral Tablet; TAKE 1 TABLET EVERY DAY Rx By: Sarah Yap; Dispense: 90 Days ; #:1 X 90 Tablet Bottle; Refill: 3; For: Hypertension; RUKHSANA = N; Verified Transmission to [facility] #2510; Last Updated By: [employer]; 04/13/20154:22:18 PM PMH: History of acne ?? 100 UNIT/ML Subcutaneous Solution; INJECT 46 UNITS ONCE DAILY Rx By: Sarah Yap; Dispense: 90 Days ; #:50 ML; Refill: 3; For: PMH: History of acne; RUKHSANA = N;Verified Transmission to [facility] #2510; Last Updated By: [employer]; 04/13/2015 4:22:22 PM Type 2 diabetes mellitus ?? HCl - 1000 MG Oral Tablet; Take 1 tablet twice a day Rx By: Sarah Yap; Dispense: 90 Days ; #:1 X 180 Tablet Bottle; Refill: 3; For: Type 2 diabetes mellitus; RUKHSANA = N; Verified Transmission to [facility] #2510; Last Updated By: [employer]; 04/13/2015 4:22:21 PM ?? HCl - 45 MG Oral Tablet (Actos); TAKE 1 TABLET EVERY DAY Rx By: Sarah Yap; Dispense: 90 Days ; #:1 X 90 Tablet Bottle; Refill: 3; For: Type 2 diabetesmellitus; RUKHSANA = N; Verified Transmission to [facility] #2510; Last Updated By: [employer]; 04/13/2015 4:22:21 PM ?? LC-Hemoglobin A1c [id number]; Status:Hold For - Manual Activation; Requested for:13Apr2015; Perform:[facility]; Due:13May2015;Ordered; For:Type 2 diabetes mellitus; Ordered By:Sarah Yap; ?? LC-Microalbumin, Random Urine [id number]; Status:Hold For - Manual Activation; Requested for:13Apr2015; Perform:[facility]; Due:13May2015;Ordered; For:Type 2 diabetes mellitus; Ordered By:Sarah Yap; cbc cmp lipids a1c micral mamm will get flu shot at work needs to exercise work on diet and wt losswas just at eye doctor today no barefeet Signatures Electronically signed by : Sarah Yap D.O.; Apr 13 2015 4:33PM BIRTH CERTIFICATE CLERK (Author) documented in this encounter Plan of Treatment Upcoming Encounters Date Type Department Care Team (Late st Contact Info) Description 09/29/2024 8:00 AM BIRTH CERTIFICATE CLERK Office Visit [facility] Family Medicine - [address], [address] [place] [address] Elza Benitez MD [address] [facility] [address] [place] [address] documented as of this encounter Procedures Procedure Name Priority Date/Time Associated Diagnosis Comments CBC, AUTO, NO DIFF Routine 04/20/2015 8: 29 AM CDT documented in this encounter Results * CBC, AUTO, NO DIFF (04/20/2015 8:29 AM CDT) WBC 7.4 3.4 - 10.8 x10E3/uL TOUCHWORKS TO EPIC CONVERSION RBC 4.70 3.77 - 5.28 x10E6/uL TOUCHWORKS TO EPIC CONVERSION HEMOGLOBIN MIXED VENOUS 13.4 11.1 - 15.9 g/dL TOUCHWORKS TO EPIC CONVERSION HCT 40.8 34.0 - 46.6 % TOUCHWORKS TO EPIC CONVERSION MCV 87 79 - 97 fL TOUCHWORK S TO EPIC CONVERSION MCH 28.5 26.6 - 33.0 pg TOUCHWORKS TO EPIC CONVERSION MCHC 32.8 31.5 - 35.7 g/dL TOUCHWORKS TO EPIC CONVERSION RDW 13.8 12.3 - 15.4 % TOUCHWORKS TO EPIC CONVERSION PLT 348 150 - 379 x10E3/uL TOUCHWORKS TO EPIC CONVERSION NRBC TOUCHWORKS TO EPIC CONVERSION 04/20/2015 8:29 AM CDT 04/20/2015 8:29 AM CDT Narrative TOUCHWORKS TO EPIC CONVERSION - 04/21/2015 2:10 AM CDT [id number] 2:04PM by Sarah Yap: ??increase Lantus to [...] on filedocumented in this encounter Care Teams Bit Tripoler Relationship Specialty Start Date End Date Sarah Yap DO [address] [place] [address] PCP - General 08/18/16 12/14/23 Sarah Yap DO [address] [place] [address] PCP - General 07/10/16 08/17/16 Sarah Yap DO [address] [place] [address] PCP - General 05/07/15 07/09/16 Sarah Yap DO [address] [place], [place] [id number] PCP - General 01/23/15 05/06/15 documented as of this encounter
--- OUTSIDE RECORDS SUMMARY | 2024-08-08 14:14 | XMS_ITS | Encounter Summary ---
Author Organization [facility] Address [address] [place] [address]. [place], [place] [address] [place] [address] Care Team Providers Care Business Intelligence Analyst Name Role Phone Jaci Herrera DO Primary Care Provider [phone] Jaci Herrera DO Primary Care Provider [phone] Encounter Details Date Type Department Care Team (Latest Contact Info) Description 07/10/2016 Abstract [facility] Medical Group Jaci Herrera DO [address] [place] [address] Social History Tobacco Use Types Packs/Day Years Used Date Smoking Tobacco: Never Assessed Comments Unknown Sex and Gender Information Value Date Recorded Sex Assigned at Not on file Legal Sex Female 7:26 PM CDT Gender Identity Not on file Sexual Orientation Not on file documented as of this encounter Last Filed Vital Signs Vital Sign Reading Time Taken Comments Blood Pressure 122/68 07/10/2016 3:09 PM SUBASSEMBLY ASSEMBLER Pulse - - Temperature - - Respiratory Rate - - Oxygen Saturation - - Inhaled Oxygen Concentration - - Weight 120.7 kg (266 lb) 07/10/2016 3:09 PM SUBASSEMBLY ASSEMBLER Height 171.5 cm (5' 7.5 ) 07/10/2016 3:09 PM SUBASSEMBLY ASSEMBLER Body Mass Index 41.05 07/10/2016 3:09 PM SUBASSEMBLY ASSEMBLER documented in this encounter Progress Notes * Jaci Herrera MD - 07/10/2016 4:48 PM CST Message let know does have OA if gets worse and the aleve doesn't help--we can give her a steroid injection Verified Results XR KNEE 1-2 VIEW LT ( Routine ) 91Xcg1383 04:35PM Jaci Herrera Test Name Result Flag Reference XR KNEE 1-2 VIEW LT (Report) DAVID PEGUERO ADMIT/SERVICE DATE: 07/10/16 ACCT: [id number] DISCHARGE DATE: : 1965 SEX: F ORD SITE: [facility] PT TYPE: REG CLI ORDERING MD: JACI HERRERA DO STUDY DATE REPORT # ORDER # EXT ORDER ID 07/10/16 [id number] PROC CODE: [id number] PROCEDURE DESCRIPTION: XR KNEE 1 TO 2 VIEWS LT IMPRESSION: THREE COMPARTMENT ARTHRITIS IS SEEN WITH A JOINT EFFUSION. EXAMINATION: LEFT KNEE 2 VIEWS EXAM DATE/TIME: 07/10/2016 4:25 PM CLINICAL HISTORY: LEFT KNEE PAIN COMPARISON: NONE. TECHNIQUE: AP AND LATERAL VIEWS OF THE LEFT KNEE WERE OBTAINED. FINDINGS: MODERATE DEGENERATIVE SPURRING OF THE FEMORAL CONDYLES TO PLATEAU AND PATELLA ARE SEEN WITH A MODERATE-SIZED JOINT EFFUSION. THERE IS MILD MEDIAL AND PATELLOFEMORAL JOINT SPACE NARROWING. THERE IS NO FRACTURE. ELECTRONICALLY SIGNED BY: DEMETRI CHAN07/10/2016 4:36 PM * Jaci Herrera MD - 07/10/2016 3:15 PM CST Reason For Visit Reason For Visit: Health Biostatistics Manager Complaint Annual well woman exam History of Present Illness HPI Free Text: Here for annual c/o left knee pain for over 6mths, no injury, hurts worse when has been sitting and then stands up to walk no swelling occas takes an aleve has been to eye doctor recently had flu shot at work Review of Systems See HPI for pertinent positives. Constitutional: negative. Cardiovascular: negative. Respiratory: negative. Gastrointestinal: negative. Genitourinary: negative. Psychiatric: negative. Active Problems 1. Adenomatosis (211.3) (D12.6) 2. Adjustment disorder (309.9) (F43.20) 3. Eczema (692.9) (L30.9) 4. Hyperlipidemia (272.4) (E78.5) 5. Hypertension (401.9) (I10) 6. Morbid obesity (278.01) (E66.01) 7. Polyp of colon (211.3) (K63.5) 8. Type 2 diabetes mellitus (250.00) (E11.9) Past [...] ?? Marital History - Currently ?? 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 Tobacco Non-user Current Meds 1. Atorvastatin Calcium 10 MG Oral Tablet; TAKE 1 TABLET BY MOUTH EVERY DAY; Therapy: 24Mpg0438 to (Evaluate:68Cfp9063) Requested for: 29Jun2016; Last Rx:29Jun2016 Ordered Rx By: Jaci Herrera; Dispense: 90 Days ; #:90 TAB; Refill: 0; For: Hyperlipidemia, Hypertension,Type 2 diabetes mellitus; RUKHSANA = N; Verified Transmission to [facility] #5620; Last Updated By: Josefina Vasquez; 07/10/2016 3:39:46 PM 2. HydroCHLOROthiazide 50 MG Oral Tablet; TAKE 1 TABLET EVERY DAY; Therapy: 02Dsi6109 to (Evaluate:11Aug2016) Requested for: 13May2016; Last Rx:13May2016 Ordered Rx By: Jaci Herrera; Dispense: 90 Days ; #:90 TAB; Refill: 0; For: Hypertension; RUKHSANA = N; Verified Transmission to [facility] #2510; Last Updated By: [employer]; 07/10/2016 3:39:45 PM 3. Lantus 100 UNIT/ML Subcutaneous Solution; inject 55 units once daily; Therapy: 16Kmu0217 to (Evaluate:11Aug2016) Requested for: 13May2016; Last Rx:[id number] Ordered Rx By: Jaci Herrera; Dispense: 90 Days ; #:50 ML; Refill: 0; For: Type 2 diabetes mellitus; RUKHSANA = N; Verified Transmission to [facility] #2510; Last Updated By: Runscope; 07/10/2016 3:39:44 PM 4. Lisinopril 10 MG Oral Tablet; TAKE 1 TABLET EVERY DAY; Therapy: 19Apr2013 to (Evaluate:99Tgw0096) Requested for: 29Jun2016; Last Rx:29Jun2016 Ordered Rx By: Jaci Herrera; Dispense: 90 Days ; #:90 TAB; Refill: 0; For: Hypertension; RUKHSANA = N; Verified Transmission to [facility] #2510; Last Updated By: Runscope; 07/10/2016 3:39:44 PM 5. MetFORMIN HCl - 1000 MG Oral Tablet; Take 1 tablet twice a day; Therapy: 23Aug2013 to (Evaluate:15Mdy8630) Requested for: 13Apr2015; Last Rx:[id number] Ordered Rx By: Jaci Herrera; Dispense: 90 Days ; #:1 X 180 Tablet Bottle; Refill: 3; For: Type 2 diabetes mellitus; RUKHSANA = N; Verified Transmission to [facility] #2510; Last Updated By: Runscope; 07/10/2016 3:39:44 PM 6. Mometasone Furoate 0.1 % External Cream; APPLY SPARINGLY TO AFFECTED AREAS TWICE DAILY.(AM AND PM); Therapy: 19Oct2014 to (Last Rx:19Oct2014) Requested for: 19Oct2014 Ordered Rx By: Jaci Herrera; Dispense: 0 Days ; #:1 X 45 GM Tube; Refill: 1; For: Eczema; RUKHSANA = N; Verified Transmission to [facility] #2510; Last Updated By: [employer]; 07/10/2016 3:39:46 PM 7. Pioglitazone HCl - 45 MG Oral Tablet; TAKE 1 TABLET EVERY DAY; Therapy: 10Jrx5588 to (Evaluate:17Fey5489) Requested for: 09Vlb1753; Last Rx:67Gyx3984 Ordered Rx By: Jaci Herrera; Dispense: 90 Days ; #:90 TAB; Refill: 0; For: Type 2 diabetes mellitus; RUKHSANA= N; Verified Transmission to [facility] #2510; Last Updated By: Runscope; 07/10/2016 3:39:45 PM 8. Venlafaxine HCl ER 150 MG Oral Capsule Extended Release 24 Hour; Take one capsule daily; Therapy: 73Ivc4810 to (Evaluate:11Aug2016) Requested for: 13May2016; Last Rx:13May2016 Ordered Rx By: Jaci Herrera; Dispense: 90 Days ; #:90 Capsule; Refill: 0; For: Adjustment disorder; RUKHSANA = N; Verified Transmission to [facility] #2510; Last Updated By: Runscope; 07/10/2016 3:39:45 PM Allergies 1. No Known Drug Allergies Recorded By: Mis Lee; 11/11/2012 11:07:55 AM Immunizations 1 2 Hepatitis A 1999 2000 Influenza 2016work Tdap 07Jan2012 Vitals Recorded: 51Kgb0849 03:09PM Systolic 122 Diastolic 68 Height 5 ft 7.5 in Weight 266 lb BMI Calculated 41.05 BSA Calculated 2.29 Physical Exam Constitutional General appearance: No acute distress, well appearing and well nourished. morbidly obese. Head and Face Head and face: [...] rhythm, normal S1 and S2, no murmurs. Carotid pulses: 2+ bilaterally. Examination of extremities for edema and/or varicosities: [...] Normal, no discharge. Cervix: Normal, no lesions. Uterus: Normal size, no tenderness, no masses. Adnexa/Parametria: Normal, no masses or tenderness. no pap, bimanual limited due to obesity. Lymphatic Palpation of lymph nodes in neck: No lymphadenopathy. Palpation of lymph nodes in axillae: No lymphadenopathy. Musculoskeletal Gait and station: Normal. Digits and nails: Normal without clubbing or cyanosis. Joints, bones, and muscles: Normal. left knee exam neg. Skin Skin and subcutaneous tissue: Normal without rashes or lesions. Psychiatric Mood and affect: Normal. Assessment 1. Left knee pain (719.46) (M25.562) 2. Adenomatosis (211.3) (D12.6) 3. Adjustment disorder (309.9) (F43.20) 4. Polyp of colon (211.3) (K63.5) 5. Eczema (692.9) (L30.9) 6. Encounter for preventive health examination (V70.0) (Z00.00) 7. Hyperlipidemia (272.4) (E78.5) 8. Hypertension (401.9) (I10) 9. Morbid obesity (278.01) (E66.01) 10. Type 2 diabetes mellitus (250.00) (E11.9) Plan Adjustment disorder ?? Venlafaxine HCl ER 150 MG Oral Capsule Extended Release 24 Hour (Effexor XR); Take one capsule daily Rx By: Jaci Herrera; Dispense: 90 Days ; #:1 X 90 Capsule Extended Release 24 Hour Bottle; Refill: 3; For: Adjustment disorder; RUKHSANA = N; Verified Transmission to [facility] #2510; Last Updated By: Runscope; 07/10/2016 3:39:45 PM Eczema ?? Mometasone Furoate 0.1 % External Cream; APPLY SPARINGLY TO AFFECTED AREAS TWICE DAILY.(AM AND PM) Rx By: Jaci Herrera; Dispense: 0 Days ; #:1 X 45 GM Tube; Refill: 1; For: Eczema; RUKHSANA = N; Verified Transmission to [facility] #2510; Last Updated By: Runscope; 07/10/2016 3:39:46 PM Health Maintenance ?? MG SCREEN MAMMO DIGITAL BI; Status:Active; Requested for:19Zgj3652; Perform:Other Radiology; Due:09Aug2016;Ordered; For:Health Maintenance; Ordered By:Jaci Herrera; Hyperlipidemia, Hypertension, Morbid obesity, Type 2 diabetes mellitus ?? LC-Comp. Metabolic Panel ( CMP ) [id number]; Status:Hold For - Manual Activation; Requested for:30Xje5494; Perform:[facility] Cli [facility]; Due:09Aug2016;Ordered; For:Hyperlipidemia, Hypertension, Morbid obesity, Type 2 diabetes mellitus; Ordered By:Jaci Herrera; ?? LC-Lipid Panel With LDL/HDL Ratio 081201; Status:Hold For - Manual Activation; Requested for:87Ojn9588; Perform:[facility] Cli Bill; Due:09Aug2016;Ordered; For:Hyperlipidemia, Hypertension, Morbid obesity, Type 2 diabetes mellitus; Ordered By:Jaci Herrera; ?? LC-Microalbumin, Random Urine 786293; Status:Hold For - Manual Activation; Requested for:75Owt9678; Perform:[facility] Cli Bill; Due:09Aug2016;Ordered; For:Hyperlipidemia, Hypertension, Morbid obesity, Type 2 diabetes mellitus; Ordered By:Jaci Herrera; Hyperlipidemia, Hypertension, Type 2 diabetes mellitus ?? Atorvastatin Calcium 10 MG Oral Tablet (Lipitor); TAKE 1 TABLET BY MOUTH EVERY DAY Rx By: Jaci Herrera; Dispense: 90 Days ; #:1 X 90 Tablet Bottle; Refill: 3; For: Hyperlipidemia,Hypertension, Type 2 diabetes mellitus; RUKHSANA = N; Verified Transmission to [facility] #2510; Last Updated By: [employer]; 07/10/2016 3:39:46 PM Hypertension ?? HydroCHLOROthiazide 50 MG Oral Tablet; TAKE 1 TABLET EVERY DAY Rx By: Jaci Herrera; Dispense: 90 Days ; #:1 X 90 Tablet Bottle; Refill: 3; For: Hypertension; RUKHSANA = N; Verified Transmission to [facility] #2510; Last Updated By: Runscope; 07/10/20163:39:45 PM ?? Lisinopril 10 MG Oral Tablet; TAKE 1 TABLET EVERY DAY Rx By: Jaci Herrera; Dispense: 90 Days ; #:1 X 90 Tablet Bottle; Refill: 3; For: Hypertension; RUKHSANA = N; Verified Transmission to [facility] #2510; Last Updated By: Runscope; 07/10/20163:39:44 PM Left knee pain ?? XR KNEE 1-2 VIEW LT ( Routine ); Status:Active; Requested for:75Bii6736; Perform:Other Radiology; Due:92Mev1657;Ordered; For:Left knee pain; Ordered By:Jaci Herrera; Type 2 diabetes mellitus ?? Lantus 100 UNIT/ML Subcutaneous Solution; inject 55 units once daily Rx By: Jaci Herrera; Dispense: 90 Days ; #:50 ML; Refill: 3; For: Type 2 diabetes mellitus; RUKHSANA = N; Verified Transmission to [facility] #2510; Last Updated By: Runscope; 07/10/2016 3:39:44 PM ?? MetFORMIN HCl - 1000 MG Oral Tablet; Take 1 tablet twice a day Rx By: Jaci Herrera; Dispense: 90 Days ; #:1 X 180 Tablet Bottle; Refill: 3; For: Type 2 diabetes mellitus; RUKHSANA = N; Verified Transmission to [facility] #2510; Last Updated By: Christina Intale; 07/10/2016 3:39:44 PM ?? Pioglitazone HCl - 45 MG Oral Tablet (Actos); TAKE 1 TABLET EVERY DAY Rx By: Jaci Herrera; Dispense: 90 Days ; #:1 X 90 Tablet Bottle; Refill: 3; For: Type 2 diabetesmellitus; RUKHSANA = N; Verified Transmission to [facility] #8460; Last Updated By: [employer], [employer]; 07/10/2016 3:39:45 PM ?? LC-Hemoglobin A1c 766753; Status:Hold For - Manual Activation; Requested for:91Mdg6900; Perform:[facility] Cli [facility]; Due:09Aug2016;Ordered; For:Type 2 diabetes mellitus; Ordered By:Jaci Herrera; cmp lipids a1c micral xray knee wt loss would help all issues exercise, mamm Signatures Electronically signed by : Jaci Herrera D.O.; Jul 10 2016 4:41PM SUBASSEMBLY ASSEMBLER (Author) documented in this encounter Plan of Treatment Upcoming Encounters Date Type Department Care Team (Late st Contact Info) Description 09/29/2024 8:00 AM SUBASSEMBLY ASSEMBLER Office Visit [facility] Medical Group Family [address], [address] [place] [phone] Elza Benitez MD [facility] [address] [place] [phone] documented as of this encounter Procedures Procedure Name Priority Date/Time Associated Diagnosis Comments SURG XR KNEE LT 1-2V Routine 07/10/2016 4:35 PM SUBASSEMBLY ASSEMBLER documented in this encounter Results * SURG XR KNEE LT 1-2V (07/10/2016 4:35 PM SUBASSEMBLY ASSEMBLER) Anatomical Region Laterality Modality Knee IMAGES ONLY 07/10/2016 4:35 PM SUBASSEMBLY ASSEMBLER 07/10/2016 4:35 PM SUBASSEMBLY ASSEMBLER Narrative 07/10/2016 4:40 PM SUBASSEMBLY ASSEMBLER DAVID PEGUERO ? ADMIT/SERVICE DATE: 07/10/16 ?? ACCT: [id number] ?DISCHARGE DATE: ?? : 1965 ??SEX: F ?ORD SITE: [facility] ?? PT TYPE: REG CLI ? ORDERING MD: JACI HERRERA DO ? STUDY DATE ? REPORT # ?ORDER # ? EXT ORDER ID ?? 07/10/16 ? [id number] ? [id number] ?[id number] ? PROC CODE: ? [id number] ? PROCEDURE DESCRIPTION: ?? XR KNEE 1 TO 2 VIEWS LT ? IMPRESSION: ?? THREE COMPARTMENT ARTHRITIS IS SEEN WITH A JOINT EFFUSION. ? EXAMINATION: LEFT KNEE 2 VIEWS ? EXAM DATE/TIME: 07/10/2016 4:25 PM ? CLINICAL HISTORY: LEFT KNEE PAIN ? COMPARISON: NONE. ? TECHNIQUE: AP AND LATERAL VIEWS OF THE LEFT KNEE WERE OBTAINED. ? FINDINGS: MODERATE DEGENERATIVE SPURRING OF THE FEMORAL CONDYLES TO ?? PLATEAU AND PATELLA ARE SEEN WITH A MODERATE-SIZED JOINT EFFUSION. THERE ?? IS MILD MEDIAL AND PATELLOFEMORAL JOINT SPACE NARROWING. THERE IS NO ?? FRACTURE. ? ELECTRONICALLY SIGNED BY: DEMETRI CHAN07/10/2016 4:36 PM ? Procedure Note Jaci Herrera MD - 10/21/2018 DAVID PEGUERO ADMIT/SERVICE DATE:07/10/16 ACCT: [id number] DISCHARGE DATE: : 1965 SEX: F ORD SITE: [facility] PT TYPE: REG CLI ORDERING MD:JACI HERRERA DO STUDY DATE REPORT # ORDER # EXT ORDER ID 07/10/16 [id number] PROC CODE: [id number] PROCEDURE DESCRIPTION: XR KNEE 1 TO 2 VIEWS LT IMPRESSION: THREE COMPARTMENT ARTHRITIS IS SEEN WITH A JOINT EFFUSION. EXAMINATION: LEFT KNEE 2 VIEWS EXAM DATE/TIME: 07/10/2016 4:25 PM CLINICAL HISTORY: LEFT KNEE PAIN COMPARISON: NONE. TECHNIQUE: AP AND LATERAL VIEWS OF THE LEFT KNEE WERE OBTAINED. FINDINGS: MODERATE DEGENERATIVE SPURRING OF THE FEMORAL CONDYLES TO PLATEAU AND PATELLA ARE SEEN WITH A MODERATE-SIZED JOINT EFFUSION. THERE IS MILD MEDIAL AND PATELLOFEMORAL JOINT SPACE NARROWING. THERE IS NO FRACTURE. ELECTRONICALLY SIGNED BY: DEMETRI CHAN07/10/2016 4:36 PM Jaci Herrera DO IMAGES ONLY Final Result documented in this encounter Visit Diagnoses Not on filedocumented in this encounter Care Teams Business Intelligence Analyst Relationship Specialty Start Date End Date Jaci Herrera DO [address] [place] [address] PCP - General 08/18/16 12/14/23 Jaci Herrera DO [address] [place] [address] PCP - General 07/10/16 08/17/16 documented as of this encounter
--- OUTSIDE RECORDS SUMMARY | 2024-08-08 14:14 | XMS_ITS | Encounter Summary ---
Author Organization [facility] Address [address] [place] [address]. [place] [address] [place] [address] Care Team Providers Care Petroleum Transport Driver Name Role Phone Sarah Yap DO Primary Care Provider [phone] Encounter Details Date Type Department Care Team (Latest Contact Info) Description 09/26/2017 9:30 AM MILITARY EXCHANGE WIRELESS MANAGER - 09/26/2017 11:[address] [facility] Hospital Encounter [facility] Mammography [address] [place] [address] Sarah Yap DO [address] [place] [address] Discharge Disposition: Home or Self [...] st Contact Info) Description 09/29/2024 8:00 AM MILITARY EXCHANGE WIRELESS MANAGER Office Visit [facility] Medical [facility] Family Medicine - [address], [address] [place] [address] Elza Benitez MD [facility] [address] [place] [address] documented as of this encounter Procedures Procedure Name Priority Date/Time Associated Diagnosis Comments MG SCREENING W JANICE ABIDA DIGI Routine 09/26/2017 10:20 AM MILITARY EXCHANGE WIRELESS MANAGER Breast screening documented in this encounter Results * MG SCREENING W JANICE ABIDA DIGI (09/26/2017 10:20 AM MILITARY EXCHANGE WIRELESS MANAGER) Anatomical Region Laterality Modality Breast Bilateral Mammography 09/26/2017 11:1 6 AM MILITARY EXCHANGE WIRELESS MANAGER Impressions 09/26/2017 11:20 AM MILITARY EXCHANGE WIRELESS MANAGER =====IMPRESSION:===== No mammographic findings suggestive of malignancy. ASSESSMENT: ACR BI-RADS Category 2 - Benign. RECOMMENDATION: 1: Routine screening mammogram ??bilateral ??in 1 year ? COMMENTS: ? Narrative 09/26/2017 11:20 AM MILITARY EXCHANGE WIRELESS MANAGER EXAMINATION: Digital bilateral screening mammogram with 3-D tomosynthesis EXAM DATE/TIME: 09/26/2017 9:54 AM REASON FOR EXAM: ??Breast screening ? Family history of breast cancer. COMPARISON: Prior mammograms dating back to 2007 TECHNIQUE: Digital screening mammography of both breasts [...] on filedocumented in this encounter Care Teams Petroleum Transport Driver Relationship Specialty Start Date End Date Sarah Yap DO [address] [place] [address] PCP - General 08/18/16 12/14/23 documented as of this encounter
--- OUTSIDE RECORDS SUMMARY | 2024-08-08 14:14 | XMS_ITS | Encounter Summary ---
Author Organization [facility] Address [address] [place] [address]. [place], [place] [address] [place] [address] Care Team Providers Care Hearing Aid Consultant Name Role Phone Sarah Yap DO Primary Care Provider [phone] Encounter Details Date Type Department Care Team (Latest Contact Info) Description 08/08/2017 Abstract [facility] Medical Group Sarah Yap DO [address] [place], [place] [phone] Social History Tobacco Use Types Packs/Day Years [...] st Contact Info) Description 09/29/2024 8:00 AM COORDINATOR SKILL TRAINING PROGRAM Office Visit [facility] Medical [facility] Family Medicine - [address], [address] [place] [phone] Elza Benitez MD [address] [facility] [address] [place] [address] documented as of this encounter Visit Diagnoses Not on filedocumented in this encounter Care Teams Hearing Aid Consultant Relationship Specialty Start Date End Date Sarah Yap DO [address] [place] [address] PCP - General 08/18/16 12/14/23 documented as of this encounter
--- OUTSIDE RECORDS SUMMARY | 2024-08-08 14:14 | XMS_ITS | Encounter Summary ---
Author Organization [facility] Address [address] [place] [address]. 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 Not on file Not on file Not on file documented as of this encounter Plan of Treatment Upcoming Encounters Date Type Department Care Team (Late Contact Info) Description 09/29/2024 8:00 AM MOLD DESIGN ENGINEER Office Visit [facility] Medical Group Family Medicine - [address], [address] [place] [address] Elza Benitez MD [facility] [address] [place] [address] documented as of this encounter Visit Diagnoses Not on filedocumented in this encounter Care Teams General Maintenance Engineer Relationship Specialty Start Date End Date Sarah Yap DO [address] [place] [address] PCP - General 08/18/16 12/14/23 documented as of this encounter
--- OUTSIDE RECORDS SUMMARY | 2024-08-08 14:14 | XMS_ITS | Encounter Summary ---
Author Organization [facility] Address [address] [place] [address]. [place] [address] [place] [address] Care Team Providers Care Counter Dish Carrier Name Role Phone Sarah Yap DO Primary Care Provider + [phone] Sarah Yap DO Primary Care Provider + [phone] Sarah Yap DO Primary Care Provider + [phone] Encounter Details Date Type Department Care Team (Late st Contact Info) Description 05/07/[address] [facility] Diagnostic Imaging [address] [place] [address] Sarah Yap DO [address] [place] [address] Social History Tobacco Use Types [...] st Contact Info) Description 09/29/2024 8:00 AM BRASS SORTER Office Visit [facility] Medical Group Family Medicine - [place] [address] [facility], [address] [place] [phone] Elza Benitez MD [address] [facility] [address] [place], [place] [phone] documented as of this encounter Visit Diagnoses Diagnosis Encounter for screening mammogram for malignant neoplasm of breast Other screening mammogram documented in this encounter Care Teams Counter Dish Carrier Relationship Specialty Start Date End Date Sarah Yap DO [address] [place] [address] PCP - General 08/18/16 12/14/23 Sarah Yap DO [address] [place] [address] PCP - General 07/10/16 08/17/16 Sarah Yap DO [address] [place] [address] PCP - General 05/07/15 07/09/16 documented as of this encounter
--- OUTSIDE RECORDS SUMMARY | 2024-08-08 14:14 | XMS_ITS | Encounter Summary ---
Author Organization [facility] Address [address] [place] [address]. [place], [place] [address] [place] [address] Care Team Providers Care Signaling Design Engineer Name Role Phone Sarah Yap DO Primary Care Provider [phone] Encounter Details Date Type Department Care Team (Late st Contact Info) Description 08/18/2016 Abstract [facility] Diagnostic Imaging [address] [place], [place] [phone] Sarah Yap DO [address] [place] [address] Social History Tobacco Use Types [...] (Late Contact Info) Description 09/29/2024 8:00 AM MANAGER TRAFFIC Office Visit [facility] Medical Group Family Medicine - [place] [address] [facility], [address] [place] [phone] Elza Benitez MD [address] [facility] [address] [place], [place] [phone] documented as of this encounter Visit Diagnoses Diagnosis Encounter for screening mammogram for malignant neoplasm of breast Other screening mammogram documented in this encounter Care Teams Signaling Design Engineer Relationship Specialty Start Date End Date Sarah Yap DO [address] [place] [address] PCP - General 08/18/16 12/14/23 documented as of this encounter
--- OUTSIDE RECORDS SUMMARY | 2024-08-08 14:14 | XMS_ITS | Encounter Summary ---
Author Organization [facility] Address [address] [place] [address]. [place], [place] [address] [place] [address] Care Team Providers Care Recovery Collector Name Role Phone Sarah Yap DO Primary Care Provider [phone] Encounter Details Date Type Department Care Team (Latest Contact Info) Description 08/26/2017 Abstract [facility] , Generic ConversionMD Social History Tobacco Use Types Packs/Day Years Used Date Smoking Tobacco: Never Assessed Comments Unknown Sex and Gender Information Value Date Recorded Sex Assigned at Not on file Legal Sex Female 7:26 PM CDT Gender Identity Not on file Sexual Orientation Not on file documented as of this encounter Progress Notes * Generic Conversion MD Bernrad - 08/26/2017 8:37 AM CST Message Recorded as Task Date: 08/25/2017 04:18 PM, Created By: Sarah Yap Task Name: Call Patient with results Assigned To: BFOR-Phone Nurse Team Regarding Patient: Comfort Townsend, Status: In Progress Comment: Sarah Yap - 25 Aug 2017 4:18 PM Patient a1c much higher increase insulin to 75u q d f[facility] Lu Saucedo - 25 Aug 2017 4:33 PM TASK IN PROGRESS Lu Saucedo - 25 Aug 2017 4:34 PM TASK EDITED Mignon Adler - 25 Aug 2017 4:50 PM TASK EDITED Per patient she forgets to take her hs basaglar 55 units 3-4 nights per week- sometimes 5 nights perweek. She also forgets her second evening metformin 1000mg tablet dose 5 nights per week. She dooes not check AM fasting bloodsugars at home, but she does have a meter. Still increase basaglar from 55units q hs to 75? Or just start taking both basaglar and metformin as previously rx'd? Mignon Lugo - 25 Aug 2017 4:50 PM TASK REASSIGNED: Previously Assigned To Sarah Yap Melinda - 25 Aug 2017 5:00 PM TASK EDITED no increase must use meds every day Mignon Lugo - 26 Aug 2017 8:32 AM TASK IN PROGRESS Mignon Lugo - 26 Aug 2017 8:32 AM TASK REASSIGNED: Previously Assigned To Sylvia Nsg Team Mignon Lugo - 26 Aug 2017 8:36 AM TASK EDITED patient informed, we talked about the importance of medication compliance, patient voiced understanding apt 12/25/17 Signatures Electronically signed by : Mignon Lugo, ; Aug 26 2017 8:38AM MEDICAID SPECIALIST (Author) documented in this encounter Plan of Treatment Upcoming Encounters Date Type Department Care Team (Late st Contact Info) Description 09/29/2024 8:00 AM MEDICAID SPECIALIST Office Visit [facility] Family Medicine - [address], [address] [place] [phone] Elza Benitez MD [facility] [address] [place] [phone] documented as of this encounter Visit Diagnoses Not on filedocumented in this encounter Care Teams Recovery Collector Relationship Specialty Start Date End Date Sarah Yap DO [address] [place] [address] PCP - General 08/18/16 12/14/23 documented as of this encounter
--- OUTSIDE RECORDS SUMMARY | 2024-08-08 14:14 | XMS_ITS | Encounter Summary ---
Author Organization [facility] Address [address] [place] [address]. [place], [place] [address] [place] [address] Care Team Providers Care Extractor And Wringer Operator Name Role Phone Sarah Yap DO Primary Care Provider [phone] Encounter Details Date Type Department Care Team (Latest Contact Info) Description 09/11/2018 Abstract [facility] Sarah Yap DO [address] [place], [place] [phone] Social History Tobacco Use Types Packs/Day Years [...] st Contact Info) Description 09/29/2024 8:00 AM POLICE SERVICE TECHNICIAN Office Visit [facility] Medical [facility] Family Medicine - [address], [address] [place] [phone] Elza Benitez MD [address] [facility] [address] [place] [address] documented as of this encounter Visit Diagnoses Not on filedocumented in this encounter Care Teams Extractor And Wringer Operator Relationship Specialty Start Date End Date Sarah Yap DO [address] [place] [address] PCP - General 08/18/16 12/14/23 documented as of this encounter
--- OUTSIDE RECORDS SUMMARY | 2024-08-08 14:14 | XMS_ITS | Encounter Summary ---
Author Organization [facility] Address [address] [place] [address]. [place], [place] [id number] [place] [address] Care Team Providers Care Printing Film Stripper Name Role Phone Sarah Yap DO Primary Care Provider [phone] Encounter Details Date Type Department Care Team (Latest Contact Info) Description 10/01/2018 Abstract [facility] Sarah Yap DO [address] [place] [address] Social History Tobacco Use Types Packs/Day Years Used Date Smoking Tobacco: Never Assessed Comments Unknown Sex and Gender Information Value Date Recorded Sex Assigned at Not on file Legal Sex Female 7:26 PM CDT Gender Identity Not on file Sexual Orientation Not on file documented as of this encounter Last Filed Vital Signs Vital Sign Reading Time Taken Comments Blood Pressure 128/76 10/01/2018 8:12 AM SENIOR BIOSTATISTICIAN Pulse - - Temperature - - Respiratory Rate - - Oxygen Saturation - - Inhaled Oxygen Concentration - - Weight 124.7 kg (275 lb) 10/01/2018 8:12 AM SENIOR BIOSTATISTICIAN Height 171.5 cm (5' 7.5 ) 10/01/2018 8:12 AM SENIOR BIOSTATISTICIAN Body Mass Index 42.44 10/01/2018 8:12 AM SENIOR BIOSTATISTICIAN documented in this encounter Progress Notes * Sarah Yap MD - 10/01/2018 8:00 AM CST Chief Complaint Annual well exam History of Present Illness HPI Free Text: Here for annual other than eczema flaring on arms no complaints has been busy at work does not exercise eats poorly had eye exam recently and had good report Review of Systems See HPI for pertinent positives. Constitutional: negative. Cardiovascular: negative. Respiratory: negative. Gastrointestinal: negative. Genitourinary: negative. Musculoskeletal: negative. Integumentary as noted in HPI. Psychiatric: stable on meds. Active Problems 1. Adenomatosis (211.3) (D12.6) 2. Adjustment disorder (309.9) (F43.20) ?? stable on meds 3. Eczema (692.9) (L30.9) 4. Osteoarthritis of left knee (715.96) (M17.12) 5. Polyp of colon (211.3) (K63.5) Hyperlipidemia (272.4) (E78.5) Hypertension (401.9) (I10) Type 2 diabetes mellitus (250.00) (E11.9) Morbid obesity (278.01) (E66.01) Past Medical History ?? History of acne (V13.3) (Z87.2) ?? History of cholelithiasis (V12.79) (Z87.19) ?? History of hypertension (V12.59) (Z86.79) ?? History of premenstrual syndrome (V13.29) (Z87.42) ?? History of viral warts (V12.09) (Z86.19) ?? History of Postmenopausal status (V49.81) (Z78.0) ?? late 40s ?? History of Summary Of Previous Pregnancies 0 (Total No.) ?? History of Trigger thumb (727.03) (M65.319) Surgical History ?? History of Colonoscopy (Fiberoptic) [...] ?? Marital History - Currently ?? 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 Tobacco Non-user Current Meds 1. Atorvastatin Calcium 10 MG Oral Tablet; TAKE 1 TABLET BY MOUTH EVERY DAY; Therapy: [id number] to (Evaluate:24Ofh7950) Requested for: 20Aug2018; Last Rx:20Aug2018 Ordered Rx By: Sarah Yap; Dispense: 30 Days ; #:30 Tablet; Refill: 0; For: PMH: History of type 2 diabetes mellitus, Hyperlipidemia, Hypertension; RUKHSANA = N; Verified Transmission to [facility] #25[facility]; Last Updated By: Segopotso; 10/01/2018 8:39:48 AM 2. Basaglar KwikPen 100 UNIT/ML Subcutaneous Solution Pen-injector; INJECT 55 UNITS SUB-Q EVERY DAY DIRECTED; Therapy: [id number] to (Last Rx:10Jun2018) Requested for: 10Jun2018 Ordered Rx By: Sarah Yap; Dispense: 0 Days ; #:1 X 5 x 3 ML Pen; Refill: 5; For: PMH: History of type2 diabetes mellitus; RUKHSAAN = N; Verified Transmission to [facility] #2510; Last Updated By: [employer] 10/01/2018 8:39:51 AM 3. hydroCHLOROthiazide 50 MG Oral Tablet; TAKE 1 TABLET EVERY DAY; Therapy: 17May2013 to (Last Rx:[id number]) Requested for: 14Sep2018 Ordered Rx By: Sarah Yap; Dispense: 0 Days ; #:90 Tablet; Refill: 0; For: Hypertension; RUKHSANA = N; Verified Transmission to [facility] #2510; Last Updated By: Segopotso; 10/01/2018 8:39:45 AM 4. Lisinopril 10 MG Oral Tablet; TAKE 1 TABLET EVERY DAY; Therapy: 17Vvo0428 to (Evaluate:14Nov2018) Requested for: 17Aug2018; Last Rx:17Aug2018 Ordered Rx By: Sarah Yap; Dispense: 90 Days ; #:1 X 90 Tablet Bottle; Refill: 0; For: Hypertension; RUKHSANA = N; Verified Transmission to [facility] #2510; Last Updated By: Segopotso; 10/01/2018 8:39:47 AM 5. metFORMIN HCl - 1000 MG Oral Tablet; Take 1 tablet twice a day; Therapy: 23Aug2013 to (Evaluate:16Aug2018) Requested for: 21Aug2017; Last Rx:21Aug2017 Ordered Rx By: Sarah Yap; Dispense: 90 Days ; #:1 X 180 Tablet Bottle; Refill: 3; For: PMH: History of type 2 diabetes mellitus; RUKHSANA = N; [facility] 6. Pen [place] 12/16 31G X 8 MM; USE DAILY TO INJECT INSULIN DIRECTED; Therapy: 25Aug2017 to (Last Rx:02Sep2017) Requested for: 02Sep2017 Ordered Rx By: Sarah Yap; Dispense: 0 Days ; #:1 X 100 Unit Box; Refill: 3; For: PMH: History of type2 diabetes mellitus; RUKHSANA = N; Verified Transmission to [facility] #2510; Msg to Pharmacy: e11.9; Last Updated By: Segopotso; 09/02/2017 12:59:49 PM 7. Pioglitazone HCl - 45 MG Oral Tablet; TAKE 1 TABLET EVERY DAY; Therapy: 16Jan2014 to (Evaluate:[id number]) Requested for: 17Aug2018; Last Rx:17Aug2018 Ordered Rx By: Sarah Yap; Dispense: 90 Days ; #:90 Tablet; Refill: 0; For: PMH: History of type 2 diabetes mellitus; RUKHSANA = N; [facility]; Last Updated By: Segopotso; 10/01/2018 8:39:49 AM 8. Venlafaxine HCl ER 150 MG Oral Capsule Extended Release 24 Hour; Take one capsule daily; Therapy: 15Qys2576 to (Last Rx:[id number]) Requested for: 03Pjf8594 Ordered Rx By: Sarah Yap; Dispense: 0 Days ; #:90 Capsule; Refill: 0; For: Adjustment disorder; RUKHSANA =N; Verified Transmission to [facility] #[facility]10; Last Updated By: Segopotso; 10/01/2018 8:39:51 AM Allergies 1. No Known Drug Allergies Recorded By: Mis Lee; 11/11/2012 11:07:55 AM Immunizations 1 2 3 Hepatitis A 2000 2000 Influenza 2015work May PCV 03/19/17 Tdap 07-Jan-2012 Zoster 03/19/17 Vitals Recorded: 01Oct2018 08:12AM Systolic 128 Diastolic 76 Height 5 ft 7.5 in Weight 275 lb BMI Calculated 42.44 BSA Calculated 2.33 Physical Exam Constitutional General appearance: No acute distress, well appearing and well nourished. morbidly obese.. Eyes Conjunctiva and lids: No swelling, erythema or discharge. Pupils and irises: Equal, round and reactive to light. Ears, Nose, Mouth, and Throat External inspection of ears and nose: Normal. Otoscopic examination: Tympanic membranes translucent with normal light reflex. Canals patent without erythema. Oropharynx: Normal with no erythema, edema, exudate or lesions. Pulmonary Respiratory effort: No increased work of breathing or signs of respiratory distress. Auscultation of lungs: Clear to auscultation. Cardiovascular Auscultation of heart: Normal rate and rhythm, normal S1 and S2, without murmurs. Examination of extremities for edema and/or varicosities: Normal. Abdomen Abdomen: Non-tender, no masses. quality review trainer deferred, had pap last yr. Liver and spleen: No hepatomegaly or splenomegaly. Lymphatic Palpation of lymph nodes in neck: No lymphadenopathy. Musculoskeletal Gait and station: Normal. Digits and nails: Normal without clubbing or cyanosis. Inspection/palpation of joints, bones, and muscles: Normal. Skin eczema arms.. Psychiatric Mood and affect: Normal. Assessment 1. Encounter for preventive health examination (V70.0) (Z00.00) 2. Breast cancer screening (V76.10) (Z12.31) 3. Adjustment disorder (309.9) (F43.20) ?? stable on meds 4. Eczema (692.9) (L30.9) 5. Hyperlipidemia (272.4) (E78.5) 6. Hypertension (401.9) (I10) 7. Morbid obesity (278.01) (E66.01) 8. Osteoarthritis of left knee (715.96) (M17.12) 9. Polyp of colon (211.3) (K63.5) Plan Adjustment disorder ?? Venlafaxine HCl ER 150 MG Oral Capsule Extended Release 24 Hour (Effexor XR); Take one capsule daily Rx By: Sarah Yap; Dispense: 0 Days ; #:90 Capsule; Refill: 3; For: Adjustment disorder; RUKHSANA =N; Verified Transmission to [facility] #[facility]10; Last Updated By: Segopotso; 10/01/2018 8:39:51 AM Breast cancer screening ?? MG SCREEN MAMMO DIGITAL BI; Status:Active; Requested for:01Oct2018; Perform:Other Radiology; Due:31Oct2018;Ordered; For:Breast cancer screening; Ordered By:Sarah Yap; Hypertension ?? hydroCHLOROthiazide 50 MG Oral Tablet; TAKE 1 TABLET EVERY DAY Rx By: Sarah Yap; Dispense: 0 Days ; #:90 Tablet; Refill: 3; For: Hypertension; RUKHSANA = N; Verified Transmission to [facility] #2510; Last Updated By: Segopotso; 10/01/2018 8:39:45 AM ?? Lisinopril 10 MG Oral Tablet; TAKE 1 TABLET EVERY DAY Rx By: Sarah Yap; Dispense: 90 Days ; #:1 X 90 Tablet Bottle; Refill: 3; For: Hypertension; RUKHSANA = N; Verified Transmission to [facility] #2510; Last Updated By: Segopotso; 10/01/2018 8:39:47 AM PMH: History of type 2 diabetes mellitus ?? Basaglar KwikPen 100 UNIT/ML Subcutaneous Solution Pen-injector; INJECT 55 UNITS SUB-Q EVERY DAY DIRECTED Rx By: Sarah Yap; Dispense: 0 Days ; #:3 X 5 x 3 ML Pen; Refill: 3; For: PMH: History of type2 diabetes mellitus; RUKHSANA = N; Verified Transmission to [facility] #2510; Last Updated By: [employer] 10/01/2018 8:39:51 AM ?? BFMA-Hemoglobin A1C; Status:Resulted - Requires Verification; Done: 01Oct2018 09:21AM Performed:In Office; Due:31Oct2018; Last Updated By:Raj Bates; 10/01/2018 9:21:10 AM;Ordered; For:PMH: History of type 2 diabetes mellitus; Ordered By:Sarah Yap; : No fasting required ?? metFORMIN HCl - 1000 MG Oral Tablet; Take 1 tablet twice a day Rx By: Sarah Yap; Dispense: 90 Days ; #:1 X 180 Tablet Bottle; Refill: 3; For: PMH: History of type 2 diabetes mellitus; RUKHSANA = N; Verified Transmission to [facility] #2510; Last Updated By: Segopotso; 10/01/2018 8:39:46 AM ?? BFMA-Microalbumin; Status:Resulted - Requires Verification; Done: 01Oct2018 09:21AM Performed:In Office; Last Updated By:Raj Bates; 10/01/2018 9:21:29 AM;Ordered; For:PMH: History of type 2 diabetes mellitus; Ordered By:Sarah Yap; : No fasting required ?? Pioglitazone HCl - 45 MG Oral Tablet (Actos); TAKE 1 TABLET EVERY DAY Rx By: Sarah Yap; Dispense: 90 Days ; #:90 Tablet; Refill: 3; For: PMH: History of type 2 diabetes mellitus; RUKHSANA = N; Verified Transmission to [facility] #2510; Last Updated By: Segopotso; 10/01/2018 8:39:49 AM PMH: History of type 2 diabetes mellitus, Hyperlipidemia, Hypertension ?? Atorvastatin Calcium 10 MG Oral Tablet (Lipitor); TAKE ONE TABLET BY MOUTH EVERY EVENING Rx By: Sarah Yap; Dispense: 0 Days ; #:1 X 90 Tablet Bottle; Refill: 3; For: PMH: History of type 2 diabetes mellitus, Hyperlipidemia, Hypertension; RUKHSANA = N; Verified Transmission to [facility] #2510; Last Updated By: Segopotso; 10/01/2018 8:39:48 AM PMH: History of type 2 diabetes mellitus, Hyperlipidemia, Hypertension, Morbid obesity ?? HL COMP METABOLIC PANEL [id number]; Status:In Progress - Specimen/Data Collected; Done: 01Oct2018 Perform:Health Lab; Due:31Oct2018; Last Updated By:Izzy Newell; 10/01/2018 8:59:00 AM;Ordered; For:PMH: History of type 2 diabetes mellitus, Hyperlipidemia, Hypertension, Morbid obesity; Ordered By:Sarah Yap; the Patient Fasting? : Yes ?? HL LIPID PANEL WITH LDL-CALC (AMA) [id number]; Status:In Progress - Specimen/Data Collected; Done: 01Oct2018 Perform:Health Lab; Due:31Oct2018; Last Updated By:Izzy Newell; 10/01/2018 8:59:00 AM;Ordered; For:PMH: History of type 2 diabetes mellitus, Hyperlipidemia, Hypertension, Morbid obesity; Ordered By:Sarah Yap; the Patient Fasting? : Yes Hyperlipidemia (272.4) (E78.5) Hypertension (401.9) (I10) Type 2 diabetes mellitus (250.00) (E11.9) Morbid obesity (278.01) (E66.01) cmp lipids a1c micral must exercise work on diet and wt loss discussed shingrix mamm Signatures Electronically signed by : Sarah Yap D.O.; Oct 01 2018 9:42AM SENIOR BIOSTATISTICIAN (Author) documented in this encounter Plan of Treatment Upcoming Encounters Date Type Department Care Team (Late st Contact Info) Description 09/29/2024 8:00 AM SENIOR BIOSTATISTICIAN Office Visit [facility] Family Medicine - [address], [address] [place] [phone] Elza Benitez MD [address] [place] [address] [place] [address] documented as of this encounter Procedures Procedure Name Priority Date/Time Associated Diagnosis Comments LIPID W/CALC LDL Routine 10/01/2018 9:01 AM SENIOR BIOSTATISTICIAN COMPREHENSIVE METABOLIC PANEL Routine 10/01/2018 9:01 AM SENIOR BIOSTATISTICIAN documented in this encounter Results * (ABNORMAL) COMPREHENSIVE METABOLIC PANEL (10/01/2018 9:01 AM SENIOR BIOSTATISTICIAN) GFR ESTIMATE 93 60 - 300 mL/min/1.7 3 m2 TOUCHWORKS TO EPIC CONVERSION GLUCOSE 112(H) 70 - 99 mg/dL TOUCHWORKS TO EPIC CONVERSION BILIRUBIN TOTAL S/P/B 0.4 0.0 - 1.0 mg/dL TOUCHWORKS TO EPIC CONVERSION AST 18 11 - 32 IU/L TOUCHWORKS TO EPIC CONVERSION CALCIUM S/P/B 10.1 8.4 - 10.5 mg/dL TOUCHWORKS TO EPIC CONVERSION ALT 17 9 - 43 IU/L TOUCHWORKS TO EPIC CONVERSION EGFR AFR. AMER. 113 60 - 300 mL/min/1.7 3 m2 TOUCHWORKS TO EPIC CONVERSION CO2 27 23 - 31 mEq/L TOUCHWORKS TO EPIC CONVERSION SODIUM S/P/B 143 136 - 145 mEq/L TOUCHWORKS TO EPIC CONVERSION CREATININE S/P/B 0.7 0.5 - 1.2 mg/dL TOUCHWORKS TO EPIC CONVERSION CHLORIDE S/P/B 99 98 - 107 mEq/L TOUCHWORKS TO EPIC CONVERSION POTASSIUM S/P/B 4.5 3.5 - 5.3 mEq/L TOUCHWORKS TO EPIC CONVERSION BUN 13 6 - 20 mg/dL TOUCHWORKS TO EPIC CONVERSION ALK PHOS 109 35 - 129 IU/L TOUCHWORKS TO EPIC CONVERSION ANION GAP 17(H) 8 - 16 mmoles/L TOUCHWORKS TO EPIC CONVERSION TOTAL PROTEIN S/P/B 7.1 6.0 - 8.3 gm/dL TOUCHWORKS TO EPIC CONVERSION ALBUMIN S/P/B 4.6 3.5 - 5.0 gm/dL TOUCHWORKS TO EPIC CONVERSION 10/01/2018 9:01 AM SENIOR BIOSTATISTICIAN 10/01/2018 9:01 AM SENIOR BIOSTATISTICIAN Narrative TOUCHWORKS TO EPIC CONVERSION - 10/02/2018 6:37 AM SENIOR BIOSTATISTICIAN Order Comment: Report: [id number] Is the Patient Fasting?: Yes Is the Patient Fasting?: Yes 06Oct2018 9:22AM by Sarah Yap: ??a1c higher ??increase insulin to 65u a d ??must work on diet and wt loss ??f/u 6mths Result Communication: Call patient with results Sarah Yap DO LABORATORY Final Result TOUCHWORKS TO EPIC CONVERSION * LIPID W/CALC LDL (10/01/2018 9:01 AM SENIOR BIOSTATISTICIAN) HDL CHOLESTEROL CDC 82 50 - 240 mg/dL TOUCHWORKS TO EPIC CONVERSION LDL CHOLESTEROL (LMP) 55 0 - 99 mg/dL TOUCHWORKS TO EPIC CONVERSION CHOLESTEROL 153 0 - 199 mg/dL TOUCHWORKS TO EPIC CONVERSION CHOL/HDL RATIO 1.9 TOUCH WORKS TO EPIC CONVERSION TRIGLYCERIDES 79 0 - 149 mg/dL TOUCHWORKS TO EPIC CONVERSION NON HDL CHOLESTEROL 71 0 - 129 mg/dL TOUCHWORKS TO EPIC CONVERSION Comment: Result Comment: For Ages >=20 years (mg/dL) .................[place]....Elevated....Borderline......High.....Very High Chol*........<200.......................................200-239....>=240 Trig...........<150.....................150-199......200-499....>=500 LDL-C.......<100...100-129.....130-159......160-189....>=190 NonHDL-C.<130...130-159.....160-189......190-219....>=220 Aisha TA, et al. National Lipid Association recommendations for patient-centered management of dyslipidemia: part 1-full report. ??J Clin Lipidol 2015;129-169. *Third report of the National Cholesterol Education Program (NCEP) Expert Panel on Detection, Education, and Treatment of High Blood Cholesterol in Adults (Adult Treatment panel III): final report. Circulation 2002; 106:3143. 10/01/2018 9:01 AM SENIOR BIOSTATISTICIAN 10/01/2018 9:01 AM SENIOR BIOSTATISTICIAN Narrative TOUCHWORKS TO EPIC CONVERSION - 10/02/2018 6:37 AM SENIOR BIOSTATISTICIAN Order Comment: Report: [id number] Is the Patient Fasting?: Yes Is the Patient Fasting?: Yes 06Oct2018 9:22AM by Sarah Yap: ??a1c higher ??increase insulin to 65u a d ??must work on diet and wt loss ??f/u 6mths Result Communication: Call patient with results us Sarah Yap DO LABORATORY Final Result TOUCHWORKS TO EPIC CONVERSION documented in this encounter Visit Diagnoses Not on filedocumented in this encounter Care Teams Printing Film Stripper Relationship Specialty Start Date End Date Sarah Yap DO [address] [place] [address] PCP - General 08/18/16 12/14/23 documented as of this encounter
--- OUTSIDE RECORDS SUMMARY | 2024-08-08 14:14 | XMS_ITS | Encounter Summary ---
Author Organization [facility] Address [address] [place] [address]. 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 Not on file Not on file documented as of this encounter Last Filed Vital Signs Vital Sign Reading Time Taken Comments Blood Pressure 128/84 01/04/2019 3:47 PM CDT Pulse - - Temperature 36.8 ??C (98.2 ??F) 01/04/2019 3:47 PM CD T Respiratory Rate - - Oxygen Saturation - - Inhaled Oxygen Concentration - - Weight 126.1 kg (278 lb) 01/04/2019 3:47 PM CDT Height 171.5 cm (5' 7.5 ) 01/04/2019 3:47 PM CDT Body Mass Index 42.9 01/04/2019 3:47 PM CDT documented in this encounter Progress Notes * Elsa Hayes PA-C - 01/04/2019 3:30 PM CDT Reason for Visit: Comfort Townsend is a 53-year-old female presents today for Acute Note (C/o rash ) History of Present Illness: Rash This is a new problem. The current episode started 1 to 4 weeks ago. The problem has been rapidly worsening since onset. The rash is characterized by redness, itchiness and dryness. Pertinent negatives include no eye pain, fever or shortness of breath. Past treatments include topical steroids. The treatment provided no relief. Her past medical history is significant for eczema. ROS: Review of Systems Constitutional: Negative for fever. HENT: Negative for ear pain. Eyes: Negative for pain. Respiratory: Negative for shortness of breath. Cardiovascular: Negative for chest pain. Gastrointestinal: Negative for abdominal pain. Genitourinary: Negative for dysuria. Musculoskeletal: Negative for myalgias. Skin: Positive for itching and rash. Neurological: Negative for dizziness. Psychiatric/Behavioral: Negative for depression. Medications: Current Outpatient Medications: ??? atorvastatin 10 MG tablet, Take 1 tablet by mouth daily., Disp: , Rfl: ??? hydrochlorothiazide 50 MG tablet, Take 1 tablet by mouth daily., Disp: , Rfl: ??? insulin glargine (BASAGLAR KWIKPEN) 100 UNIT/ML injection (PEN), INJECT 55 UNITS SUBCUTANEOUS DAILY DIRECTED, Disp: , Rfl: ??? Insulin Pen Needle (PEN NEEDLES 31GX5/16 ) 31G X 8 MM [facility], , Disp: , Rfl: ??? lisinopril 10 [...] mg total) by mouth daily for 7 days, THEN 1 tablet (20 mg total) daily for 7 days., Disp: 21 tablet, Rfl: 0 ??? venlafaxine XR 150 MG 24 hr capsule, Take 1 capsule by mouth daily., Disp: , Rfl: No Known Allergies Past Medical History: Diagnosis [...] Not on file 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 Financial resource strain: [...] file Gets together: Not on file Attends [employer] service: Not on file Active member of [...] Family hx. Alive Physical Exam: Filed Vitals: 01/04/19 1547 BP: 128/84 Temp: 98.2 ??F (36.8 ??C) TempSrc: Oral Weight: 126.1 kg (278 lb) Height: 5' 7.5 (1.715 m) Body mass index is 42.9 kg/m??. Physical Exam Constitutional: No distress. HENT: Mouth/Throat: No oropharyngeal exudate. Cardiovascular: Normal rate and regular rhythm. No murmur heard. Pulmonary/Chest: No respiratory distress. Musculoskeletal: She exhibits no edema or tenderness. Neurological: No cranial nerve deficit. Skin: No erythema. patient has an erythematous papular and scaly rash that is diffusely spread over her posterior arms, abdomen, and right leg. It is very excoriated from scratching. Psychiatric: She has a normal mood and affect. Procedures Assessment: 1. Eczema, unspecified type predniSONE 20 MG tablet Recommendations/Plan: Return if symptoms worsen or fail to improve. ELSA HAYES PA-C Cosigned by Liam Vogt MD at 01/05/2019 8:04 AM CDT documented in this encounter Plan of Treatment Upcoming Encounters Date Type Department Care Team (Late st Contact Info) Description 09/29/2024 8:00 AM SHARK BIOLOGIST Office Visit [facility] Family Medicine - [address], [address] [place] [phone] Elza Benitez MD [facility] [address] [place] [address] documented as of this encounter Visit Diagnoses Diagnosis Eczema, unspecified type- Primary documented in this encounter Care Teams Ball Assembler Relationship Specialty Start Date End Date Sarah Yap DO [address] [place] [address] PCP - General 08/18/16 12/14/23 documented as of this encounter
--- OUTSIDE RECORDS SUMMARY | 2024-08-08 14:14 | XMS_ITS | Encounter Summary ---
Author Organization [facility] Address [address] [place] [address]. [place] [address] [place] [address] Care Team Providers Care Professor Of Art History Name Role Phone Jaci Herrera DO Primary Care Provider [phone] Jaci Herrera DO Primary Care Provider [phone] Jaci Herrera DO Primary Care Provider + [phone] Jaci Herrera DO Primary Care Provider + [phone] Encounter Details Date Type Department Care Team (Latest Contact Info) Description 01/23/2015 Abstract [facility] Medical Group Jaci Herrera DO [address] [place] [address] Social History Tobacco Use Types Packs/Day Years Used Date Smoking Tobacco: Never Assessed Comments Unknown Sex and Gender Information Value Date Recorded Sex Assigned at Not on file Legal Sex Female 7:26 PM CDT Gender Identity Not on file Sexual Orientation Not on file documented as of this encounter Last Filed Vital Signs Vital Sign Reading Time Taken Comments Blood Pressure 138/84 01/23/2015 2:12 PM CDT Pulse - - Temperature - - Respiratory Rate - - Oxygen Saturation - - Inhaled Oxygen Concentration - - Weight 124.7 kg (275 lb) 01/23/2015 2:12 PM CDT Height - - Body Mass Index 41.81 02/01/2014 4:17 PM CDT documented in this encounter Progress Notes * Jaci Herrera MD - 01/23/2015 4:53 PM CDT Message some OA if not improved in the next 2wks--call back and will consider MRI Verified Results XR SHOULDER 2+ VIEW RT ( Routine ) 23Jan2015 03:20PM Jaci Herrera Test Name Result Flag Reference XR SHOULDER 2+ VIEW LT (Report) DAVID PEGUERO ADMIT/SERVICE DATE: 01/23/15 ACCT: [id number] DISCHARGE DATE: : 1965 SEX: F ORD SITE: [facility] PT TYPE: REG CLI ORDERING MD: JACI HERRERA DO STUDY DATE REPORT # ORDER # EXT ORDER ID 01/23/15 [id number] PROC CODE: SHLDR2+VR PROCEDURE DESCRIPTION: XR SHOULDER 2 OR MORE VIEWS RT IMPRESSION: MILD ARTHRITIS IS SEEN. THERE IS PROBABLE CALCIFIC TENDINOSIS SUPRASPINATUS TENDON. CONSIDER MRI OF THE SHOULDER FOR FURTHER FOLLOW-UP IF INDICATED CLINICALLY EXAMINATION: 3 VIEWS RIGHT SHOULDER EXAM DATE/TIME: 01/23/2015 2:58 PM CLINICAL HISTORY: RIGHT SHOULDER PAIN COMPARISON: NONE TECHNIQUE: AP, AP POSTERIOR OBLIQUE, TRANSSCAPULAR Y VIEWS WERE OBTAINED FINDINGS: THERE ARE CALCIFICATIONS ALONG THE GREATER TUBEROSITY OF THE HUMERUS LIKELY REPRESENTING CALCIFIC TENDINOSIS OF THE SUPRASPINATUS TENDON. THERE IS MINIMAL SPURRING OF THE GLENOID AND THE ACROMIAL CLAVICULAR JOINT. THERE IS NO FRACTURE OR DISLOCATION. ELECTRONICALLY SIGNED BY: DEMETRI CHAN01/23/2015 3:21 PM * Jaci Herrera MD - 01/23/2015 2:00 PM CDT Reason For Visit Reason For Visit: Acute Visit Chief Complaint right shoulder pain History of Present Illness HPI Free Text: Here c/o right shoulder pain and decreased rom bad for past 5d no injury but works doing [employer]are[employer]ing she is left handed taking motrin no radiation no numbness or tingling also wart on left elbow Review of Systems See HPI for pertinent positives. Active Problems 1. Acne (706.1) (L70.9) 2. Adenomatosis (211.3) (D12.6) 3. Adjustment disorder (309.9) (F43.20) 4. Eczema (692.9) (L30.9) 5. Hyperlipidemia (272.4) (E78.5) 6. Hypertension (401.9) (I10) 7. Lumps on the skin (782.2) (R22.9) 8. Morbid obesity (278.01) (E66.01) 9. Type 2 diabetes mellitus (250.00) (E11.9) Past Medical History 1. History of cholelithiasis (V12.79) (Z87.19) 2. History of hypertension (V12.59) (Z86.79) 3. History of premenstrual syndrome (V13.29) (Z87.42) 4. History of Postmenopausal status (V49.81) (Z78.0) 5. History of Summary Of Previous Pregnancies 0 (Total No.) Surgical History 1. History of Colonoscopy (Fiberoptic) ?? 03/2010 polyp repeat 2014 2. History of Ear Surgery 3. History of Renal Lithotripsy 4. History of Tonsillectomy Family History Father 1. Family history of Skin Cancer (V16.8) Maternal Grandmother 2. Family history of Breast Cancer (V16.3) Family History 3. Family history of Diabetes Mellitus (V18.0) 4. Family history of Hypertension (V17.49) Social History ?? Alcohol Use (History) ?? Marital History - Currently ?? 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 Tobacco Non-user Immunizations Hepatitis A --- Series1: 1999; Series2: 2000 Tdap --- Series1: 07Jan2012 Current Meds 1. Hydrochlorothiazide 50 MG Oral Tablet; TAKE 1 TABLET EVERY DAY; Therapy: 17May2013 to (Evaluate:27Jan2015) Requested for: 51Tky0707; Last Rx:[id number] Ordered Rx By: Jaci Herrera; Dispense: 90 Days ; #:90 Tablet; Refill: 3; For: Hypertension; RUKHSANA = N; Verified Transmission to [facility]94[facility]; Last Updated By: Josefina Vasquez; 02/01/2014 4:46:02 PM 2. Lantus 100 UNIT/ML Subcutaneous Solution; INJECT 46 UNITS ONCE DAILY; Therapy: 61Ptu2956 to (Evaluate:27Jan2015) Requested for: 51Kdj3358; Last Rx:[id number] Ordered Rx By: Jaci Herrera; Dispense: 90 Days ; #:50 ML; Refill: 3; For: Acne; RUKHSANA = N; Verified Transmission to [facility]25[facility]; Last Updated By: Earmark; 02/01/2014 4:46:00 PM 3. Lisinopril 10 MG Oral Tablet; TAKE 1 TABLET EVERY DAY; Therapy: 33Oaw4569 to (Evaluate:27Jan2015) Requested for: 50Mwz8999; Last Rx:[id number] Ordered Rx By: Jaci Herrera; Dispense: 90 Days ; #:90 Tablet; Refill: 3; For: Hypertension; RUKHSANA = N; Verified Transmission to [facility]; Last Updated By: Earmark; 02/01/2014 4:46:01 PM 4. MetFORMIN HCl - 1000 MG Oral Tablet; Take 1 tablet twice a day; Therapy: 23Aug2013 to (Evaluate:12Mar2015) Requested for: 85Zka0193; Last Rx:12Dec2014 Ordered Rx By: Jaci Herrera; Dispense: 90 Days ; #:180 TAB; Refill: 0; For: Type 2 diabetes mellitus; RUKHSANA = N; Verified Transmission to [facility]; Last Updated By: Earmark; 12/12/2014 8:52:26 AM 5. Mometasone Furoate 0.1 % External Cream; APPLY SPARINGLY TO AFFECTED AREAS TWICE DAILY.(AM AND PM); Therapy: 19Oct2014 to (Last Rx:19Oct2014) Requested for: 19Oct2014 Ordered Rx By: Jaci Herrera; Dispense: 0 Days ; #:1 X 45 GM Tube; Refill: 1; For: Eczema; RUKHSANA = N; Verified Transmission to [facility]; Last Updated By: Earmark; 10/19/2014 3:30:03 PM 6. Pioglitazone HCl - 45 MG Oral Tablet; TAKE 1 TABLET EVERY DAY; Therapy: 16Jan2014 to (Evaluate:27Jan2015) Requested for: 12Rnc5918; Last Rx:[id number] Ordered Rx By: Jaci Herrera; Dispense: 90 Days ; #:90 Tablet; Refill: 3; For: Type 2 diabetes mellitus; RUKHSANA = N; Verified Transmission to [facility]25[facility]; Last Updated By: Earmark; 02/01/20144:46:01 PM 7. Venlafaxine HCl ER 150 MG Oral Capsule Extended Release 24 Hour; EVERY DAY; Therapy: 95Eho0268 to (Evaluate:27Jan2015) Requested for: 78Jmr3144; Last Rx:[id number] Ordered Rx By: Jaci Herrera; Dispense: 90 Days ; #:90 Capsule Extended Release 24 Hour; Refill: 3; For: Adjustment disorder; RUKHSANA = N; Verified Transmission to [facility]25[facility]; Last Updated By: Earmark; 02/01/2014 4:46:02 PM Allergies 1. No Known Drug Allergies Recorded By: Mis Lee; 11/11/2012 11:07:55 AM Vitals Recorded: 23Jan2015 02:12PM Systolic 138 Diastolic 84 Weight 275 lb BMI Calculated 41.81 BSA Calculated 2.34 Physical Exam Constitutional General appearance: No acute distress, well appearing and well nourished. Morbidly obese. Musculoskeletal Gait and station: Normal. Digits and nails: Normal without clubbing or cyanosis. Inspection/palpation of joints, bones, and muscles: Abnormal. Right shoulder ROM decreased can hardly lift in any direction very tender to touch over AC jt. Skin Examination of the skin for lesions: Abnormal. Wart left elbow Cryac applied times two. Neurologic Sensation: No sensory loss. Psychiatric Mood and affect: Normal. Results/Data XR SHOULDER 2+ VIEW RT ( Routine ) 23Jan2015 03:20PM Jaci Herrera Test Name Result Flag Reference XR SHOULDER 2+ VIEW LT (Report) DAVID PEGUERO ADMIT/SERVICE DATE: 01/23/15 ACCT: [id number] DISCHARGE DATE: : 1965 SEX: F ORD SITE: [facility] PT TYPE: REG CLI ORDERING MD: JACI HERRERA DO STUDY DATE REPORT # ORDER # EXT ORDER ID 01/23/15 [id number] PROC CODE: SHLDR2+VR PROCEDURE DESCRIPTION: XR SHOULDER 2 OR MORE VIEWS RT IMPRESSION: MILD ARTHRITIS IS SEEN. THERE IS PROBABLE CALCIFIC TENDINOSIS SUPRASPINATUS TENDON. CONSIDER MRI OF THE SHOULDER FOR FURTHER FOLLOW-UP IF INDICATED CLINICALLY EXAMINATION: 3 VIEWS RIGHT SHOULDER EXAM DATE/TIME: 01/23/2015 2:58 PM CLINICAL HISTORY: RIGHT SHOULDER PAIN COMPARISON: NONE TECHNIQUE: AP, AP POSTERIOR OBLIQUE, TRANSSCAPULAR Y VIEWS WERE OBTAINED FINDINGS: THERE ARE CALCIFICATIONS ALONG THE GREATER TUBEROSITY OF THE HUMERUS LIKELY REPRESENTING CALCIFIC TENDINOSIS OF THE SUPRASPINATUS TENDON. THERE IS MINIMAL SPURRING OF THE GLENOID AND THE ACROMIAL CLAVICULAR JOINT. THERE IS NO FRACTURE OR DISLOCATION. ELECTRONICALLY SIGNED BY: DEMETRI CHAN01/23/2015 3:21 PM Procedure Procedure: Injection of the right acromioclavicular joint. Indication: joint pain. Risk and benefits were discussed with the patient. Alcohol and betadine was used to prep the area. Using sterile technique, the aspiration/injection needle was then directed from a anterior aspect. Was used to inject 1 mL of 1% Lidocaine, 1 mL 0.25% Bupivacaine and 1 mL triamcinolone 40 mg/mL. A bandage was applied. Post-Procedure: The patient tolerated the procedure well. Complications: there were no complications and relief of pain after about 5min. David was instructed to avoid strenuous activity for 2-3d day(s). Follow-up in the office as needed. Assessment 1. Pain in joint of right shoulder (719.41) (M25.511) 2. Warts (078.10) (B07.9) Plan Pain in joint of right shoulder 1. XR SHOULDER 2+ VIEW RT ( Routine ); Status:Resulted - Requires Verification; Done: 23Jan2015 03:20PM Performed: [facility]; Due:63Php3394;Ordered; For:Pain in joint of right shoulder; Ordered By:Jaci Herrera; check xray cont with motrin avoid lifting but work on rom exercises Signatures Electronically signed by : Jaci Herrera D.O.; Jan 23 2015 4:34PM INVESTIGATIONS MANAGER (Author) documented in this encounter Plan of Treatment Upcoming Encounters Date Type Department Care Team (Late st Contact Info) Description 09/29/2024 8:00 AM INVESTIGATIONS MANAGER Office Visit [facility] Medical [facility] - [address], [address] [place] [phone] Elza Benitez MD [address] [facility] [address] [place], [place] [phone] documented as of this encounter Procedures Procedure Name Priority Date/Time Associated Diagnosis Comments XR SHOULDER RT MIN 2V Routine 01/23/2015 3:20 PM CDT documented in this encounter Results * XR SHOULDER RT MIN 2V (01/23/2015 3:20 PM CDT) Anatomical Region Laterality Modality Shoulder Radiographic Leola ging 01/23/2015 3:20 PM CDT 01/23/2015 3:20 PM CDT Narrative 01/23/2015 3:27 PM CDT DAVID PEGUERO ? ADMIT/SERVICE DATE: 01/23/15 ?? ACCT: [id number] ?DISCHARGE DATE: ?? : 1965 ??SEX: F ?[facility] SITE: [facility] ?? PT TYPE: REG CLI ? ORDERING MD: JACI HERRERA DO ? STUDY DATE ? REPORT # ?ORDER # ?EXT ORDER ID ?? 01/23/15 ? [id number] ? PROC CODE: ? SHLDR2+VR ? PROCEDURE DESCRIPTION: ?? XR SHOULDER 2 OR MORE VIEWS RT ? IMPRESSION: ?? MILD ARTHRITIS IS SEEN. ? THERE IS PROBABLE CALCIFIC TENDINOSIS SUPRASPINATUS TENDON. CONSIDER MRI ?? OF THE SHOULDER FOR FURTHER FOLLOW-UP IF INDICATED CLINICALLY ? EXAMINATION: 3 VIEWS RIGHT SHOULDER ? EXAM DATE/TIME: 01/23/2015 2:58 PM ? CLINICAL HISTORY: RIGHT SHOULDER PAIN ? COMPARISON: NONE ? TECHNIQUE: AP, AP POSTERIOR OBLIQUE, TRANSSCAPULAR Y VIEWS WERE OBTAINED ? FINDINGS: THERE ARE CALCIFICATIONS ALONG THE GREATER TUBEROSITY OF THE ?? HUMERUS LIKELY REPRESENTING CALCIFIC TENDINOSIS OF THE SUPRASPINATUS ?? TENDON. THERE IS MINIMAL SPURRING OF THE GLENOID AND THE ACROMIAL ?? CLAVICULAR JOINT. THERE IS NO FRACTURE OR DISLOCATION. ? ELECTRONICALLY SIGNED BY: DEMETRI CHAN01/23/2015 3:21 PM ? Procedure Note Jaci Herrera DO - 10/21/2018 DAVID PEGUERO ADMIT/SERVICE DATE:01/23/15 ACCT: [id number] DISCHARGE DATE: : 1965 SEX: F [facility] PT TYPE: REG CLI ORDERING MD:JACI HERRERA DO STUDY DATE REPORT # ORDER # EXT ORDER ID 01/23/15 [id number] PROC CODE: SHLDR2+VR PROCEDURE DESCRIPTION: XR SHOULDER 2 OR MORE VIEWS RT IMPRESSION: MILD ARTHRITIS IS SEEN. THERE IS PROBABLE CALCIFIC TENDINOSIS SUPRASPINATUS TENDON. CONSIDER MRI OF THE SHOULDER FOR FURTHER FOLLOW-UP IF INDICATED CLINICALLY EXAMINATION: 3 VIEWS RIGHT SHOULDER EXAM DATE/TIME: 01/23/2015 2:58 PM CLINICAL HISTORY: RIGHT SHOULDER PAIN COMPARISON: NONE TECHNIQUE: AP, AP POSTERIOR OBLIQUE, TRANSSCAPULAR Y VIEWS WERE OBTAINED FINDINGS: THERE ARE CALCIFICATIONS ALONG THE GREATER TUBEROSITY OF THE HUMERUS LIKELY REPRESENTING CALCIFIC TENDINOSIS OF THE SUPRASPINATUS TENDON. THERE IS MINIMAL SPURRING OF THE GLENOID AND THE ACROMIAL CLAVICULAR JOINT. THERE IS NO FRACTURE OR DISLOCATION. ELECTRONICALLY SIGNED BY: DEMETRI CHAN01/23/2015 3:21 PM [facility] IMAG[facility] Final Result documented in this encounter Visit Diagnoses Not on filedocumented in this encounter Care Teams Professor Of Art History Relationship Specialty Start Date End Date Jaci Herrera DO [address] [place] [address] PCP - General 08/18/16 12/14/23 Jaci Herrera DO [address] [place] [address] PCP - General 07/10/16 08/17/16 Jaci Herrera DO [address] [place] [address] PCP - General 05/07/15 07/09/16 Jaci Herrera DO [address] [place] [address] PCP - General 01/23/15 05/06/15 documented as of this encounter
--- OUTSIDE RECORDS SUMMARY | 2024-08-08 14:14 | XMS_ITS | Encounter Summary ---
Author Organization [facility] Address [address] [place] [address]. [place] [address] [place] [address] Care Team Providers Care Friction Paint Machine Tender Name Role Phone Jaci Herrera DO Primary Care Provider [phone] Encounter Details Date Type Department Care Team (Latest Contact Info) Description 08/18/2016 Abstract [facility] Medical Group Jaci Herrera DO [address] [place], [place] [phone] Social History Tobacco Use Types Packs/Day Years [...] st Contact Info) Description 09/29/2024 8:00 AM GENERAL NEUROLOGIST Office Visit [facility] Family Medicine - [address], [address] [place] [phone] Elza Benitez MD [address] [facility] [address] [place] [address] documented as of this encounter Procedures Procedure Name Priority Date/Time Associated Diagnosis Comments MG SCREENING W JANICE ABIDA DIGI Routine 08/18/2016 10:50 AM GENERAL NEUROLOGIST documented in this encounter Results * MG SCREENING W JANICE ABIDA DIGI (08/18/2016 10:50 AM GENERAL NEUROLOGIST) Anatomical Region Laterality Modality Breast Bilateral Mammography 08/18/2016 10:5 0 AM GENERAL NEUROLOGIST 08/18/2016 10:50 AM GENERAL NEUROLOGIST Narrative 08/18/2016 10:57 AM GENERAL NEUROLOGIST DAVID TOWNSEND ? ADMIT/SERVICE DATE: 08/18/16 ?? ACCT: [id number] ?DISCHARGE DATE: ?? : 1965 ??SEX: F ?ORD S[facility] ?? PT TYPE: REG CLI ? ORDERING MD: WALKER,JACI DO ? STUDY DATE ? REPORT # ?ORDER # ? EXT ORDER ID ?? 08/18/16 ? [id number] ? [id number] ?[id number] ? PROC CODE: ? DSMTWB ? PROCEDURE DESCRIPTION: ?? MG SCREEN DIG RAZIA W JANICE BI ? IMPRESSION: ?? NO MAMMOGRAPHIC FINDINGS SUGGESTIVE OF MALIGNANCY. ? ASSESSMENT: ACR BI-RADS CATEGORY 2 - BENIGN. ? RECOMMENDATION: ?? 1: ROUTINE SCREENING MAMMOGRAM ??BILATERAL ??IN 1 YEAR ? COMMENTS: ? EXAMINATION: DIGITAL BILATERAL SCREENING MAMMOGRAM WITH 3-D ?? TOMOSYNTHESIS ? CLINICAL HISTORY: SECOND-DEGREE RELATIVES WITH BREAST CANCER. ? COMPARISON: 05/07/2015, 03/24/2014 ? TECHNIQUE: DIGITAL SCREENING MAMMOGRAPHY OF BOTH BREASTS WAS PERFORMED ?? IN ADDITION TO 3-D TOMOSYNTHESIS TECHNIQUE. THIS STUDY WAS READ WITH THE ?? ASSISTANCE OF A COMPUTER-AIDED DETECTION SYSTEM. ? TISSUE DENSITY: THE BREAST TISSUE CONTAINS SCATTERED FIBROGLANDULAR ?? DENSITIES. ? FINDINGS: NO SUSPICIOUS MASSES, MALIGNANT APPEARING CALCIFICATIONS, SKIN ?? THICKENING OR OTHER ABNORMALITIES ARE PRESENT. ??NO SIGNIFICANT CHANGE ?? FROM THE PRIOR EXAM. ? ELECTRONICALLY SIGNED BY: TREMAINE MARSHALL08/18/2016 10:53 AM ? Procedure Note Fior Wagner MD - 10/21/2018 DAVID TOWNSEND ADMIT/SERVICE DATE:08/18/16 ACCT: [id number] DISCHARGE DATE: : 1965 SEX: F ORD SITE: [facility] IM[facility] PT TYPE: REG CLI ORDERING MD:JACI HERRERA DO STUDY DATE REPORT # ORDER # EXT ORDER ID 08/18/16 [id number] PROC CODE: DSMTWB PROCEDURE DESCRIPTION: MG SCREEN DIG RAZIA W JANICE BI IMPRESSION: NO MAMMOGRAPHIC FINDINGS SUGGESTIVE OF MALIGNANCY. ASSESSMENT: ACR BI-RADS CATEGORY 2 - BENIGN. RECOMMENDATION: 1: ROUTINE SCREENING MAMMOGRAM BILATERAL IN 1 YEAR COMMENTS: EXAMINATION: DIGITAL BILATERAL SCREENING MAMMOGRAM WITH 3-D TOMOSYNTHESIS CLINICAL HISTORY: SECOND-DEGREE RELATIVES WITH BREAST CANCER. COMPARISON: 05/07/2015, 03/24/2014 TECHNIQUE: DIGITAL SCREENING MAMMOGRAPHY OF BOTH BREASTS WAS PERFORMED IN ADDITION TO 3-D TOMOSYNTHESIS TECHNIQUE. THIS STUDY WAS READ WITH THE ASSISTANCE OF A COMPUTER-AIDED DETECTION SYSTEM. TISSUE DENSITY: THE BREAST TISSUE CONTAINS SCATTERED FIBROGLANDULAR DENSITIES. FINDINGS: NO SUSPICIOUS MASSES, MALIGNANT APPEARING CALCIFICATIONS, SKIN THICKENING OR OTHER ABNORMALITIES ARE PRESENT. NO SIGNIFICANT CHANGE FROM THE PRIOR EXAM. ELECTRONICALLY SIGNED BY: TREMAINE MARSHALL08/18/2016 10:53 AM Jaci Herrera DO MAMMO Final Result documented in this encounter Visit Diagnoses Not on filedocumented in this encounter Care Teams Friction Paint Machine Tender Relationship Specialty Start Date End Date Jaci Herrera DO [address] [place] [address] PCP - General 08/18/16 12/14/23 documented as of this encounter
--- OUTSIDE RECORDS SUMMARY | 2024-08-08 14:14 | XMS_ITS | Encounter Summary ---
Author Organization [facility] Address [address] [place] [address]. [place] [address] [place] [address] Care Team Providers Care Autoclave Operator Name Role Phone Sarah Yap DO Primary Care Provider + [phone] Sarah Yap DO Primary Care Provider + [phone] Encounter Details Date Type Department Care Team (Late Contact Info) Description 07/10/2016 Abstract [facility] [address] [place], [place] [phone] Sarah Yap DO [address] [place] [address] Social History Tobacco Use Types [...] (Late Contact Info) Description 09/29/2024 8:00 AM STUDENT SUCCESS ADVISOR Office Visit [facility] Family Medicine - [place] [address] [facility], [address] [place] [phone] Elza Benitez MD [address] [facility] [address] [place], [place] [phone] documented as of this encounter Visit Diagnoses Diagnosis Primary osteoarthritis of left knee Primary localized osteoarthrosis, lower leg documented in this encounter Care Teams Autoclave Operator Relationship Specialty Start Date End Date Sarah Yap DO [address] [place] [address] PCP - General 08/18/16 12/14/23 Sarah Yap DO [address] [place] [address] PCP - General 07/10/16 08/17/16 documented as of this encounter
--- OUTSIDE RECORDS SUMMARY | 2024-08-08 14:14 | XMS_ITS | Encounter Summary ---
Author Organization [facility] Address [address] [place] [address]. [place] [address] [place] [address] Care Team Providers Care Gluer Machine Operator Name Role Phone Sarah Yap DO Primary Care Provider [phone] Encounter Details Date Type Department Care Team (Latest Contact Info) Description 08/22/2017 Abstract [facility] Sarah Yap DO [address] [place], [place] [address] Social History Tobacco Use Types Packs/Day Years [...] st Contact Info) Description 09/29/2024 8:00 AM BACON DE RINDER Office Visit [facility] Family Medicine - [address], [address] [place] [phone] Elza Benitez MD [facility] [address] [place] [phone] documented as of this encounter Procedures Procedure Name Priority Date/Time Associated Diagnosis Comments HEMOGLOBIN, GLYCOSYLATED Routine 08/22/2017 11:00 AM BACON DE RINDER documented in this encounter Results * HEMOGLOBIN, GLYCOSYLATED (08/22/2017 11:00 AM BACON DE RINDER) HGB A1C 9.4 TOUCHWORKS TO EPIC CONVERSION 08/22/2017 11:0 0 AM BACON DE RINDER 08/22/2017 11:00 AM BACON DE RINDER Narrative TOUCHWORKS TO EPIC CONVERSION - 08/22/2017 11:00 AM BACON DE RINDER [id number] 4:17PM by Sarah Yap: ??a1c much higher ??increase insulin to 75u q d ?? f/u with me in 4mths Result Communication: Call patient with results Sarah Yap DO LABORATORY Final Result TOUCHWORKS TO EPIC CONVERSION documented in this encounter Visit Diagnoses Not on filedocumented in this encounter Care Teams Gluer Machine Operator Relationship Specialty Start Date End Date Sarah Yap DO [address] [place] [address] PCP - General 08/18/16 12/14/23 documented as of this encounter
--- OUTSIDE RECORDS SUMMARY | 2024-08-08 14:14 | XMS_ITS | Encounter Summary ---
Author Organization [facility] Address [address] [place] [address]. 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 C/O dysuria x 1 week. Temp 98.9. NKDA. Please check UA and call patient withresults. Cosigned by Sarah Yap DO at 01/21/2019 8:17 AM CDT documented in this encounter Plan of Treatment Upcoming Encounters Date Type Department Care Team (Late st Contact Info) Description 09/29/2024 8:00 AM MANAGER HEMATOLOGY Office Visit [facility] Family Medicine - [address], [address] [place] [phone] Elza Benitez MD [address] [place] [address] [place] [address] documented as of this encounter Procedures Procedure Name Priority Date/Time Associated Diagnosis Comments URINE BACTERIA CULTURE Routine 01/21/2019 10:17 AM CDT Dysuria URINALYSIS AUTO DIP Routine 01/21/2019 8 :11 AM CDT Dysuria documented in this encounter Results * CULTURE URINE (01/21/2019 10:17 AM CDT) COMMENT (U) SEE RESULTS BELOW [facility] Comment: SPECIMEN: URINE COLLECTED: 01/21/2019 10:17 STATUS: FINAL ?LAST UPDATED: 01/24/2019 10:37 ?CULTURE RESULT (FINAL) ?CULTURE COMPLETE ??ISOLATE #1 (FINAL) ?>=100,000 COLONIES/ML ?ESCHERICHIA COLI ?ISOLATE #1 ?ESCHERICHIA COLI ?AMPICILLIN (AM) ? <=8 ? S ?AMPICILLIN/SULBACTAM ??<=1/.5 ?S ?(A/S) ?AZTREONAM (AZT) ? <=4 ? S ?CEFAZOLIN (CFZ) ? <=2 ? S ?CEFEPIME (CPM) ?<=2 ? S ?CEFOXITIN (CFX) ? <=8 ? S ?CEFTAZIDIME (CAZ) ? <=1 ? S ?CEFTRIAXONE (CAX) ? <=1 ? S ?CIPROFLOXACIN (CP) ?<=1 ? S ?GENTAMICIN (GM) ? 2 ? S ?MEROPENEM (MRP) ? <=1 ? S ?NITROFURANTOIN (FD) ?? <=32 ?S ?PIP/TAZO (PI/T) ? <=4 ? S ?TOBRAMYCIN (TO) ? <=1 ? S ?TRIMETH-SULFA (T/S) ?? <=2/38 ?S URINE SPECIMEN OBTAINED BY CLEAN CATCH PROCEDURE / Unknown 01/21/2019 10:17 AM CDT 01/22/2019 4:56 AM CDT Narrative [facility] - 01/24/2019 10:37 AM CDT REPORT: [id number] Sarah Yap DO MICROBIOLOGY - GENERAL ORDER MEREDITH Final Result Performing Organization Address City/[facility]/ZIP Co de Phone Number [facility] [address] [place] [address], * URINALYSIS AUTO DIP (01/21/2019 8:11 AM CDT) COLOR (U) YELLOW [facility] TRANSPARENCY HAZY [facility] GLUCOSE (U) NEGATIVE NEGATIVE MG/DL [facility] BILIRUBIN (U) NEGATIVE NEGATIVE [facility] KETONES MG/DL (U) NEGATIVE NEGATIVE MG/DL [facility] SPECIFIC GRAVITY (U) 1.015 1.001 - 1.035 [facility] BLOOD (U) TRACE (Non Hemolyzed, Intact) NEGATIVE [facility] U PH 6.5 5.0 - 9.0 [facility] PROTEIN (U) TRACE NEGATIVE mg/dL [facility] UROBILINOGEN 0.2 0.2 - 1.0 EU/dL = mg/dL [facility] NITRITES POSITIVE NEGATIVE MG/DL [facility] LEUKOCYTES (U) 1+ (SMALL) NEGATIVE [facility] MICRO RBC 0, WBC 2-4 [facility] URINE SPECIMEN OBTAINED BY CLEAN CATCH PROCEDURE / Unknown 01/21/2019 8:11 AM CDT us Sarah Yap DO URINE ORDERABLES Final Resul t Performing Organization Address City/[facility]/ZIP Co de Phone Number [facility] [address] [phone], documented in this encounter Visit Diagnoses Diagnosis Dysuria- Primary documented in this encounter Care Teams Wrap Yarn Sorter Relationship Specialty Start Date End Date Sarah Yap DO [address] [place] [address] PCP - General 08/18/16 12/14/23 documented as of this encounter
--- OUTSIDE RECORDS SUMMARY | 2024-08-08 14:14 | XMS_ITS | Encounter Summary ---
Author Organization [facility] Address [address] [place] [address]. [place], [place] [address] [place] [address] Care Team Providers Care Retention Manager Name Role Phone Sarah Yap DO Primary Care Provider + [phone] Encounter Details Date Type Department Care Team (Latest Contact Info) Description 08/25/2017 Abstract [facility] , Fior Bauer MD Social History Tobacco Use Types Packs/Day Years Used Date Smoking Tobacco: Never Assessed Comments Unknown Sex and Gender Information Value Date Recorded Sex Assigned at Not on file Legal Sex Female 7:26 PM CDT Gender Identity Not on file Sexual Orientation Not on file documented as of this encounter Progress Notes * Sarah Yap MD - 08/25/2017 4:17 PM CST Message a1c much higher increase insulin to 75u q d [facility] Verified Results BFMA-Hemoglobin A1C 22Aug2017 11:00AM Sarah Yap Test Name Result Flag Reference Hemoglobin A1C 9.4 [facility]- CMP 22Aug2017 09:14AM Sarah Yap Test Name Result Flag Reference GLUCOSE 218 mg/dL H 74-106 BUN 13 mg/dL 6-20 CREATININE 0.61 mg/dL 0.60-1.00 BUN/CREATININE 21 4-25 eGFR 109.9 mL/min/1.73 m >60.0 eGFR- 133.0 mL/min/1.73 m >60.0 CALCIUM 8.7 mg/dl 8.6-10.3 SODIUM 136 mmol/L 135-145 POTASSIUM 4.0 mmol/L 3.5-5.2 CHLORIDE 99 mmol/L 97-107 CO2 30 mmol/L 21-31 ANION GAP 7.0 7.0-18.0 TOTAL PROTEIN 6.1 g/dL 6.1-8.1 ALBUMIN 4.0 g/dL 3.5-5.2 GLOBULIN CALCULATED 2.1 g/dL 1.9-3.7 A/G RATIO 1.9 1.1-2.5 BILIRUBIN TOTAL 0.32 mg/dL 0.25-1.20 ALKALINE PHOSPHATASE 96 U/L 42-98 AST (SGOT) 15 U/L 5-34 ALT (SGPT) 13 U/L 0-34 RESULTS <10 ARE ACCEPTABLE [facility]- LIPID PANEL 22Aug2017 09:14AM Sarah Yap SLIGHT LIPEMIA Test Name Result Flag Reference CHOLESTEROL 125 mg/dL 0-199 TRIGLYCERIDES 121 mg/dL 0-149 HDL 63 mg/dL H 40-60 CONSISTENT WITH PREVIOUS RESULTS CLDL 38 0-130 RISK FACTOR 2.0 documented in this encounter Plan of Treatment Upcoming Encounters Date Type Department Care Team (Late st Contact Info) Description 09/29/2024 8:00 AM HUMAN MACHINE INTERFACE ENGINEER Office Visit [facility] Family Medicine - [address], [address] [place] [phone] Elza Benitez MD [facility]2 [facility] [address] [place] [address] documented as of this encounter Visit Diagnoses Not on filedocumented in this encounter Care Teams Retention Manager Relationship Specialty Start Date End Date Sarah Yap DO [address] [place] [address] PCP - General 08/18/16 12/14/23 documented as of this encounter
--- OUTSIDE RECORDS SUMMARY | 2024-08-08 14:14 | XMS_ITS | Encounter Summary ---
Author Organization [facility] Address [address] [place] [address]. [place], [place] [address] [place] [address] Care Team Providers Care Physical Science Technician Name Role Phone Sarah Yap DO Primary Care Provider [phone] Encounter Details Date Type Department Care Team (Latest Contact Info) Description 10/16/2017 Abstract [facility] Medical Group Sarah Yap DO [address] [place], [place] [address] Social History Tobacco Use Types Packs/Day Years [...] st Contact Info) Description 09/29/2024 8:00 AM FLOATER OPERATOR Office Visit [facility] Medical [facility] Family Medicine - [address], [address] [place] [phone] Elza Benitez MD [address] [facility] [address] [place] [address] documented as of this encounter Visit Diagnoses Not on filedocumented in this encounter Care Teams Physical Science Technician Relationship Specialty Start Date End Date Sarah Yap DO [address] [place] [address] PCP - General 08/18/16 12/14/23 documented as of this encounter
--- OUTSIDE RECORDS SUMMARY | 2024-08-08 14:14 | XMS_ITS | Encounter Summary ---
Author Organization [facility] Address [address] [place] [address]. [place], [place] [address] [place] [address] Care Team Providers Care Lead Sprinkler Name Role Phone Sarah Yap DO Primary Care Provider + [phone] Sarah Yap DO Primary Care Provider + [phone] Encounter Details Date Type Department Care Team (Latest Contact Info) Description 07/31/2016 Abstract [facility] Medical Group , Fior Bauer [...] Progress Notes * Sarah Yap MD - 07/31/2016 1:29 PM CST Message labs stable cont meds same, work on diet and wt loss Verified Results LC-Comp. Metabolic Panel ( CMP ) [id number] 07:44AM Sarah Yap Test Name Result Flag Reference Glucose, Serum 93 mg/dL 65-99 BUN 16 mg/dL 6-24 Creatinine, Serum 0.74 mg/dL 0.57-1.00 eGFR If NonAfricn Am 95 mL/min/1.73 >59 eGFR If Africn Am 109 mL/min/1.73 >59 BUN/Creatinine Ratio 22 9-23 Sodium, Serum 143 mmol/L 134-144 Potassium, Serum 4.1 mmol/L 3.5-5.2 Chloride, Serum 96 mmol/L 96-106 Carbon Dioxide, Total 27 mmol/L 18-29 Calcium, Serum 9.8 mg/dL 8.7-10.2 Protein, Total, Serum 7.0 g/dL 6.0-8.5 Albumin, Serum 4.5 g/dL 3.5-5.5 Globulin, Total 2.5 g/dL 1.5-4.5 A/G Ratio 1.8 1.1-2.5 Bilirubin, Total 0.2 mg/dL 0.0-1.2 Alkaline Phosphatase, S 90 IU/L 39-117 AST (SGOT) 18 IU/L 0-40 ALT (SGPT) 17 IU/L 0-32 LC-Lipid Panel [id number] 07:44AM Sarah Yap Test Name Result Flag Reference Cholesterol, Total 147 mg/dL 100-199 Triglycerides 94 mg/dL 0-149 HDL Cholesterol 74 mg/dL >39 VLDL Cholesterol Francisco 19 mg/dL 5-40 LDL Cholesterol Calc 54 mg/dL 0-99 Comment: documented in this encounter Plan of Treatment Upcoming Encounters Date Type Department Care Team (Late st Contact Info) Description 09/29/2024 8:00 AM MAINTENANCE REPAIRER Office Visit [facility] Family Medicine - [address], [address] [place] [phone] Elza Benitez MD [facility]2 [facility] [address] [place] [address] documented as of this encounter Visit Diagnoses Not on filedocumented in this encounter Care Teams Lead Sprinkler Relationship Specialty Start Date End Date Sarah Yap DO [address] [place] [address] PCP - General 08/18/16 12/14/23 Sarah Yap DO [address] [place] [address] PCP - General 07/10/16 08/17/16 documented as of this encounter
--- OUTSIDE RECORDS SUMMARY | 2024-08-08 14:14 | XMS_ITS | Encounter Summary ---
Author Organization [facility] Address [address] [place] [address]. [place] [address] [place] [address] Care Team Providers Care Offset Lithographic Press Setter Name Role Phone Sarah Yap DO Primary Care Provider [phone] Encounter Details Date Type Department Care Team (Latest Contact Info) Description 12/25/2017 Abstract [facility] Sarah Yap DO [address] [place] [address] Social History Tobacco Use Types Packs/Day Years Used Date Smoking Tobacco: Never Assessed Comments Unknown Sex and Gender Information Value Date Recorded Sex Assigned at Not on file Legal Sex Female 7:26 PM CDT Gender Identity Not on file Sexual Orientation Not on file documented as of this encounter Last Filed Vital Signs Vital Sign Reading Time Taken Comments Blood Pressure 122/74 12/25/2017 7:56 AM CDT Pulse - - Temperature - - Respiratory Rate - - Oxygen Saturation - - Inhaled Oxygen Concentration - - Weight 122 kg (269 lb) 12/25/2017 7:56 AM CDT Height 171.5 cm (5' 7.5 ) 12/25/2017 7:56 AM CDT Body Mass Index 41.51 12/25/2017 7:56 AM CDT documented in this encounter Progress Notes * Sarah Yap MD - 12/25/2017 8:00 AM CDT Chief Complaint 4 month follow up also has red rash on abdomen History of Present Illness HPI Free Text: Here for /u on her DM never increased insulin to 75 as ordered, still using 55u some exercise c/o rash that started on abdomen and now down in groin and on arms and hands does garden and do the [place] in [place]--started a couple wks ago still getting new lesions Review of Systems See HPI for pertinent positives. Active Problems 1. Adenomatosis (211.3) (D12.6) 2. Adjustment disorder (309.9) (F43.20) ?? stable on meds 3. Eczema (692.9) (L30.9) 4. Hyperlipidemia (272.4) (E78.5) 5. Hypertension (401.9) (I10) 6. Morbid obesity (278.01) (E66.01) 7. Osteoarthritis of left knee (715.96) (M17.12) 8. Polyp of colon (211.3) (K63.5) 9. Strain of chest wall (848.8) (S29.011A) 10. Trigger thumb (727.03) (M65.319) 11. Type 2 diabetes mellitus (250.00) (E11.9) Past Medical History 1. History of acne (V13.3) (Z87.2) 2. History of cholelithiasis (V12.79) (Z87.19) 3. History of hypertension (V12.59) (Z86.79) 4. History of premenstrual syndrome (V13.29) (Z87.42) 5. History of viral warts (V12.09) (Z86.19) 6. History of Postmenopausal status (V49.81) (Z78.0) ?? late 40s 7. History of Summary Of Previous Pregnancies 0 (Total No.) Surgical History 1. History of Colonoscopy (Fiberoptic) ?? 03/2010 polyp 05/2015 normal repeat 5yrs 2. History of Ear Surgery 3. History of Renal Lithotripsy 4. History of Tonsillectomy Family History Father 1. Family history of Skin Cancer (V16.8) Maternal Grandmother 2. Family history of Breast Cancer (V16.3) Family History 3. Family history of Diabetes Mellitus (V18.0) 4. Family history of Hypertension (V17.49) Social History ?? Alcohol Use (History) ?? Marital History - Currently ?? 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 Tobacco Non-user Current Meds 1. Atorvastatin Calcium 10 MG Oral Tablet; TAKE 1 TABLET BY MOUTH EVERY DAY; Therapy: [id number] to (Evaluate:16Aug2018) Requested for: 21Aug2017; Last Rx:21Aug2017 Ordered 2. Basaglar KwikPen 100 UNIT/ML Subcutaneous Solution Pen-injector; INJECT 55 UNITS SUB-Q EVERY DAY DIRECTED; Therapy: 57Hvh0450 to (Evaluate:25Jan2018) Requested for: 26Nov2017; Last Rx:[id number] Ordered 3. HydroCHLOROthiazide 50 MG Oral Tablet; TAKE 1 TABLET EVERY DAY; Therapy: 69Cdw0034 to (Evaluate:16Aug2018) Requested for: 21Aug2017; Last Rx:21Aug2017 Ordered 4. Lisinopril 10 MG Oral Tablet; TAKE 1 TABLET EVERY DAY; Therapy: 86Fqi5305 to (Evaluate:16Aug2018) Requested for: 21Aug2017; Last Rx:21Aug2017 Ordered 5. MetFORMIN HCl - 1000 MG Oral Tablet; Take 1 tablet twice a day; Therapy: 23Aug2013 to (Evaluate:16Aug2018) Requested for: 21Aug2017; Last Rx:21Aug2017 Ordered 6. Pen [place] /16 31G X 8 MM; USE DAILY TO INJECT INSULIN DIRECTED; Therapy: 25Aug2017 to (Last Rx:02Sep2017) Requested for: 02Sep2017 Ordered 7. Pioglitazone HCl - 45 MG Oral Tablet; TAKE 1 TABLET EVERY DAY; Therapy: 16Jan2014 to (Evaluate:16Aug2018) Requested for: 21Aug2017; Last Rx:21Aug2017 Ordered 8. Venlafaxine HCl ER 150 MG Oral Capsule Extended Release 24 Hour; Take one capsule daily; Therapy: 21Not1477 to (Evaluate:16Aug2018) Requested for: 21Aug2017; Last Rx:21Aug2017 Ordered Allergies 1. No Known Drug Allergies Immunizations Hepatitis A --- Series1: 1999; Series2: 2000 Influenza --- Series1: ; Series2: May 2017 PCV --- Series1: 03/19/17 Tdap --- Series1: 07-Jan-2012 Zoster --- Series1: 03/19/17 Vitals Recorded: 25Dec2017 07:56AM Temperature 98.7 F Systolic 122 Diastolic 74 Height 5 ft 7.5 in Weight 269 lb BMI Calculated 41.51 BSA Calculated 2.31 Physical Exam Constitutional General appearance: No acute distress, well appearing and well nourished. morbidly obese and has not lost any wt.. Pulmonary Respiratory effort: No increased work of breathing or signs of respiratory distress. Auscultation of lungs: Clear to auscultation. Cardiovascular Auscultation of heart: Normal rate and rhythm, normal S1 and S2, without murmurs. Examination of extremities for edema and/or varicosities: Normal. Skin Skin and subcutaneous tissue: Abnormal. in above stated areas, confluent erythema slightly raised small lesions in areas some blisterlike, no weeping.. Assessment 1. Contact dermatitis (692.9) (L25.9) 2. Type 2 diabetes mellitus (250.00) (E11.9) 3. Hypertension (401.9) (I10) 4. Morbid obesity (278.01) (E66.01) Plan Contact dermatitis 1. Triamcinolone Acetonide 40 MG/ML Injection Suspension (Kenalog); INJECT 1 ML INTRAMUSCULARLY ONCE; To Be Done: [id number] Rx By: Sarah Yap; For: Contact dermatitis; RUKHSANA = N; Request Administration Formulary Override Reason: No Formulary Equivalent Exists Type 2 diabetes mellitus 2. BFMA-Hemoglobin A1C; Status:Active; Requested for:[id number]; Perform:[facility]; Due:24Jan2018;Ordered; For:Type 2 diabetes mellitus; Ordered By:Sarah Yap; : No fasting required kenalog, take benadryl prn, check a1c, stressed importance of diet exercise and wt loss Signatures Electronically signed by : Sarah Yap D.O.; Dec 25 2017 8:26AM REGISTERED APPRAISER (Author) documented in this encounter Plan of Treatment Upcoming Encounters Date Type Department Care Team (Late st Contact Info) Description 09/29/2024 8:00 AM REGISTERED APPRAISER Office Visit [facility] Family Medicine - [address], [address] [place] [phone] Elza Benitez MD [address] [place] [address] [place] [address] documented as of this encounter Visit Diagnoses Not on filedocumented in this encounter Care Teams Offset Lithographic Press Setter Relationship Specialty Start Date End Date Sarah Yap DO [address] [place] [address] PCP - General 08/18/16 12/14/23 documented as of this encounter
--- OUTSIDE RECORDS SUMMARY | 2024-08-08 14:14 | XMS_ITS | Encounter Summary ---
Author Organization [facility] Address [address] [place] [address]. [place] [address] [place] [address] Care Team Providers Care Stock Sheets Cleaner Inspector Name Role Phone Sarah Yap DO Primary Care Provider + [phone] Sarah Yap DO Primary Care Provider + [phone] Sarah Yap DO Primary Care Provider + [phone] Encounter Details Date Type Department Care Team (Latest Contact Info) Description 05/30/2015 Abstract [facility] Medical Group Sarah Yap DO [address] [place] [address] Social History Tobacco Use Types Packs/Day Years [...] st Contact Info) Description 09/29/2024 8:00 AM GROUNDSMAN Office Visit [facility] Family Medicine - [address], [address] [place] [phone] Elza Benitez MD [address] [facility] [address] [place] [address] documented as of this encounter Procedures Procedure Name Priority Date/Time Associated Diagnosis Comments COLONOSCOPY Routine 05/03/2015 12:00 AM CDT documented in this encounter Results * Colonoscopy (05/03/2015 12:00 AM CDT) 05/03/2015 05/03/2015 Narrative TOUCHWORKS TO EPIC CONVERSION - 05/03/2015 12:00 AM CDT Documented hx of procedure Procedure Note , Fior Bauer, - 10/21/2018 Documented hx of procedure us Generic Conversion Md [facility] PROCEDURE ORDERABLES Final Result TOUCHWORKS TO EPIC CONVERSION documented in this encounter Visit Diagnoses Not on filedocumented in this encounter Care Teams Stock Sheets Cleaner Inspector Relationship Specialty Start Date End Date Sarah Yap DO [address] [place] [address] PCP - General 08/18/16 12/14/23 Sarah Yap DO [address] [place] [address] PCP - General 07/10/16 08/17/16 Sarah Yap DO [address] [place] [address] PCP - General 05/07/15 07/09/16 documented as of this encounter
--- OUTSIDE RECORDS SUMMARY | 2024-08-08 14:14 | XMS_ITS | Encounter Summary ---
Author Organization [facility] Address [address] [place] [address]. [place] [address] [place] [address] Care Team Providers Care Glacing Machine Tender Name Role Phone Jaci Herrera DO Primary Care Provider + [phone] Jaci Herrera DO Primary Care Provider + [phone] Jaci Herrera DO Primary Care Provider + [phone] Encounter Details Date Type Department Care Team (Latest Contact Info) Description 05/07/2015 Abstract [facility] Medical Group Jaci Herrera DO [address] [place] [address] Social History Tobacco Use Types Packs/Day Years [...] st Contact Info) Description 09/29/2024 8:00 AM BEHAVIORAL HEALTH COUNSELOR Office Visit [facility] Family Medicine - [address], [address] [place] [address] Elza Benitez MD [address] [facility] [address] [place] [address] documented as of this encounter Procedures Procedure Name Priority Date/Time Associated Diagnosis Comments MG SCREENING ABIDA DIGI Routine 05/07/2015 6:39 PM CDT documented in this encounter Results * MG SCREENING ABIDA DIGI (05/07/2015 6:39 PM CDT) Anatomical Region Laterality Modality Breast Bilateral Mammography 05/07/2015 6:39 PM CDT 05/07/2015 6:39 PM CDT Narrative 05/07/2015 6:47 PM CDT DAVID TOWNSEND ? ADMIT/SERVICE DATE: 05/07/15 ?? ACCT: [id number] ?DISCHARGE DATE: ?? : 1965 ??SEX: F ?ORD SITE: [facility] ?? PT TYPE: REG CLI ? ORDERING MD: JACI HERRERA DO ? STUDY DATE ? REPORT # ?ORDER # ? EXT ORDER ID ?? 05/07/15 ? [id number] ? [id number] ?[id number] ? PROC CODE: ? [id number] ? PROCEDURE DESCRIPTION: ?? MG SCREEN MAMMO DIGITAL BI ? IMPRESSION: ?? STABLE MAMMOGRAPHIC APPEARANCE WITH NO NEW FINDINGS TO SUGGEST ?? MALIGNANCY IN EITHER BREAST. ? ASSESSMENT: ACR BI-RADS CATEGORY 2 - BENIGN. ? RECOMMENDATION: ?? 1: ROUTINE SCREENING MAMMOGRAM ??BILATERAL ??IN 1 YEAR ? COMMENTS: ? EXAMINATION: DIGITAL BILATERAL SCREENING MAMMOGRAM ? CLINICAL HISTORY: NO PERSONAL HISTORY OF BREAST CANCER. BREAST CANCER IN ?? A GRANDMOTHER AT AGE 75. BREAST CANCER IN AN AUNT AT UNKNOWN AGE. NO ?? PRIOR BREAST PROCEDURES. NO CURRENT COMPLAINT. ? COMPARISON: MAMMOGRAMS FROM 03/24/2014 10/09/2012 08/09/2011 03/16/2010 ?? 06/28/2008 ? TECHNIQUE: BILATERAL CC AND MLO MAMMOGRAMS ARE OBTAINED. THIS STUDY WAS ?? READ WITH THE ASSISTANCE OF A COMPUTER-AIDED DETECTION SYSTEM. ? TISSUE DENSITY: THE BREAST TISSUE CONTAINS SCATTERED FIBROGLANDULAR ?? DENSITIES. ? FINDINGS: BENIGN AXILLARY LYMPH NODES. OVERALL PARENCHYMAL PATTERN ?? STABLE FROM PRIOR STUDIES. BENIGN VASCULAR CALCIFICATIONS OF THE LEFT ?? BREAST. BENIGN BILATERAL INTERNAL MAMMARY LYMPH NODES. THERE IS NO NEW ?? FOCAL ASYMMETRY, DOMINANT MASS LESION, AREA OF SKIN THICKENING, OR ?? CLUSTER OF SUSPICIOUS APPEARING CALCIFICATIONS IN EITHER BREAST TO ?? SUGGEST MALIGNANCY. ? ELECTRONICALLY SIGNED BY: VINCE GRESHAM05/07/2015 6:41 PM ? Procedure Note Fior Wagner MD - 10/21/2018 DAVID TOWNSEND ADMIT/SERVICE DATE:05/07/15 ACCT: [id number] DISCHARGE DATE: : 1965 SEX: F [facility] PT TYPE: REG CLI ORDERING MD:JACI HERRERA DO STUDY DATE REPORT # ORDER # EXT ORDER ID 05/07/15 [id number] PROC CODE: [id number] PROCEDURE DESCRIPTION: MG SCREEN MAMMO DIGITAL BI IMPRESSION: STABLE MAMMOGRAPHIC APPEARANCE WITH NO NEW FINDINGS TO SUGGEST MALIGNANCY IN EITHER BREAST. ASSESSMENT: ACR BI-RADS CATEGORY 2 - BENIGN. RECOMMENDATION: 1: ROUTINE SCREENING MAMMOGRAM BILATERAL IN 1 YEAR COMMENTS: EXAMINATION: DIGITAL BILATERAL SCREENING MAMMOGRAM CLINICAL HISTORY: NO PERSONAL HISTORY OF BREAST CANCER. BREAST CANCER IN A GRANDMOTHER AT AGE 76. BREAST CANCER IN AN AUNT AT UNKNOWN AGE. NO PRIOR BREAST PROCEDURES. NO CURRENT COMPLAINT. COMPARISON: MAMMOGRAMS FROM 03/24/2014 10/09/2012 08/09/2011 03/16/2010 06/28/2008 TECHNIQUE: BILATERAL CC AND MLO MAMMOGRAMS ARE OBTAINED. THIS STUDY WAS READ WITH THE ASSISTANCE OF A COMPUTER-AIDED DETECTION SYSTEM. TISSUE DENSITY: THE BREAST TISSUE CONTAINS SCATTERED FIBROGLANDULAR DENSITIES. FINDINGS: BENIGN AXILLARY LYMPH NODES. OVERALL PARENCHYMAL PATTERN STABLE FROM PRIOR STUDIES. BENIGN VASCULAR CALCIFICATIONS OF THE LEFT BREAST. BENIGN BILATERAL INTERNAL MAMMARY LYMPH NODES. THERE IS NO NEW FOCAL ASYMMETRY, DOMINANT MASS LESION, AREA OF SKIN THICKENING, OR CLUSTER OF SUSPICIOUS APPEARING CALCIFICATIONS IN EITHER BREAST TO SUGGEST MALIGNANCY. ELECTRONICALLY SIGNED BY: VINCE GRESHAM05/07/2015 6:41 PM Jaci Herrera DO MAMMO Final Result documented in this encounter Visit Diagnoses Not on filedocumented in this encounter Care Teams Glacing Machine Tender Relationship Specialty Start Date End Date Jaci Herrera DO [address] [place] [address] PCP - General 08/18/16 12/14/23 Jaci Herrera DO [address] [place] [address] PCP - General 07/10/16 08/17/16 Jaci Herrera DO [address] [place] [address] PCP - General 05/07/15 07/09/16 documented as of this encounter
--- OUTSIDE RECORDS SUMMARY | 2024-08-08 14:14 | XMS_ITS | Encounter Summary ---
Author Organization [facility] Address [address] [place] [address]. [place] [address] [place] [address] Care Team Providers Care Academic Director Name Role Phone Sarah Yap DO Primary Care Provider + [phone] Sarah Yap DO Primary Care Provider + [phone] Sarah Yap DO Primary Care Provider + [phone] Encounter Details Date Type Department Care Team (Latest Contact Info) Description 05/12/2015 Abstract [facility] Medical Group Sarah Yap DO [address] [place] [address] Social History Tobacco Use Types Packs/Day Years [...] Contact Info) Description 09/29/2024 8:00 AM RADIO AERIAL INSTALLER Office Visit [facility] Family Medicine - [address], [address] [place] [address] Elza Benitez MD [address] [facility] [address] [place] [address] documented as of this encounter Procedures Procedure Name Priority Date/Time Associated Diagnosis Comments CBC W/DIFF AUTOMATED Routine 05/12/2015 8:34 AM CDT BASIC METABOLIC PANEL Routine 05/12/2015 8:33 AM CDT documented in this encounter Results * CBC W/DIFF AUTOMATED (05/12/2015 8:34 AM CDT) WBC 7.5 3.4 - 10.8 x10E3/uL TOUCHWORKS TO EPIC CONVERSION RBC 4.45 3.77 - 5.28 x10E6/uL TOUCHWORKS TO EPIC CONVERSION HEMOGLOBIN MIXED VENOUS 12.6 11.1 - 15.9 g/dL TOUCHWORKS TO EPIC CONVERSION HCT 39.1 34.0 - 46.6 % TOUCHWORKS TO EPIC CONVERSION MCV 88 79 - 97 fL TOUCHWORK S TO EPIC CONVERSION MCH 28.3 26.6 - 33.0 pg TOUCHWORKS TO EPIC CONVERSION MCHC 32.2 31.5 - 35.7 g/dL TOUCHWORKS TO EPIC CONVERSION RDW 13.5 12.3 - 15.4 % TOUCHWORKS TO EPIC CONVERSION PLT 354 150 - 379 x10E3/uL TOUCHWORKS TO EPIC CONVERSION SEG NEUTROPHILS 71 % TOUC HWORKS TO EPIC CONVERSION LYMPHOCYTES 22 % TOUCHWOR KS TO EPIC CONVERSION MONOCYTES 7 % TOUCHWORKS TO EPIC CONVERSION EOSINOPHILS 0 % TOUCHWOR KS TO EPIC CONVERSION BASOPHILS % 0 % TOUCHWOR KS TO EPIC CONVERSION IMMATURE CELLS TOUCH WORKS TO EPIC CONVERSION ABS. NEUTROPHILS 5.3 1.4 - 7.0 x10E3/uL TOUCHWORKS TO EPIC CONVERSION ABS. LYMPHOCYTES 1.7 0.7 - 3.1 x10E3/uL TOUCHWORKS TO EPIC CONVERSION ABS. MONOCYTES 0.5 0.1 - 0.9 x10E3/uL TOUCHWORKS TO EPIC CONVERSION ABS. EOSINOPHILS 0.0 0.0 - 0.4 x10E3/uL TOUCHWORKS TO EPIC CONVERSION ABS. BASOPHILS 0.0 0.0 - 0.2 x10E3/uL TOUCHWORKS TO EPIC CONVERSION IMMATURE CELLS 0 % TOUCH WORKS TO EPIC CONVERSION ABS. IMMATURE GRANULOCYTES 0.0 0.0 - 0.1 x10E3/uL TOUCHWORKS TO EPIC CONVERSION NRBC TOUCHWORKS TO EPIC CONVERSION CBC COMMENT TOUCHWOR KS TO EPIC CONVERSION 05/12/2015 8:34 AM CDT 05/12/2015 8:34 AM CDT Narrative TOUCHWORKS TO EPIC CONVERSION - 05/13/2015 2:14 AM CDT Result Communication: No patient communication needed at this time us Sarah Yap DO LABORATORY Final Result TOUCHWORKS TO EPIC CONVERSION * (ABNORMAL) BASIC METABOLIC PANEL (05/12/2015 8:33 AM CDT) GLUCOSE 121(H) 74 - 106 mg/dL TOUCHWORKS TO EPIC CONVERSION Comment:Result Comment: CONS ISTENT WITH PREVIOUS RESULTS BUN 13 6 - 20 mg/dL TOUCHWORKS TO EPIC CONVERSION CREATININE S/P/B 0.6 0.6 - 1.0 mg/dL TOUCHWORKS TO EPIC CONVERSION BUN CREATININE RATIO 22 4 - 25 TOUCHWORKS TO EPIC CONVERSION CALCIUM S/P/B 9.5 8.6 - 10.3 mg/dl TOUCHWORKS TO EPIC CONVERSION SODIUM S/P/B 137 135 - 145 mmol/L TOUCHWORKS TO EPIC CONVERSION POTASSIUM S/P/B 4.0 3.5 - 5.2 mmol/L TOUCHWORKS TO EPIC CONVERSION CHLORIDE S/P/B 100 97 - 107 mmol/L TOUCHWORKS TO EPIC CONVERSION CO2 30 21 - 31 mmol/L TOUCHWORKS TO EPIC CONVERSION ANION GAP 7.0 7.0 - 18.0 TOUCHWORK S TO EPIC CONVERSION GFR ESTIMATE 112.9 >60.0 mL/min/1.7 3 m TOUCHWORKS TO EPIC CONVERSION EGFR AFR. AMER. 136.6 >60.0 mL/min/1.7 3 m TOUCHWORKS TO EPIC CONVERSION 05/12/2015 8:33 AM CDT 05/12/2015 8:33 AM CDT Narrative TOUCHWORKS TO EPIC CONVERSION - 05/12/2015 8:33 AM CDT Order Comment: SLIGHT LIPEMIA Result Communication: No patient communication needed at this time us Sarah Yap DO LABORATORY Final Result TOUCHWORKS TO EPIC CONVERSION documented in this encounter Visit Diagnoses Not on filedocumented in this encounter Care Teams Academic Director Relationship Specialty Start Date End Date Sarah Yap DO [address] [place] [address] PCP - General 08/18/16 12/14/23 Sarah Yap DO [address] [place] [address] PCP - General 07/10/16 08/17/16 Sarah Yap DO [facility] [address] [place] [address] PCP - General 05/07/15 07/09/16 documented as of this encounter
--- OUTSIDE RECORDS SUMMARY | 2024-08-08 14:14 | XMS_ITS | Encounter Summary ---
Author Organization [facility] Address [address] [place] [address]. [place] [address] [place] [address] Care Team Providers Care Washer Hand Name Role Phone Sarah Yap DO Primary Care Provider [phone] Encounter Details Date Type Department Care Team (Latest Contact Info) Description 09/26/2017 Abstract [facility] Medical Group Sarah Yap DO [address] [place], [place] [address] Social History Tobacco Use Types Packs/Day Years [...] st Contact Info) Description 09/29/2024 8:00 AM VISUAL AND STOCK ASSOCIATE Office Visit [facility] Family Medicine - [address], [address] [place] [phone] Elza Benitez MD [address] [facility] [address] [place] [address] documented as of this encounter Procedures Procedure Name Priority Date/Time Associated Diagnosis Comments MG SCREENING W JANICE ABIDA DIGI Routine 09/26/2017 9:30 AM VISUAL AND STOCK ASSOCIATE documented in this encounter Results * MG SCREENING W JANICE ABIDA DIGI (09/26/2017 9:30 AM VISUAL AND STOCK ASSOCIATE) Anatomical Region Laterality Modality Breast Bilateral Mammography 09/26/2017 9:30 AM VISUAL AND STOCK ASSOCIATE 09/26/2017 9:30 AM VISUAL AND STOCK ASSOCIATE Narrative 09/26/2017 11:24 AM VISUAL AND STOCK ASSOCIATE This is a summary report. The complete [...] ??bilateral ??in 1 year ? COMMENTS: ? 08/18/16 screen 05/07/15 screen 03/24/14 screen Procedure Note , Generic Conversion, - 10/21/2018 This is a summary report. The complete report is available in thepatient's medical record. If you cannot access the medical record, pleasecontact the sending organization for a detailed fax or copy. EXAMINATION: Digital bilateral screening mammogram with 3-Dtomosynthesis EXAM DATE/TIME: 09/26/2017 9:54 AM REASON FOR EXAM: Breast screening Family history of breast cancer. COMPARISON: Prior [...] screening mammogram bilateral in 1 year COMMENTS: 08/18/16 screen 05/07/15 screen 03/24/14 screen Sarah Yap DO MAMMO Final Result documented in this encounter Visit Diagnoses Not on filedocumented in this encounter Care Teams Washer Hand Relationship Specialty Start Date End Date Sarah Yap DO [address] [place] [address] PCP - General 08/18/16 12/14/23 documented as of this encounter
--- OUTSIDE RECORDS SUMMARY | 2024-08-08 14:15 | XMS_ITS | Encounter Summary ---
Author Organization [facility] Address [address] [place] [address]. [place] [address] [place] [address] Care Team Providers Care Publicity Expert Name Role Phone Debby Yapa S DO Primary Care Provider + [phone] Walker Sarah S DO Primary Care Provider + [phone] Walker Sarah S DO Primary Care Provider + [phone] Walker Sarah S DO Primary Care Provider + [phone] Walker Sarah S DO Primary Care Provider + [phone] Walker Sarah S DO Primary Care Provider + [phone] Encounter Details Date Type Department Care Team (Late st Contact Info) Description 12/27/1997 [place] [address] , Generic MD Juancarlos Social History Tobacco Use Types Packs/Day Years [...] st Contact Info) Description 09/29/2024 8:00 AM EXECUTIVE DIRECTOR Office Visit [facility] Medical Group Family Medicine - [address], [address] [place] [phone] Elza Benitez MD [address] [facility] [address] [place] [address] documented as of this encounter Visit Diagnoses Not on filedocumented in this encounter Care Teams Publicity Expert Relationship Specialty Start Date End Date Sarah Yap DO [address] [place] [address] PCP - General 08/18/16 12/14/23 Sarah Yap DO [address] [place] [address] PCP - General 07/10/16 08/17/16 Sarah Yap DO [address] [place] [address] PCP - General 05/07/15 07/09/16 Sarah Yap DO [address] [place] [address] PCP - General 01/23/15 05/06/15 Sarah Yap DO [address] [place] [address] PCP - General 03/24/14 01/22/15 Sarah Yap DO [address] [place] [address] PCP - General 10/09/12 03/23/14 documented as of this encounter
--- OUTSIDE RECORDS SUMMARY | 2024-08-08 14:15 | XMS_ITS | Encounter Summary ---
Author Organization [facility] Address [address] [place] [address]. [place] [address] [place] [address] Care Team Providers Care Millinery Worker Name Role Phone Sarah Yap DO Primary Care Provider + [phone] Sarah Yap DO Primary Care Provider + [phone] Sarah Yap DO Primary Care Provider + [phone] Sarah Yap DO Primary Care Provider + [phone] Encounter Details Date Type Department Care Team (Late st Contact Info) Description 01/23/2015 Abstract [facility] [address] [place] [address] Sarah Yap DO [address] [place] [address] Social History Tobacco Use Types [...] st Contact Info) Description 09/29/2024 8:00 AM SERVICE ORDER EXPEDITER Office Visit [facility] Medical Group Family Medicine - [address], [address] [place] [phone] Elza Benitez MD [address] [facility] [address] [place] [address] documented as of this encounter Visit Diagnoses Diagnosis Pain in joint, shoulder region documented in this encounter Care Teams Millinery Worker Relationship Specialty Start Date End Date Sarah Yap DO [address] [place] [address] PCP - General 08/18/16 12/14/23 Sarah Yap DO [address] [place] [address] PCP - General 07/10/16 08/17/16 Sarah Yap DO [address] [place], [place] [address] PCP - General 05/07/15 07/09/16 Sarah Yap DO [address] [place], [place] [address] PCP - General 01/23/15 05/06/15 documented as of this encounter
--- OUTSIDE RECORDS SUMMARY | 2024-08-08 14:15 | XMS_ITS | Encounter Summary ---
Author Organization [facility] Address [address] [place] [address]. [place], [place] [address] [place] [address] Care Team Providers Care Assistant Distribution Manager Name Role Phone Sarah Yap DO Primary Care Provider + [phone] Sarah Yap DO Primary Care Provider + [phone] Sarah Yap DO Primary Care Provider + [phone] Sarah Yap DO Primary Care Provider + [phone] Sarah Yap DO Primary Care Provider + [phone] Encounter Details Date Type Department Care Team (Latest Contact Info) Description 10/19/2014 Abstract [facility] Medical Group Sarah Yap DO [address] [place] [address] Social History Tobacco Use Types Packs/Day Years Used Date Smoking Tobacco: Never Assessed Comments Unknown Sex and Gender Information Value Date Recorded Sex Assigned at Not on file Legal Sex Female 7:26 PM CDT Gender Identity Not on file Sexual Orientation Not on file documented as of this encounter Last Filed Vital Signs Vital Sign Reading Time Taken Comments Blood Pressure 120/78 10/19/2014 3:03 PM CDT Pulse - - Temperature - - Respiratory Rate - - Oxygen Saturation - - Inhaled Oxygen Concentration - - Weight 125.2 kg (276 lb) 10/19/2014 3:03 PM CDT Height - - Body Mass Index 41.97 02/01/2014 4:17 PM CDT documented in this encounter Progress Notes * Sarah Yap MD - 10/19/2014 3:00 PM CDT Reason For Visit Reason For Visit: Acute Visit Chief Complaint red, itchy rash to left forearm x 5 months History of Present Illness Here with itching raised rash left forearm for mths...better at times than others.Has been using cortisone cream and it will improve then get bad again has very dry skin, not always good about using lotion Review of Systems See HPI for pertinent positives. Active Problems 1. Acne (706.1) (L70.9) 2. Adenomatosis (211.3) (D12.6) 3. Adjustment disorder (309.9) (F43.20) 4. Hyperlipidemia (272.4) (E78.5) 5. Hypertension (401.9) (I10) 6. Lumps on the skin (782.2) (R22.9) 7. Morbid obesity (278.01) (E66.01) 8. Type [...] History of Ear Surgery 3. History of Lithotripsy 4. History of Tonsillectomy Family History Father 1. Family history of Skin Cancer (V16.8) Maternal Grandmother 2. Family history of Breast Cancer (V16.3) Family History 3. Family history of Diabetes Mellitus (V18.0) 4. Family history of Hypertension (V17.49) Social History ?? Alcohol Use (History) ?? Marital History - Currently ?? 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 Tobacco Non-user Current Meds 1. Hydrochlorothiazide 50 MG Oral Tablet; TAKE 1 TABLET EVERY DAY; Therapy: 17May2013 to (Evaluate:27Jan2015) Requested for: 75Ojv1971; Last Rx:[id number] Ordered Rx By: Sarah Yap; Dispense: 90 Days ; #:90 Tablet; Refill: 3; For: Hypertension; RUKHSANA = N; Verified Transmission to [facility]25[facility]; Last Updated By: Channel Intellect; 02/01/2014 4:46:02 PM 2. Lantus 100 UNIT/ML Subcutaneous Solution; INJECT 46 UNITS ONCE DAILY; Therapy: 86Gxq6276 to (Evaluate:27Jan2015) Requested for: 17Ruo4947; Last Rx:[id number] Ordered Rx By: Sarah Yap; Dispense: 90 Days ; #:50 ML; Refill: 3; For: Acne; RUKHSANA = N; Verified Transmission to [facility] #25[facility]; Last Updated By: Channel Intellect; 02/01/2014 4:46:00 PM 3. Lisinopril 10 MG Oral Tablet; TAKE 1 TABLET EVERY DAY; Therapy: 71Npi9855 to (Evaluate:27Jan2015) Requested for: 62Pyx5634; Last Rx:[id number] Ordered Rx By: Sarah Yap; Dispense: 90 Days ; #:90 Tablet; Refill: 3; For: Hypertension; RUKHSANA = N; Verified Transmission to [facility] #2510; Last Updated By: Channel Intellect; 02/01/2014 4:46:01 PM 4. MetFORMIN HCl - 1000 MG Oral Tablet; Take 1 tablet twice a day; Therapy: 23Aug2013 to (Evaluate:43Tcx1184) Requested for: 75Wjy8177; Last Rx:[id number] Ordered Rx By: Sarah Yap; Dispense: 0 Days ; #:180 Tablet; Refill: 1; For: Type 2 diabetes mellitus; RUKHSANA = N; Verified Transmission to [facility]; Last Updated By: Channel Intellect; 03/21/2014 6:57:34 AM 5. Pioglitazone HCl - 45 MG Oral Tablet; TAKE 1 TABLET EVERY DAY; Therapy: 16Jan2014 to (Evaluate:27Jan2015) Requested for: 10Rjz2400; Last Rx:[id number] Ordered Rx By: Sarah Yap; Dispense: 90 Days ; #:90 Tablet; Refill: 3; For: Type 2 diabetes mellitus; RUKHSANA = N; Verified Transmission to [facility]; Last Updated By: Channel Intellect; 02/01/20144:46:01 PM 6. Venlafaxine HCl ER 150 MG Oral Capsule Extended Release 24 Hour; EVERY DAY; Therapy: 06Iod1997 to (Evaluate:27Jan2015) Requested for: 63Vbk3046; Last Rx:[id number] Ordered Rx By: Sarah Yap; Dispense: 90 Days ; #:90 Capsule Extended Release 24 Hour; Refill: 3; For: Adjustment disorder; RUKHSANA = N; Verified Transmission to [facility] #2510; Last Updated By: Channel Intellect; 02/01/2014 4:46:02 PM Allergies 1. No Known Drug Allergies Recorded By: Mis Lee; 11/11/2012 11:07:55 AM Immunizations Hepatitis A --- Series1: 1999; Series2: 2000 Tdap --- Series1: 07Jan2012 Vitals Vital Signs [Data Includes: Current Encounter] Recorded: 19Oct2014 03:03PM Temperature 97.8 F Systolic 120 Diastolic 78 Weight 276 lb BMI Calculated 41.97 BSA Calculated 2.34 Physical Exam Constitutional General appearance: No acute distress, well appearing and well nourished. Skin Skin and subcutaneous tissue: Abnormal. All skin is very dry, left forearm--large area redness withmore thickened skin and raised red papular lesions looks like large area confluent eczema. Assessment 1. Eczema (692.9) (L30.9) Plan Eczema 1. Mometasone Furoate 0.1 % External Cream; APPLY SPARINGLY TO AFFECTED AREAS TWICE DAILY.(AM AND PM) Rx By: Sarah Yap; Dispense: 0 Days ; #:1 X 45 GM Tube; Refill: 1; For: Eczema; RUKHSANA = N; Verified Transmission to [facility] #2510; Last Updated By: Channel Intellect; 10/19/2014 3:30:03 PM elocon bid use body cream every day avoid long hot showers this should improve as the weather warmsup and there is more humidity in the air Signatures Electronically signed by : Sarah Yap D.O.; Oct 19 2014 4:02PM MULTICULTURAL INTERNSHIP (Author) documented in this encounter Plan of Treatment Upcoming Encounters Date Type Department Care Team (Late st Contact Info) Description 09/29/2024 8:00 AM MULTICULTURAL INTERNSHIP Office Visit [facility] Family Medicine - [address], [address] [place] [phone] Elza Benitez MD [address] [facility] [address] [place] [address] documented as of this encounter Visit Diagnoses Not on filedocumented in this encounter Care Teams Assistant Distribution Manager Relationship Specialty Start Date End Date Sarah Yap DO [address] [place] [address] PCP - General 08/18/16 12/14/23 Sarah Yap DO [address] [place] [address] PCP - General 07/10/16 08/17/16 Sarah Yap DO [address] [place] [address] PCP - General 05/07/15 07/09/16 Sarah Yap DO [address] [place] [address] PCP - General 01/23/15 05/06/15 Sarah Yap DO [address] [place] [address] PCP - General 03/24/14 01/22/15 documented as of this encounter
--- OUTSIDE RECORDS SUMMARY | 2024-08-08 14:15 | XMS_ITS | Encounter Summary ---
Author Organization [facility] Address [address] [place] [address]. [place], [place] [address] [place] [address] Care Team Providers Care Utility Gelatin Maker Name Role Phone Sarah Yap DO Primary Care Provider + [phone] Sarah Yap DO Primary Care Provider + [phone] Sarah Yap DO Primary Care Provider + [phone] Sarah Yap DO Primary Care Provider + [phone] Debby Yapa S DO Primary Care Provider + [phone] WalkerDebbya S DO Primary Care Provider + [phone] Encounter Details Date Type Department Care Team (Latest Contact Info) Description 02/07/2014 Abstract [facility] , Fior Bauer MD Social History Tobacco Use Types Packs/Day Years Used Date Smoking Tobacco: Never Assessed Comments Unknown Sex and Gender Information Value Date Recorded Sex Assigned at Not on file Legal Sex Female 7:26 PM CDT Gender Identity Not on file Sexual Orientation Not on file documented as of this encounter Progress Notes * Sarah Yap MD - 02/07/2014 1:37 PM CDT Message Send Card Verified Results LC-Pap IG ( Image Guided ) [id number] 04:56PM Sarah Yap Test Name Result Flag Reference DIAGNOSIS: NEGATIVE FOR INTRAEPITHELIAL LESION AND MALIGNANCY. Specimen adequacy: Satisfactory for evaluation. Endocervical and/or squamous metaplastic cells (endocervical component) are present. Clinician provided ICD9: V70.0 ; Routine general medical examination at health care facility Performed by: Marce Oreilly, Sketch Artist (ASCP) . . Note: The Pap smear is a screening test designed to aid in the detection of premalignant and malignant conditions of the uterine cervix. It is not a diagnostic procedure and should not be used as the sole means of detecting cervical cancer. Both false-positive and false-negative reports do occur. . Test Methodology: This liquid based ThinPrep(R) pap test was screened with the use of an image guided system. documented in this encounter Plan of Treatment Upcoming Encounters Date Type Department Care Team (Late st Contact Info) Description 09/29/2024 8:00 AM VERIFYING SPECIALIST Office Visit [facility] Family Medicine - [address], [address] [place] [phone] Elza Benitez MD [address] [facility] [address] [place] [phone] documented as of this encounter Visit Diagnoses Not on filedocumented in this encounter Care Teams Utility Gelatin Maker Relationship Specialty Start Date End Date Sarah Yap DO [address] [place] [address] PCP - General 08/18/16 12/14/23 Sarah Yap DO [address] [place] [address] PCP - General 07/10/16 08/17/16 Sarah Yap DO [address] [place] [address] PCP - General 05/07/15 07/09/16 Sarah Yap DO [address] [place] [address] PCP - General 01/23/15 05/06/15 Sarah Yap DO [address] [place] [address] PCP - General 03/24/14 01/22/15 Sarah Yap DO [address] [place] [address] PCP - General 10/09/12 03/23/14 documented as of this encounter
--- OUTSIDE RECORDS SUMMARY | 2024-08-08 14:15 | XMS_ITS | Encounter Summary ---
Author Organization [facility] Address [address] [place] [address]. [place] [address] [place] [address] Care Team Providers Care Psychiatric Cns Name Role Phone Debby Yapa S DO Primary Care Provider + [phone] Walker Sarah S DO Primary Care Provider + [phone] Walker Sarah S DO Primary Care Provider + [phone] Walker Sarah S DO Primary Care Provider + [phone] Walker Sarah S DO Primary Care Provider + [phone] Walker Sarah S DO Primary Care Provider + [phone] Encounter Details Date Type Department Care Team (Late st Contact Info) Description 12/07/1997 [place] [address] , Generic MD Juancarlos Social [...] st Contact Info) Description 09/29/2024 8:00 AM MEDICAL REIMBURSEMENT SPECIALIST Office Visit [facility] Family Medicine - [address], [address] [place] [phone] Elza Benitez MD [address] [facility] [address] [place] [address] documented as of this encounter Visit Diagnoses Not on filedocumented in this encounter Care Teams Psychiatric Cns Relationship Specialty Start Date End Date Sarah Yap DO [address] [place] [address] PCP - General 08/18/16 12/14/23 Sarah Yap DO [address] [place] [address] PCP - General 07/10/16 08/17/16 Sarah Yap DO [address] [place] [address] PCP - General 05/07/15 07/09/16 Sarah Yap DO [address] [place] [address] PCP - General 01/23/15 05/06/15 Sarah Yap DO [address] [place] [address] PCP - General 03/24/14 01/22/15 Sarah Yap DO [address] [place] [address] PCP - General 10/09/12 03/23/14 documented as of this encounter
--- OUTSIDE RECORDS SUMMARY | 2024-08-08 14:15 | XMS_ITS | Encounter Summary ---
Author Organization [facility] Address [address] [place] [address]. [place], [place] [address] [place] [address] Care Team Providers Care Bottle Feeder Name Role Phone Sarah Yap DO Primary Care Provider + [phone] WalkerDebbya S DO Primary Care Provider + [phone] WalkerCeSarah S DO Primary Care Provider + [phone] WalkerCeSarah S DO Primary Care Provider + [phone] Walker Sarah S DO Primary Care Provider + [phone] Walker Sarah S DO Primary Care Provider + [phone] Encounter Details Date Type Department Care Team (Late st Contact Info) Description 08/09/2011 Abstract [facility] Diagnostic Imaging [address] [place] [address] Sarah Yap DO [address] [place] [address] Social History Tobacco Use Types [...] (Late Contact Info) Description 09/29/2024 8:00 AM ARTIST'S REPRESENTATIVE Office Visit [facility] Family Medicine - [place] [address] [facility], [address] [place] [address] Elza Benitez MD [address] [facility] [address] [place] [address] documented as of this encounter Visit Diagnoses Diagnosis Other screening mammogram documented in this encounter Care Teams Bottle Feeder Relationship Specialty Start Date End Date Sarah Yap DO [address] [place] [address] PCP - General 08/18/16 12/14/23 Sarah Yap DO [address] [place] [address] PCP - General 07/10/16 08/17/16 Sarah Yap DO [address] [place] [address] PCP - General 05/07/15 07/09/16 Sarah Yap DO [address] [place] [address] PCP - General 01/23/15 05/06/15 Sarah Yap DO [address] [place] [address] PCP - General 03/24/14 01/22/15 Sarah Yap DO [address] [place] [address] PCP - General 10/09/12 03/23/14 documented as of this encounter
--- OUTSIDE RECORDS SUMMARY | 2024-08-08 14:15 | XMS_ITS | Encounter Summary ---
Author Organization [facility] Address [address] [place] [address]. [place], [place] [address] [place] [address] Care Team Providers Care Spiritual Counselor Name Role Phone Sarah Yap DO Primary Care Provider + [phone] WalkerDebbya S DO Primary Care Provider + [phone] WalkerCeSarah S DO Primary Care Provider + [phone] WalkerCeSarah S DO Primary Care Provider + [phone] Walker Sarah S DO Primary Care Provider + [phone] Walker Sarah S DO Primary Care Provider + [phone] Encounter Details Date Type Department Care Team (Late st Contact Info) Description 03/16/2010 Abstract [facility] Diagnostic Imaging [address] [place] [address] Saarh Yap DO [address] [place] [address] Social History Tobacco Use Types [...] (Late Contact Info) Description 09/29/2024 8:00 AM X RAY INSPECTOR Office Visit [facility] Family Medicine - [place] [address] [facility], [address] [place] [address] Elza Benitez MD [address] [facility] [address] [place] [address] documented as of this encounter Visit Diagnoses Not on filedocumented in this encounter Care Teams Spiritual Counselor Relationship Specialty Start Date End Date Sarah Yap DO [address] [place] [address] PCP - General 08/18/16 12/14/23 Sarah Yap DO [address] [place] [address] PCP - General 07/10/16 08/17/16 Sarah Yap DO [address] [place] [address] PCP - General 05/07/15 07/09/16 Sarah Yap DO [address] [place] [address] PCP - General 01/23/15 05/06/15 Sarah Yap DO [address] [place] [address] PCP - General 03/24/14 01/22/15 Sarah Yap DO [address] [place] [address] PCP - General 10/09/12 03/23/14 documented as of this encounter
--- OUTSIDE RECORDS SUMMARY | 2024-08-08 14:15 | XMS_ITS | Encounter Summary ---
Author Organization [facility] Address [address] [place] [address]. [place] [address] [place] [address] Care Team Providers Care Php Architect Name Role Phone Jaci Herrera DO Primary Care Provider + [phone] Jaci Herrera DO Primary Care Provider + [phone] Jaci Herrera DO Primary Care Provider + [phone] Jaci Herrera DO Primary Care Provider + [phone] Jaci Herrera DO Primary Care Provider + [phone] Encounter Details Date Type Department Care Team (Latest Contact Info) Description 03/24/2014 Abstract [facility] Jaci Herrera DO [address] [place] [address] Social History Tobacco Use Types Packs/Day Years [...] st Contact Info) Description 09/29/2024 8:00 AM DIVISION TRAFFIC SUPERINTENDENT Office Visit [facility] Family Medicine - [address], [address] [place] [phone] Elza Benitez MD [address] [facility] [address] [place], [place] [phone] documented as of this encounter Procedures Procedure Name Priority Date/Time Associated Diagnosis Comments MG SCREENING ABIDA DIGI Routine 03/24/2014 11:36 AM CDT documented in this encounter Results * MG SCREENING ABIDA DIGI (03/24/2014 11:36 AM CDT) Anatomical Region Laterality Modality Breast Bilateral Mammography 03/24/2014 11:3 6 AM CDT 03/24/2014 11:36 AM CDT Narrative 03/24/2014 9:40 PM CDT DAVID TOWNSEND ORDERING MD: JACI HERRERA DO ?? ACCT: [id number] ?? ADMIT/SERVICE DATE: 03/24/14 DISCHARGE DATE: ?? : 1965 PT TYPE: REG CLI ?? SEX: F ORD SITE: [facility] OUT[facility]AGING ? STUDY DATE REPORT # PROCEDURE CODE PROCEDURE ?? 03/24/14 [id number] SCMAMDGB MG SCREEN MAMMO DIGITAL BI ? EXTORDERID ? [id number] ? ACCESSION NUMBER ?? [id number] ?CHART DOCUMENT ? IMPRESSION: ? ASSESSMENT: ??BI-RADS CATEGORY 1, NEGATIVE. ? RECOMMENDATION: ??ANNUAL SCREENING MAMMOGRAPHY. ? HISTORY: ??ROUTINE SCREENING. ??FAMILY HISTORY OF BREAST CANCER IN A ?? GRANDMOTHER AND AUNT. ? BILATERAL SCREENING MAMMOGRAM, 03/24/14 ? COMPARISON: ??COMPARISON IS MADE WITH EXAMS DATED 10/09/12, 08/09/11, ?? 03/16/10, 06/28/08. ? TECHNIQUE: ??BILATERAL CRANIOCAUDAL AND MEDIOLATERAL OBLIQUE VIEWS ARE ?? OBTAINED. ? FINDINGS: ??SCATTERED BREAST TISSUE ELEMENTS. ??THE BREAST PARENCHYMAL ?? PATTERN IS STABLE. ??NO SUSPICIOUS CALCIFICATION, MASS, ARCHITECTURAL ?? DISTORTION OR SKIN THICKENING. ? DIGITAL MAMMOGRAPHIC VIEWS REVIEWED BY R2 IMAGE CHECK. ? ELECTRONICALLY SIGNED BY: ?? RKIA JIMENEZ M.D. 03/24/2014 09:39 P ?? RIKA JIMENEZ M.D. ? D: ??03/24/2014 11:36 A ??#[id number] ?? T: ??03/24/2014 11:59 A/MA ? CC: ?JACI HERRERA D.O. ? Procedure Note Fior Wagner MD - 10/21/2018 DAVID TOWNSEND ORDERING MD: JACI HERRERA DO ACCT: [id number] ADMIT/SERVICE DATE: 03/24/14 DISCHARGE DATE: : 1965 PT TYPE: REG CLI SEX: F ORD SITE: [facility] OUTPATNT IMAGING STUDY DATE REPORT # PROCEDURE CODE PROCEDURE 03/24/14 [id number] SCMAMDGB MG SCREEN MAMMO DIGITAL BI EXTORDERID [id number] ACCESSION NUMBER [id number] CHART DOCUMENT IMPRESSION: ASSESSMENT: BI-RADS CATEGORY 1, NEGATIVE. RECOMMENDATION: ANNUAL SCREENING MAMMOGRAPHY. HISTORY: ROUTINE SCREENING. FAMILY HISTORY OF BREAST CANCER IN A GRANDMOTHER AND AUNT. BILATERAL SCREENING MAMMOGRAM, 03/24/14 COMPARISON: COMPARISON IS MADE WITH EXAMS DATED 10/09/12, 08/09/11, 03/16/10, 06/28/08. TECHNIQUE: BILATERAL CRANIOCAUDAL AND MEDIOLATERAL OBLIQUE VIEWS ARE OBTAINED. FINDINGS: SCATTERED BREAST TISSUE ELEMENTS. THE BREAST PARENCHYMAL PATTERN IS STABLE. NO SUSPICIOUS CALCIFICATION, MASS, ARCHITECTURAL DISTORTION OR SKIN THICKENING. DIGITAL MAMMOGRAPHIC VIEWS REVIEWED BY R2 IMAGE CHECK. ELECTRONICALLY SIGNED BY: RIKA JIMENEZ M.D. 03/24/2014 09:39 P RIKA JIMENEZ M.D. A #[id number] A/MA CC: JACI HERRERA D.O. Jaci Herrera DO MAMMO Final Result documented in this encounter Visit Diagnoses Not on filedocumented in this encounter Care Teams Php Architect Relationship Specialty Start Date End Date Jaci Herrera DO [address] [place] [address] PCP - General 08/18/16 12/14/23 Jaci Herrera DO [address] [place] [address] PCP - General 07/10/16 08/17/16 Jaci Herrera DO [address] [place] [address] PCP - General 05/07/15 07/09/16 Jaci Herrera DO [address] [place] [address] PCP - General 01/23/15 05/06/15 Jaci Herrera DO [address] [place] [address] PCP - General 03/24/14 01/22/15 documented as of this encounter
--- OUTSIDE RECORDS SUMMARY | 2024-08-08 14:15 | XMS_ITS | Encounter Summary ---
Author Organization [facility] Address [address] [place] [address]. [place] [address] [place] [address] Care Team Providers Care Fittings Finisher Name Role Phone Debby Yapa S DO Primary Care Provider + [phone] Walker Sarah S DO Primary Care Provider + [phone] Walker Sarah S DO Primary Care Provider + [phone] Walker Sarah S DO Primary Care Provider + [phone] Walker Sraah S DO Primary Care Provider + [phone] Walker Sarah S DO Primary Care Provider + [phone] Encounter Details Date Type Department Care Team (Late st Contact Info) Description 03/15/1997 Abstract [place] [address] , Generic MD Juancarlos Social [...] st Contact Info) Description 09/29/2024 8:00 AM BAR SUPERVISOR Office Visit [facility] Family Medicine - [address], [address] [place] [phone] Elza Benitez MD [address] [facility] [address] [place] [address] documented as of this encounter Visit Diagnoses Not on filedocumented in this encounter Care Teams Fittings Finisher Relationship Specialty Start Date End Date Sarah Yap DO [address] [place] [address] PCP - General 08/18/16 12/14/23 Sarah Yap DO [address] [place] [address] PCP - General 07/10/16 08/17/16 Sarah Yap DO [address] [place] [address] PCP - General 05/07/15 07/09/16 Sarah Yap DO [address] [place] [address] PCP - General 01/23/15 05/06/15 Sarah Yap DO [address] [place] [address] PCP - General 03/24/14 01/22/15 Sarah Yap DO [address] [place] [address] PCP - General 10/09/12 03/23/14 documented as of this encounter
--- OUTSIDE RECORDS SUMMARY | 2024-08-08 14:15 | XMS_ITS | Encounter Summary ---
Author Organization [facility] Address [address] [place] [address]. [place] [address] [place] [address] Care Team Providers Care High School Social Studies Teacher Name Role Phone Debby Yapa S DO Primary Care Provider + [phone] Walker Sarah S DO Primary Care Provider + [phone] Walker Sarah S DO Primary Care Provider + [phone] Walker Sarah S DO Primary Care Provider + [phone] Walker Sarah S DO Primary Care Provider + [phone] Walker Sarah S DO Primary Care Provider + [phone] Encounter Details Date Type Department Care Team (Late st Contact Info) Description 10/06/1995 Abstract [place] [address] , Generic MD Juancarlos Social [...] st Contact Info) Description 09/29/2024 8:00 AM NEONATAL CRITICAL CARE NURSE Office Visit [facility] Family Medicine - [address], [address] [place] [phone] Elza Benitez MD [address] [facility] [address] [place] [address] documented as of this encounter Visit Diagnoses Not on filedocumented in this encounter Care Teams High School Social Studies Teacher Relationship Specialty Start Date End Date Sarah Yap DO [address] [place] [address] PCP - General 08/18/16 12/14/23 Sarah Yap DO [address] [place] [address] PCP - General 07/10/16 08/17/16 Sarah Yap DO [address] [place] [address] PCP - General 05/07/15 07/09/16 Sarah Yap DO [address] [place] [address] PCP - General 01/23/15 05/06/15 Sarah Yap DO [address] [place] [address] PCP - General 03/24/14 01/22/15 Sarah Yap DO [address] [place] [address] PCP - General 10/09/12 03/23/14 documented as of this encounter
--- OUTSIDE RECORDS SUMMARY | 2024-08-08 14:15 | XMS_ITS | Encounter Summary ---
Author Organization [facility] Address [address] [place] [address]. [place] [address] [place] [address] Care Team Providers Care Data Clerk Name Role Phone Sarah Yap DO Primary Care Provider + [phone] Sarah Yap DO Primary Care Provider + [phone] Sarah Yap DO Primary Care Provider + [phone] Sarah Yap DO Primary Care Provider + [phone] WalkerDebbya S DO Primary Care Provider + [phone] WalkerDebbya S DO Primary Care Provider + [phone] Encounter Details Date Type Department Care Team (Latest Contact Info) Description 03/21/2010 Abstract [facility] Sarah Yap DO [address] [place], [place] [address] Social History Tobacco Use Types Packs/Day Years [...] st Contact Info) Description 09/29/2024 8:00 AM UTILITY PERSON Office Visit [facility] Family Medicine - [place], [address] [place] [address] Elza Benitez MD [address] [facility] [address] [place], [place] [phone] documented as of this encounter Visit Diagnoses Not on filedocumented in this encounter Care Teams Data Clerk Relationship Specialty Start Date End Date Sarah Yap DO [address] [place] [address] PCP - General 08/18/16 12/14/23 Sarah Yap DO [address] [place] [address] PCP - General 07/10/16 08/17/16 Sarah Yap DO [address] [place] [address] PCP - General 05/07/15 07/09/16 Sarah Yap DO [address] [place] [address] PCP - General 01/23/15 05/06/15 Sarah Yap DO [address] [place] [address] PCP - General 03/24/14 01/22/15 Sarah Yap DO [address] [facility] [address] PCP - General 10/09/12 03/23/14 documented as of this encounter
--- OUTSIDE RECORDS SUMMARY | 2024-08-08 14:15 | XMS_ITS | Encounter Summary ---
Author Organization [facility] Address [address] [place] [address]. [place] [address] [place] [address] Care Team Providers Care Sorter Operator Name Role Phone Debby Yapa S DO Primary Care Provider + [phone] Walker Sarah S DO Primary Care Provider + [phone] Walker Sarah S DO Primary Care Provider + [phone] Walker Sarah S DO Primary Care Provider + [phone] Walker Sarah S DO Primary Care Provider + [phone] Walker Sarah S DO Primary Care Provider + [phone] Encounter Details Date Type Department Care Team (Latest Contact Info) Description 02/11/2013 Abstract [facility] , Fior Bauer MD Social [...] st Contact Info) Description 09/29/2024 8:00 AM BRIDAL SALES CONSULTANT Office Visit [facility] Family Medicine - [place], [address] [place] [address] Elza Benitez MD [address] [facility] [address] [place] [address] documented as of this encounter Visit Diagnoses Not on filedocumented in this encounter Care Teams Sorter Operator Relationship Specialty Start Date End Date Sarah Yap DO [address] [place] [address] PCP - General 08/18/16 12/14/23 Sarah Yap DO [address] [place] [address] PCP - General 07/10/16 08/17/16 Sarah Yap DO [address] [place] [address] PCP - General 05/07/15 07/09/16 Sarah Yap DO [address] [place] [address] PCP - General 01/23/15 05/06/15 Sarah Yap DO [address] [place] [address] PCP - General 03/24/14 01/22/15 Sarah Yap DO [address] [place] [address] PCP - General 10/09/12 03/23/14 documented as of this encounter
--- OUTSIDE RECORDS SUMMARY | 2024-08-08 14:15 | XMS_ITS | Encounter Summary ---
Author Organization [facility] Address [address] [place] [address]. [place] [address] [place] [address] Care Team Providers Care Parts Order And Stock Clerk Name Role Phone Sarah Yap DO Primary Care Provider + [phone] Sarah Yap DO Primary Care Provider + [phone] Sarah Yap DO Primary Care Provider + [phone] Sarah Yap DO Primary Care Provider + [phone] Sarah Yap DO Primary Care Provider + [phone] Sarah Yap DO Primary Care Provider + [phone] Encounter Details Date Type Department Care Team (Latest Contact Info) Description 02/01/2014 Abstract [facility] Sarah Yap DO [address] [place] [address] Social History Tobacco Use Types Packs/Day Years Used Date Smoking Tobacco: Never Assessed Comments Unknown Sex and Gender Information Value Date Recorded Sex Assigned at Not on file Legal Sex Female 7:26 PM CDT Gender Identity Not on file Sexual Orientation Not on file documented as of this encounter Last Filed Vital Signs Vital Sign Reading Time Taken Comments Blood Pressure 130/82 02/01/2014 4:17 PM CDT Pulse - - Temperature - - Respiratory Rate - - Oxygen Saturation - - Inhaled Oxygen Concentration - - Weight 122.9 kg (271 lb) 02/01/2014 4:17 PM CDT Height 172.7 cm (5' 8 ) 02/01/2014 4:17 PM CDT Body Mass Index 41.21 02/01/2014 4:17 PM CDT documented in this encounter Progress Notes * Sarah Yap MD - 02/01/2014 4:15 PM CDT Reason For Visit Reason For Visit: Med Check, Health Sign Builder Complaint Annual WWE History of Present Illness HPI: Here for annual has gotten out of halfway in last mth--adjusting to him being home. Says she is doing well not exercising knows she has gained wt has not been checking BS Review of Systems See HPI for pertinent positives. Constitutional: negative. Cardiovascular: negative. Respiratory: negative. Gastrointestinal: negative. Genitourinary: negative. Active Problems 1. Acne (706.1) (L70.9) 2. Adenomatosis (211.3) (D12.6) 3. Adjustment disorder (309.9) (F43.20) 4. Hyperlipidemia (272.4) (E78.5) 5. Hypertension (401.9) (I10) 6. Lumps on the skin (782.2) (R22.9) 7. Type 2 diabetes mellitus (250.00) (E11.9) Past Medical History ?? History of cholelithiasis (V12.79) (Z87.19) ?? History of hypertension (V12.59) (Z86.79) ?? History of premenstrual syndrome (V13.29) (Z87.42) ?? History of Postmenopausal status (V49.81) (Z78.0) ?? History of Summary Of Previous Pregnancies 0 (Total No.) Surgical History ?? History of Colonoscopy (Fiberoptic) ?? 03/2010 polyp repeat 2014 ?? History of Ear Surgery ?? History of Lithotripsy ?? History of Tonsillectomy Family History Father ?? Family history of Skin Cancer (V16.8) Maternal Grandmother ?? Family history of Breast Cancer (V16.3) Family History ?? Family history of Diabetes Mellitus (V18.0) ?? Family history of Hypertension (V17.49) Social History ?? Alcohol Use (History) ?? Marital History - Currently ?? 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 Tobacco Non-user Current Meds 1. Hydrochlorothiazide 50 MG Oral Tablet; TAKE 1 TABLET EVERY DAY; Therapy: 17May2013 to (Evaluate:[id number]) Requested for: 58Tml8273; Last Rx:[id number] Ordered Rx By: Sarah Yap; Dispense: 90 Days ; #:90 Tablet; Refill: 2; For: Hypertension; RUKHSANA = N; Verified Transmission to [facility] #2510 2. Lantus 100 UNIT/ML Subcutaneous Solution; INJECT 46 UNITS ONCE DAILY; Therapy: 97Ahy5513 to (Evaluate:53Aow4124) Requested for: 94Jne2080; Last Rx:[id number] Ordered Rx By: Liam Burton; Dispense: 90 Days ; #:50 ML; Refill: 2; For: Acne; RUKHSANA = N; Verified Transmission to [facility] #2510 3. Lisinopril 10 MG Oral Tablet; TAKE 1 TABLET EVERY DAY; Therapy: 68Nlj4825 to (Evaluate:87Ijw0492) Requested for: 16Jan2014; Last Rx:16Jan2014 Ordered Rx By: Sukhdve Tovar III; Dispense: 90 Days ; #:90 Tablet; Refill: 0; For: Hypertension; RUKHSANA = N; Verified Transmission to [facility] #2510; Last Updated By: [employer]; 02/01/2014 4:46:01 PM 4. MetFORMIN HCl - 1000 MG Oral Tablet; Take 1 tablet twice a day; Therapy: 23Aug2013 to (Evaluate:37Jkw6675) Requested for: 20Dec2013; Last Rx:20Dec2013 Ordered Rx By: Sarah Yap; Dispense: 0 Days ; #:180 Tablet; Refill: 0; For: Type 2 diabetes mellitus; RUKHSANA = N; Verified Transmission to [facility] #2510; Last Updated By: [employer]; 02/01/2014 4:46:00 PM 5. Pioglitazone HCl - 45 MG Oral Tablet (Actos); TAKE 1 TABLET EVERY DAY; Therapy: 16Jan2014 to (Evaluate:53Jsy0819) Requested for: 16Jan2014; Last Rx:16Jan2014 Ordered Rx By: Sukhdev Tovar III; Dispense: 90 Days ; #:90 Tablet; Refill: 0; For: Type 2 diabetes mellitus;RUKHSANA = N; Verified Transmission to [facility] #2510; Last Updated By: [employer]; 02/01/20144:46:01 PM 6. Venlafaxine HCl ER 150 MG Oral Capsule Extended Release 24 Hour (Effexor XR); EVERY DAY; Therapy: 59Oio8484 to (Evaluate:48Sve7100) Requested for: 00Vnh1197; Last Rx:[id number] Ordered Rx By: Sarah Yap; Dispense: 90 Days ; #:90 Capsule Extended Release 24 Hour; Refill: 0; For: Adjustment disorder; RUKHSANA = N; Verified Transmission to [facility] #2510; Last Updated By: [employer]; 02/01/2014 4:46:02 PM Allergies 1. No Known Drug Allergies Recorded By: Mis Lee; 11/11/2012 11:07:55 AM Immunizations 1 2 Hepatitis A 1999 2000 Tdap 07Jan2012 Vitals Recorded by : Mis Lee at 78Wft2693 04:17PM Systolic 130 Diastolic 82 Height 5 ft 8 in Weight 271 lb BMI Calculated 41.21 BSA Calculated 2.33 LMP 03Aug2013 Physical Exam Constitutional General appearance: No acute distress, well appearing and well nourished. Head and Face Head and face: Normal. [...] masses. Adnexa/Parametria: Normal, no masses or tenderness. Pap obtained. Lymphatic Palpation of lymph nodes in neck: No lymphadenopathy. Palpation of lymph nodes in axillae: No lymphadenopathy. Musculoskeletal Gait and station: Normal. Digits and nails: Normal without clubbing or cyanosis. Joints, bones, and muscles: Normal. Skin Skin and subcutaneous tissue: Normal without rashes or lesions. Psychiatric Mood and affect: Normal. Assessment 1. Adjustment disorder (309.9) (F43.20) 2. Encounter for preventive health examination (V70.0) (Z00.00) 3. Hyperlipidemia (272.4) (E78.5) 4. Hypertension (401.9) (I10) 5. Type 2 diabetes mellitus (250.00) (E11.9) 6. Morbid obesity (278.01) (E66.01) Plan Acne ?? Lantus 100 UNIT/ML Subcutaneous Solution; INJECT 46 UNITS ONCE DAILY Rx By: Sarah Yap; Dispense: 90 Days ; #:50 ML; Refill: 3; For: Acne; RUKHSANA = N; Verified Transmission to [facility] #2510; Last Updated By: [employer]; 02/01/2014 4:46:00 PM Adjustment disorder ?? Venlafaxine HCl ER 150 MG Oral Capsule Extended Release 24 Hour (Effexor XR 150 MG Oral Capsule Extended Release 24 Hour); EVERY DAY Rx By: Sarah Yap; Dispense: 90 Days ; #:90 Capsule Extended Release 24 Hour; Refill: 3; For: Adjustment disorder; RUKHSANA = N; Verified Transmission to [facility] #2510; Last Updated By: [employer]; 02/01/2014 4:46:02 PM Health Maintenance ?? LC-Pap IG ( Image Guided ) [id number] Status: In Progress - Specimen/Data Collected Done: [id number] Perform: [facility] Due: 24Tyd5747 Marked Important; Last Updated By: Mis Lee; 02/01/2014 4:56:40 PM; Ordered; For: Health Maintenance; Ordered By: Sarah Yap ?? MG SCREEN MAMMO DIGITAL BI Status: Complete Done: 01Feb2014 Perform: [facility] Due: 04Hfh0763; Last Updated By: Mis Lee; 02/01/2014 4:48:06 PM; Ordered; For: Health Maintenance; Ordered By: Sarah Yap Hyperlipidemia, Hypertension, Type 2 diabetes mellitus ?? BFMA-Hemoglobin A1C Status: Active Requested for: 01Feb2014 Perform: [facility] Due: 08Feb2014; Ordered; For: Hyperlipidemia, Hypertension, Type 2 diabetes mellitus; Ordered By: Sarah Yap ?? [facility]- CMP Status: Need Information - Required information Requested for: 01Feb2014 Perform: [facility] Due: 49Lrv5990; Ordered; For: Hyperlipidemia, Hypertension, Type 2 diabetes mellitus; Ordered By: Sarah Yap ?? [facility]- LIPID PANEL Status: Need Information - Required information Requested for: 01Feb2014 Perform: [facility] Due: 94Yru7712; Ordered; For: Hyperlipidemia, Hypertension, Type 2 diabetes mellitus; Ordered By: Sarah Yap Hypertension ?? Hydrochlorothiazide 50 MG Oral Tablet; TAKE 1 TABLET EVERY DAY Rx By: Sarah Yap; Dispense: 90 Days ; #:90 Tablet; Refill: 3; For: Hypertension; RUKHSANA = N; Verified Transmission to [facility] #2510; Last Updated By: [employer]; 02/01/2014 4:46:02 PM ?? Lisinopril 10 MG Oral Tablet; TAKE 1 TABLET EVERY DAY Rx By: Sarah Yap; Dispense: 90 Days ; #:90 Tablet; Refill: 3; For: Hypertension; RUKHSANA = N; Verified Transmission to [facility] #2510; Last Updated By: [employer]; 02/01/2014 4:46:01 PM Type 2 diabetes mellitus ?? MetFORMIN HCl - 1000 MG Oral Tablet; Take 1 tablet twice a day Rx By: Sarah Yap; Dispense: 0 Days ; #:180 Tablet; Refill: 3; For: Type 2 diabetes mellitus; RUKHSANA = N; Verified Transmission to [facility] #2510; Last Updated By: ChristinaTM; 02/01/2014 4:46:00 PM ?? Pioglitazone HCl - 45 MG Oral Tablet (Actos 45 MG Oral Tablet); TAKE 1 TABLET EVERY DAY Rx By: Sarah Yap; Dispense: 90 Days ; #:90 Tablet; Refill: 3; For: Type 2 diabetes mellitus; RUKHSANA = N; Verified Transmission to [facility]2510; Last Updated By: [employer]; 02/01/2014 4:46:01 PM ?? BFMA-Microalbumin Status: Active Requested for: [id number] Perform: [facility] Due: 34Fsq2805; Ordered; For: Type 2 diabetes mellitus; Ordered By: Sarah Yap cmp lipids a1c micral up to date with eye doctor exercise watch diet work on wt loss Signatures Electronically signed by : Sarah Yap D.O.; Feb 01 2014 5:12PM LAND ECONOMIST (Author) documented in this encounter Plan of Treatment Upcoming Encounters Date Type Department Care Team (Late st Contact Info) Description 09/29/2024 8:00 AM LAND ECONOMIST Office Visit [facility] Family Medicine - [address], [address] [place] [phone] Elza Benitez MD [address] [place] [address] [place] [address] documented as of this encounter Procedures Procedure Name Priority Date/Time Associated Diagnosis Comments COMPREHENSIVE METABOLIC PANEL Routine 02/17/2014 9:49 AM CDT LIPID PANEL Routine 02/17/2014 9:49 AM CDT CYTOPATH CERV/VAG THIN LAYER Routine 02/01/2014 4:56 PM CDT documented in this encounter Results * COMPREHENSIVE METABOLIC PANEL (02/17/2014 9:49 AM CDT) GLUCOSE 106 74 - 106 mg/dL TOUCHWORKS TO EPIC CONVERSION BUN 13 6 - 20 mg/dL TOUCHWORKS TO EPIC CONVERSION CREATININE S/P/B 0.7 0.6 - 1.0 mg/dL TOUCHWORKS TO EPIC CONVERSION BUN CREATININE RATIO 19 4 - 25 TOUCHWORKS TO EPIC CONVERSION GFR ESTIMATE 95.3 >60.0 mL/min/1.7 3 m TOUCHWORKS TO EPIC CONVERSION EGFR AFR. AMER. 115.4 >60.0 mL/min/1.7 3 m TOUCHWORKS TO EPIC CONVERSION CALCIUM S/P/B 9.0 8.6 - 10.2 mg/dl TOUCHWORKS TO EPIC CONVERSION SODIUM S/P/B 136 135 - 145 mmol/L TOUCHWORKS TO EPIC CONVERSION POTASSIUM S/P/B 3.9 3.5 - 5.2 mmol/L TOUCHWORKS TO EPIC CONVERSION CHLORIDE S/P/B 97 97 - 107 mmol/L TOUCHWORKS TO EPIC CONVERSION CO2 29 21 - 31 mmol/L TOUCHWORKS TO EPIC CONVERSION ANION GAP 10.0 7.0 - 18.0 TOUCHWORK S TO EPIC CONVERSION TOTAL PROTEIN S/P/B 6.8 6.0 - 8.3 g/dL TOUCHWORKS TO EPIC CONVERSION ALBUMIN S/P/B 4.6 3.5 - 5.2 g/dL TOUCHWORKS TO EPIC CONVERSION GLOBULIN 2.2 1.6 - 3.2 g/dL TOUCHWORKS TO EPIC CONVERSION A/G RATIO 2.1 1.1 - 2.5 TOUCHWORKS TO EPIC CONVERSION BILIRUBIN TOTAL (FLUID) 0.33 0.20 - 1.20 mg/dL TOUCHWORKS TO EPIC CONVERSION ALK PHOS 91 42 - 98 U/L TOUCHWORKS TO EPIC CONVERSION AST 23 5 - 34 U/L TOUCHWORK S TO EPIC CONVERSION ALT 17 5 - 50 U/L TOUCHWORK S TO EPIC CONVERSION 02/17/2014 9:49 AM CDT 02/17/2014 9:49 AM CDT Narrative TOUCHWORKS TO EPIC CONVERSION - 02/17/2014 9:49 AM CDT Order Comment: Result Communication: No patient communication needed at this time us Sarah Yap DO LABORATORY Final Result TOUCHWORKS TO EPIC CONVERSION * (ABNORMAL) LIPID PANEL (02/17/2014 9:49 AM CDT) CHOLESTEROL 225(H) 0 - 199 mg/dL TOUCHWORKS TO EPIC CONVERSION TRIGLYCERIDES 175(H) 0 - 149 mg/dL TOUCHWORKS TO EPIC CONVERSION HDL 62(H) 40 - 60 mg/dL TOUCHWORKS TO EPIC CONVERSION LDL (CALCULATED) 128 0 - 130 NATALIE CHWORKS TO EPIC CONVERSION RISK 3.6 TOUCHWORKS TO EPIC CONVERSION 02/17/2014 9:49 AM CDT 02/17/2014 9:49 AM CDT Narrative TOUCHWORKS TO EPIC CONVERSION - 02/17/2014 9:49 AM CDT Order Comment: Result Communication: No patient communication needed at this time us Sarah Yap DO LABORATORY Final Result TOUCHWORKS TO EPIC CONVERSION * Cytopath Cerv/Vag Thin Layer (02/01/2014 4:56 PM CDT) COMMENT TOUCHWORKS TO EPIC CONVERSION Comment:Result Comment: NEGA TIVE FOR INTRAEPITHELIAL LESION AND MALIGNANCY. STATEMENT OF ADEQUACY: TOUCHWORKS TO EPIC CONVERSION Comment: Result Comment: Satisfactory for evaluation. ??Endocervical and/or squamous metaplastic cells (endocervical component) are present. PRIMARY DIAGNOSIS: T OUCHWORKS TO EPIC CONVERSION Comment: Result Comment: V70.0 ; Routine general medical examination at health care facility COMMENT TOUCHWORKS TO EPIC CONVERSION Comment:Result Comment: Brice Oreilly, Rink Rat (ASCP) COMMENT . TOUCHWORKS TO EPIC CONVERSION NOTE [...] the use of an image guided system. 02/01/2014 4:56 PM CDT 02/01/2014 4:56 PM CDT Narrative TOUCHWORKS TO EPIC CONVERSION - 02/07/2014 1:23 PM CDT [id number] 1:37PM by Sarah Yap: ??Send Card Result Communication: Call patient with results Sarah Yap DO PATHOLOGY/CYTOLOGY ORDERABLE S Final Result TOUCHWORKS TO EPIC CONVERSION documented in this encounter Visit Diagnoses Not on filedocumented in this encounter Care Teams Parts Order And Stock Clerk Relationship Specialty Start Date End Date Sarah Yap DO [address] [place] [address] PCP - General 08/18/16 12/14/23 Sarah Yap DO [address] [place] [address] PCP - General 07/10/16 08/17/16 Sarah Yap DO [address] [place] [address] PCP - General 05/07/15 07/09/16 Sarah Yap DO [address] [place] [address] PCP - General 01/23/15 05/06/15 Sarah Yap DO [address] [place] [address] PCP - General 03/24/14 01/22/15 Sarah Yap DO [address] [place] [address] PCP - General 10/09/12 03/23/14 documented as of this encounter
--- OUTSIDE RECORDS SUMMARY | 2024-08-08 14:15 | XMS_ITS | Encounter Summary ---
Author Organization [facility] Address [address] [place] [address]. [place] [address] [place] [address] Care Team Providers Care Tier Over Name Role Phone Debby Yapa S DO Primary Care Provider + [phone] Walker Sarah S DO Primary Care Provider + [phone] Walker Sarah S DO Primary Care Provider + [phone] Walker Sarah S DO Primary Care Provider + [phone] Walker Sarah S DO Primary Care Provider + [phone] Walker Sarah S DO Primary Care Provider + [phone] Encounter Details Date Type Department Care Team (Late st Contact Info) Description 11/20/1997 Abstract [place] [address] , Generic MD Juancarlos Social [...] st Contact Info) Description 09/29/2024 8:00 AM BLOW TORCH BURNER Office Visit [facility] Family Medicine - [address], [address] [place] [phone] Elza Benitez MD [address] [facility] [address] [place] [address] documented as of this encounter Visit Diagnoses Not on filedocumented in this encounter Care Teams Tier Over Relationship Specialty Start Date End Date Sarah Yap DO [address] [place] [address] PCP - General 08/18/16 12/14/23 Sarah Yap DO [address] [place] [address] PCP - General 07/10/16 08/17/16 Sarah Yap DO [address] [place] [address] PCP - General 05/07/15 07/09/16 Sarah Yap DO [address] [place] [address] PCP - General 01/23/15 05/06/15 Sarah Yap DO [address] [place] [address] PCP - General 03/24/14 01/22/15 Sarah Yap DO [address] [place] [address] PCP - General 10/09/12 03/23/14 documented as of this encounter
--- OUTSIDE RECORDS SUMMARY | 2024-08-08 14:15 | XMS_ITS | Encounter Summary ---
Author Organization [facility] Address [address] [place] [address]. [place], [place] [phone] [place] [address] Care Team Providers Care Driver Education Instructor Name Role Phone Sarah Yap DO Primary Care Provider + [phone] Sarah Yap DO Primary Care Provider + [phone] WalkerDebbya S DO Primary Care Provider + [phone] WalkerDebbya S DO Primary Care Provider + [phone] WalkerCeSarah S DO Primary Care Provider + [phone] WalkerCeSarah S DO Primary Care Provider + [phone] Encounter Details Date Type Department Care Team (Late st Contact Info) Description 12/28/2007 Abstract [facility] [place] [address] Sarah Yap DO [address] [place] [address] Social History Tobacco Use Types [...] st Contact Info) Description 09/29/2024 8:00 AM PRODUCTION LINE ASSEMBLER Office Visit [facility] Family Medicine - [address] [facility], [address] [place] [address] Elza Benitez MD [address] [facility] [address] [place] [address] documented as of this encounter Visit Diagnoses Not on filedocumented in this encounter Care Teams Driver Education Instructor Relationship Specialty Start Date End Date Sarah Yap DO [address] [place] [address] PCP - General 08/18/16 12/14/23 Sarah Yap DO [address] [place] [address] PCP - General 07/10/16 08/17/16 Sarah Yap DO [address] [place] [address] PCP - General 05/07/15 07/09/16 Sarah Yap DO [address] [place] [address] PCP - General 01/23/15 05/06/15 Sarah Yap DO [address] [place] [address] PCP - General 03/24/14 01/22/15 Sarah Yap DO [address] [place] [address] PCP - General 10/09/12 03/23/14 documented as of this encounter
--- OUTSIDE RECORDS SUMMARY | 2024-08-08 14:15 | XMS_ITS | Encounter Summary ---
Author Organization [facility] Address [address] [place] [address]. [place] [address] [place] [address] Care Team Providers Care Repairer Wood Furniture Name Role Phone Debby Yapa S DO Primary Care Provider + [phone] Walker Sarah S DO Primary Care Provider + [phone] Walker Sarah S DO Primary Care Provider + [phone] Walker Sarah S DO Primary Care Provider + [phone] Walker Sarah S DO Primary Care Provider + [phone] Walker Sarah S DO Primary Care Provider + [phone] Encounter Details Date Type Department Care Team (Late st Contact Info) Description 12/12/1997 Abstract [place] [address] , Generic MD Juancarlos Social [...] st Contact Info) Description 09/29/2024 8:00 AM ACID STRENGTH INSPECTOR Office Visit [facility] Family Medicine - [address], [address] [place] [phone] Elza Benitez MD [address] [facility] [address] [place] [address] documented as of this encounter Visit Diagnoses Not on filedocumented in this encounter Care Teams Repairer Wood Furniture Relationship Specialty Start Date End Date Sarah Yap DO [address] [place] [address] PCP - General 08/18/16 12/14/23 Sarah Yap DO [address] [place] [address] PCP - General 07/10/16 08/17/16 Sarah Yap DO [address] [place] [address] PCP - General 05/07/15 07/09/16 Sarah Yap DO [address] [place] [address] PCP - General 01/23/15 05/06/15 Sarah Yap DO [address] [place] [address] PCP - General 03/24/14 01/22/15 Sarah Yap DO [address] [place] [address] PCP - General 10/09/12 03/23/14 documented as of this encounter
--- OUTSIDE RECORDS SUMMARY | 2024-08-08 14:15 | XMS_ITS | Encounter Summary ---
Author Organization [facility] Address [address] [place] [address]. [place] [address] [place] [address] Care Team Providers Care Prepress Manager Name Role Phone Debby Yapa S DO Primary Care Provider + [phone] Walker Sarah S DO Primary Care Provider + [phone] Walker Sarah S DO Primary Care Provider + [phone] Walker Sarah S DO Primary Care Provider + [phone] Walker Sarah S DO Primary Care Provider + [phone] Walker Sarah S DO Primary Care Provider + [phone] Encounter Details Date Type Department Care Team (Late st Contact Info) Description 03/18/1997 [place] [address] , Generic MD Juancarlos Social [...] st Contact Info) Description 09/29/2024 8:00 AM CANTEEN OPERATOR Office Visit [facility] Family Medicine - [address], [address] [place] [phone] Elza Benitez MD [address] [facility] [address] [place] [address] documented as of this encounter Visit Diagnoses Not on filedocumented in this encounter Care Teams Prepress Manager Relationship Specialty Start Date End Date Sarah Yap DO [address] [place] [address] PCP - General 08/18/16 12/14/23 Sarah Yap DO [address] [place] [address] PCP - General 07/10/16 08/17/16 Sarah Yap DO [address] [place] [address] PCP - General 05/07/15 07/09/16 Sarah Yap DO [address] [place] [address] PCP - General 01/23/15 05/06/15 Sarah Yap DO [address] [place] [address] PCP - General 03/24/14 01/22/15 Sarah Yap DO [address] [place] [address] PCP - General 10/09/12 03/23/14 documented as of this encounter
--- OUTSIDE RECORDS SUMMARY | 2024-08-08 14:15 | XMS_ITS | Encounter Summary ---
Author Organization [facility] Address [address] [place] [address]. [place] [address] [place] [address] Care Team Providers Care Fitness And Wellness Manager Name Role Phone Debby Yapa S DO Primary Care Provider + [phone] Walker Sarah S DO Primary Care Provider + [phone] Walker Sarah S DO Primary Care Provider + [phone] Walker Sarah S DO Primary Care Provider + [phone] Walker Sarah S DO Primary Care Provider + [phone] Walker Sarah S DO Primary Care Provider + [phone] Encounter Details Date Type Department Care Team (Latest Contact Info) Description 02/17/2014 Abstract [facility] , Fior [...] st Contact Info) Description 09/29/2024 8:00 AM CERTIFIED LACTATION COUNSELOR Office Visit [facility] Family Medicine - [place], [address] [place] [address] Elza Benitez MD [address] [facility] [address] [place] [address] documented as of this encounter Visit Diagnoses Not on filedocumented in this encounter Care Teams Fitness And Wellness Manager Relationship Specialty Start Date End Date Sarah Yap DO [address] [place] [address] PCP - General 08/18/16 12/14/23 Sarah Yap DO [address] [place] [address] PCP - General 07/10/16 08/17/16 Sarah Yap DO [address] [place] [address] PCP - General 05/07/15 07/09/16 Sarah Yap DO [address] [place] [address] PCP - General 01/23/15 05/06/15 Sarah Yap DO [address] [place] [address] PCP - General 03/24/14 01/22/15 Sarah Yap DO [address] [place] [address] PCP - General 10/09/12 03/23/14 documented as of this encounter
--- OUTSIDE RECORDS SUMMARY | 2024-08-08 14:15 | XMS_ITS | Encounter Summary ---
Author Organization [facility] Address [address] [place] [address]. [place] [address] [place] [address] Care Team Providers Care Wellness Program Manager Name Role Phone Debby Yapa S DO Primary Care Provider + [phone] Walker Sarah S DO Primary Care Provider + [phone] Walker Sarah S DO Primary Care Provider + [phone] Walker Sarah S DO Primary Care Provider + [phone] Walker Sarah S DO Primary Care Provider + [phone] Walker Sarah S DO Primary Care Provider + [phone] Encounter Details Date Type Department Care Team (Late st Contact Info) Description 03/19/1997 [place] [address] , Generic MD Juancarlos Social [...] Contact Info) Description 09/29/2024 8:00 AM MANAGER TERMINAL Office Visit [facility] Family Medicine - [address], [address] [place] [address] Elza Benitez MD [address] [facility] [address] [place] [address] documented as of this encounter Visit Diagnoses Not on filedocumented in this encounter Care Teams Wellness Program Manager Relationship Specialty Start Date End Date Sarah Yap DO [address] [place] [address] PCP - General 08/18/16 12/14/23 Sarah Yap DO [address] [place] [address] PCP - General 07/10/16 08/17/16 Sarah Yap DO [address] [place] [address] PCP - General 05/07/15 07/09/16 Sarah Yap DO [address] [place] [address] PCP - General 01/23/15 05/06/15 Sarah Yap DO [address] [place] [address] PCP - General 03/24/14 01/22/15 Sarah Yap DO [address] [place] [address] PCP - General 10/09/12 03/23/14 documented as of this encounter
--- OUTSIDE RECORDS SUMMARY | 2024-08-08 14:15 | XMS_ITS | Encounter Summary ---
Author Organization [facility] Address [address] [place] [address]. [place], [place] [address] [place] [address] Care Team Providers Care Geophysical Operator Name Role Phone Sarah Yap DO Primary Care Provider + [phone] Sarah Yap DO Primary Care Provider + [phone] WalkerDebbya S DO Primary Care Provider + [phone] WalkerDebbya S DO Primary Care Provider + [phone] WalkerDebbya S DO Primary Care Provider + [phone] WalkerCeSarah S DO Primary Care Provider + [phone] Encounter Details Date Type Department Care Team (Late st Contact Info) Description 06/18/2007 Abstract [facility] [place] [id number] Sarah Yap DO [address] [place] [address] Social History Tobacco Use Types [...] st Contact Info) Description 09/29/2024 8:00 AM 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 Office Visit [facility] Family Medicine - [place] [address] [facility], [address] [place] [address] Elza Benitez MD [address] [facility] [address] [place] [address] documented as of this encounter Visit Diagnoses Not on filedocumented in this encounter Care Teams Geophysical Operator Relationship Specialty Start Date End Date Sarah Yap DO [address] [place] [address] PCP - General 08/18/16 12/14/23 Sarah Yap DO [address] [place] [address] PCP - General 07/10/16 08/17/16 Sarah Yap DO [address] [place] [address] PCP - General 05/07/15 07/09/16 Sarah Yap DO [address] [place] [address] PCP - General 01/23/15 05/06/15 Sarah Yap DO [address] [place] [address] PCP - General 03/24/14 01/22/15 Sarah Yap DO [address] [place] [address] PCP - General 10/09/12 03/23/14 documented as of this encounter
--- OUTSIDE RECORDS SUMMARY | 2024-08-08 14:15 | XMS_ITS | Encounter Summary ---
Author Organization [facility] Address [address] [place] [address]. [place] [address] [place] [address] Care Team Providers Care Hay Sorter Name Role Phone Debby Yapa S DO Primary Care Provider + [phone] Walker Sarah S DO Primary Care Provider + [phone] Walker Sarah S DO Primary Care Provider + [phone] WalkerCeSarah S DO Primary Care Provider + [phone] Walker Sarah S DO Primary Care Provider + [phone] Walker Sarah S DO Primary Care Provider + [phone] Encounter Details Date Type Department Care Team (Late st Contact Info) Description 11/18/1997 [place] [address] , Generic MD Juancarlos Social [...] st Contact Info) Description 09/29/2024 8:00 AM PHOTOGRAPHER SCIENTIFIC Office Visit [facility] Family Medicine - [address], [address] [place] [address] Elza Benitze MD [address] [facility] [address] [place] [address] documented as of this encounter Visit Diagnoses Not on filedocumented in this encounter Care Teams Hay Sorter Relationship Specialty Start Date End Date Sarah Yap DO [address] [place] [address] PCP - General 08/18/16 12/14/23 Sarah Yap DO [address] [place] [address] PCP - General 07/10/16 08/17/16 Sarah Yap DO [address] [place] [address] PCP - General 05/07/15 07/09/16 Sarah Yap DO [address] [place] [address] PCP - General 01/23/15 05/06/15 Sarah Yap DO [address] [place] [address] PCP - General 03/24/14 01/22/15 Sarah Yap DO [address] [place] [address] PCP - General 10/09/12 03/23/14 documented as of this encounter
--- OUTSIDE RECORDS SUMMARY | 2024-08-08 14:15 | XMS_ITS | Encounter Summary ---
Author Organization [facility] Address [address] [place] [address]. [place], [place] [address] [place] [address] Care Team Providers Care Cell Efficiency Supervisor Name Role Phone Sarah Yap DO Primary Care Provider + [phone] Sarah Yap DO Primary Care Provider + [phone] WalkerDebbya S DO Primary Care Provider + [phone] WalkerDebbya S DO Primary Care Provider + [phone] WalkerCeSarah S DO Primary Care Provider + [phone] WalkerCeSarah S DO Primary Care Provider + [phone] Encounter Details Date Type Department Care Team (Late st Contact Info) Description 06/28/2008 Abstract [facility] [place], [place] [id number] Sarah Yap DO [address] [place] [address] Social History Tobacco Use Types [...] st Contact Info) Description 09/29/2024 8:00 AM BRANCH OFFICE MANAGER Office Visit [facility] Family Medicine - [place] [address] [facility], [address] [place] [address] Elza Benitez MD [address] [facility] [address] [place] [address] documented as of this encounter Visit Diagnoses Not on filedocumented in this encounter Care Teams Cell Efficiency Supervisor Relationship Specialty Start Date End Date Sarah Yap DO [address] [place] [address] PCP - General 08/18/16 12/14/23 Sarah Yap DO [address] [place] [address] PCP - General 07/10/16 08/17/16 Sarah Yap DO [address] [place] [address] PCP - General 05/07/15 07/09/16 Sarah Yap DO [address] [place] [address] PCP - General 01/23/15 05/06/15 Sarah Yap DO [address] [place] [address] PCP - General 03/24/14 01/22/15 Sarah Yap DO [address] [place] [address] PCP - General 10/09/12 03/23/14 documented as of this encounter
--- OUTSIDE RECORDS SUMMARY | 2024-08-08 14:15 | XMS_ITS | Encounter Summary ---
Author Organization [facility] Address [address] [place] [address]. [place], [place] [address] [place] [address] Care Team Providers Care Time Signal Wirer Name Role Phone Sarah Yap DO Primary Care Provider + [phone] WalkerDebbya S DO Primary Care Provider + [phone] WalkerCeSarah S DO Primary Care Provider + [phone] WalkerCeSarah S DO Primary Care Provider + [phone] Walker Sarah S DO Primary Care Provider + [phone] Walker Sarah S DO Primary Care Provider + [phone] Encounter Details Date Type Department Care Team (Late st Contact Info) Description 10/09/2012 Abstract [facility] [address] [place] [address] Sarah Yap DO [address] [place] [address] Social History Tobacco Use Types [...] (Late Contact Info) Description 09/29/2024 8:00 AM FUR STYLIST Office Visit [facility] Family Medicine - [place] [address] [facility], [address] [place] [address] Elza Benitez MD [address] [facility] [address] [place] [address] documented as of this encounter Visit Diagnoses Diagnosis Other screening mammogram documented in this encounter Care Teams Time Signal Wirer Relationship Specialty Start Date End Date Sarah Yap DO [address] [place] [address] PCP - General 08/18/16 12/14/23 Sarah Yap DO [address] [place] [address] PCP - General 07/10/16 08/17/16 Sarah Yap DO [address] [place] [address] PCP - General 05/07/15 07/09/16 Sarah Yap DO [address] [place] [address] PCP - General 01/23/15 05/06/15 Sarah Yap DO [address] [place] [address] PCP - General 03/24/14 01/22/15 Sarah Yap DO [address] [place] [address] PCP - General 10/09/12 03/23/14 documented as of this encounter
--- OUTSIDE RECORDS SUMMARY | 2024-08-08 14:15 | XMS_ITS | Encounter Summary ---
Author Organization [facility] Address [address] [place] [address]. [place] [address] [place] [address] Care Team Providers Care Carpenter Packing Name Role Phone Sarah Yap DO Primary Care Provider + [phone] Sarah Yap DO Primary Care Provider + [phone] WalkerSarah DO Primary Care Provider + [phone] Sarah Yap DO Primary Care Provider + [phone] WalkerDebbya S DO Primary Care Provider + [phone] Encounter Details Date Type Department Care Team (Late st Contact Info) Description 03/24/2014 Abstract [facility] [address] [place] [address] Sarah Yap DO [address] [place] [address] Social History Tobacco Use Types [...] (Late Contact Info) Description 09/29/2024 8:00 AM BAR CAPTAIN Office Visit [facility] Medical [facility] Family Medicine - [place] [address] [facility], [address] [place] [address] Elza Benitez MD [address] [facility] [address] [place], [place] [address] documented as of this encounter Visit Diagnoses Diagnosis Other screening mammogram documented in this encounter Care Teams Carpenter Packing Relationship Specialty Start Date End Date Sarah Yap DO [address] [place] [address] PCP - General 08/18/16 12/14/23 Sarah Yap DO [address] [place] [address] PCP - General 07/10/16 08/17/16 Sarah Yap DO [address] [place] [address] PCP - General 05/07/15 07/09/16 Sarah Yap DO [address] [place] [address] PCP - General 01/23/15 05/06/15 Sarah Yap DO [address] [place] [address] PCP - General 03/24/14 01/22/15 documented as of this encounter
--- OUTSIDE RECORDS SUMMARY | 2024-08-08 14:15 | XMS_ITS | Encounter Summary ---
Author Organization [facility] Address [address] [place] [address]. [place], [place] [address] [place] [address] Care Team Providers Care Refining Still Operator Name Role Phone Sarah Yap DO Primary Care Provider + [phone] Sarah Yap DO Primary Care Provider + [phone] Sarah Yap DO Primary Care Provider + [phone] Sarah Yap DO Primary Care Provider + [phone] Sarah Yap DO Primary Care Provider + [phone] Sarah Yap DO Primary Care Provider + [phone] Encounter Details Date Type Department Care Team (Latest Contact Info) Description 11/12/2012 Abstract [facility] Sarah Yap DO [address] [place] [address] Social History Tobacco Use Types Packs/Day Years Used Date Smoking Tobacco: Never Assessed Comments Unknown Sex and Gender Information Value Date Recorded Sex Assigned at Not on file Legal Sex Female 7:26 PM CDT Gender Identity Not on file Sexual Orientation Not on file documented as of this encounter Last Filed Vital Signs Vital Sign Reading Time Taken Comments Blood Pressure 122/74 11/12/2012 10:15 AM CDT Pulse - - Temperature - - Respiratory Rate - - Oxygen Saturation - - Inhaled Oxygen Concentration - - Weight 125.6 kg (277 lb) 11/12/2012 10:15 AM CDT Height - - Body Mass Index - - documented in this encounter Progress Notes * Sarah Yap MD - 11/12/2012 10:00 AM CDT Reason For Visit Reason For Visit: Acute Visit Chief Complaint Chief Complaint Free Text: Wart on left foot History of Present Illness HPI Free Text: C/o hard, painful lesion between 4th and 5th toes on L. 3wks using corn pad is a diabetic Active Problems 1. Acne 706.1 2. Adjustment Disorder 309.9 3. 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 Hyperlipidemia 272.4 5. Hypertension 401.9 6. Premenstrual Syndromes 625.4 7. Type 2 Diabetes Mellitus 250.00 Past Medical History 1. History of Cholelithiasis 574.20 2. History of Hypertension 401.9 3. History of Menopause Has Occurred V49.81 4. History of Summary Of Previous Pregnancies 0 (Total No.) Surgical History 1. History of Colonoscopy (Fiberoptic) 2. History of Ear Surgery 3. History of Lithotripsy 4. History of Tonsillectomy Family History 1. Maternal grandmother's history of Breast Cancer V16.3 2. Paternal history of Skin Cancer V16.8 3. Family history of Diabetes Mellitus V18.0 4. Family history of Hypertension V17.49 Social History ?? Alcohol Use ?? Marital History - Currently ?? 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 Tobacco Non-user Current Meds 1. Actos 45 MG Oral Tablet; TAKE 1 TABLET ONCE DAILY; Therapy: (Recorded:12Nov2012) to Recorded; Dispense: 30 Days ; #:30 Tablet; Refill: 0; Record; Last Updated By: Jazmine Gonzales 2. Cymbalta 60 MG Oral Capsule Delayed Release Particles; Therapy: 15Jun2012 to Recorded; Dispense: 30 Days ; #:30 CPEP; Refill: 0; Record; Last Updated By: Jazmine Gonzales 3. Effexor XR 150 MG Oral Capsule Extended Release 24 Hour; TAKE 1 CAPSULE DAILY; Therapy: (Recorded:11Nov2012) to Recorded; Dispense: 0 Days ; #: Sufficient Capsule Extended Release 24 Hour; Refill: 0; Record; Last Updated By: Mis Salmeron 4. Hydrochlorothiazide 50 MG Oral Tablet; TAKE 1 TABLET DAILY DIRECTED; Therapy: (Recorded:11Nov2012) to Recorded; Dispense: 0 Days ; #: Sufficient Tablet; Refill: 0; Record; Last Updated By: Mis Salmeron 5. Lantus 100 UNIT/ML Subcutaneous Solution; Therapy: (Recorded:[id number]) to Recorded; Dispense: 0 Days ; #: Sufficient SOLN; Refill: 0; Record; Last Updated By: Mis Salmeron 6. Lisinopril 10 MG Oral Tablet; TAKE 1 TABLET DAILY DIRECTED; Therapy: (Recorded:11Nov2012) to Recorded; Dispense: 0 Days ; #: Sufficient Tablet; Refill: 0; Record; Last Updated By: Mis Salmeron 7. MetFORMIN HCl 1000 MG Oral Tablet; TAKE 1 TABLET TWICE DAILY; Therapy: (Recorded:11Nov2012) to Recorded; Dispense: 0 Days ; #: Sufficient Tablet; Refill: 0; Record; Last Updated By: Mis Salmeron Allergies 1. No Known Drug Allergies No Known Drug Allergies Immunizations Hepatitis A --- Series1: 1999; Series2: 2000 Tdap --- Series1: 07Jan2012 Vitals Vital Signs [Data Includes: Current Encounter] 12Nov2012 10:15AM Systolic 122, LUE, Sitting Diastolic 74, LUE, Sitting Weight 277 lb Physical Exam L. 4th toe on lateral aspect has hard corn, no infection, no other breakdown. Nails long and rub corn. Assessment 1. Lump In / On The Skin 782.2 2. Type 2 Diabetes Mellitus 250.00 Plan 1. Podiatry Referral Outpatient corn between 4th/5th toes pt is diabetic Done: 12Nov2012 Ordered; For: Type 2 Diabetes Mellitus (250.00), Lump In / On The Skin (782.2); Ordered By: Sarah Yap Performed: Due: 26Nov2012; Last Updated By: Jazmine Gonzales knows to get labs end of this month, cont. with corn pad, do not pick or dig at it. Signatures Electronically signed by : Sarah Yap D.O.; Nov 12 2012 12:06PM (Author) documented in this encounter Plan of Treatment Upcoming Encounters Date Type Department Care Team (Late st Contact Info) Description 09/29/2024 8:00 AM METAL PRODUCTS FABRICATOR ASSEMBLER Office Visit [facility] Family Medicine - [address], [address] [place] [address] Elza Benitez MD [address] [facility] [address] [place] [address] documented as of this encounter Visit Diagnoses Not on filedocumented in this encounter Care Teams Refining Still Operator Relationship Specialty Start Date End Date Sarah Yap DO [address] [place] [address] PCP - General 08/18/16 12/14/23 Sarah Yap DO [address] [place] [address] PCP - General 07/10/16 08/17/16 Sarah Yap DO [address] [place] [address] PCP - General 05/07/15 07/09/16 Sarah Yap DO [address] [place] [address] PCP - General 01/23/15 05/06/15 Sarah Yap DO [address] [place] [address] PCP - General 03/24/14 01/22/15 Sarah Yap DO [address] [place] [address] PCP - General 10/09/12 03/23/14 documented as of this encounter
--- OUTSIDE RECORDS SUMMARY | 2024-08-08 14:20 | XMS_ITS | Referral Summary ---
Author Organization [facility] Address [address] [place] [address] Care Team Providers Care Supervisor Pipe Manufacture Name Role Phone Sarah Yap DO Primary Care Provider [phone] Allergies No known active allergies Medications atorvastatin (LIPITOR) 10 mg tablet 06/16/2021 Active hydroCHLOROthia zide (HYDRODIURIL) 50 mg tablet 07/09/2021 Active lisinopriL (PRINIVIL,ZESTR IL) 10 mg tablet 06/16/2021 Active metFORMIN (GLUCOPHAGE) 1,000 mg tablet 05/14/2021 Act castillo venlafaxine XR (EFFEXOR-XR) 150 mg 24 hr capsule 07/09/2021 Active cetirizine (ZyrTEC) 10 mg tablet Take 10 mg by mouth daily 04/01/2022 Active BASAGLAR 100 unit/mL (3 mL) pen for injection INJECT 55 UNITS EVERY DAY DIRECTED 05/01/2022 Active pioglitazone (ACTOS) 45 mg tablet Take 45 mg by mouth daily 05/13/2022 Active Active Problems Problem Noted Date Diagnosed Date Insomnia 01/18/2021 Muscle spasm of left shoulder area 01/18/2021 Plantar warts 01/18/2021 History of colon polyps 12/08/2019 Albuminuria 10/06/2018 Type 2 diabetes, controlled, with renal manifest ation 10/06/2018 Osteoarthritis of left knee 07/10/2016 Eczema 10/19/2014 Morbid obesity 02/01/2014 Adenomatosis 11/12/2012 Adjustment reaction 11/11/2012 Overview (08/21/2021): Description: stable on meds Hyperlipidemia 11/11/2012 Hypertension 11/11/2012 Social History Tobacco Use Types Packs/Day Years Used Date Smoking Tobacco: Former Comments Unknown Sex and Gender Information Value Date Recorded Sex Assigned at Not on file 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
--- OUTSIDE RECORDS SUMMARY | 2024-08-08 14:20 | XMS_ITS | Clinical Summary ---
Author Organization [facility] Address [address] [place] [address] Care Team Providers Care Commercial Collections Specialist Name Role Phone Sarah Yap DO Primary Care Provider [phone] Allergies No known active allergies Medications atorvastatin [...] on file Legal Sex Female 7:49 PM BULK LOADER Gender Identity Not on file Sexual Orientation Not on file Obstetrics History Plan of Treatment Health Maintenance Due Date Last Done Comments Albumin Creatinine Ratio, Urine 1966 Breast Cancer Screening-Mammogram 1966 Cervical Cancer Screening 1966 Colon Cancer Screening-Colonoscopy 1966 Depression Screening 1966 Hemoglobin A1C 1966 Hepatitis C Screening 1966 eGFR 1966 Dilated Eye Exam 1966 Foot Exam 1966 Hepatitis B Screening 1984 Regular Well Visit/Exam 18-64 1984 Pneumococcal vaccine <65 (2 of 2 - PPSV23 or PCV20) 05/14/2017 03/19/2017 DTaP/Tdap/Td Vaccine (2 - Td or Tdap) 01/06/2022 01/07/2012 Influenza Vaccine (#1) 2024 , 05/16/2022, 05/13/2021, Additional history exists Lipid Panel 07/17/2024 07/17/2023, 03/03, 03/12/2021 Zoster Vaccine Completed 08/17/2020, 04/03, 03/19/2017 Insurance [employer] OOS [employer] OOS Care Teams Commercial Collections Specialist Relationship Specialty Start Date End Date Sarah Yap DO [address] [id number] PCP - General Family Medicine 09/03/20
--- OUTSIDE RECORDS SUMMARY | 2024-08-08 14:21 | XMS_ITS | Encounter Summary ---
Author Organization [facility] Address [address] [place] [address] Care Team Providers Care Glass Checker Name Role Phone Sarah Yap DO Primary Care Provider [phone] Reason for Referral * Diagnostic Imaging (Routine) - Closed Specialty Diagnoses / Procedures Referred By Unruly t Referred To Contact Diagnoses Bilateral hand pain Procedures XR Hand Left 3 or More Views Lawanda Sharpe MD [address] [place] [address] [address] [place] [address] Phone: tel: fax: [address] [phone] Referral ID Status Reason Start Date Expiration Date Visits Re quested Visits Authorized [id number] Closed 01/21/2024 02/19/2025 1 1 * Diagnostic Imaging (Routine) - Closed Specialty Diagnoses / Procedures Referred By Contac t Referred To Contact Diagnoses Bilateral hand pain Procedures XR Hand Right 3 or More Views Lawanda Sharpe MD [address] [place] [address] [address]FF[address] [place] [address] Phone: tel: fax: [address] [phone] Referral ID Status Reason Start Date Expiration Date Visits Re quested Visits Authorized [id number] Closed 01/21/2024 02/19/2025 1 1 Reason for Visit * Diagnostic Imaging (Routine) - Closed Specialty Diagnoses / Procedures Referred By Unruly pham Referred To Contact Diagnoses Bilateral hand pain Procedures XR Hand Right 3 [place] [address] [place] [address] Phone: tel: fax: [facility] [address] [place] [address] Referral ID Status Reason Start Date Expiration Date Visits Re quested Visits Authorized [id number] Closed 01/21/2024 02/19/2025 1 1 Encounter Details Date Type Department Care Team (Latest Contact Info) Description 01/22/2024 11:54 AM CDT - 01/22/2024 11:59 PM CDT Hospital Encounter [facility] [address] [place] [address] Bilateral hand pain Discharge Disposition: Discharge to home or self care Social History Tobacco Use Types Packs/Day Years Used Date Smoking Tobacco: Former Comments Unknown Sex and Gender Information Value Date Recorded Sex Assigned at Not on file Legal Sex Female 7:49 PM [employer]OP [employer] Gender Identity Not on file Sexual Orientation Not on file documented as of this encounter Medications at Time of Discharge atorvastatin (LIPITOR) 10 mg tablet 06/16/2021 BASAGLAR 100 unit/mL (3 mL) pen for injection INJECT 55 UNITS EVERY DAY DIRECTED 05/01/2022 cetirizine (ZyrTEC) 10 mg tablet Take 10 mg by mouth daily 04/01/2022 hydroCHLOROthiazi de (HYDRODIURIL) 50 mg tablet 07/09/2021 lisinopriL (PRINIVIL,ZESTRIL ) 10 mg tablet 06/16/2021 metFORMIN (GLUCOPHAGE) 1,000 mg tablet 05/14/2021 pioglitazone (ACTOS) 45 mg tablet Take 45 mg by mouth daily 05/13/2022 venlafaxine XR (EFFEXOR-XR) 150 mg 24 hr capsule 07/09/2021 documented as of this encounter Discharge Disposition Disposition Code Departure Means Destination Discharge to home or self care documented in this encounter Plan of Treatment Not on file documented as of this encounter Procedures Procedure Name Priority Date/Time Associated Diagnosis Comments XR HAND RIGHT 3 OR MORE VIEWS Schedule Routine, Read Routine (OP Routine) 01/22/2024 11:57 AM CDT Bilateral hand pain XR HAND LEFT 3 OR MORE VIEWS Schedule Routine, Read Routine (OP Routine) 01/22/2024 11:57 AM CDT Bilateral hand pain documented in this encounter Results * XR Hand Left 3 or More Views (01/22/2024 11:57 AM CDT) Anatomical Region Laterality Modality Upper Extremities, Hand Left Computed Radiography 01/22/2024 11:0 2 PM CDT Narrative 01/22/2024 11:04 PM CDT EXAM DESCRIPTION: XR HAND RIGHT 3 OR MORE VIEWS; XR HAND LEFT 3 OR MORE VIEWS REASON FOR STUDY: Bilateral hand pain C/O trigger finger in 2nd digit. No known injury ??; pain ?? C/O trigger finger in 1st and 4th digit. No known injury ? FINDINGS: Three views each hand submitted with comparison 11/16/2020. Right hand: There are no erosions. ??There are no fractures. ??Alignment is normal. ??There is mild triscaphe and moderate basal thumb joint osteoarthritis. ??There is mild interphalangeal joint osteoarthritis. ??There is no dorsal wrist soft tissue swelling. Left hand: There are no erosions. ??There are no fractures. ??Ulnar negative variance is present. ??There is mild triscaphe and basal thumb joint osteoarthritis. ??There is mild interphalangeal joint osteoarthritis. ??Mild dorsal wrist soft tissue swelling is present. IMPRESSION: Mild dorsal left wrist soft tissue swelling. ??No other radiographic evidence of inflammatory arthritis. 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 THIS IS AN ELECTRONICALLY VERIFIED FINAL REPORT 01/22/2024 11:04 PM - Electronically signed by ??Kalpesh Alfonso M.D. D: ??01/22/2024 11:04 PM T: Report ID: [id number] Reading Location: ??[id number] Procedure Note Kalpesh Alfonso MD - 01/22/2024 EXAM DESCRIPTION: XR HAND RIGHT 3 OR MORE VIEWS; XR HAND LEFT 3 OR MORE VIEWS REASON FOR STUDY: Bilateral hand pain C/O trigger finger in 2nd digit. No known injury ; pain C/O trigger finger in 1st and 4th digit. No known injury FINDINGS: Three views each hand submitted with comparison 11/16/2020. Right hand: There are no erosions. There are no fractures. Alignment is normal.There is mild triscaphe and moderate basal thumb joint osteoarthritis. There is mild interphalangeal joint osteoarthritis. There is no dorsal wrist soft tissue swelling. Left hand: There are no erosions. There are no fractures. Ulnar negative varianceis present. 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 Mild dorsal wrist softtissue swelling is present. IMPRESSION: Mild dorsal left wrist soft tissue swelling. No other radiographicevidence of inflammatory arthritis. Ygjw-er-cbyauias bilateral triscaphe and basal thumb jointosteoarthritis. Mild bilateral interphalangeal joint osteoarthritis. THIS IS AN ELECTRONICALLY VERIFIED FINAL REPORT 01/22/2024 11:04 PM - Electronically signed by Kalpesh Alfonso M.D. T: Report ID: [id number] Reading Location: [id number] us Lawanda Sharpe MD IMG XR PROCEDURES Final R esult * XR Hand Right 3 or More Views (01/22/2024 11:57 AM CDT) Anatomical Region Laterality Modality Upper Extremities, Hand Right Computed Radiography 01/22/2024 11:0 2 PM CDT Narrative 01/22/2024 11:04 PM CDT EXAM DESCRIPTION: XR HAND RIGHT 3 OR MORE VIEWS; XR HAND LEFT 3 OR MORE VIEWS REASON FOR STUDY: Bilateral hand pain C/O trigger finger in 2nd digit. No known injury ??; pain ?? C/O trigger finger in 1st and 4th digit. No known injury ? FINDINGS: Three views each hand submitted with comparison 11/16/2020. Right hand: There are no erosions. ??There are no fractures. ??Alignment is normal. ??There is mild triscaphe and moderate basal thumb joint osteoarthritis. ??There is mild interphalangeal joint osteoarthritis. ??There is no dorsal wrist soft tissue swelling. Left hand: There are no erosions. ??There are no fractures. ??Ulnar negative variance is present. ??There is mild triscaphe and basal thumb joint osteoarthritis. ??There is mild interphalangeal joint osteoarthritis. ??Mild dorsal wrist soft tissue swelling is present. IMPRESSION: Mild dorsal left wrist soft tissue swelling. ??No other radiographic evidence of inflammatory arthritis. 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 THIS IS AN ELECTRONICALLY VERIFIED FINAL REPORT 01/22/2024 11:04 PM - Electronically signed by ??Kalpesh Alfonso M.D. D: ??01/22/2024 11:04 PM T: Report ID: [id number] Reading Location: ??[id number] Procedure Note Kalpesh Alfonso MD - 01/22/2024 EXAM DESCRIPTION: XR HAND RIGHT 3 OR MORE VIEWS; XR HAND LEFT 3 OR MORE VIEWS REASON FOR STUDY: Bilateral hand pain C/O trigger finger in 2nd digit. No known injury ; pain C/O trigger finger in 1st and 4th digit. No known injury FINDINGS: Three views each hand submitted with comparison 11/16/2020. Right hand: There are no erosions. There are no fractures. Alignment is normal.There is mild triscaphe and moderate basal thumb joint osteoarthritis. There is mild interphalangeal joint osteoarthritis. There is no dorsal wrist soft tissue swelling. Left hand: There are no erosions. There are no fractures. Ulnar negative varianceis present. 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 Mild dorsal wrist softtissue swelling is present. IMPRESSION: Mild dorsal left wrist soft tissue swelling. No other radiographicevidence of inflammatory arthritis. [id number] bilateral triscaphe and basal thumb jointosteoarthritis. Mild bilateral interphalangeal joint osteoarthritis. THIS IS AN ELECTRONICALLY VERIFIED FINAL REPORT 01/22/2024 11:04 PM - Electronically signed by Kalpesh Alfonso M.D. T: Report ID: [id number] Reading Location: [id number] us Lawanda Sharpe MD IMG XR PROCEDURES Final R esult documented in this encounter Visit Diagnoses Diagnosis Bilateral hand pain documented in this encounter Care Teams Glass Checker Relationship Specialty Start Date End Date Sarah Yap DO [address] [address] PCP - General Family Medicine 09/03/20 documented as of this encounter
--- OUTSIDE RECORDS SUMMARY | 2024-08-08 14:21 | XMS_ITS ---
Author Organization [facility] Address [address] [place], [place] [address] Care Team Providers Care Diesel Electrician Name Role Phone HOMERO BRANDON Unavailable [phone] Sarah Yap Unavailable Unavailable REASON FOR VISIT *Fracture check with x-rays Medications Medication SIG (Take, Route, Frequency, Duration) Notes Start Date End Date Status Cetirizine HCl Activ e Farxiga Active Venlafaxine HCl Acti ve Metformin & Diet Manage Prod Active Lisinopril Active Basaglar KwikPen Act castillo Atorvastatin Calcium Active Vital Signs Height 68.00 in 08/25/2023 Weight 200 lbs 08/25/2023 BMI 30.41 kg/m2 08/25/2023 Height-cm 172.72 cm 08/25/2023 Weight-kg 90.72 kg 08/25/2023 Encounters Encounter Location Date Provider Diagnosis [facility] [address] [place], [place] [id number] 08/25/2023 BRANDON CODY Nondisplaced fracture of fifth metatarsal bone, left foot, initial encounter for closed fracture S92.355A and Left foot pain M79.672 Assessments Encounter Date Diagnosis (ICD Code) Assessment Notes Treatment Notes Treatment Clinical Notes Section Notes 08/25/2023 Nondisplaced fracture of fifth metatarsal bone, left foot, initial encounter for closed fracture (ICD-10 - S92.355A) 08/25/2023 Left foot pain (ICD-10 - M79.672) 08/25/2023 Other Shoes: Patient may return to normal shoes as tolerated. Plan Of Treatment Treatment Notes Assessment Notes Other Shoes: Patient may r eturn to normal shoes as tolerated. Progress Notes * DAVID PEGUERO LDOB:1965 (58 yo F)Acc No.[id number]:08/25/2023 Patient:?DAVID PEGUERO Provider:?Brandon Cody DPM :1965???Age:58 Y???Sex:Female D ate:08/25/2023 Address:[address] [place], [place] [id number] Subjective: * Chief Complaints: * ???1. *Fracture check with x -rays. * HPI: ???HPI:?Follow Up Visit?Patient presents for follow up visit for left foot fracture check. ?Patient states their problem is resolved. Patient states there is no pain or swelling.?MA:SS.? * ROS:?General / Constitutional:?Patient denies?chills, fever.?Endocrine:?Patient denies?excessive thirst, frequent urination.?Cardiovascular:?Patient denies?shortness of breath, chest pain.?Skin:?Patient denies?mole changes.? * Medical History:? * Medications:?Taking Farxiga , Taking Cetirizine HCl , Taking Metformin & Diet Manage Prod , Taking Venlafaxine HCl , Taking Lisinopril , Taking Atorvastatin Calcium , Taking Basaglar KwikPen Objective: * Vitals:?Wt:200lbs, Wt-k .72 kg, Ht: 68.00 in, Ht-cm: 172.72 cm, BMI:30.41Index, Body Surface Area: 2.08. * Examination: ???Physical Examination: ?Gen:?The patient is awake, alert, well developed, well groomed and well nourished. They are in no apparent distress. .?Musc:?Foot structure is normal. No abnormalities noted. Muscle strength is 5/5 to all joints bilaterally. There is no pain on palpation. .?Derm:?Skin is warm and dry, with no rashes, good skin turgor and normal hair distribution. .?Neuro:?Grossly intact to light touch bilateral..?Vasc:?Dorsalis pedis and posterior tibial pulses 2+ bilaterally. No edema noted. Capillary fill time < 3 seconds to all digits. .?X-Ray: ?LEFT FOOT?X-rays show signs of healing. .? Assessment: * Assessment: 1.?Nondisplaced fracture of fifth metatarsal bone, left foot, initial encounter for closed fracture - S92.355A (Primary)?2.?Left foot pain - M79.672? Plan: * Treatment: * Procedure Codes:?98251 X-RAY EXAM OF FOOT, Modifiers: LT * Billing Information: * Visit Code:? 08498 Office Visit, Est Pt., Level 3. * Procedure Codes:? 43036 X-RAY EXAM OF FOOT. Modifiers: LT * [employer] Sign off status: Completed true * Provider:?Brandon Cody DPM Date: ?08/25/2023 Generated for Harley rosas/Mahogany/Fatou on:?08/08/2024 02:21 PM [employer] History and Physical Notes * HPI (History of Present Illness) Category Sub-Category Detail Notes Category Not es HPI Follow Up Visit Patient presents for follow up visit for left foot fracture check. Patient states their problem is resolved. Patient states there is no pain or swelling. MA:SS Examination Category Sub-Category Detail Notes Category Not es X-Ray LEFT FOOT X-rays show signs of healing . Physical Examination Gen: The patient is awake, alert, well developed, well groomed and well nourished. They are in no apparent distress. Vasc: Dorsalis pedis and p osterior tibial pulses 2+ bilaterally. No edema noted. Capillary fill time < 3 seconds to all digits. Neuro: Grossly intact to li ght touch bilateral. Musc: Foot structure is no rmal. No abnormalities noted. Muscle strength is 5/5 to all joints bilaterally. There is no pain on palpation. Derm: Skin is warm and dry , with no rashes, good skin turgor and normal hair distribution.
--- OUTSIDE RECORDS SUMMARY | 2024-08-08 14:21 | XMS_ITS | Encounter Summary ---
Author Organization [facility] Medical [facility] Address [address] [place] [address] Care Team Providers Care Hematology Nurse Name Role Phone Sarah Yap DO Primary Care Provider [phone] Reason for Referral * Procedure (Routine) - Closed Specialty Diagnoses / Procedures Referred By Contac t Referred To Contact Diagnoses Trigger finger of left hand, unspecified finger Procedures Hand / Upper Extremity Arthrocentesis: L ring A1 Lawanda Sharpe MD Phone: tel: fax: [facility] Referral ID Status Reason Start Date Expiration Date Visits Re quested Visits Authorized [id number] Closed 05/29/2022 06/28/2023 1 1 * Procedure (Routine) - Closed Specialty Diagnoses / Procedures Referred By Contac t Referred To Contact Diagnoses Trigger finger of left hand, unspecified finger Procedures Hand / Upper Extremity Arthrocentesis: L small A1 Lawanda Sharpe MD Phone: tel: fax: [facility] Referral ID Status Reason Start Date Expiration Date Visits Re quested Visits Authorized [id number] Closed 05/29/2022 06/28/2023 1 1 Reason for Visit * Reason Comments Trigger Finger Trigger Finger Encounter Details Date Type Department Care Team (Late st Contact Info) Description 05/29/2022 1:45 PM CDT Office Visit [facility] Hand Surgery [address] [place] [address] Lawanda Sharpe MD [facility] [address] [place] [address] Trigger finger of left hand, unspecified finger (Primary Dx) Social History Tobacco Use Types Packs/Day Years Used Date Smoking Tobacco: Former Comments Unknown Sex and Gender Information Value Date Recorded Sex Assigned at Not on file Legal Sex 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 FOLLOW UP VISIT Subjective CHIEF COMPLAINT She had concerns including Trigger Finger of the Left Ring Finger and Trigger Finger of the Left Little Finger. HISTORY OF PRESENT ILLNESS The patient is a 57-year-old left-hand dominant female with a past medical history of insulin-dependent diabetes, depression, hypertension, kidney stones who presents today for follow up of her left small and ring trigger fingers. She last underwent corticosteroid injections for her left ring and small trigger fingers in August 2021. She notes that trigger fingers have returned as of the end of March and beginning of April. She is here today to discuss corticosteroid injections. She states she is unable to undergo any A1 vasile releases as she is quite busy at work. MEDICATIONS She has a current medication list which includes the following prescription(s): atorvastatin, basaglar, cetirizine, hydrochlorothiazide, lisinopril, metformin, pioglitazone, and venlafaxine xr. REVIEW OF SYSTEMS Constitutional: Negative for fever and chills. HENT: Negative for neck pain. Eyes: Negative for change in vision. Respiratory: Negative for cough and shortness of breath. Cardiovascular: Negative for chest pain or pressure. Hematologic: negative for easy bruising Musculoskeletal: negative for muscle and joint pain GI: negative for constipation Integumentary: negative for skin wound or rash Neurologic: negative for paresthesias Objective PHYSICAL EXAM There were no vitals taken for this visit. General: Well appearing in no acute distress Chest: Normal work of breathing HEENT: Normocephalic, atraumatic Neuro: alert and oriented to person, place and time Focused exam of the upper extremities. Hands are symmetric in appearance. Radial pulses are 2+ and equal bilaterally. The fingers are warm and well perfused. There is a nodule palpated at the left ring and left small finger A1 pulleys. There is obvious triggering of the left ring finger on exam today. There is triggering of the left small finger on exam today. There is tenderness to palpation over the A1 pulleys of the left ring and left small fingers. There is symmetric range of motion of theMP and IP joints of the fingers and thumb. She is able to make a full fist and touch the fingertipsdown to the palm. Sensation is intact to light touch along the median, radial and ulnar nerve distribution. REVIEW OF X-RAYS/STUDIES/LABS none Assessment/Plan There are no diagnoses linked to this encounter. PLAN This is a 57-year-old insulin dependent patient with diabetes who presents today for follow-up of her left ring and small trigger fingers. I reviewed with the patient the relevant anatomy in the diagnosis. We discussed forms of non operative management including rest, ice, anti-inflammatory medications, activity modification, bracing and corticosteroid injection. We discussed the risks and benefits of a corticosteroid injection including but not limited to pain, infection, bleeding, risk to neurovascular structures, incomplete resolution of symptoms, increased blood sugar, and future surgery. The patient wished to undergo corticosteroid injections for the left ring and small fingers today. This was provided by me. She will return to see me in 4 weeks time for repeat evaluation. Hand / Upper Extremity Arthrocentesis: L small A1 Performed by: Lawanda Sharpe MD Authorized by: Lawanda Sharpe MD Hand/Upper Extremity Injection: Consent Given by: Patient Site marked: the procedure site was marked Timeout: prior to procedure the correct patient, procedure, and site was verified Verbal consent obtained?: Yes Written consent obtained?: Yes Supporting Documentation: Indications: Pain Procedure Details: Condition: trigger finger Location: Small finger Site: L small A1 Prep: patient was prepped and draped in usual sterile fashion Prep: patient was prepped using a clean technique Medications: 40 mg triamcinolone 40 mg/mL; 1 mL lidocaine 10 mg/mL (1 %) Hand / Upper Extremity Arthrocentesis: L ring A1 Performed by: Lawanda Sharpe MD Authorized by: Lawanda Sharpe MD Hand/Upper Extremity Injection: Consent Given by: Patient Site marked: the procedure site was marked Timeout: prior to procedure the correct patient, procedure, and site was verified Verbal consent obtained?: Yes Written consent obtained?: Yes Supporting Documentation: Indications: Pain Procedure Details: Condition: trigger finger Location: Ring finger Site: L ring A1 Prep: patient was prepped and draped in usual sterile fashion Prep: patient was prepped using a clean technique Medications: 40 mg triamcinolone 40 mg/mL; 1 mL lidocaine 10 mg/mL (1 %) Lawanda Sharpe MD documented in this encounter Plan of Treatment Not on file documented as of this encounter Procedures Procedure Name Priority Date/Time Associated Diagnosis Comments WI INJECTION 1 TENDON SHEATH/LIGAMENT APONEUROSIS Routine 05/29/2022 1:45 PM CDT Trigger finger of left hand, unspecified finger WI INJECTION 1 TENDON SHEATH/LIGAMENT APONEUROSIS Routine 05/29/2022 1:45 PM CDT Trigger finger of left hand, unspecified finger documented in this encounter Results * WI INJECTION 1 TENDON SHEATH/LIGAMENT APONEUROSIS (05/29/2022 1:45 PM CDT) Narrative Lawanda Sharpe MD - 05/29/2022 1:45 PM CDT Lawanda Sharpe MD ? 05/31/2022 ??6:55 PM Hand / Upper Extremity Arthrocentesis: L ring A1 Performed by: Lawanda Sharpe MD Authorized by: Lawanda Sharpe MD Hand/Upper Extremity Injection: ??Consent Given by: ??Patient ??Site marked: the procedure site was marked ?Timeout: prior to procedure the correct patient, procedure, and site was verified ?Verbal consent obtained?: Yes ?Written consent obtained?: Yes ?? Supporting Documentation: ??Indications: ??Pain Procedure Details: ??Condition: trigger finger ?Location: ??Ring finger ??Site: ??L ring A1 ??Prep: patient was prepped and draped in usual sterile fashion ?Prep: patient was prepped using a clean technique ?Medications: ??40 mg triamcinolone 40 mg/mL; 1 mL lidocaine 10 mg/mL (1 %) us Lawanda Sharpe MD IN CLINIC/BEDSIDE ORDERAB LES Final Result * WI INJECTION 1 TENDON SHEATH/LIGAMENT APONEUROSIS (05/29/2022 1:45 PM CDT) Narrative Lawanda Sharpe MD - 05/29/2022 1:45 PM CDT Lawanda Sharpe MD ? 05/31/2022 ??6:55 PM Hand / Upper Extremity Arthrocentesis: L small A1 Performed by: Lawanda Sharpe MD Authorized by: Lawanda Sharpe MD Hand/Upper Extremity Injection: ??Consent Given by: ??Patient ??Site marked: the procedure site was marked ?Timeout: prior to procedure the correct patient, procedure, and site was verified ?Verbal consent obtained?: Yes ?Written consent obtained?: Yes ?? Supporting Documentation: ??Indications: ??Pain Procedure Details: ??Condition: trigger finger ?Location: ??Small finger ??Site: ??L small A1 ??Prep: patient was prepped and draped in usual sterile fashion ?Prep: patient was prepped using a clean technique ?Medications: ??40 mg triamcinolone 40 mg/mL; 1 mL lidocaine 10 mg/mL (1 %) us Lawanda Sharpe MD IN CLINIC/BEDSIDE ORDERAB LES Final Result documented in this encounter Visit Diagnoses Diagnosis Trigger finger of left hand, unspecified finger- Primary documented in this encounter Administered Medications Inactive Administered Medications - up to 3 most recent administrations Medication Order MAR Action Action Date Dose Rate Site lidocaine (XYLOCAINE) 10 mg/mL (1 %) injection 1 mL 1 mL, One-Time Injection, Starting on Marisabel 05/29/22 at 1454, For 1 dose, Indications: Administration of Local AnesthesiaIndications:Admin istration of Local Anesthesia Given 05/29/2022 2:54 PM CDT 1 mL Left Little Finger lidocaine (XYLOCAINE) 10 mg/mL (1 %) injection 1 mL 1 mL, One-Time Injection, Starting on Marisabel 05/29/22 at 1454, For 1 dose, Indications: Administration of Local AnesthesiaIndications:Admin istration of Local Anesthesia Given 05/29/2022 2:54 PM CDT 1 mL Left Ring Finger triamcinolone (KENALOG) 40 mg/mL injection 40 mg 40 mg, intra-articular, One-Time Injection, Starting on Marisabel 05/29/22 at 1454, For 1 doseIndications:Trigger finger of left hand, unspecified finger Given 05/29/2022 2:54 PM CDT 40 mg Left Little Finger triamcinolone (KENALOG) 40 mg/mL injection 40 mg 40 mg, intra-articular, One-Time Injection, Starting on Marisabel 05/29/22 at 1454, For 1 doseIndications:Trigger finger of left hand, unspecified finger Given 05/29/2022 2:54 PM CDT 40 mg Left Ring Finger documented in this encounter Historical Medications * This list may reflect changes made after this encounter. pioglitazone (ACTOS) 45 mg tablet Take 45 mg by mouth daily 05/13/2022 BASAGLAR 100 unit/mL (3 mL) pen for injection INJECT 55 UNITS EVERY DAY DIRECTED 05/01/2022 cetirizine (ZyrTEC) 10 mg tablet Take 10 mg by mouth daily 04/01/2022 added in this encounter Care Teams Hematology Nurse Relationship Specialty Start Date End Date Sarah Yap DO [address] [address] PCP - General Family Medicine 09/03/20 documented as of this encounter
--- OUTSIDE RECORDS SUMMARY | 2024-08-08 14:21 | XMS_ITS ---
Author Organization [facility] Address [address] [place], [place] [id number] Care Team Providers Care Surveyor Chain Helper Name Role Phone HOMERO BRANDON Unavailable [phone] Sarah Yap Unavailable Unavailable REASON FOR VISIT *Fracture check with x-rays Medications Medication SIG (Take, Route, Frequency, Duration) Notes Start Date End Date Status Farxiga Active Cetirizine HCl Activ e Metformin & Diet Manage Prod Active Venlafaxine HCl Acti ve Lisinopril Active Atorvastatin Calcium Active Basaglar KwikPen Act castillo Vital Signs Height 68.00 in 08/04/2023 Weight 200 lbs 08/04/2023 BMI 30.41 kg/m2 08/04/2023 Height-cm 172.72 cm 08/04/2023 Weight-kg 90.72 kg 08/04/2023 Encounters Encounter Location Date Provider Diagnosis [facility] [address] [place], [place] [id number] 08/04/2023 BRANDON OCDY Nondisplaced fracture of fifth metatarsal bone, left foot, subsequent encounter for fracture with routine healing S92.355D ; Sprain of anterior talofibular ligament of left ankle, subsequent encounter S93.492D and Left foot pain M79.672 Assessments Encounter Date Diagnosis (ICD Code) Assessment Notes Treatment Notes Treatment Clinical Notes Section Notes 08/04/2023 Nondisplaced fracture of fifth metatarsal bone, left foot, subsequent encounter for fracture with routine healing (ICD-10 - S92.355D) 08/04/2023 Sprain of anterior talofibular ligament of left ankle, subsequent encounter (ICD-10 - S93.492D) 08/04/2023 Left foot pain (ICD-10 - M79.672) 08/04/2023 Other Continue cam walker Plan Of Treatment Treatment Notes Assessment Notes Other Continue cam walker Progress Notes * DAVID PEGUERO LDOB:1965 (58 yo F)Acc No.[id number]:08/04/2023 Patient:?DAVID PEGUERO L Provider:?Brandon Cody DPM :1965???Age:58 Y???Sex:Female D ate:08/04/2023 Address:[address] [place] [address] Subjective: * Chief Complaints: * ???1. *Fracture check with x -rays. * HPI: ???HPI:?Follow Up Visit?Patient presents for follow up visit for fraxture to left foot patient states swelling and pain ?MA: MJ , .? * ROS:?General / Constitutional:?Patient denies?chills, fever.?Endocrine:?Patient denies?excessive thirst, frequent urination.?Cardiovascular:?Patient denies?shortness of breath, chest pain.?Skin:?Patient denies?mole changes.? * Medical History:?Arthritis, Kidney stones, Skin cancer, Diabetic, High Blood Pressure. * Family History:?Father: PRN - Father: :: Hypertension,,known absent , :: Arthritis,,known absent .?Mother: PRN - Mother: :: Diabetes,,known absent , :: Arthritis,,known absent .? * Social History:?Migrated Social History:?Migrated Social History: Smoking Status : Never smoked , History of tobacco use :. * Medications:?Taking Farxiga , Taking Cetirizine HCl , Taking Metformin & Diet Manage Prod , Taking Venlafaxine HCl , Taking Lisinopril , Taking Atorvastatin Calcium , Taking Basaglar KwikPen Objective: * Vitals:?Shoe Size: 8, Wt:200 lbs, Wt-k.72 kg, Ht: 68.00 in, Ht-cm: 172.72 cm, BMI:30.41Index, Body Surface Area: 2.08. * Examination: ???Physical Examination: ?Gen:?The patient is awake, alert, well developed, well groomed and well nourished. They are in no apparent distress. .?Musc:?Foot structure is normal. No abnormalities noted. Muscle strength is 5/5 to all joints bilaterally. Pain on palpation of left 5th peroneal tendon. .?Derm:?Skin is warm and dry, with no rashes, good skin turgor and normal hair distribution. .?Neuro:?Grossly intact to light touch bilateral..?Vasc:?Dorsalis pedis and posterior tibial pulses 2+ bilaterally. No edema noted. Capillary fill time < 3 seconds to all digits. .? Assessment: * Assessment: 1.?Nondisplaced fracture of fifth metatarsal bone, left foot, subsequent encounter for fracture with routine healing - S92.355D (Primary)?2.?Sprain of anterior talofibular ligament of left ankle, subsequent encounter - S93.492D?3.?Left foot pain - M79.672? Plan: * Treatment: * Procedure Codes:?66904 X-RAY EXAM OF FOOT, Modifiers: LT * Billing Information: * Visit Code:? 54244 Office Visit, Est Pt., Level 3. * Procedure Codes:? 23377 X-RAY EXAM OF FOOT. Modifiers: LT * ASSEMBLER COMMISSARY KITCHEN Sign off status: Completed true * Provider:?Brandon Cody DPM Date: ?08/04/2023 Generated for Harley rosas/Mahogany/Fatou on:?08/08/2024 02:21 PM FOOD ASSEMBLER COMMISSARY KITCHEN History and Physical Notes * HPI (History of Present Illness) Category Sub-Category Detail Notes Category Not es HPI Follow Up Visit Patient presents for follow up visit for fraxture to left foot patient states swelling and pain MA: MJ , Examination Category Sub-Category Detail Notes Category Not es Physical Examination Gen: The patient is awake, [...] strength is 5/5 to all joints bilaterally. Pain on palpation of left 5th peroneal tendon. Derm: Skin is warm and dry , with no rashes, good skin turgor and normal hair distribution.
--- OUTSIDE RECORDS SUMMARY | 2024-08-08 14:21 | XMS_ITS | Encounter Summary ---
Author Organization [facility] Medical [facility] Address [address] [place] [address] Care Team Providers Care Radio Frequency Technician Name Role Phone Sarah Yap DO Primary Care Provider [phone] Reason for Visit * Reason Comments Follow-up Follow-up Encounter Details Date Type Department Care Team (Late st Contact Info) Description 12/14/2020 9:15 AM CDT Office Visit [facility] Medical [facility] Hand Surgery [address] [place] [phone] Lawanda Sharpe MD [address] [place] [id number] Trigger little finger of left hand (Primary Dx) Social History Tobacco Use Types Packs/Day Years Used Date Smoking Tobacco: Never Assessed Comments Unknown Sex and Gender Information Value Date Recorded Sex Assigned at Not on file 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 FOLLOW UP VISIT Subjective CHIEF COMPLAINT She had concerns including Follow-up of the Left Little Finger and Follow-up of the Left Ring Finger. HISTORY OF PRESENT ILLNESS The patient is a 55-year-old left-hand dominant female with a past medical history of insulin-dependent diabetes, depression, hypertension, kidney stones who presents today for follow up of her left small and ring trigger fingers. She underwent corticosteroid injection of the left ring and small trigger fingers at her last visit on 11/16/2020. The patient notes that her left small finger is approximately 95% better and her left ring fingers approximately 75% better. She states that the left small finger is rarely triggering at this point. She states that the left ring finger however is still triggering multiple times per day. She notes that the pain in both of these digits has resolved with a corticosteroid injection. She denies any paresthesias in her left upper extremity. MEDICATIONS She currently has no medications in their medication list. REVIEW OF SYSTEMS Constitutional: Negative for fever [...] no vitals taken for this visit. General: ??Well appearing in no acute distress Chest: ??Normal work of breathing HEENT: Normocephalic, atraumatic Neuro: [...] ring finger on exam today. There is no triggering of the left small finger on exam today. There is no tenderness to palpation over the A1 pulleys of the left ring and left small fingers. There is symmetric range of motion of the MP and IP joints of the fingers and thumb. She is able to make a full fist and touch the fingertips down to the palm. Sensation is intact to light touch along the median, radial and ulnar nerve distribution. REVIEW OF X-RAYS/STUDIES/LABS none Assessment/Plan There are no diagnoses linked to this encounter. PLAN This is a 55-year-old insulin dependent patient with diabetes who presents today for follow-up of her left ring and small trigger fingers. I discussed with the patient that at this point while both of her trigger fingers have improved neither 1 has completely resolved. We discussed that over the course of the next 8 weeks he may continue to resolve or the triggering may become more frequent. I discussed with her that I cannot perform an other corticosteroid injection or an A1 vasile release for another 8 weeks. We discussed that in 8 weeks time if she is still experiencing triggering then her options would include a another corticosteroid injection versus A1 vasile release. At this point will continue to monitor her symptoms andshe will return to see me in 8 week's time for repeat evaluation. Lawanda Sharpe MD documented in this encounter Plan of Treatment Not on file documented as of this encounter Visit Diagnoses Diagnosis Trigger little finger of left hand- Primary documented in this encounter Care Teams Radio Frequency Technician Relationship Specialty Start Date End Date Sarah Yap DO [address] [address] PCP - General Family Medicine 09/03/20 documented as of this encounter
--- OUTSIDE RECORDS SUMMARY | 2024-08-08 14:21 | XMS_ITS | Encounter Summary ---
Author Organization [facility] Medical [facility] Address [address] [place] [address] Care Team Providers Care Sign Painter Apprentice Name Role Phone Sarah Yap DO Primary Care Provider [phone] Reason for Visit * Reason Comments Follow-up Follow-up Encounter Details Date Type Department Care Team (Late st Contact Info) Description 07/03/2022 1:00 PM MARBLE MACHINE TENDER Office Visit [facility] Hand Surgery [address] [place] [phone] Lawanda Sharpe MD [address] [place] [address] Trigger finger of left hand, unspecified finger (Primary Dx) Social History Tobacco Use Types Packs/Day Years Used Date Smoking Tobacco: Former Comments Unknown Sex and Gender Information Value Date Recorded Sex Assigned at Not on file Legal 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 FOLLOW UP VISIT Subjective CHIEF COMPLAINT She had no chief complaint listed for this encounter. HISTORY OF PRESENT ILLNESS The patient is a 57-year-old left-hand dominant female with a past medical history of insulin-dependent diabetes, depression, hypertension, kidney stones who presents today for follow up of her left small and ring trigger fingers. She last underwent corticosteroid injections for her left ring and small trigger fingers in May 2022. She states that this significantly helped her left ring and small trigger fingers. She is extremely happy with the results. MEDICATIONS She has a current medication list [...] left small finger A1 pulleys. There is no triggering of the left ring finger on [...] symptoms, increased blood sugar, and future surgery. At this point the patient can return to see me on an as-needed basis. Lawanda Sharpe MD LE MACHINE TENDER documented in this encounter Plan of Treatment Not on file documented as of this encounter Visit Diagnoses Diagnosis Trigger finger of left hand, unspecified finger- Primary documented in this encounter Care Teams Sign Painter Apprentice Relationship Specialty Start Date End Date Sarah Yap DO [address] [address] PCP - General Family Medicine 09/03/20 documented as of this encounter
--- OUTSIDE RECORDS SUMMARY | 2024-08-08 14:21 | XMS_ITS | Encounter Summary ---
Author Organization [facility] Healthcare Address [address] [place] [address] Care Team Providers Care Property Master Name Role Phone Sarah Yap DO Primary Care Provider [phone] Reason for Referral * Diagnostic Imaging (Routine) - Closed Specialty Diagnoses / Procedures Referred By Unruly t Referred To Contact Diagnoses Left hand pain Procedures XR Hand Left 3 or More Views Lawanda Sharpe MD Phone: tel: fax: [address] [address] Referral ID Status Reason Start Date Expiration Date Visits Re quested Visits Authorized [id number] Closed 11/13/2020 12/13/2021 1 1 Encounter Details Date Type Department Care Team (Late st Contact Info) Description 11/16/2020 9:25 AM CDT Hospital Encounter [facility] INTERIM Lawanda Sharpe MD [address] [place] [address] [phone] Left hand pain Social History Tobacco Use Types Packs/Day Years Used Date Smoking Tobacco: Never Assessed Comments Unknown Sex and Gender Information Value Date Recorded Sex Assigned at Not on file Legal Sex Female 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 Gender Identity Not on file Sexual Orientation Not on file documented as of this encounter Plan of Treatment Not on file documented as of this encounter Procedures Procedure Name Priority Date/Time Associated Diagnosis Comments XR HAND LEFT 3 OR MORE VIEWS Schedule Routine, Read Routine (OP Routine) 11/16/2020 9:26 AM CDT Left hand pain documented in this encounter Results * XR Hand Left 3 or More Views (11/16/2020 9:26 AM CDT) Anatomical Region Laterality Modality Upper Extremities, Hand Left Radiogra phic Imaging 11/18/2020 7:31 AM CDT Narrative 11/18/2020 7:34 AM CDT Patient Name: DAVID TOWNSEND ?Ordering Dr: Lawanda Sharpe MD ?? D.O.B: 1965 ? Exam Date: 11/16/20 ?? 925 ?? Age: 55 ?Sex: Female ? MR#: [id number] ?? Loc: ? RADIOLOGY REPORT ?? Order #[id number] ?? Radiology ? Hand Left 3 View Min ? Signed ?? EXAM DESCRIPTION: ?? Hand Left 3 View Min ? REASON FOR STUDY: ?? 4th and 5th digits locking up for 4 months. ??No known ?? injury. ? TECHNIQUE: ?? Frontal, lateral, and oblique radiographic views acquired of the ?? left hand. ? COMPARISON: ?? None available ? FINDINGS: ? BONES/JOINTS: ??No acute fracture, malalignment or osseous abnormalities. Mild ?? osteoarthritis is seen throughout the interphalangeal joints, ?? metacarpophalangeal joints, and base of thumb joint. ? SOFT TISSUES: ??Unremarkable. ? OTHER: ??No other significant finding. ? IMPRESSION: ?? Mild hand osteoarthritis. ? THIS IS AN ELECTRONICALLY VERIFIED FINAL REPORT ?? 11/18/2020 7:34 AM - Electronically signed by Bret Thomas ?? Bret Thomas ? KN ?? D: ??11/18/2020 7:34 AM ?? T: ? Report ID: [id number] ?? Reading Location: ??[id number] ? REPORT ELECTRONICALLY SIGNED IN OTHER VENDOR SYSTEM ?? Resulting Agency Comment O Procedure Note Bret Thomas MD - 11/18/2020 Patient Name: DAVID TOWNSEND Dr: Lawanda Sharpe MD D.O.B: 1965 Exam Date: 11/16/20925 Age: 55 Sex: Female MR#: [id number] Loc: [facility]#: [id number] RADIOLOGY REPORT Order #[id number] Radiology Hand Left 3 View Min Signed EXAM DESCRIPTION: Hand Left 3 View Min REASON FOR STUDY: 4th and 5th digits locking up for 4 months. No known injury. TECHNIQUE: Frontal, lateral, and oblique radiographic views acquired ofthe left hand. COMPARISON: None available FINDINGS: BONES/JOINTS: No acute fracture, malalignment or osseous abnormalities.Mild osteoarthritis is seen throughout the interphalangeal joints, metacarpophalangeal joints, and base of thumb joint. SOFT TISSUES: Unremarkable. OTHER: No other significant finding. IMPRESSION: Mild hand osteoarthritis. THIS IS AN ELECTRONICALLY VERIFIED FINAL REPORT 11/18/2020 7:34 AM - Electronically signed by Bret LUNDBERG T: Report ID: [id number] Reading Location: [place] [address] REPORT ELECTRONICALLY SIGNED IN OTHER VENDOR SYSTEM us Lawanda Sharpe MD IMG XR PROCEDURES Final R esult documented in this encounter Visit Diagnoses Diagnosis Left hand pain Pain in soft tissues of limb documented in this encounter Care Teams Property Master Relationship Specialty Start Date End Date Sarah Yap DO [address] [address] PCP - General Family Medicine 09/03/20 documented as of this encounter
--- OUTSIDE RECORDS SUMMARY | 2024-08-08 14:21 | XMS_ITS | Encounter Summary ---
Author Organization [facility] Medical Group Address [address] [place] [address] Care Team Providers Care Tuckpointer Cleaner Caulker Name Role Phone Sarah Yap DO Primary Care Provider [phone] Reason for Referral * Procedure (Routine) - Closed Specialty Diagnoses / Procedures Referred By Contac t Referred To Contact Diagnoses Trigger ring finger of left hand Procedures Hand / Upper Extremity Arthrocentesis: L ring A1 Esperanza Cespedes PA [facility] [address] [place] [address] Phone: tel: fax: [facility] Medical [facility] Referral ID Status Reason Start Date Expiration Date Visits Re quested Visits Authorized [id number] Closed 08/21/2021 09/20/2022 1 1 LE ROLLER Reason for Visit * Reason Comments Pain Encounter Details Date Type Department Care Team (Late st Contact Info) Description 08/21/2021 10:15 AM MANGLE ROLLER Office Visit [facility] Medical Group Hand Surgery [address] [place] [address] Esperanza Cespedes PA [facility] [address] [place], [place] [id number] Trigger little finger of left hand (Primary Dx); Trigger ring finger of left hand Social History Tobacco Use Types Packs/Day Years Used Date Smoking Tobacco: Former Comments Unknown Sex and Gender Information Value Date Recorded Sex Assigned at Not on file Legal Sex Female 7:49 PM MANGLE ROLLER Gender Identity Not on file Sexual Orientation Not on file documented as of this encounter Progress Notes * Esperanza Cespedes PA - 08/21/2021 10:15 AM CSTAssociated Order(s): Hand / Upper Extremity Arthrocentesis: L ring A1 Post-Procedure Diagnose(s): Trigger ring finger of left hand Images from the original note were not included. Patient ID: Comfort Townsend is a 56 y.o. female. Visit Date: 08/21/2021 Chief Complaint: Chief Complaint Patient presents with ??? Left Ring Finger - Pain HPI: Patient is a 56-year-old female presents today with complaints of left ring trigger finger. She hasbeen seen previously by Dr. Sharpe for treatment of left ring and left small trigger digits. She didreceive an injection of those digits on 11/16/2020. She reports that she had significant improvement of her symptoms, but over the last 3 months or so she has had recurrent triggering of the left ring finger. She states that this is happening daily. She has no problems with the left small finger. Physical Exam: General: A&O x 3, NAD, Well appearing Eyes: EOMs intact. PERRL. Integument: skin is warm and dry. Neuro: CN II-XII grossly intact. Pt gait is stable, balance WNL. Sensation intact. Cardiovascular: 2+ capillary refill to all upper digits bilaterally. On examination of the left hand she does have active triggering noted to the left ring finger with movement from full flexion into extension. She does have mild to moderate tenderness with palpation to the palmar base of the left ring finger at the level of the A1 vasile. There is no triggering to the remaining digits of the left hand. Other than her triggering, she is able to achieve full activecomposite flexion extension of the hand without difficulty. She can flex and extend at the wrist without difficulty. She is neurovascularly intact to tips of digits. X-rays/Imaging: Assessment/Plan There are no diagnoses linked to this encounter. Treatment / Plan: Today I reviewed the diagnosis of trigger digit with the patient. I also reviewed with her that I can often take up to 2 steroid injections for resolution of triggering symptoms. We discussed treatment options to include splint wear and repeat injection. She would like to proceed with another inject ion today, I also fit her with a size 7 oval 8 splint to her ring finger to see if this helps with her symptoms over the next several days. I have asked her to call the office with any questions or concerns. Hand / Upper Extremity Arthrocentesis: L ring A1 Performed by: Esperanza Cespedes PA Authorized by: Esperanza Cespedes PA Hand/Upper Extremity Injection: Consent Given by: Patient Site marked: the procedure site was marked Timeout: prior to procedure the correct patient, procedure, and site was verified Verbal consent obtained?: Yes Written consent obtained?: No Supporting Documentation: Indications: Pain Procedure Details: Condition: trigger finger Location: Ring finger Site: L ring A1 Prep: patient was prepped and draped in usual sterile fashion Prep: patient was prepped using a clean technique Needle Size: 27 G Approach: Volar Ultrasound guidance: No Medications: 1 mL lidocaine 10 mg/mL (1 %); 10 mg triamcinolone 40 mg/mL FAHAD Camarena LE ROLLER documented in this encounter Plan of Treatment Not on file documented as of this encounter Procedures Procedure Name Priority Date/Time Associated Diagnosis Comments AR INJECTION 1 TENDON SHEATH/LIGAMENT APONEUROSIS Routine 08/21/2021 10:15 AM MANGLE ROLLER Trigger ring finger of left hand documented in this encounter Results * AR INJECTION 1 TENDON SHEATH/LIGAMENT APONEUROSIS (08/21/2021 10:15 AM MANGLE ROLLER) Narrative Esperanza Cespdees PA - 08/21/2021 10:15 AM MANGLE ROLLER Esperanza Cespedes PA ? 08/21/2021 11:36 AM Hand / Upper Extremity Arthrocentesis: L ring A1 Performed by: Esperanza Cespedes PA Authorized by: Esperanza Cespedes PA Hand/Upper Extremity Injection: ??Consent Given by: ??Patient ??Site marked: the procedure site was marked ?Timeout: prior to procedure the correct patient, procedure, and site was verified ?Verbal consent obtained?: Yes ?Written consent obtained?: No ?? Supporting Documentation: ??Indications: ??Pain Procedure Details: ??Condition: trigger finger ?Location: ??Ring finger ??Site: ??L ring A1 ??Prep: patient was prepped and draped in usual sterile fashion ?Prep: patient was prepped using a clean technique ?Needle Size: ??27 G ??Approach: ??Volar ??Ultrasound guidance: No ?Medications: ??1 mL lidocaine 10 mg/mL (1 %); 10 mg triamcinolone 40 mg/mL us Esperanza VÁSQUEZ IN CLINIC/BEDSIDE ORDERABLES F inal Result documented in this encounter Visit Diagnoses Diagnosis Trigger little finger of left hand- Primary Trigger ring finger of left hand documented in this encounter Administered Medications Inactive Administered Medications - up to 3 most recent administrations Medication Order MAR Action Action Date Dose Rate Site lidocaine (XYLOCAINE) 10 mg/mL (1 %) injection 1 mL 1 mL, One-Time Injection, Starting on Thu08/21/21 at 1136, For 1 dose, Indications: Administration of Local AnesthesiaIndications:Administrati on of Local Anesthesia Given 08/21/2021 11:36 AM MANGLE ROLLER 1 mL triamcinolone (KENALOG) 40 mg/mL injection 10 mg 10 mg, intra-articular, One-Time Injection, Starting on Thu08/21/21 at 1136, For 1 doseIndications:Trigger ring finger of left hand Given 08/21/2021 11:36 AM MANGLE ROLLER 10 mg documented in this encounter Historical Medications * This list may reflect changes made after this encounter. Medication Sig Dispense Quantity Refills Last Filled Start D ate End Date venlafaxine XR (EFFEXOR-XR) 150 mg 24 hr capsule 07/09/2021 metFORMIN (GLUCOPHAGE) 1,000 mg tablet 05/14/2021 lisinopriL (PRINIVIL,ZESTRIL) 10 mg tablet 06/16/2021 hydroCHLOROthiazide (HYDRODIURIL) 50 mg tablet 07/09/2021 atorvastatin (LIPITOR) 10 mg tablet 06/16/2021 added in this encounter Care Teams Tuckpointer Cleaner Caulker Relationship Specialty Start Date End Date Sarah Yap DO [address] [place] [address] PCP - General Family Medicine 09/03/20 documented as of this encounter
--- OUTSIDE RECORDS SUMMARY | 2024-08-08 14:21 | XMS_ITS | Encounter Summary ---
Author Organization [facility] Medical [facility] Address [address] [address] Care Team Providers Care Explosives Truck Driver Name Role Phone Sarah Yap DO Primary Care Provider [phone] Reason for Referral * Procedure (Routine) - Closed Specialty Diagnoses / Procedures Referred By Contac t Referred To Contact Diagnoses Trigger ring finger of left hand Procedures Hand / Upper Extremity Arthrocentesis: L ring A1 Lawanda Sharpe MD Phone: tel: fax: [facility] Medical [facility] Referral ID Status Reason Start Date Expiration Date Visits Re quested Visits Authorized [id number] Closed 11/16/2020 12/16/2021 1 1 * Procedure (Routine) - Closed Specialty Diagnoses / Procedures Referred By Contac t Referred To Contact Diagnoses Trigger little finger of left hand Procedures Hand / Upper Extremity Arthrocentesis: L small A1 Lawanda Sharpe MD Phone: tel: fax: [facility] Medical [facility] Referral ID Status Reason Start Date Expiration Date Visits Re quested Visits Authorized [id number] Closed 11/16/2020 12/16/2021 1 1 * Diagnostic Imaging (Routine) - Closed Specialty Diagnoses / Procedures Referred By Contac t Referred To Contact Diagnoses Left hand pain Procedures XR Hand Left 3 or More Views Lawanda Sharpe MD Phone: tel: fax: [facility] [address] [place] [address] Referral ID Status Reason Start Date Expiration Date Visits Re quested Visits Authorized [id number] Closed 11/13/2020 12/13/2021 1 1 Reason for Visit * Reason Comments Pain Pain Encounter Details Date Type Department Care Team (Late st Contact Info) Description 11/16/2020 9:30 AM CDT Office Visit [facility] Medical Group Hand Surgery [address] [place] [id number] Lawanda Sharpe MD [address] [place] [id number] Left hand pain (Primary Dx); Trigger little finger of left hand; Trigger ring finger of left hand Social History Tobacco Use Types Packs/Day Years Used Date Smoking Tobacco: Never Assessed Comments Unknown Sex and Gender Information Value Date Recorded Sex Assigned at Not on file Legal Sex Female 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 NEW PATIENT VISIT Subjective CHIEF COMPLAINT She had concerns including Pain of the Left Ring Finger and Pain of the Left Little Finger. HISTORY OF PRESENT ILLNESS The patient is a 55-year-old left-hand dominant female with a past medical history of insulin-dependent diabetes, depression, hypertension, kidney stones who presents today for left small and ring trigger fingers. The patient states that this has been present since June of 2020. She notes initially these fingers or just catching occasionally and it started with the ring finger. She noted overthe ensuing months the small finger began catching and this has gotten progressively worse over thelast 2 months. She now wakes up with the small and ring fingers locked in flexion. She this requireher to use her right hand to open these digits. She describes a dull and mild pain which is worse with writing opening jars caring groceries. She states ibuprofen makes this better. Of note she did have a left trigger thumb injected by my partner, Dr. Marinelli, in 2018. The patient states this resolved with 1 corticosteroid injection. She denies any corticosteroid injections in the left small or ring fingers. PAST MEDCIAL HISTORY Insulin-dependent diabetes, depression, hypertension, kidney stones PAST SURGICAL HISTORY She has no past surgical history on file. Kidney stones in 1997 MEDICATIONS She currently has no medications in their medication list. ALLERGIES She has no allergies on file. 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 She is and has no children. She denies any illicit drug use. She drinks alcohol socially. She denies any tobacco use. FAMILY HISTORY The patient's mother has heart problems, arthritis and diabetes. Her father has skin cancer and arthritis. REVIEW OF SYSTEMS Constitutional: Negative for fever and chills. HENT: Negative for neck pain. Eyes: Negative for change in vision. Respiratory: Negative for cough and shortness of breath. Cardiovascular: Negative for chest pain or pressure. Hematologic: negative for easy bruising Musculoskeletal: positive for muscle and joint pain GI: negative for constipation Integumentary: negative for skin wound and positive for rash Neurologic: negative for paresthesias Objective PHYSICAL [...] left ring and left small finger A1 pulleys with palpable triggering. There is tenderness to palpation over the A1 pulleys of the left ring and left small fingers. There is symmetric range of motion of the MPand IP joints of the fingers and thumb. She is able to make a full fist and touch the fingertips down to the palm. Sensation is intact to light touch along the median, radial and ulnar nerve distribution. REVIEW OF X-RAYS/STUDIES/LABS x-rays of the left hand dated today were reviewed by me and demonstrate no fractures dislocations or malalignment. There is joint space narrowing at the 1st CMC, 1st MP and multiple IP joints consistent with mild osteoarthritis Assessment/Plan David was seen today for pain and pain. Diagnoses and all orders for this visit: Left hand pain - XR Hand Left 3 or More Views; Future Hand / Upper Extremity Arthrocentesis: L small [...] patient was prepped using a clean technique Ultrasound guidance: No Medications: 40 mg triamcinolone 40 mg/mL; 1 [...] patient was prepped using a clean technique Ultrasound guidance: No Medications: 40 mg triamcinolone 40 mg/mL; 1 mL lidocaine 10 mg/mL (1 %) PLAN This is a 55-year-old insulin-dependent patient with diabetes who presents today for left ring and small trigger fingers. I discussed with the patient the relevant anatomy as well as the diagnosis. We discussed forms of non operative management including rest, ice, anti- inflammatory medication, activity modification andcorticosteroid injection. We discussed the risks and benefits of a corticosteroid injection including but not limited to pain, infection, bleeding, risk to neurovascular structures, incomplete resolution of symptoms, increased blood sugar, and future surgery. We did also briefly discuss an A1 vasile release. Since the patient experience complete relief of her previous trigger thumb with 1 corticosteroid injection, I recommend that we try a corticosteroid injection into the left ring and small fi ngers today. I did instruct the patient that this will raise her blood sugar and she needs to monitor this more closely over the next 2-3 days. The patient's last hemoglobin A1c was 7.5. The patient understood this and wished to undergo a left ring and small finger corticosteroid injection today. This was provided by me. She will return to see me in 4 weeks time for repeat evaluation. PROCEDURE NOTE: After a discussion of the indications and risks, the site was confirmed with a formal timeout. Using aseptic technique the left ring and small fingers were prepped and the base of each digit was topically anesthetized with Ethyl Chloride. Approximately 1 cc of a combination of Kenalog 40 milligram per cc and Lidocaine 1% without epinephrine was instilled in each flexor sheath by myself. A sterile dressing was applied and the patient tolerated it well. No adverse reactions were observed. Lawanda Sharpe MD documented in this encounter Plan of Treatment Not on file documented as of this encounter Procedures Procedure Name Priority Date/Time Associated Diagnosis Comments NM INJECTION 1 TENDON SHEATH/LIGAMENT APONEUROSIS Routine 11/16/2020 9:30 AM CDT Trigger ring finger of left hand NM INJECTION 1 TENDON SHEATH/LIGAMENT APONEUROSIS Routine 11/16/2020 9:30 AM CDT Trigger little finger of left hand documented in this encounter Results * NM INJECTION 1 TENDON SHEATH/LIGAMENT APONEUROSIS (11/16/2020 9:30 AM CDT) Narrative Lawanda Sharpe MD - 11/16/2020 9:30 AM CDT Lawanda Sharpe MD ? 11/19/2020 ??8:12 AM Hand / Upper Extremity Arthrocentesis: L [...] patient was prepped using a clean technique ?Ultrasound guidance: No ?Medications: ??40 mg triamcinolone 40 mg/mL; 1 mL lidocaine 10 mg/mL (1 %) us Lawanda Sharpe MD IN CLINIC/BEDSIDE ORDERAB LES Final Result * NM INJECTION 1 TENDON SHEATH/LIGAMENT APONEUROSIS (11/16/2020 9:30 AM CDT) Narrative Lawanda Sharpe MD - 11/16/2020 9:30 AM CDT Lawanda Sharpe MD ? 11/19/2020 ??8:12 AM Hand / Upper Extremity Arthrocentesis: L small [...] patient was prepped using a clean technique ?Ultrasound guidance: No ?Medications: ??40 mg triamcinolone 40 mg/mL; 1 mL lidocaine 10 mg/mL (1 %) us Lawanda Sharpe MD IN CLINIC/BEDSIDE ORDERAB LES Final Result * XR Hand Left 3 or More Views (11/16/2020 9:26 AM CDT) Anatomical Region Laterality Modality Upper Extremities, Hand Left Radiogra phic Imaging 11/18/2020 7:31 AM CDT Narrative 11/18/2020 7:34 AM CDT Patient Name: DAVID TOWNSEND ?Ordering Dr: Lawanda Sharpe MD ?? D.O.B: 1965 ? Exam Date: 11/16/20 ?? 925 ?? Age: 55 ?Sex: Female ? MR#: [id number] ?? Loc: ? RADIOLOGY REPORT ?? Order #[id number] ?? Radiology ? Hand Left 3 View [...] 7:34 AM ?? T: ? Report ID: [id number] ?? Reading Location: ??[id number] ? REPORT ELECTRONICALLY SIGNED IN OTHER VENDOR SYSTEM ?? Resulting Agency Comment O Procedure Note Bret Thomas MD - 11/18/2020 Patient Name: DAVID TOWNSEND Dr: Lawanda Sharpe MDO.B: 1965 Exam Date: 11/16/20925 Age: 55 Sex: Female MR#: [id number] Loc: RADIOLOGY REPORT Order #[id number] Radiology Hand Left 3 View Min Signed [...] signed by Bret LUNDBERG T: Report ID: [id number] Reading Location: [id number] REPORT ELECTRONICALLY SIGNED IN OTHER VENDOR SYSTEM Lawanda Sharpe MD IMG XR PROCEDURES Final R esult documented in this encounter Visit Diagnoses Diagnosis Left hand pain- Primary Pain in soft tissues of limb Trigger little finger of left hand Trigger ring finger of left hand Left hand pain Pain in soft tissues of limb documented in this encounter Administered Medications Inactive Administered Medications - up to 3 most recent administrations Medication Order MAR Action Action Date Dose Rate Site lidocaine (XYLOCAINE) 10 mg/mL (1 %) injection 1 mL 1 mL, One-Time Injection, Starting on Thu11/16/20 at 1052, For 1 dose, Indications: Administration of Local AnesthesiaIndications:Administrati on of Local Anesthesia Given 11/16/2020 10:52 AM CDT 1 mL lidocaine (XYLOCAINE) 10 mg/mL (1 %) injection 1 mL 1 mL, One-Time Injection, Starting on Thu11/16/20 at 1053, For 1 dose, Indications: Administration of Local AnesthesiaIndications:Administrati on of Local Anesthesia Given 11/16/2020 10:53 AM CDT 1 mL triamcinolone (KENALOG) 40 mg/mL injection 40 mg 40 mg, intra-articular, One-Time Injection, Starting on Thu11/16/20 at 1052, For 1 doseIndications:Trigger little finger of left hand Given 11/16/2020 10:52 AM CDT 40 mg triamcinolone (KENALOG) 40 mg/mL injection 40 mg 40 mg, intra-articular, One-Time Injection, Starting on Thu11/16/20 at 1053, For 1 doseIndications:Trigger ring finger of left hand Given 11/16/2020 10:53 AM CDT 40 mg documented in this encounter Care Teams Explosives Truck Driver Relationship Specialty Start Date End Date Sarah Yap DO [address] [address] PCP - General Family Medicine 09/03/20 documented as of this encounter
--- OUTSIDE RECORDS SUMMARY | 2024-08-08 14:21 | XMS_ITS | Encounter Summary ---
Author Organization [facility] Address [address] [place] [address] Care Team Providers Care Tobacco Curer Name Role Phone Sarah Yap DO Primary Care Provider [phone] Reason for Referral * Procedure (Routine) - Pending Review Specialty Diagnoses / Procedures Referred By Contac t Referred To Contact Diagnoses Trigger finger, unspecified finger, unspecified laterality Procedures Hand / Upper Extremity Arthrocentesis: R index A1 Lawanda Sharpe MD [address] [facility] [address] [place] [address] Phone: tel: fax: [facility] Medical [facility] Referral ID Status Reason Start Date Expiration Date V isits Requested Visits Authorized [id number] Pending Review 01/22/2024 02/20/2025 1 1 * Procedure (Routine) - Pending Review Specialty Diagnoses / Procedures Referred By Contac t Referred To Contact Diagnoses Trigger finger, unspecified finger, unspecified laterality Procedures Hand / Upper Extremity Arthrocentesis: L thumb A1 Lawanda Sharpe MD [address] [facility] [address] [place] [address] Phone: tel: fax: [facility] Medical [facility] Referral ID Status Reason Start Date Expiration Date V isits Requested Visits Authorized [id number] Pending Review 01/22/2024 02/20/2025 1 1 * Procedure (Routine) - Pending Review Specialty Diagnoses / Procedures Referred By Contac t Referred To Contact Diagnoses Trigger finger, unspecified finger, unspecified laterality Procedures Hand / Upper Extremity Arthrocentesis: L ring A1 Lawanda Sharpe MD [address] [place] [address] [address] [place] [address] Phone: tel: fax: [facility] Medical [facility] Referral ID Status Reason Start Date Expiration Date V isits Requested Visits Authorized [id number] Pending Review 01/22/2024 02/20/2025 1 1 * Diagnostic Imaging (Routine) - Closed Specialty Diagnoses / Procedures Referred By Contac t Referred To Contact Diagnoses Bilateral hand pain Procedures XR Hand Right 3 or More Views Lawanda Sharpe MD [address] [place] [address] [address] [place] [address] Phone: tel: fax: [address] [phone] Referral ID Status Reason Start Date Expiration Date Visits Re quested Visits Authorized [id number] Closed 01/21/2024 02/19/2025 1 1 * Diagnostic Imaging (Routine) - Closed Specialty Diagnoses / Procedures Referred By Unruly t Referred To Contact Diagnoses Bilateral hand pain Procedures XR Hand Left 3 or More Views Lawanda Sharpe MD [address] [place] [address] [address] [place] [address] Phone: tel: fax: [address] [phone] Referral ID Status Reason Start Date Expiration Date Visits Re quested Visits Authorized [id number] Closed 01/21/2024 02/19/2025 1 1 Reason for Visit * Reason Comments Trigger Finger Trigger Finger Encounter Details Date Type Department Care Team (Late st Contact Info) Description 01/22/2024 11:45 AM CDT Office Visit [facility] Hand Surgery [address] [facility] [address] [place] [address] Lawanda Sharpe MD [address] [place] [address] [address] [place] [address] Bilateral hand pain (Primary Dx); Trigger finger, unspecified finger, unspecified laterality Social History Tobacco Use Types Packs/Day Years Used Date Smoking Tobacco: Former Comments Unknown Sex and Gender Information Value Date Recorded Sex Assigned at Not on file 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 FOLLOW UP VISIT Subjective CHIEF COMPLAINT She had concerns including Trigger Finger of the Right Hand and Trigger Finger of the Left Hand. HISTORY OF PRESENT ILLNESS The patient is a 58-year-old left-hand dominant female with a past medical history of insulin-dependent diabetes, depression, hypertension, kidney stones who presents today for bilateral hand pain. She states that she has pain in multiple areas of her bilateral hands. She notes that she is aching pain and stiffness. Particularly at the base of her thumbs. She denies any paresthesias in her bilateral hands. Additionally today she has complaints of left thumb, left ring as well as right index trigger fingers. She states that these digits are triggering multiple times per day. She states that her left thumb is the worst. She has not had recent corticosteroid injections. MEDICATIONS She has a current medication list [...] and oriented to person, place and time Examination of the bilateral upper extremity demonstrates the patient is able fist and fully extendall digits. The full active range of motion of the wrist as well as full pronation and supination of forearm. There is no tenderness to palpation about the 1st dorsal compartment, 4th dorsal compartment or 6th dorsal compartment. There is no tenderness to palpation over the CMC joint and a negativeCMC grind test. Sensation is intact to light touch in the median, radial, and ulnar distributions. Digits are warm well perfused. There is a negative Tinel's and a negative Durkan sign. The patient has 5/5 apb and abduction strength. Additionally today she has tenderness to palpation with obvious triggering of the left thumb ring and right index fingers. There is obvious triggering on exam. REVIEW OF X-RAYS/STUDIES/LABS X-rays of the left hand dated today were reviewed by me and it is my interpretation there are no fractures, dislocations or malalignment. 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 Mild dorsal wrist soft tissue swelling is present. X-rays of the right hand dated today were reviewed by me and it is my interpretation there are no fractures, dislocations or malalignment. There is mild triscaphe and moderate basal thumb joint osteoarthritis. There is mild interphalangeal joint osteoarthritis. Assessment/Plan Comfort was seen today for trigger finger and trigger finger. Diagnoses and all orders for this visit: Bilateral hand pain - XR Hand Left 3 or More Views; Future - XR Hand Right 3 or More Views; Future Hand / Upper Extremity Arthrocentesis: L ring A1 Performed by: Lawanda Sharpe MD Authorized by: Lawanda Sharpe MD Consent Given by: Patient Site marked: the procedure site was marked Timeout: prior to procedure the correct patient, procedure, and site was verified Verbal consent obtained?: Yes Written consent obtained?: No Indications: Pain Condition: trigger finger Location: Ring finger Site: L ring A1 Prep: patient was prepped and draped in usual sterile fashion Prep: patient was prepped using a clean technique Medications Left Ring Injection: 1 mL lidocaine 10 mg/mL (1 %); 40 mg triamcinolone 40 mg/mL Hand / Upper Extremity Arthrocentesis: L thumb A1 Performed by: Lawanda Sharpe MD Authorized by: Lawanda Sharpe MD Consent Given by: Patient Site marked: the procedure site was marked Timeout: prior to procedure the correct patient, procedure, and site was verified Verbal consent obtained?: Yes Written consent obtained?: No Indications: Pain Condition: trigger finger Location: Thumb Site: L thumb A1 Prep: patient was prepped and draped in usual sterile fashion Prep: patient was prepped using a clean technique Medications Left Thumb Injection: 1 mL lidocaine 10 mg/mL (1 %); 40 mg triamcinolone 40 mg/mL Hand / Upper Extremity Arthrocentesis: R index A1 Performed by: Lawanda Sharpe MD Authorized by: Lawanda Sharpe MD Consent Given by: Patient Site marked: the procedure site was marked Timeout: prior to procedure the correct patient, procedure, and site was verified Verbal consent obtained?: Yes Written consent obtained?: No Indications: Pain Condition: trigger finger Location: Index finger Site: R index A1 Prep: patient was prepped and draped in usual sterile fashion Prep: patient was prepped using a clean technique Medications Right Index Injection: 1 mL lidocaine 10 mg/mL (1 %); 40 mg triamcinolone 40 mg/mL Patient tolerance: Patient tolerated the procedure well with no immediate complications PLAN This is a 58-year-old insulin dependent patient with diabetes who presents today for bilateral handpain consistent with osteoarthritis as well as left ring, left thumb and right index trigger fingers. I reviewed with the patient [...] increased blood sugar, and future surgery. We also discussed the risks and benefits of A1 vasile releases including but not limited to pain, infection, bleeding, risks neurovascularstructures, tendon injury, incomplete resolution of symptoms future surgery. This point the patient wished undergo corticosteroid injections for trigger fingers. She will use Voltaren gel as needed for her bilateral hand pain. She will return to see me on an as-needed basis. PROCEDURE NOTE: After a discussion of the indications and risks, the site was confirmed with a formal timeout. Using aseptic technique the of the left thumb was prepped and the base of the digit was topically anesthetized with Ethyl Chloride. Approximately 1 cc of a combination of Kenalog 40 milligram per cc and Lidocaine 1% without epinephrine was instilled in the flexor sheath by myself. A sterile dressing was applied and the patient tolerated it well. No adverse reactions were observed. PROCEDURE NOTE: After a discussion of the indications and risks, the site was confirmed with a formal timeout. Using aseptic technique the left ring finger was prepped and the base of the digit was topically anesthetized with Ethyl Chloride. Approximately 1 cc of a combination of Kenalog 40 milligram per cc and Lidocaine 1% without epinephrine was instilled in the flexor sheath by myself. A sterile dressing was applied and the patient tolerated it well. No adverse reactions were observed. PROCEDURE NOTE: After a discussion of the indications and risks, the site was confirmed with a formal timeout. Using aseptic technique the right index finger was prepped and the base of the digit wastopically anesthetized with Ethyl Chloride. Approximately 1 cc of a combination of Kenalog 40 milligram per cc and Lidocaine 1% without epinephrine was instilled in the flexor sheath by myself. A sterile dressing was applied and the patient tolerated it well. No adverse reactions were observed. Lawanda Sharpe MD documented in this encounter Plan of Treatment Not on file documented as of this encounter Procedures Procedure Name Priority Date/Time Associated Diagnosis Comments RI INJECTION 1 TENDON SHEATH/LIGAMENT APONEUROSIS Routine 01/22/2024 11:45 AM CDT Trigger finger, unspecified finger, unspecified laterality RI INJECTION 1 TENDON SHEATH/LIGAMENT APONEUROSIS Routine 01/22/2024 11:45 AM CDT Trigger finger, unspecified finger, unspecified laterality RI INJECTION 1 TENDON SHEATH/LIGAMENT APONEUROSIS Routine 01/22/2024 11:45 AM CDT Trigger finger, unspecified finger, unspecified laterality documented in this encounter Results * XR Hand Right 3 or More [...] ??No other radiographic evidence of inflammatory arthritis. Axlq-ew-ejuiqrbg bilateral triscaphe and basal thumb joint osteoarthritis. Mild bilateral interphalangeal joint osteoarthritis. THIS IS AN ELECTRONICALLY VERIFIED FINAL REPORT 01/22/2024 11:04 PM - Electronically signed by ??Kalpesh Alfonso M.D. D: ??01/22/2024 11:04 PM T: Report ID: [id number] Reading Location: ??[id number] Procedure Note Kalpesh Alfonso MD - 01/22/2024 [...] swelling. No other radiographicevidence of inflammatory arthritis. Tmyx-ev-cuxrwhin bilateral triscaphe and basal thumb jointosteoarthritis. Mild bilateral interphalangeal joint osteoarthritis. THIS IS AN ELECTRONICALLY VERIFIED FINAL REPORT 01/22/2024 11:04 PM - Electronically signed by Kalpesh Alfonso M.D. T: Report ID: [id number] Reading Location: [place] [address] us Lawanda Sharpe MD IMG XR PROCEDURES Final R esult * XR Hand Left 3 or More [...] ??No other radiographic evidence of inflammatory arthritis. Nxjm-ku-uubafjnk bilateral triscaphe and basal thumb joint osteoarthritis. Mild bilateral interphalangeal joint osteoarthritis. THIS IS AN ELECTRONICALLY VERIFIED FINAL REPORT 01/22/2024 11:04 PM - Electronically signed by ??Kalpesh Alfonso M.D. D: ??01/22/2024 11:04 PM T: Report ID: [id number] Reading Location: ??[id number] Procedure Note Kalpesh Alfonso MD - 01/22/2024 [...] swelling. No other radiographicevidence of inflammatory arthritis. Kjpf-qk-nnjpzcln bilateral triscaphe and basal thumb jointosteoarthritis. Mild bilateral interphalangeal joint osteoarthritis. THIS IS AN ELECTRONICALLY VERIFIED FINAL REPORT 01/22/2024 11:04 PM - Electronically signed by Kalpesh Alfonso M.D. T: Report ID: [id number] Reading Location: [place] [address] us Lawanda Sharpe MD IMG XR PROCEDURES Final R esult * RI INJECTION 1 TENDON SHEATH/LIGAMENT APONEUROSIS (01/22/2024 11:45 AM CDT) Narrative [place] Sharpe MD - 01/22/2024 11:45 AM CDT Lawanda Sharpe MD ? 01/25/2024 ??8:01 AM Hand / Upper Extremity Arthrocentesis: R index A1 Performed by: Lawanda Sharpe MD Authorized by: Lawanda Sharpe MD ?? Consent Given by: ??Patient Site marked: the procedure site was marked ?? Timeout: prior to procedure the correct patient, procedure, and site was verified ?? Verbal consent obtained?: Yes ?? Written consent obtained?: No ?? Indications: ??Pain Condition: trigger finger ?? Location: ??Index finger Site: ??R index A1 Prep: patient was prepped and draped in usual sterile fashion ?? Prep: patient was prepped using a clean technique ?? Medications Right Index Injection: ??1 mL lidocaine 10 mg/mL (1 %); 40 mg triamcinolone 40 mg/mL Patient tolerance: ??Patient tolerated the procedure well with no immediate complications us Lawanda Sharpe MD IN CLINIC/BEDSIDE ORDERAB LES Final Result * RI INJECTION 1 TENDON SHEATH/LIGAMENT APONEUROSIS (01/22/2024 11:45 AM CDT) Narrative Lawanda Sharpe MD - 01/22/2024 11:45 AM CDT Lawanda Sharpe MD ? 01/25/2024 ??8:01 AM Hand / Upper Extremity Arthrocentesis: L thumb A1 Performed by: Lawanda Sharpe MD Authorized by: Lawanda Sharpe MD ?? Consent Given by: ??Patient Site marked: the procedure site was marked ?? Timeout: prior to procedure the correct patient, procedure, and site was verified ?? Verbal consent obtained?: Yes ?? Written consent obtained?: No ?? Indications: ??Pain Condition: trigger finger ?? Location: ??Thumb Site: ??L thumb A1 Prep: patient was prepped and draped in usual sterile fashion ?? Prep: patient was prepped using a clean technique ?? Medications Left Thumb Injection: ??1 mL lidocaine 10 mg/mL (1 %); 40 mg triamcinolone 40 mg/mL us Lawanda Sharpe MD IN CLINIC/BEDSIDE ORDERAB LES Final Result * RI INJECTION 1 TENDON SHEATH/LIGAMENT APONEUROSIS (01/22/2024 11:45 AM CDT) Narrative Lawanda Sharpe MD - 01/22/2024 11:45 AM CDT Lawanda Sharpe MD ? 01/25/2024 ??8:01 AM Hand / Upper Extremity Arthrocentesis: L ring A1 Performed by: Lawanda Sharpe MD Authorized by: Lawanda Sharpe MD ?? Consent Given by: ??Patient Site marked: the procedure site was marked ?? Timeout: prior to procedure the correct patient, procedure, and site was verified ?? Verbal consent obtained?: Yes ?? Written consent obtained?: No ?? Indications: ??Pain Condition: trigger finger ?? Location: ??Ring finger Site: ??L ring A1 Prep: patient was prepped and draped in usual sterile fashion ?? Prep: patient was prepped using a clean technique ?? Medications Left Ring Injection: ??1 mL lidocaine 10 mg/mL (1 %); 40 mg triamcinolone 40 mg/mL us Lawanda Sharpe MD IN CLINIC/BEDSIDE ORDERAB LES Final Result documented in this encounter Visit Diagnoses Diagnosis Bilateral hand pain- Primary Trigger finger, unspecified finger, unspecified laterality Bilateral hand pain documented in this encounter Administered Medications Inactive Administered Medications - up to 3 most recent administrations Medication Order MAR Action Action Date Dose Rate Site lidocaine (XYLOCAINE) 10 mg/mL (1 %) injection 1 mL 1 mL, One-Time Injection, Starting on Thu01/22/24 at 1145, For 1 dose, Indications: Administration of Local AnesthesiaIndications:Admin istration of Local Anesthesia Given 01/22/2024 11:45 AM CDT 1 mL Left Ring Finger lidocaine (XYLOCAINE) 10 mg/mL (1 %) injection 1 mL 1 mL, One-Time Injection, Starting on Thu01/22/24 at 1145, For 1 dose, Indications: Administration of Local AnesthesiaIndications:Admin istration of Local Anesthesia Given 01/22/2024 11:45 AM CDT 1 mL Left Thumb lidocaine (XYLOCAINE) 10 mg/mL (1 %) injection 1 mL 1 mL, One-Time Injection, Starting on Thu01/22/24 at 1145, For 1 dose, Indications: Administration of Local AnesthesiaIndications:Admin istration of Local Anesthesia Given 01/22/2024 11:45 AM CDT 1 mL Right Index Finger triamcinolone (KENALOG) 40 mg/mL injection 40 mg 40 mg, intra-articular, One-Time Injection, Starting on Thu01/22/24 at 1145, For 1 doseIndications:Trigger finger, unspecified finger, unspecified laterality Given 01/22/2024 11:45 AM CDT 40 mg Left Ring Finger triamcinolone (KENALOG) 40 mg/mL injection 40 mg 40 mg, intra-articular, One-Time Injection, Starting on Thu01/22/24 at 1145, For 1 doseIndications:Trigger finger, unspecified finger, unspecified laterality Given 01/22/2024 11:45 AM CDT 40 mg Left Thumb triamcinolone (KENALOG) 40 mg/mL injection 40 mg 40 mg, intra-articular, One-Time Injection, Starting on Thu01/22/24 at 1145, For 1 doseIndications:Trigger finger, unspecified finger, unspecified laterality Given 01/22/2024 11:45 AM CDT 40 mg Right Index Finger documented in this encounter Care Teams Tobacco Curer Relationship Specialty Start Date End Date Sarah Yap DO [address] [address] PCP - General Family Medicine 09/03/20 documented as of this encounter
--- OUTSIDE RECORDS SUMMARY | 2024-08-08 14:22 | XMS_ITS ---
Author Organization [facility] Address [address] [place], [place] [id number] Care Team Providers Care Acid Recovery Operator Name Role Phone CHAYOYAAKOV BRANDON Unavailable [phone] Sarah Yap Unavailable Unavailable Allergies Allergen (clinical drug ingredient) Drug/Non Drug Allergy documented on EMR Reaction Allergy Type Onset Date Status No Known Drug Allergy Unknown Drug Allergy Active REASON FOR VISIT fracture 5th metatarsal Medications Medication SIG (Take, Route, Frequency, Duration) Notes Start Date End Date Status Lisinopril Active Atorvastatin Calcium Active Basaglar KwikPen Act castillo Metformin & Diet Manage Prod Active Venlafaxine HCl Acti ve Farxiga Active Cetirizine HCl Activ e Vital Signs Height 68.00 in 07/06/2023 Weight 240 lbs 07/06/2023 BMI 36.49 kg/m2 07/06/2023 Height-cm 172.72 cm 07/06/2023 Weight-kg 108.86 kg 07/06/2023 Encounters Encounter Location Date Provider Diagnosis [facility] [address] [place], [place] [id number] 07/06/2023 BRANDON CODY Sprain of anterior talofibular ligament of left ankle, initial encounter S93.492A ; Nondisplaced fracture of fifth metatarsal bone, left foot, initial encounter for closed fracture S92.355A and Left foot pain M79.672 Assessments Encounter Date Diagnosis (ICD Code) Assessment Notes Treatment Notes Treatment Clinical Notes Section Notes 07/06/2023 Sprain of anterior talofibular ligament of left ankle, initial encounter (ICD-10 - S93.492A) 07/06/2023 Nondisplaced fracture of fifth metatarsal bone, left foot, initial encounter for closed fracture (ICD-10 - S92.355A) 07/06/2023 Left foot pain (ICD-10 - M79.672) 07/06/2023 Other Dispense: A cam walker was fitted and dispensed. The patient was instructed in its use. Plan Of Treatment Treatment Notes Assessment Notes Other Dispense: A cam walker was fitted and dispensed. The patient was instructed in its use. Progress Notes * DAVID PEGUERO LDOB:1965 (58 yo F)Acc No.[id number]:07/06/2023 Progress Notes Patient:?DAVID PEGUERO Provider:?Brandon Cody DPM :1965???Age:58 Y???Sex:Female D ate:07/06/2023 Address:[address] [place] [address] Subjective: * Chief Complaints: * ???1. Fracture 5th metatarsa l. * HPI: ???HPI:?New Complaint?Patient presents for a new patient consultation. ?Patient complains of an issue to broken 5th metatarsal. Patient fell off the sidewalk on 06/25/2023. There has been consistent swelling and bruising. Patient went to PCP on 07/03 where X-rays showed a fracture. Patient has been taking Advil. ?Duration of problem is 2 weeks. ?MA:SS.? * ROS:?General / Constitutional:?Patient denies?chills, fever.?Endocrine:?Patient denies?excessive thirst, frequent urination.?Cardiovascular:?Patient denies?shortness of breath, chest pain.?Skin:?Patient denies?mole changes.? * Medical History:?Arthritis, Kidney stones, Skin cancer, Diabetic, High Blood Pressure. * Medications:?Taking Farxiga , Taking Cetirizine HCl , Taking Metformin & Diet Manage Prod , Taking Venlafaxine HCl , Taking Lisinopril , Taking Atorvastatin Calcium , Taking Basaglar KwikPen * Allergies:?No Known Drug All ergy. Objective: * Vitals:?Shoe Size: 8, Wt:240 lbs, Wt-k.86 kg, Ht: 68.00 in, Ht-cm: 172.72 cm, BMI:36.49Index, Body Surface Area: 2.28. * Examination: ???Physical Examination: ?Gen:?The patient is [...] to all digits. .? Assessment: * Assessment: 1.?Sprain of anterior talofi bular ligament of left ankle, initial encounter - S93.492A (Primary)?2.?Nondisplaced fracture of fifth metatarsal bone, left foot, initial encounter for closed fracture - S92.355A?3.?Left foot pain - M79.672? Plan: * Treatment: * Procedure Codes:?61476 X-RAY EXAM OF FOOT, Modifiers: LT , L4361 WALKING BOOT PNEUMATIC AND/OR VAC, Modifiers: , ZAID * Billing Information: * Visit Code:? 38200 Office Visit, New Pt., Level 3. * Procedure Codes:? 38086 X-RAY EXAM OF FOOT. Modifiers: LT L4361 WALKING BOOT PNEUMATIC AND/OR VAC. Modifiers: , GA * S FRAME FITTER Sign off status: Completed true * Provider:?Brandon Cody DPM Date: ?07/06/2023 Generated for Harley rosas/Mahogany/Fatou on:?08/08/2024 02:21 PM GLASS FRAME FITTER History and Physical Notes * HPI (History of Present Illness) Category Sub-Category Detail Notes Category Not es HPI New Complaint Patient presents for a new patient consultation. Patient complains of an issue to broken 5th metatarsal. Patient fell off the sidewalk on 06/25/2023. There has been consistent swelling and bruising. Patient went to PCP on 07/03 where X-rays showed a fracture. Patient has been taking Advil. Duration of problem is 2 weeks. MA:SS Examination Category Sub-Category Detail Notes Category [...]
--- OUTSIDE RECORDS SUMMARY | 2024-08-08 14:22 | XMS_ITS | Patient Health Record ---
Author Organization [facility] Address [address] [place], [place] [id number] Care Team Providers Care Bag Press Operator Name Role Phone BRANDON VALENTIN Unavailable [phone] Sarah Yap Unavailable Unavailable Allergies Allergen (clinical drug ingredient) Drug/Non Drug Allergy documented on EMR Reaction Allergy Type Onset Date Status No Known Drug Allergy Unknown Drug Allergy Active Reason For Referral No Information Medications Medication SIG (Take, Route, Frequency, Duration) Notes Start Date End Date Status Cetirizine HCl Activ e Farxiga Active Basaglar KwikPen Act castillo Venlafaxine HCl Acti ve Metformin & Diet Manage Prod Active Atorvastatin Calcium Active Lisinopril Active Vital Signs Height-cm 172.72 cm 08/25/2023 Weight-kg 90.72 kg 08/25/2023 Height 68.00 in 08/25/2023 Weight 200 lbs 08/25/2023 BMI 30.41 kg/m2 08/25/2023 Encounters Encounter Location Date Provider Diagnosis [facility] [address] [place], [place] [id number] 08/25/2023 BRANDON VALENTIN Nondisplaced fracture of fifth metatarsal bone, left [...] normal shoes as tolerated. Plan Of Treatment No Information Insurance Providers Payer Name Payer Address Payer Phone Subscriber Number Group Number Insured Name Patient Relationship to Insured Coverage Start Date Coverage End Date [facility] ([facility]) ATTN CLAIMS [address] [place] [address] [id number] DAVID PEGUERO Self - patient is the insured Medical (General) History Medical History History ICD Code Arthritis kidney stones skin cancer Diabetic High Blood Pressure
== END 2024-08-01 11:51 | disposition short-term general hospital (02) ==
PROVIDERS: Emergency Provider Physician Assistant; PCP Family Medicine
DX: S22.41XA Multiple fractures of ribs, right side, initial encounter for closed fracture (principal); S22.061A Stable burst fracture of T7-T8 vertebra, initial encounter for closed fracture; M19.011 Primary osteoarthritis, right shoulder; W10.9XXA Fall (on) (from) unspecified stairs and steps, initial encounter
CPT/HCPCS: 71250; 73030; 99284; 99285; A9270